=== PATIENT | male | born 1990 | race Caucasian/White ===

== ENCOUNTER 2023-03-15 16:20 | Inpatient (IN) | payer OTHER, SELFPAY ==
[2023-03-15 16:45] VITALS: BP 122/67; PULSE 82; RESP 18; TEMP 36.1; O2SAT 98
[2023-03-15 17:18] VITALS: BMI 43.1
[2023-03-15 17:38] VITALS: BP 122/67; PULSE 82; RESP 18; TEMP 36.1; O2SAT 98
--- NOTE | 2023-03-15 18:18 | P.CNHOSGPS_ITS ---
History of Present Illness Data of Consult Service Date: 03/15/23 Primary Care Provider: Unknown Physician HPI Reason for consult: DM 32-year-old male with history of?Asperger syndrome, bipolar disorder, DM, obesity admitted ot inpatient psych for aggressive behaviour. patient has no active medical complaints Review of Systems Review of Systems: Yes all other systems are reviewed and are negative [facility] Medical History (Updated 03/15/23 @ 18:19 by Prakash Deleon MD) Diabetes Social History Household Members: None Housing: Homeless Do you presently have visiting nurse or other home services: No Patient Tobacco Use Status: Current everyday Tobacco user Tobacco use type: Cigarette Cigarette Packs Per Day: 1 Cigarettes Per Day: 20.0 Years Smoked: 11 Smoked in Last 30 Days: Yes e-Cigarette/Vaping Use: Never Used Patient Interested in Nicotine Replacement: Yes Patient Given Instructions on How to Stop Smoking: Yes Date Education Initiated: 03/15/23 Second Hand Smoke Exposure: No Use of substances other than those prescribed or required for medical reasons: Yes Substance Use Type: Marijuana Substance Use Frequency: Daily Last Used Substance: Days (ago) Currently Displaying Signs/Symptoms of Drug Intoxication Withdrawal: No Any prior treatment program specific to substance use: No Have you been hit, kicked, punched, or otherwise hurt by someone within the past year? If so, by whom?: No Do you feel safe in your current relationship?: No Current Relationship Is there a partner from a previous relationship who is making you feel unsafe now?: No Are you made to feel afraid or neglected: No Advance Directives: No Advance Directives Information Provided: Yes Do you have thoughts of harming others: None Do you have a plan to hurt others: No Plan Recently lost weight without trying: No How much weight loss: Not applicable Eating poorly because of decreased appetite: No Nutrition screen score: 0 Nutrition Risks: No Nutritional Risk Poor oral hygiene: Yes Meds Allergies Allergy/AdvReac Type Severity Reaction Status Date / Time amoxicillin Allergy Hives Verified 03/15/23 17:19 Active Medications: Current Medications Acetaminophen (Acetaminophen 325 Mg Tablet) 650 mg PO Q6H PRN PRN Reason: Headache/Pain Mild Scale (1-3) Al Hydroxide/Mg Hydroxide (Magnesium Hydrox/Alum Hydrox 30 Ml Oral.Susp) 30 ml PO Q6H PRN PRN Reason: Heartburn/Nausea Benztropine Mesylate (Benztropine Mesylate 0.5 Mg Tablet) 0.5 mg PO DAILY [facility] Clonidine HCl (Clonidine Hcl 0.1 Mg Tablet) 0.1 mg PO BEDTIME [facility]; Protocol Divalproex Sodium (Divalproex Sodium Er 500 Mg Tab.Er.24h) 500 mg PO TID [facility] Hydroxyzine HCl (Hydroxyzine Hcl 25 Mg Tablet) 25 mg PO Q6H PRN PRN Reason: Anxiety Hydroxyzine HCl (Hydroxyzine Hcl 50 Mg Tablet) 50 mg PO BID PRN PRN Reason: Anxiety Magnesium Hydroxide (Milk Of Magnesia 30 Ml Oral.Susp) 30 ml PO DAILY PRN PRN Reason: Constipation Metformin HCl (Metformin Hcl 500 Mg Tablet) 500 mg PO DAILY [facility] Nicotine Polacrilex (Nicotine Polacrilex 2 Mg Gum) 4 mg BUCCAL Q2H PRN PRN Reason: Nicotine Cravings Olanzapine (Olanzapine 5 Mg Tablet) 5 mg PO TID PRN PRN Reason: agitation Perphenazine (Perphenazine 8 Mg Tablet) 16 mg PO DAILY [facility] Trazodone HCl (Trazodone Hcl 50 Mg Tablet) 50 mg PO BEDTIME MRX1 PRN PRN Reason: Insomnia Home Medications Medication Instructions Recorded Confirmed Last Taken Type benztropine 0.5 mg tablet 0.5 mg PO DAILY 03/15/23 03/15/23 Unknown History clonidine HCl 0.2 mg tablet 0.2 mg PO BEDTIME 03/15/23 03/15/23 Unknown History divalproex 500 mg tablet,extended 500 mg PO TID 03/15/23 03/15/23 Unknown History release 24 hr (Depakote ER) hydroxyzine pamoate 50 mg capsule 50 mg PO BID PRN Anxiety 03/15/23 03/15/23 Unknown History (Vistaril) metformin 500 mg tablet 500 mg PO DAILY 03/15/23 03/15/23 Unknown History naltrexone 50 mg tablet 50 mg PO DAILY 03/15/23 03/15/23 Unknown History perphenazine 16 mg tablet 16 mg PO DAILY 03/15/23 03/15/23 Unknown History trazodone 50 mg tablet 50 mg PO BEDTIME 03/15/23 03/15/23 Unknown History Assessment and Plan (1) Diabetes: Status: Acute Plan 32-year-old male with history of?Asperger syndrome, bipolar disorder, DM, obesity, admitted to inpatient psych DM metformin obesity weight loss Physical Exam Vital Signs: Last Vital Signs Temp 97.0 F 03/15/23 17:38 Pulse 82 03/15/23 17:38 Resp 18 03/15/23 17:38 BP 122/67 03/15/23 17:38 Pulse Ox 98 03/15/23 17:38 O2 Del Method Room Air 03/15/23 17:38 BMI result Body Mass Index 35.9 General: AO X 3, no acute distress Resp: CTA bilateral, no accessory muscles used CVS: S1,S2,RRR GI: soft, non tender, non distended Neuro: motor grossly intact, alert Psych: appropriate affect, appropriate insight Neuro Cranial nerves: Yes CN's II-XII intact bilaterally
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
[2023-03-15] MEDS: Divalproex Sodium ER 500 MG TAB.ER.24H PO (19:53)
[2023-03-15] MEDS: hydrOXYzine HCL 50 MG TABLET PO (19:54)
[2023-03-15] MEDS: cloNIDine HCL 0.1 MG TABLET PO (19:54)
[2023-03-15 19:55] VITALS: BP 131/95; PULSE 97; TEMP 36.6; O2SAT 97
[2023-03-16] MEDS: Perphenazine 8 MG TABLET 16 MG PO ×2 (09:04→20:27)
[2023-03-16] MEDS: Benztropine Mesylate 0.5 MG TABLET PO ×2 (09:04→21:39)
[2023-03-16] MEDS: OLANZapine 5 MG TABLET PO (09:04)
[2023-03-16] MEDS: metFORMIN HCl 500 MG TABLET PO (09:04)
[2023-03-16] MEDS: Divalproex Sodium ER 500 MG TAB.ER.24H PO (09:04)
[2023-03-16 09:30] LABS: Cholesterol 142 mg/dL (<200); HDL Cholesterol 48 mg/dL (>40); LDL Cholesterol Calculated 76 mg/dL (<100); Triglycerides 92 mg/dL (<150)
[2023-03-16 09:32] VITALS: BP 151/85; PULSE 92; RESP 20; TEMP 36.7; O2SAT 97
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
[2023-03-16 10:16] LABS: Estimated Average Glucose 100 mg/dL; Hemoglobin A1c % 5.1 % (<6.0)
[2023-03-16] MEDS: OLANZapine ODT 10 MG TAB.RAPDIS TRANSLINGU (10:55)
[2023-03-16] MEDS: LORazepam 1 MG TABLET 2 MG PO (10:55)
[2023-03-16 20:21] VITALS: BP 124/57; PULSE 79; TEMP 36.6; O2SAT 94
[2023-03-16] MEDS: Divalproex Sodium ER 500 MG TAB.ER.24H 2000 MG PO (20:26)
[2023-03-16] MEDS: Divalproex Sodium ER 250 MG TAB.ER.24H PO (20:27)
[2023-03-16] MEDS: cloNIDine HCL 0.2 MG TABLET PO (21:38)
[2023-03-16] MEDS: Melatonin 3 MG TABLET PO (21:39)
[2023-03-17 06:00] VITALS: BP 102/55; PULSE 63; RESP 18; TEMP 36.2; O2SAT 94
[2023-03-17] MEDS: OLANZapine 5 MG TABLET PO (08:50)
[2023-03-17] MEDS: Perphenazine 8 MG TABLET 16 MG PO ×2 (08:50→20:15)
[2023-03-17] MEDS: metFORMIN HCl 500 MG TABLET PO ×2 (08:51→18:02)
[2023-03-17] MEDS: Naltrexone HCl 50 MG TABLET PO (09:13)
[2023-03-17] MEDS: LORazepam 1 MG TABLET PO (09:13)
[2023-03-17 09:20] LABS: Creatinine Clr Calc Pharmacy 173.1; Estimated Glomerular Filt Rate > 60
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
[2023-03-17] MEDS: hydrOXYzine HCL 50 MG TABLET PO (14:04)
[2023-03-17 20:12] VITALS: BP 159/85; PULSE 81; RESP 18; TEMP 36.2; O2SAT 98
[2023-03-17] MEDS: cloNIDine HCL 0.2 MG TABLET PO (20:15)
[2023-03-17] MEDS: Divalproex Sodium ER 250 MG TAB.ER.24H PO (20:15)
[2023-03-17] MEDS: Divalproex Sodium ER 500 MG TAB.ER.24H 2000 MG PO (20:15)
[2023-03-17] MEDS: Benztropine Mesylate 0.5 MG TABLET PO (20:15)
[2023-03-17] MEDS: Melatonin 3 MG TABLET PO (20:15)
[2023-03-18 06:00] VITALS: BP 122/79; PULSE 100; TEMP 36.7; O2SAT 94
[2023-03-18] MEDS: Naltrexone HCl 50 MG TABLET PO (08:09)
[2023-03-18] MEDS: OLANZapine 5 MG TABLET PO (08:10)
[2023-03-18] MEDS: metFORMIN HCl 500 MG TABLET PO ×2 (08:10→17:54)
[2023-03-18] MEDS: Perphenazine 8 MG TABLET 16 MG PO ×2 (08:11→20:06)
[2023-03-18] MEDS: LORazepam 1 MG TABLET PO (08:11)
--- NOTE | 2023-03-18 18:13 | P.PNPSI_ITS ---
Subjective Subjective Date of Service: 03/18/23 Reason For Visit: Unspecified bipolar disorder, depressive disorder Interim History: found lying in bed napping late afternoon. states he is feeling a little depressed, otherwise has no complaints or requests. per staff, got PRN ativan and zyprexa yesterday. 3-day up . dep 10 anx 7. Mental Status Exam Mental Status Exam Narrative: lying in his bed napping late afternoon, rousable to voice. cooperative, no PMA/PMR. speech nml rate, amount, loudness, tone, latency. thoughts linear and logical. affect constricted, normo-intense, non-labile. mood a little depressed. no SI/HI/AVH expressed. Diagnostics Vital Signs (24Hr): Vital Signs - 24 hr 03/17/23 20:12 03/18/23 06:00 Temperature 97.1 F 98.0 F Pulse Rate 81 100 Respiratory Rate 18 Blood Pressure 159/85 H 122/79 Pulse Oximetry 98 94 Oxygen Delivery Method Room Air Room Air BMI result Body Mass Index 43.1 Labs 03/17/23 08:44 Labs: Laboratory Results - last 48 hr 03/17/23 08:44 Creatinine 0.79 Estim Creat Clear Calc 173.1 Estimated GFR > 60 Medications Medications Current Medications Acetaminophen (Acetaminophen 325 Mg Tablet) 650 mg PO Q6H PRN PRN Reason: Headache/Pain Mild Scale (1-3) Al Hydroxide/Mg Hydroxide (Magnesium Hydrox/Alum Hydrox 30 Ml Oral.Susp) 30 ml PO Q6H PRN PRN Reason: Heartburn/Nausea Benztropine Mesylate (Benztropine Mesylate 0.5 Mg Tablet) 0.5 mg PO BEDTIME [facility] Last Admin: 03/17/23 20:15 Dose: 0.5 mg Clonidine HCl (Clonidine Hcl 0.2 Mg Tablet) 0.2 mg PO BEDTIME [facility]; Protocol Last Admin: 03/17/23 20:15 Dose: 0.2 mg Divalproex Sodium (Divalproex Sodium Er 250 Mg Tab.Er.24h) 250 mg PO BEDTIME [facility] Last Admin: 03/17/23 20:15 Dose: 250 mg Divalproex Sodium (Divalproex Sodium Er 500 Mg Tab.Er.24h) 2,000 mg PO BEDTIME [facility] Last Admin: 03/17/23 20:15 Dose: 2,000 mg Hydroxyzine HCl (Hydroxyzine Hcl 50 Mg Tablet) 50 mg PO BID PRN PRN Reason: Anxiety Last Admin: 03/17/23 14:04 Dose: 50 mg Lorazepam (Lorazepam 1 Mg Tablet) 1 mg PO TID PRN PRN Reason: agitation Last Admin: 03/18/23 08:11 Dose: 1 mg Magnesium Hydroxide (Milk Of Magnesia 30 Ml Oral.Susp) 30 ml PO DAILY PRN PRN Reason: Constipation Melatonin (Melatonin 3 Mg Tablet) 3 mg PO BEDTIME COUNTS INCLUDE 234 BEDS AT THE [facility] Last Admin: 03/17/23 20:15 Dose: 3 mg Metformin HCl (Metformin Hcl 500 Mg Tablet) 500 mg PO BIDWM COUNTS INCLUDE 234 BEDS AT THE [facility] Last Admin: 03/18/23 17:54 Dose: 500 mg Naltrexone HCl (Naltrexone Hcl 50 Mg Tablet) 50 mg PO DAILY COUNTS INCLUDE 234 BEDS AT THE [facility] Last Admin: 03/18/23 08:09 Dose: 50 mg Nicotine Polacrilex (Nicotine Polacrilex 2 Mg Gum) 4 mg BUCCAL Q2H PRN PRN Reason: Nicotine Cravings Olanzapine (Olanzapine 5 Mg Tablet) 5 mg PO TID PRN PRN Reason: agitation Last Admin: 03/18/23 08:10 Dose: 5 mg Perphenazine (Perphenazine 8 Mg Tablet) 16 mg PO BID COUNTS INCLUDE 234 BEDS AT THE [facility] Last Admin: 03/18/23 08:11 Dose: 16 mg Allergies Allergies Allergy/AdvReac Type Severity Reaction Status Date / Time amoxicillin Allergy Hives Verified 03/15/23 17:19 Assessment & Plan Assessment & Plan (1) Bipolar disorder, curr episode mixed, severe, with psychotic features: Status: Acute Code(s): F31.64 - Bipolar disorder, current episode mixed, severe, with psychotic features Plan restart/continue pt's outpt regimen, by and large. ensure he has a therapeutic serum level of mood stabilizer. per verbal verification by AMIRA Moreland with dispensing pharmacy, pt's outpt perphenazine regimen is 8 mg daily and 40 mg QHS. this has been changed to 16 mg BID for the time being. pt's outpt VPA dose was verified to be 1500 mg QHS. this patient weighs 274 lbs, indicating a more likely therapeutic VPA dosing is likely to be in the 3978-1898 range. therefore, his VPA dose was increased to 2250 as of tonight. decreased antipsychotic dosing and increased mood stabilizer dosing is being undertaken with the assumption pt's inadequately treated bebeto was being addressed with escalating doses of antipsychotic. should adequate serum level of VPA remain insufficient to control pt's symptoms along with 32 mg daily of perphenazine, perphenazine should be titrated upward toward previous total daily dose of 48 mg. he does appear to have some renal impairment, which should be kept in mind in prescribing. DC trazodone as an inadequate sleep aid in florid bebeto. 03/17 continue current medication regimen. 03/18: continue current mgmt. calm and cooperative today. Reason for continued inpatient stay Substantial Risk for: inability to function and rapid decompensation Time Spent With Patient Time: Total time managing care of this patient today ____ minutes.
[2023-03-18 19:52] VITALS: BP 140/77; PULSE 102; RESP 18; TEMP 36.5; O2SAT 97
[2023-03-18] MEDS: cloNIDine HCL 0.2 MG TABLET PO (20:06)
[2023-03-18] MEDS: Melatonin 3 MG TABLET PO (20:06)
[2023-03-18] MEDS: Divalproex Sodium ER 250 MG TAB.ER.24H PO (20:06)
[2023-03-18] MEDS: Benztropine Mesylate 0.5 MG TABLET PO (20:06)
[2023-03-18] MEDS: Divalproex Sodium ER 500 MG TAB.ER.24H 2000 MG PO (20:07)
[2023-03-19 08:10] VITALS: BP 125/64; PULSE 72; RESP 20; TEMP 36.2; O2SAT 97
[2023-03-19] MEDS: Perphenazine 8 MG TABLET 16 MG PO ×2 (09:06→20:25)
[2023-03-19] MEDS: Naltrexone HCl 50 MG TABLET PO (09:06)
[2023-03-19] MEDS: metFORMIN HCl 500 MG TABLET PO ×2 (09:07→18:17)
[2023-03-19] MEDS: LORazepam 1 MG TABLET PO ×2 (09:07→20:26)
[2023-03-19] MEDS: OLANZapine 5 MG TABLET PO (09:13)
[2023-03-19 19:40] VITALS: BP 142/75; PULSE 95; RESP 16; TEMP 36.5; O2SAT 95
--- NOTE | 2023-03-19 20:04 | HO.PSYCHPN ---
Subjective Subjective Date of Service: 03/19/23 Reason For Visit: Unspecified bipolar disorder, depressive disorder Interim History: lying in bed mid-day. calm, cooperative. talking about leaving tomorrow, encouraged to enter 3-day notice, which he does. talking about issues with my girl and his plans to travel via [place]. per staff, taking meds. slept well. less labile. blaming mother for break up with GF. got ativan/zyprexa PRNs this morning. refusing POC. Mental Status Exam Mental Status Exam Narrative: lying in his bed napping late afternoon, rousable to voice. cooperative, no PMA/PMR. speech nml rate, amount, loudness, tone, latency. thoughts linear and logical. affect constricted, normo-intense, non-labile. no SI/HI/AVH expressed. Diagnostics Vital Signs (24Hr): Vital Signs - 24 hr 03/19/23 08:10 Temperature 97.1 F Pulse Rate 72 Respiratory Rate 20 Blood Pressure 125/64 Pulse Oximetry 97 Oxygen Delivery Method Room Air BMI result Body Mass Index 43.1 Labs 03/17/23 08:44 Medications Medications Current Medications Acetaminophen (Acetaminophen 325 Mg Tablet) 650 mg PO Q6H PRN PRN Reason: Headache/Pain Mild Scale (1-3) Al Hydroxide/Mg Hydroxide (Magnesium Hydrox/Alum Hydrox 30 Ml Oral.Susp) 30 ml PO Q6H PRN PRN Reason: Heartburn/Nausea Benztropine Mesylate (Benztropine Mesylate 0.5 Mg Tablet) 0.5 mg PO BEDTIME [facility] Last Admin: 03/18/23 20:06 Dose: 0.5 mg Clonidine HCl (Clonidine Hcl 0.2 Mg Tablet) 0.2 mg PO BEDTIME [facility]; Protocol Last Admin: 03/18/23 20:06 Dose: 0.2 mg Divalproex Sodium (Divalproex Sodium Er 250 Mg Tab.Er.24h) 250 mg PO BEDTIME [facility] Last Admin: 03/18/23 20:06 Dose: 250 mg Divalproex Sodium (Divalproex Sodium Er 500 Mg Tab.Er.24h) 2,000 mg PO BEDTIME [facility] Last Admin: 03/18/23 20:07 Dose: 2,000 mg Hydroxyzine HCl (Hydroxyzine Hcl 50 Mg Tablet) 50 mg PO BID PRN PRN Reason: Anxiety Last Admin: 03/17/23 14:04 Dose: 50 mg Lorazepam (Lorazepam 1 Mg Tablet) 1 mg PO TID PRN PRN Reason: agitation Last Admin: 03/19/23 09:07 Dose: 1 mg Magnesium Hydroxide (Milk Of Magnesia 30 Ml Oral.Susp) 30 ml PO DAILY PRN PRN Reason: Constipation Melatonin (Melatonin 3 Mg Tablet) 3 mg PO BEDTIME [facility] Last Admin: 03/18/23 20:06 Dose: 3 mg Metformin HCl (Metformin Hcl 500 Mg Tablet) 500 mg PO BIDWM [facility] Last Admin: 03/19/23 18:17 Dose: 500 mg Naltrexone HCl (Naltrexone Hcl 50 Mg Tablet) 50 mg PO DAILY [facility] Last Admin: 03/19/23 09:06 Dose: 50 mg Nicotine Polacrilex (Nicotine Polacrilex 2 Mg Gum) 4 mg BUCCAL Q2H PRN PRN Reason: Nicotine Cravings Olanzapine (Olanzapine 5 Mg Tablet) 5 mg PO TID PRN PRN Reason: agitation Last Admin: 03/19/23 09:13 Dose: 5 mg Perphenazine (Perphenazine 8 Mg Tablet) 16 mg PO BID [facility] Last Admin: 03/19/23 09:06 Dose: 16 mg Allergies Allergies Allergy/AdvReac Type Severity Reaction Status Date / Time amoxicillin Allergy Hives Verified 03/15/23 17:19 Assessment & Plan Assessment & Plan (1) Bipolar disorder, curr episode mixed, severe, with psychotic features: Status: Acute Code(s): F31.64 - Bipolar disorder, current episode mixed, severe, with psychotic features Plan restart/continue pt's outpt regimen, by and large. ensure he has a therapeutic serum level of mood stabilizer. per verbal verification by AMIRA Moreland with dispensing pharmacy, pt's outpt perphenazine regimen is 8 mg daily and 40 mg QHS. this has been changed to 16 mg BID for the time being. pt's outpt VPA dose was verified to be 1500 mg QHS. this patient weighs 274 lbs, indicating a more likely therapeutic VPA dosing is likely to be in the 4888-1636 range. therefore, his VPA dose was increased to 2250 as of tonight. decreased antipsychotic dosing and increased mood stabilizer dosing is being undertaken with the assumption pt's inadequately treated bebeto was being addressed with escalating doses of antipsychotic. should adequate serum level of VPA remain insufficient to control pt's symptoms along with 32 mg daily of perphenazine, perphenazine should be titrated upward toward previous total daily dose of 48 mg. he does appear to have some renal impairment, which should be kept in mind in prescribing. DC trazodone as an inadequate sleep aid in [place] bebeto. 03/17 continue current medication regimen. 03/18: continue current mgmt. calm and cooperative today. 03/19: continue current mgmt. remains calm and cooperative. asking for discharge, submitted 3-day notice. Reason for continued inpatient stay Substantial Risk for: harm to self, harm to others, inability to function and rapid decompensation Time Spent With Patient Time: Total time managing care of this patient today ____ minutes.
[2023-03-19] MEDS: Melatonin 3 MG TABLET PO (20:25)
[2023-03-19] MEDS: Divalproex Sodium ER 250 MG TAB.ER.24H PO (20:26)
[2023-03-19] MEDS: cloNIDine HCL 0.2 MG TABLET PO (20:26)
[2023-03-19] MEDS: Divalproex Sodium ER 500 MG TAB.ER.24H 2000 MG PO (20:27)
[2023-03-19] MEDS: Benztropine Mesylate 0.5 MG TABLET PO (20:28)
[2023-03-19] MEDS: Acetaminophen 325 MG TABLET 650 MG PO (21:53)
[2023-03-20] MEDS: Naltrexone HCl 50 MG TABLET PO (08:35)
[2023-03-20] MEDS: metFORMIN HCl 500 MG TABLET PO ×2 (08:35→16:08)
[2023-03-20] MEDS: Perphenazine 8 MG TABLET 16 MG PO ×2 (08:35→20:23)
[2023-03-20 09:12] VITALS: BP 109/65; PULSE 98; RESP 18; TEMP 36.6; O2SAT 97
--- NOTE | 2023-03-20 13:27 | HO.PSYCHPN ---
Subjective Subjective Date of Service: 03/20/23 Reason For Visit: Unspecified bipolar disorder, depressive disorder Interim History: calm, cooperative with MD. asking to be able to make 5 calls per day, which is agreed to after MD reviews plan with RN. no longer only making calls at the top of the hour. asking to leave today or tomorrow, reinforced will have to wait until . overheard on phone with mother, yelling at her. per staff, 3-day up . outbursts on monday, but redirectable. dep 10 anx 7. taking meds. calling mother hourly monday. got PRNs for agitation monday and monday. Mental Status Exam Mental Status Exam Narrative: up and about the unit, disheveled, poor hygiene. cooperative, no PMA/PMR. speech nml rate, amount, loudness, tone, latency. thoughts linear and logical. affect constricted, normo-intense, non-labile. no SI/HI/AVH expressed. overheard yelling at his mother on the phone, however. Diagnostics Vital Signs (24Hr): Vital Signs - 24 hr 03/19/23 19:40 03/20/23 09:12 Temperature 97.7 F 97.9 F Pulse Rate 95 98 Respiratory Rate 16 18 Blood Pressure 142/75 H 109/65 Pulse Oximetry 95 97 Oxygen Delivery Method Room Air Room Air BMI result Body Mass Index 43.1 Labs 03/17/23 08:44 Medications Medications Current Medications Acetaminophen (Acetaminophen 325 Mg Tablet) 650 mg PO Q6H PRN PRN Reason: Headache/Pain Mild Scale (1-3) Last Admin: 03/19/23 21:53 Dose: 650 mg Al Hydroxide/Mg Hydroxide (Magnesium Hydrox/Alum Hydrox 30 Ml Oral.Susp) 30 ml PO Q6H PRN PRN Reason: Heartburn/Nausea Benztropine Mesylate (Benztropine Mesylate 0.5 Mg Tablet) 0.5 mg PO BEDTIME [facility] Last Admin: 03/19/23 20:28 Dose: 0.5 mg Clonidine HCl (Clonidine Hcl 0.2 Mg Tablet) 0.2 mg PO BEDTIME [facility]; Protocol Last Admin: 03/19/23 20:26 Dose: 0.2 mg Divalproex Sodium (Divalproex Sodium Er 250 Mg Tab.Er.24h) 250 mg PO BEDTIME [facility] Last Admin: 03/19/23 20:26 Dose: 250 mg Divalproex Sodium (Divalproex Sodium Er 500 Mg Tab.Er.24h) 2,000 mg PO BEDTIME [facility] Last Admin: 03/19/23 20:27 Dose: 2,000 mg Hydroxyzine HCl (Hydroxyzine Hcl 50 Mg Tablet) 50 mg PO BID PRN PRN Reason: Anxiety Last Admin: 03/17/23 14:04 Dose: 50 mg Lorazepam (Lorazepam 1 Mg Tablet) 1 mg PO TID PRN PRN Reason: agitation Last Admin: 03/19/23 20:26 Dose: 1 mg Magnesium Hydroxide (Milk Of Magnesia 30 Ml Oral.Susp) 30 ml PO DAILY PRN PRN Reason: Constipation Melatonin (Melatonin 3 Mg Tablet) 3 mg PO BEDTIME [facility] Last Admin: 03/19/23 20:25 Dose: 3 mg Metformin HCl (Metformin Hcl 500 Mg Tablet) 500 mg PO BIDWM [facility] Last Admin: 03/20/23 08:35 Dose: 500 mg Naltrexone HCl (Naltrexone Hcl 50 Mg Tablet) 50 mg PO DAILY [facility] Last Admin: 03/20/23 08:35 Dose: 50 mg Nicotine Polacrilex (Nicotine Polacrilex 2 Mg Gum) 4 mg BUCCAL Q2H PRN PRN Reason: Nicotine Cravings Olanzapine (Olanzapine 5 Mg Tablet) 5 mg PO TID PRN PRN Reason: agitation Last Admin: 03/19/23 09:13 Dose: 5 mg Perphenazine (Perphenazine 8 Mg Tablet) 16 mg PO BID [facility] Last Admin: 03/20/23 08:35 Dose: 16 mg Allergies Allergies Allergy/AdvReac Type Severity Reaction Status Date / Time amoxicillin Allergy Hives Verified 03/15/23 17:19 Assessment & Plan Assessment & Plan (1) Bipolar disorder, curr episode mixed, severe, with psychotic features: Status: Acute Code(s): F31.64 - Bipolar disorder, current episode mixed, severe, with psychotic features Plan restart/continue pt's outpt regimen, by and large. ensure he has a therapeutic serum level of mood stabilizer. per verbal verification by AMIRA Moreland with dispensing pharmacy, pt's outpt perphenazine regimen is 8 mg daily and 40 mg QHS. this has been changed to 16 mg BID for the time being. pt's outpt VPA dose was verified to be 1500 mg QHS. this patient weighs 274 lbs, indicating a more likely therapeutic VPA dosing is likely to be in the 2538-1810 range. therefore, his VPA dose was increased to 2250 as of tonight. decreased antipsychotic dosing and increased mood stabilizer dosing is being undertaken with the assumption pt's inadequately treated bebeto was being addressed with escalating doses of antipsychotic. should adequate serum level of VPA remain insufficient to control pt's symptoms along with 32 mg daily of perphenazine, perphenazine should be titrated upward toward previous total daily dose of 48 mg. he does appear to have some renal impairment, which should be kept in mind in prescribing. DC trazodone as an inadequate sleep aid in [place] bebeto. 03/17 continue current medication regimen. 03/18: continue current mgmt. calm and cooperative today. 03/19: continue current mgmt. remains calm and cooperative. asking for discharge, submitted 3-day notice. 03/20: continue current mgmt. variably calm and cooperative with yelling at mother on phone. asking for discharge [facility], told will have to wait for . labs ordered for monday mary. Reason for continued inpatient stay Substantial Risk for: inability to function and rapid decompensation Time Spent With Patient Time: Total time managing care of this patient today __25__ minutes.
[2023-03-20 19:50] VITALS: BP 131/78; PULSE 93; RESP 18; TEMP 36.5; O2SAT 97
[2023-03-20] MEDS: Benztropine Mesylate 0.5 MG TABLET PO (20:22)
[2023-03-20] MEDS: Divalproex Sodium ER 500 MG TAB.ER.24H 2000 MG PO (20:23)
[2023-03-20] MEDS: Melatonin 3 MG TABLET PO (20:23)
[2023-03-20] MEDS: cloNIDine HCL 0.2 MG TABLET PO (20:23)
[2023-03-20] MEDS: Divalproex Sodium ER 250 MG TAB.ER.24H PO (20:23)
[2023-03-20] MEDS: Acetaminophen 325 MG TABLET 650 MG PO (21:30)
[2023-03-21] MEDS: Perphenazine 8 MG TABLET 16 MG PO ×2 (08:10→20:19)
[2023-03-21] MEDS: Naltrexone HCl 50 MG TABLET PO (08:10)
[2023-03-21 08:31] VITALS: BP 129/59; PULSE 96; RESP 20; TEMP 36.4; O2SAT 97
--- NOTE | 2023-03-21 13:13 | P.DS_ITS ---
DS: Providers Provider Date of Service: 03/21/23 Date of admission: 03/15/23 16:20 Primary care physician: Unknown Physician Consults: 03/15/23 17:33 Consult to Hospitalist Routine Comment: Consulting Provider: Hospitalist Reason For Exam: admission physical DS: Diagnosis Discharge Diagnosis (1) Bipolar disorder, curr episode mixed, severe, with psychotic features: Status: Acute DS: Medications Discharge Medications Home Medications: Home Medications Medication Instructions Recorded Confirmed benztropine 0.5 mg tablet 0.5 mg PO DAILY 03/15/23 03/15/23 clonidine HCl 0.2 mg tablet 0.2 mg PO BEDTIME 03/15/23 03/15/23 hydroxyzine pamoate 50 mg capsule 50 mg PO BID PRN Anxiety 03/15/23 03/15/23 (Vistaril) naltrexone 50 mg tablet 50 mg PO DAILY 03/15/23 03/15/23 Previous Rx's Medication Instructions Recorded divalproex 250 mg tablet,extended 250 mg PO BEDTIME 30 days #30 tabs 03/21/23 release 24 hr divalproex 500 mg tablet,extended 2,000 mg (4 x 500 mg) PO BEDTIME 03/21/23 release 24 hr 30 days #120 tabs melatonin 3 mg tablet 3 mg PO BEDTIME 30 days #30 tabs 03/21/23 metformin 500 mg tablet 500 mg PO BIDWM 30 days #60 tabs 03/21/23 perphenazine 8 mg tablet 16 mg (2 x 8 mg) PO BID 30 days 03/21/23 #120 tabs Mental Status Exam Mental Status Exam Narrative: up and about the unit, disheveled, poor hygiene. cooperative, no PMA/PMR. speech nml rate, amount, loudness, tone, latency. thoughts linear and logical. affect constricted, normo-intense, non-labile. mood pretty good. no SI/HI/AVH. Data Data Completed and Pending Completed studies during hospitalization [Text1]: 03/16/23 03/17/23 08:38 08:44 Creatinine 0.79 Estim Creat Clear Calc 173.1 Estimated GFR > 60 Estimat Average Glucose 100 Hemoglobin A1c % 5.1 Triglycerides 92 Cholesterol 142 LDL Cholesterol, Calc 76 HDL Cholesterol 48 DS: Summary Time Spent with Patient Time attestation: Total time managing care of this patient today ____ minutes. Discharge Plan Discharge Anticipated Discharge Date/Time: 03/22/23 10:00 Patient Disposition: Custodial Discharge Diagnosis: Bipolar I Disorder, MRE Mixed Diabetes Mellitus Referrals: Physician,Unknown J [Primary Care Provider] - 1 Week Discharge Medications: New metformin 500 mg Tablet 500 mg PO BIDWM 30 Days Qty: 60 0RF melatonin 3 mg Tablet 3 mg PO BEDTIME 30 Days Qty: 30 0RF divalproex 500 mg Tablet Extended Release 24 Hr 2,000 mg PO BEDTIME 30 Days Qty: 120 0RF perphenazine 8 mg Tablet 16 mg PO BID 30 Days Qty: 120 0RF divalproex 250 mg Tablet Extended Release 24 Hr 250 mg PO BEDTIME 30 Days Qty: 30 0RF Continued hydroxyzine pamoate [Vistaril] 50 mg capsule 50 mg PO BID PRN (Reason: Anxiety) benztropine 0.5 mg tablet 0.5 mg PO DAILY naltrexone 50 mg tablet 50 mg PO DAILY clonidine HCl 0.2 mg tablet 0.2 mg PO BEDTIME Discontinued trazodone 50 mg tablet 50 mg PO BEDTIME divalproex [Depakote ER] 500 mg tablet extended release 24 hr 500 mg PO TID metformin 500 mg tablet 500 mg PO DAILY perphenazine 16 mg tablet 16 mg PO DAILY Discharge Orders: Discharge Order (Routine); Ordered 03/22/23 Ordered By: Milton De La Paz Diet: Diabetic diet Activity on Discharge: As tolerated Stand Alone Forms: Patient Portal Discharge page Care Plan Goals: remain safe and stable in the outpatient treatment setting Health Concerns: Diabetes Mellitus Morbid Obesity Plan of Treatment: take medications as prescribed, attend appointments as scheduled Assessment: not at imminent risk of harm to self or others
--- NOTE | 2023-03-21 15:17 | P.PNPSI_ITS ---
Subjective Subjective Date of Service: 03/21/23 Reason For Visit: Unspecified bipolar disorder, depressive disorder Interim History: calm, cooperative. 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 later he reports to he does not wish to but would rather stay until , when he anticipates income. no safety concerns, appears ok at the moment. was encouraged to remain in the hospital several days longer. per staff, no notable events overnight. Mental Status Exam Mental Status Exam Narrative: up and about the unit, disheveled, poor hygiene. cooperative, no PMA/PMR. speech nml rate, amount, loudness, tone, latency. thoughts linear and logical. affect constricted, normo-intense, non-labile. mood pretty good. no SI/HI/AVH. Diagnostics Vital Signs (24Hr): Vital Signs - 24 hr 03/20/23 19:50 03/21/23 08:31 Temperature 97.7 F 97.5 F Pulse Rate 93 96 Respiratory Rate 18 20 Blood Pressure 131/78 129/59 L Pulse Oximetry 97 97 Oxygen Delivery Method Room Air Room Air BMI result Body Mass Index 43.1 Labs 03/17/23 08:44 Medications Medications Current Medications Acetaminophen (Acetaminophen 325 Mg Tablet) 650 mg PO Q6H PRN PRN Reason: Headache/Pain Mild Scale (1-3) Last Admin: 03/20/23 21:30 Dose: 650 mg Al Hydroxide/Mg Hydroxide (Magnesium Hydrox/Alum Hydrox 30 Ml Oral.Susp) 30 ml PO Q6H PRN PRN Reason: Heartburn/Nausea Benztropine Mesylate (Benztropine Mesylate 0.5 Mg Tablet) 0.5 mg PO BEDTIME [facility] Last Admin: 03/20/23 20:22 Dose: 0.5 mg Clonidine HCl (Clonidine Hcl 0.2 Mg Tablet) 0.2 mg PO BEDTIME [facility]; Protocol Last Admin: 03/20/23 20:23 Dose: 0.2 mg Divalproex Sodium (Divalproex Sodium Er 250 Mg Tab.Er.24h) 250 mg PO BEDTIME [facility] Last Admin: 03/20/23 20:23 Dose: 250 mg Divalproex Sodium (Divalproex Sodium Er 500 Mg Tab.Er.24h) 2,000 mg PO BEDTIME [facility] Last Admin: 03/20/23 20:23 Dose: 2,000 mg Hydroxyzine HCl (Hydroxyzine Hcl 50 Mg Tablet) 50 mg PO BID PRN PRN Reason: Anxiety Last Admin: 03/17/23 14:04 Dose: 50 mg Lorazepam (Lorazepam 1 Mg Tablet) 1 mg PO TID PRN PRN Reason: agitation Last Admin: 03/19/23 20:26 Dose: 1 mg Magnesium Hydroxide (Milk Of Magnesia 30 Ml Oral.Susp) 30 ml PO DAILY PRN PRN Reason: Constipation Melatonin (Melatonin 3 Mg Tablet) 3 mg PO BEDTIME [facility] Last Admin: 03/20/23 20:23 Dose: 3 mg Metformin HCl (Metformin Hcl 500 Mg Tablet) 500 mg PO BIDWM [facility] Last Admin: 03/21/23 08:10 Dose: Not Given Naltrexone HCl (Naltrexone Hcl 50 Mg Tablet) 50 mg PO DAILY [facility] Last Admin: 03/21/23 08:10 Dose: 50 mg Nicotine Polacrilex (Nicotine Polacrilex 2 Mg Gum) 4 mg BUCCAL Q2H PRN PRN Reason: Nicotine Cravings Olanzapine (Olanzapine 5 Mg Tablet) 5 mg PO TID PRN PRN Reason: agitation Last Admin: 03/19/23 09:13 Dose: 5 mg Perphenazine (Perphenazine 8 Mg Tablet) 16 mg PO BID [facility] Last Admin: 03/21/23 08:10 Dose: 16 mg Allergies Allergies Allergy/AdvReac Type Severity Reaction Status Date / Time amoxicillin Allergy Hives Verified 03/15/23 17:19 Assessment & Plan Assessment & Plan (1) Bipolar disorder, curr episode mixed, severe, with psychotic features: Status: Acute Code(s): F31.64 - Bipolar disorder, current episode mixed, severe, with psychotic features Plan restart/continue pt's outpt regimen, by and large. ensure he has a therapeutic serum level of mood stabilizer. per verbal verification by AMIRA Moreland with dispensing pharmacy, pt's outpt perphenazine regimen is 8 mg daily and 40 mg QHS. this has been changed to 16 mg BID for the time being. pt's outpt VPA dose was verified to be 1500 mg QHS. this patient weighs 274 lbs, indicating a more likely therapeutic VPA dosing is likely to be in the 3594-5209 range. therefore, his VPA dose was increased to 2250 as of tonight. decreased antipsychotic dosing and increased mood stabilizer dosing is being undertaken with the assumption pt's inadequately treated bebeto was being addressed with escalating doses of antipsychotic. should adequate serum level of VPA remain insufficient to control pt's symptoms along with 32 mg daily of perphenazine, perphenazine should be titrated upward toward previous total daily dose of 48 mg. he does appear to have some renal impairment, which should be kept in mind in prescribing. DC trazodone as an inadequate sleep aid in [place] bebeto. 03/17 continue current medication regimen. 03/18: continue current mgmt. calm and cooperative today. 03/19: continue current mgmt. remains calm and cooperative. asking for discharge, submitted 3-day notice. 03/20: continue current mgmt. variably calm and cooperative with yelling at mother on phone. asking for discharge [facility], told will have to wait for . labs ordered for monday mary. 03/21: first asks to discharge tomorrow, then says he would like to stay until when he will get paid. will need to rescind his 3-day notice, which is up tomorrow. labs tonight. continue current mgmt for now. Reason for continued inpatient stay Substantial Risk for: inability to function and rapid decompensation Time Spent With Patient Time: Total time managing care of this patient today __35__ minutes.
[2023-03-21] MEDS: Divalproex Sodium ER 250 MG TAB.ER.24H PO (20:19)
[2023-03-21 20:20] LABS: MANUAL DIFF FLAG NO
[2023-03-21] MEDS: cloNIDine HCL 0.2 MG TABLET PO (20:20)
[2023-03-21] MEDS: Divalproex Sodium ER 500 MG TAB.ER.24H 2000 MG PO (20:20)
[2023-03-21] MEDS: Benztropine Mesylate 0.5 MG TABLET PO (20:20)
[2023-03-21] MEDS: Melatonin 3 MG TABLET PO (20:20)
[2023-03-21 20:21] LABS: Basophils Percent Auto 0.4 % (0-2); Eosinophils Absolute Auto 0.2 X10*3/uL (0.0-0.4); Eosinophils Percent Auto 3.2 % (0-4); Hematocrit 46.5 % (42.0-52.0); Hemoglobin 15.4 g/dl (14.0-18.0); Imm Gran Abs Auto 0.04 X10*3/uL (0.00-0.03); Imm Gran Pct Auto 0.5 % (0.0-0.4); Lymphocytes Absolute Auto 2.1 X10*3/uL (1.2-4.9); Lymphocytes Percent Auto 28.1 % (20-40); Mean Corpuscular HGB Conc 33.1 g/dl (31.0-36.0); Mean Corpuscular Volume 87.6 fL (80.0-98.0); Mean Platelet Volume 10.2 fL (9.4-12.4); Monocytes Absolute Auto 0.5 X10*3/uL (0.1-1.2); Monocytes Percent Auto 7.1 % (2-11); Neutrophils Absolute Auto 4.6 x10*3/uL (2.0-8.3); Neutrophils Percent Auto 60.7 % (45-73); Platelet Count 297 X10*3/uL (160-400); Red Blood Count 5.31 X10*6/uL (4.60-5.80); Red Cell Distribution Width 13.1 % (11.0-16.0); White Blood Count 7.6 X10*3/uL (4.8-10.8)
[2023-03-21 20:28] LABS: Ammonia 44 umol/L (13-55)
[2023-03-21 20:34] LABS: Valproate 68.3 mcg/mL (50.0-100.0)
[2023-03-21 20:36] LABS: Alanine Aminotransferase 17 U/L (0-40); Albumin Level 4.1 g/dL (3.5-5.0); Alkaline Phosphatase 56 U/L (39-117); Anion Gap 14 (12-20); Aspartate Amino Transferase 16 U/L (5-37); Bilirubin Direct < 0.2 mg/dL (0.0-0.5); Bilirubin Total 0.2 mg/dL (0.0-1.0); Blood Urea Nitrogen 22 mg/dL (9-16); Calcium 9.3 mg/dL (8.4-10.2); Carbon Dioxide 28 mmol/L (22-29); Chloride 104 mmol/L (96-108); Creatinine Clr Calc Pharmacy 166.8; Estimated Glomerular Filt Rate > 60; Glucose Random 116 mg/dL (60-115); Potassium 4.5 mmol/L (3.3-5.1); Sodium 141 mmol/L (135-145); Total Protein 7.2 g/dL (6.5-8.0)
[2023-03-21 20:45] VITALS: BP 135/83; PULSE 91; RESP 18; TEMP 36.8; O2SAT 97
[2023-03-22 09:00] VITALS: BP 115/75; PULSE 86; RESP 14; TEMP 36.2; O2SAT 97
[2023-03-22] MEDS: Perphenazine 8 MG TABLET 16 MG PO (09:07)
[2023-03-22] MEDS: metFORMIN HCl 500 MG TABLET PO (09:07)
[2023-03-22] MEDS: Naltrexone HCl 50 MG TABLET PO (09:07)
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
== END 2023-03-22 10:28 | disposition home or self-care (01) | DRG 885 ==
PROVIDERS: Psychiatry & Neurology Psychiatry; Admitting Provider Psychiatry & Neurology Psychiatry; Visit Provider Psychiatry & Neurology Psychiatry
DX: F31.64 Bipolar disorder, current episode mixed, severe, with psychotic features (principal); Z68.41 Body mass index [BMI] 40.0-44.9, adult; E11.9 Type 2 diabetes mellitus without complications; F84.5 Asperger's syndrome; I10 Essential (primary) hypertension; E66.9 Obesity, unspecified; Z62.810 Personal history of physical and sexual abuse in childhood; F17.210 Nicotine dependence, cigarettes, uncomplicated; Z71.6 Tobacco abuse counseling; Z79.84 Long term (current) use of oral hypoglycemic drugs; Z79.899 Other long term (current) drug therapy
CPT/HCPCS: 36415; 80048; 80061; 80076; 80164; 82140; 82565; 83036; 85025

== ENCOUNTER → 2023-03-15 16:20 | Outpatient (BNV) | payer OTHER, SELFPAY | PROVIDERS: Admitting Provider Psychiatry & Neurology Psychiatry; Visit Provider Psychiatry & Neurology Psychiatry | DX: F31.64 Bipolar disorder, current episode mixed, severe, with psychotic features (principal) | CPT/HCPCS: 90792; 99231; 99232; 99239 ==

== ENCOUNTER → 2023-03-15 16:20 | Outpatient (BNV) | payer OTHER, SELFPAY | PROVIDERS: Admitting Provider Psychiatry & Neurology Psychiatry; Visit Provider Internal Medicine | DX: E11.9 Type 2 diabetes mellitus without complications (principal) | CPT/HCPCS: 99221 ==

== ENCOUNTER 2023-03-27 17:32 | Inpatient (IN) | payer OTHER, SELFPAY ==
[2023-03-27 17:41] VITALS: BMI 45.0
[2023-03-27 18:00] VITALS: BP 160/87; PULSE 95; RESP 17; TEMP 37.3; O2SAT 95
--- NOTE | 2023-03-27 18:18 | PC.ADMIT ---
Ramírez was admitted to the unit at 17:45 from [facility] on a CV for treatment of Schizoaffective d/o Bipolar Type. Patient was initially admitted to [facility] for SI with a plan to jump off of a bridge d/t multiple psychosocial stressors including relationships, finances and living situation. Patient is A&O to person, place, time and situation and was cooperative during the admission process. Ramírez denied SI/HI, I don't want to hurt myself, I'm just hurt , and endorses depression/anxiety. Affect anxious and patient appears emotional/tearful at times when expressing feelings towards wanting to win back his previous partner. Ramírez is currently homeless, reports poor sleep and hopes to stay here as long as he can. Impulsive at times and thought process disorganized. Denies ETOH/ substance use but reports smoking around 3 cigarets a day. Patient was restrained at previous hospital for aggressive behavior but states that won't happen during this stay because I'm comfortable here . Sharps completed by this nurse along with another male staff, patient denies any physical complaints at this time.
[2023-03-27 19:40] VITALS: BP 177/74; PULSE 115; RESP 18; TEMP 36.9; O2SAT 95
[2023-03-27] MEDS: Melatonin 3 MG TABLET PO (21:14)
[2023-03-27] MEDS: Perphenazine 8 MG TABLET 16 MG PO (21:15)
[2023-03-27] MEDS: Divalproex Sodium ER 250 MG TAB.ER.24H PO (21:15)
[2023-03-27] MEDS: Divalproex Sodium ER 500 MG TAB.ER.24H 2000 MG PO (21:15)
[2023-03-27] MEDS: cloNIDine HCL 0.2 MG TABLET PO (21:15)
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
[2023-03-27] MEDS: metroNIDAZOLE 500 MG TABLET PO (21:41)
[2023-03-27] MEDS: levoFLOXacin 750 MG TABLET PO (21:42)
[2023-03-27] MEDS: Acetaminophen 325 MG TABLET 650 MG PO (21:42)
[2023-03-27 22:45] LABS: Appearance Urine Clear; Color Urine Yellow; Glucose Urine UA Negative (Negative); Leukocyte Esterase Urine Negative (Negative); Nitrite Urine Negative (Negative); PH 5.5 (5.0-9.0); UMIC TRIGGER UACC YES; Urine Blood Large (3+) (Negative); Urine Ketones Negative (Negative); Urine Protein 100 (2+) mg/dL (Neg-Trace)
[2023-03-27 23:04] LABS: Bacteria Urine None Seen (None Seen); Hyaline Casts Urine 0-2 /LPF (0-2); RBC Urine >20 /HPF (0-2); Squamous Epithelial Cell Urine 0-2 /HPF (0-2); WBC Urine 0-5 /HPF (0-5)
[2023-03-28] MEDS: hydrOXYzine HCL 50 MG TABLET PO ×2 (01:23→12:19)
[2023-03-28] MEDS: traZODone HCL 50 MG TABLET PO (01:23)
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
[2023-03-28] MEDS: hydrOXYzine HCL 25 MG TABLET PO (05:18)
[2023-03-28] MEDS: metroNIDAZOLE 500 MG TABLET PO ×3 (05:18→21:19)
[2023-03-28 06:07] LABS: CT PCR NOT DETECTED (Not Detect.); NG PCR NOT DETECTED (Not Detect.)
[2023-03-28 07:45] VITALS: BP 107/63; PULSE 81; TEMP 36.7; O2SAT 96
[2023-03-28 08:35] LABS: Estimated Average Glucose 103 mg/dL; Hemoglobin A1c % 5.2 % (<6.0)
[2023-03-28 08:42] LABS: Creatinine Clr Calc Pharmacy 194.8; Estimated Glomerular Filt Rate > 60
[2023-03-28 08:44] LABS: Alanine Aminotransferase 20 U/L (0-40); Albumin Level 3.4 g/dL (3.5-5.0); Alkaline Phosphatase 45 U/L (39-117); Anion Gap 8 (12-20); Aspartate Amino Transferase 15 U/L (5-37); Bilirubin Total 0.2 mg/dL (0.0-1.0); Blood Urea Nitrogen 21 mg/dL (9-16); Calcium 8.4 mg/dL (8.4-10.2); Carbon Dioxide 27 mmol/L (22-29); Chloride 108 mmol/L (96-108); Cholesterol 113 mg/dL (<200); Creatinine Clr Calc Pharmacy 194.8; Estimated Glomerular Filt Rate > 60; Glucose Fasting 107 mg/dL (60-99); HDL Cholesterol 44 mg/dL (>40); LDL Cholesterol Calculated 59 mg/dL (<100); Potassium 4.2 mmol/L (3.3-5.1); Sodium 139 mmol/L (135-145); Triglycerides 54 mg/dL (<150)
[2023-03-28] MEDS: metFORMIN HCl 500 MG TABLET PO ×2 (09:27→16:55)
[2023-03-28] MEDS: Benztropine Mesylate 0.5 MG TABLET PO (09:27)
[2023-03-28] MEDS: Naltrexone HCl 50 MG TABLET PO (09:27)
[2023-03-28] MEDS: Perphenazine 8 MG TABLET 16 MG PO ×2 (09:27→20:24)
--- NOTE | 2023-03-28 11:13 | PC.NURSE ---
Ramírez reported that he had not had the flu vaccine, when offered the vaccine stated I don't want it, I don't need it, I never had.
[2023-03-28] MEDS: Acetaminophen 325 MG TABLET 650 MG PO (12:20)
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
[2023-03-28] MEDS: LORazepam 1 MG TABLET 2 MG PO (16:55)
[2023-03-28] MEDS: Nicotine Polacrilex 2 MG GUM BUCCAL (16:55)
[2023-03-28] MEDS: OLANZapine 10 MG TABLET PO (16:55)
[2023-03-28 20:10] VITALS: BP 137/80; PULSE 94; RESP 18; TEMP 36.7; O2SAT 97
[2023-03-28] MEDS: Divalproex Sodium ER 500 MG TAB.ER.24H 2000 MG PO (20:23)
[2023-03-28] MEDS: Divalproex Sodium ER 250 MG TAB.ER.24H PO (20:23)
[2023-03-28] MEDS: Throat Lozenge, Medicated LOZENGE 1 LOZENGE MUCOUS MEM (20:24)
[2023-03-28] MEDS: cloNIDine HCL 0.2 MG TABLET PO (20:24)
[2023-03-28] MEDS: Melatonin 3 MG TABLET PO (20:24)
[2023-03-28] MEDS: levoFLOXacin 750 MG TABLET PO (21:19)
[2023-03-29] MEDS: metroNIDAZOLE 500 MG TABLET PO ×3 (06:01→20:45)
[2023-03-29 07:49] VITALS: BP 112/55; PULSE 83; RESP 16; TEMP 36.9; O2SAT 95
[2023-03-29 09:04] VITALS: BP 112/55; PULSE 83; TEMP 36.9; O2SAT 95
[2023-03-29] MEDS: metFORMIN HCl 500 MG TABLET PO ×2 (09:06→18:14)
[2023-03-29] MEDS: Naltrexone HCl 50 MG TABLET PO (09:06)
[2023-03-29] MEDS: Perphenazine 8 MG TABLET 16 MG PO ×2 (09:06→20:45)
[2023-03-29] MEDS: Benztropine Mesylate 0.5 MG TABLET PO (09:06)
[2023-03-29] MEDS: Nicotine 7 MG PATCH.TD24 TRANSDERMA (09:09)
--- NOTE | 2023-03-29 09:33 | HO.PSYCHPN ---
Subjective Subjective Date of Service: 03/29/23 Reason For Visit: Schizoaffective disorder, bipolar type Interim History: met with patient; discussed with team; reviewed notes Patient lying in bed, awake and alert. Cooperative and calm on approach. Says he is doing better. Reports he had a lot of anger issues before he came here but they are better and says that the nicotine is helping with it. He says relationship struggles as reason for this admission. He reports good sleep; denies SI/HI/AVH. Patient said after admission, his plan is to move down to [place] where he was born. Denies any complaints or requests. Mental Status Exam Mental Status Exam Narrative: Pt is alert and oriented; behavior is cooperative, friendly and calm; patient is not in distress; dressed in casual attire, disheveled, marginal hygiene; mood is described as good and affect congruent; eye contact appropriate; Speech is normal rate, volume and prosody and not pressured; no psychomotor agitation/retardation present; thought process is goal directed; Thought content is on vague things, moving out of state; otherwise pertinent to relevant topics; no clear expression of paranoid or delusional thinking; denies any SI/HI. Denies AVH Patients insight and judgment impaired but improving since admission Diagnostics Vital Signs (24Hr): Vital Signs - 24 hr 03/28/23 20:10 03/29/23 07:49 03/29/23 09:04 Temperature 98.0 F 98.4 F 98.4 F Pulse Rate 94 83 83 Respiratory Rate 18 16 Blood Pressure 137/80 112/55 L 112/55 L Pulse Oximetry 97 95 95 Oxygen Delivery Method Room Air Room Air Room Air BMI result Body Mass Index 45.0 Labs 03/28/23 08:13 Labs: Laboratory Results - last 48 hr 03/27/23 03/28/23 03/28/23 21:35 08:13 08:13 Sodium 139 Potassium 4.2 Chloride 108 Carbon Dioxide 27 Anion Gap 8 L BUN 21 H Creatinine 0.72 0.72 Estim Creat Clear Calc 194.8 Estimated GFR Fasting Glucose Estimat Average Glucose Hemoglobin A1c % Calcium Total Bilirubin AST ALT Alkaline Phosphatase Total Protein Albumin Triglycerides Cholesterol LDL Cholesterol, Calc HDL Cholesterol Urine Color Yellow Urine Appearance Clear Urine pH 5.5 Ur Specific [place] 1.020 Urine Protein 100 (2+) H Urine Glucose (UA) Negative Urine Ketones Negative Urine Blood Large (3+) H Urine Nitrite Negative Ur Leukocyte Esterase Negative Urine RBC >20 H Urine WBC 0-5 Ur Squamous Epith Cells 0-2 Urine Bacteria None Seen Hyaline Casts 0-2 Chlam trachomat DNA PCR NOT DETECTED N.gonorrhoeae DNA (PCR) NOT DETECTED 03/28/23 03/28/23 08:13 08:13 Sodium Potassium Chloride Carbon Dioxide Anion Gap BUN Creatinine Estim Creat Clear Calc 194.8 Estimated GFR > 60 > 60 Fasting Glucose 107 H Estimat Average Glucose 103 Hemoglobin A1c % 5.2 Calcium 8.4 D Total Bilirubin 0.2 AST 15 ALT 20 Alkaline Phosphatase 45 Total Protein 6.0 L Albumin 3.4 L Triglycerides 54 Cholesterol 113 LDL Cholesterol, Calc 59 HDL Cholesterol 44 Urine Color Urine Appearance Urine pH Ur Specific [place] Urine Protein Urine Glucose (UA) Urine Ketones Urine Blood Urine Nitrite Ur Leukocyte Esterase Urine RBC Urine WBC Ur Squamous Epith Cells Urine Bacteria Hyaline Casts Chlam trachomat DNA PCR N.gonorrhoeae DNA (PCR) Medications Medications Current Medications Acetaminophen (Acetaminophen 325 Mg Tablet) 650 mg PO Q6H PRN PRN Reason: Headache/Pain Mild Scale (1-3) Last Admin: 03/28/23 12:20 Dose: 650 mg Al Hydroxide/Mg Hydroxide (Magnesium Hydrox/Alum Hydrox 30 Ml Oral.Susp) 30 ml PO Q6H PRN PRN Reason: Heartburn/Nausea Benzocaine (Throat Lozenge, Medicated Lozenge) 1 lozenge MUCOUS MEM Q2H PRN PRN Reason: Sore Throat Last Admin: 03/28/23 20:24 Dose: 1 lozenge Benztropine Mesylate (Benztropine Mesylate 0.5 Mg Tablet) 0.5 mg PO DAILY [facility] Last Admin: 03/29/23 09:06 Dose: 0.5 mg Clonidine HCl (Clonidine Hcl 0.2 Mg Tablet) 0.2 mg PO BEDTIME [facility]; Protocol Last Admin: 03/28/23 20:24 Dose: 0.2 mg Divalproex Sodium (Divalproex Sodium Er 250 Mg Tab.Er.24h) 250 mg PO BEDTIME [facility] Last Admin: 03/28/23 20:23 Dose: 250 mg Divalproex Sodium (Divalproex Sodium Er 500 Mg Tab.Er.24h) 2,000 mg PO BEDTIME [facility] Last Admin: 03/28/23 20:23 Dose: 2,000 mg Hydroxyzine HCl (Hydroxyzine Hcl 25 Mg Tablet) 25 mg PO Q6H PRN PRN Reason: Anxiety Last Admin: 03/28/23 05:18 Dose: 25 mg Hydroxyzine HCl (Hydroxyzine Hcl 50 Mg Tablet) 50 mg PO BID PRN PRN Reason: Anxiety Last Admin: 03/28/23 12:19 Dose: 50 mg Levofloxacin (Levofloxacin 750 Mg Tablet) 750 mg PO Q24H [facility] Stop: 04/02/23 21:31 Last Admin: 03/28/23 21:19 Dose: 750 mg Loperamide HCl (Loperamide Hcl 2 Mg Capsule) 2 mg PO Q4H PRN PRN Reason: Diarrhea Lorazepam (Lorazepam 1 Mg Tablet) 2 mg PO Q6H PRN PRN Reason: agitation Last Admin: 03/28/23 16:55 Dose: 2 mg Magnesium Hydroxide (Milk Of Magnesia 30 Ml Oral.Susp) 30 ml PO DAILY PRN PRN Reason: Constipation Melatonin (Melatonin 3 Mg Tablet) 3 mg PO BEDTIME [facility] Last Admin: 03/28/23 20:24 Dose: 3 mg Metformin HCl (Metformin Hcl 500 Mg Tablet) 500 mg PO BIDWM [facility] Last Admin: 03/29/23 09:06 Dose: 500 mg Metronidazole (Metronidazole 500 Mg Tablet) 500 mg PO Q8H [facility] Stop: 04/03/23 13:31 Last Admin: 03/29/23 06:01 Dose: 500 mg Naltrexone HCl (Naltrexone Hcl 50 Mg Tablet) 50 mg PO DAILY [facility] Last Admin: 03/29/23 09:06 Dose: 50 mg Nicotine (Nicotine 7 Mg Patch.Td24) 7 mg TRANSDERMA DAILY [facility] Last Admin: 03/29/23 09:09 Dose: 7 mg Nicotine Polacrilex (Nicotine Polacrilex 2 Mg Gum) 2 mg BUCCAL Q2H PRN PRN Reason: Nicotine Cravings Last Admin: 03/28/23 16:55 Dose: 2 mg Olanzapine (Olanzapine 10 Mg Tablet) 10 mg PO Q6H PRN PRN Reason: agitation Last Admin: 03/28/23 16:55 Dose: 10 mg Perphenazine (Perphenazine 8 Mg Tablet) 16 mg PO BID [facility] Last Admin: 03/29/23 09:06 Dose: 16 mg Trazodone HCl (Trazodone Hcl 50 Mg Tablet) 50 mg PO BEDTIME MRX1 PRN PRN Reason: Insomnia Last Admin: 03/28/23 01:23 Dose: 50 mg Allergies Allergies Allergy/AdvReac Type Severity Reaction Status Date / Time amoxicillin Allergy Hives Verified 03/15/23 17:19 Assessment & Plan Assessment & Plan (1) Bipolar disorder, curr episode mixed, severe, with psychotic features: Status: Acute Code(s): F31.64 - Bipolar disorder, current episode mixed, severe, with psychotic features Plan Hospital course: 03/29 continue current treatment regimen, consisting of restarting home medication regimen which seems to be helpful. Plan: restart regimen on which he was discharged last week. develop robust discharge plan. flagyl/levaquin for dental infection, per hospitalist. STI studies NEG utox NEG. mgmt for DM. Patient educated on: diagnosis and medication risk/benefits Informed Consent: understands, does not understand and further education needed Reason for continued inpatient stay Substantial Risk for: rapid decompensation Time Spent With Patient Time: Total time managing care of this patient today ____ minutes.
[2023-03-29] MEDS: hydrOXYzine HCL 50 MG TABLET PO ×2 (13:25→22:39)
[2023-03-29] MEDS: Nicotine Polacrilex 2 MG GUM BUCCAL (13:25)
[2023-03-29] MEDS: Nicotine 14 MG PATCH.TD24 TRANSDERMA (13:56)
--- NOTE | 2023-03-29 13:57 | PC.NURSE ---
Ramírez reported his current Nicotine patch 7mg daily was not strong enough, requested new order. Dr. Pompa notified via tiger text, old patch removed and patient started on a 14mg Nicotine Patch daily.
[2023-03-29 19:55] VITALS: BP 142/95; PULSE 105; RESP 18; TEMP 36.5; O2SAT 98
[2023-03-29] MEDS: Divalproex Sodium ER 500 MG TAB.ER.24H 2000 MG PO (20:44)
[2023-03-29] MEDS: levoFLOXacin 750 MG TABLET PO (20:45)
[2023-03-29] MEDS: Divalproex Sodium ER 250 MG TAB.ER.24H PO (20:45)
[2023-03-29] MEDS: Melatonin 3 MG TABLET PO (20:45)
[2023-03-29] MEDS: cloNIDine HCL 0.2 MG TABLET PO (20:46)
[2023-03-29] MEDS: Acetaminophen 325 MG TABLET 650 MG PO (22:38)
[2023-03-30] MEDS: metroNIDAZOLE 500 MG TABLET PO ×3 (06:33→20:19)
[2023-03-30 07:00] VITALS: BMI 47.0
--- NOTE | 2023-03-30 08:15 | HO.PSYCHPN ---
Subjective Subjective Date of Service: 03/30/23 Reason For Visit: Schizoaffective disorder, bipolar type Interim History: met with patient; discussed with team; reviewed notes Patient reports that he is doing fine. Slept well. Denies any complaints her request however last night complained of per jaw pain which resolved. Staff reports patient vacillates between being calm irritable. Patient again brought up that he plans to move out of state. Today he says he is considering [place] but he is not sure. He says he does not have a place to stay either here or anywhere else so he might as well go away somewhere. 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 Mental Status Exam Mental Status Exam Narrative: Pt is alert and oriented; behavior is good vacillates between being irritable and cooperative and calm; patient is not in distress; dressed in casual attire, disheveled, marginal hygiene; mood is described as good and affect congruent; eye contact appropriate; Speech is normal rate, volume and prosody and not pressured; no psychomotor agitation/retardation present; thought process is goal directed; Thought content is on vague things, moving out of state; otherwise pertinent to relevant topics; no clear expression of paranoid or delusional thinking; denies any SI/HI. Denies AVH Patients insight and judgment impaired but improving since admission Diagnostics Vital Signs (24Hr): Vital Signs - 24 hr 03/29/23 09:04 03/29/23 19:55 Temperature 98.4 F 97.7 F Pulse Rate 83 105 H Respiratory Rate 18 Blood Pressure 112/55 L 142/95 H Pulse Oximetry 95 98 Oxygen Delivery Method Room Air Room Air BMI result Body Mass Index 45.0 Labs 03/28/23 08:13 Labs: Laboratory Results - last 48 hr 03/28/23 03/28/23 03/28/23 08:13 08:13 08:13 Sodium 139 Potassium 4.2 Chloride 108 Carbon Dioxide 27 Anion Gap 8 L BUN 21 H Creatinine 0.72 0.72 Estim Creat Clear Calc 194.8 194.8 Estimated GFR > 60 Fasting Glucose Estimat Average Glucose Hemoglobin A1c % Calcium Total Bilirubin AST ALT Alkaline Phosphatase Total Protein Albumin Triglycerides Cholesterol LDL Cholesterol, Calc HDL Cholesterol 03/28/23 08:13 Sodium Potassium Chloride Carbon Dioxide Anion Gap BUN Creatinine Estim Creat Clear Calc Estimated GFR > 60 Fasting Glucose 107 H Estimat Average Glucose 103 Hemoglobin A1c % 5.2 Calcium 8.4 D Total Bilirubin 0.2 AST 15 ALT 20 Alkaline Phosphatase 45 Total Protein 6.0 L Albumin 3.4 L Triglycerides 54 Cholesterol 113 LDL Cholesterol, Calc 59 HDL Cholesterol 44 Medications Medications Current Medications Acetaminophen (Acetaminophen 325 Mg Tablet) 650 mg PO Q6H PRN PRN Reason: Headache/Pain Mild Scale (1-3) Last Admin: 03/29/23 22:38 Dose: 650 mg Al Hydroxide/Mg Hydroxide (Magnesium Hydrox/Alum Hydrox 30 Ml Oral.Susp) 30 ml PO Q6H PRN PRN Reason: Heartburn/Nausea Benzocaine (Throat Lozenge, Medicated Lozenge) 1 lozenge MUCOUS MEM Q2H PRN PRN Reason: Sore Throat Last Admin: 03/28/23 20:24 Dose: 1 lozenge Benztropine Mesylate (Benztropine Mesylate 0.5 Mg Tablet) 0.5 mg PO DAILY [facility] Last Admin: 03/29/23 09:06 Dose: 0.5 mg Clonidine HCl (Clonidine Hcl 0.2 Mg Tablet) 0.2 mg PO BEDTIME [facility]; Protocol Last Admin: 03/29/23 20:46 Dose: 0.2 mg Divalproex Sodium (Divalproex Sodium Er 250 Mg Tab.Er.24h) 250 mg PO BEDTIME [facility] Last Admin: 03/29/23 20:45 Dose: 250 mg Divalproex Sodium (Divalproex Sodium Er 500 Mg Tab.Er.24h) 2,000 mg PO BEDTIME [facility] Last Admin: 03/29/23 20:44 Dose: 2,000 mg Hydroxyzine HCl (Hydroxyzine Hcl 25 Mg Tablet) 25 mg PO Q6H PRN PRN Reason: Anxiety Last Admin: 03/28/23 05:18 Dose: 25 mg Hydroxyzine HCl (Hydroxyzine Hcl 50 Mg Tablet) 50 mg PO BID PRN PRN Reason: Anxiety Last Admin: 03/29/23 22:39 Dose: 50 mg Levofloxacin (Levofloxacin 750 Mg Tablet) 750 mg PO Q24H [facility] Stop: 04/02/23 21:31 Last Admin: 03/29/23 20:45 Dose: 750 mg Loperamide HCl (Loperamide Hcl 2 Mg Capsule) 2 mg PO Q4H PRN PRN Reason: Diarrhea Lorazepam (Lorazepam 1 Mg Tablet) 2 mg PO Q6H PRN PRN Reason: agitation Last Admin: 03/28/23 16:55 Dose: 2 mg Magnesium Hydroxide (Milk Of Magnesia 30 Ml Oral.Susp) 30 ml PO DAILY PRN PRN Reason: Constipation Melatonin (Melatonin 3 Mg Tablet) 3 mg PO BEDTIME [facility] Last Admin: 03/29/23 20:45 Dose: 3 mg Metformin HCl (Metformin Hcl 500 Mg Tablet) 500 mg PO BIDWM [facility] Last Admin: 03/29/23 18:14 Dose: 500 mg Metronidazole (Metronidazole 500 Mg Tablet) 500 mg PO Q8H [facility] Stop: 04/03/23 13:31 Last Admin: 03/30/23 06:33 Dose: 500 mg Naltrexone HCl (Naltrexone Hcl 50 Mg Tablet) 50 mg PO DAILY [facility] Last Admin: 03/29/23 09:06 Dose: 50 mg Nicotine (Nicotine 14 Mg Patch.Td24) 14 mg TRANSDERMA DAILY [facility] Last Admin: 03/29/23 13:56 Dose: 14 mg Nicotine Polacrilex (Nicotine Polacrilex 2 Mg Gum) 2 mg BUCCAL Q2H PRN PRN Reason: Nicotine Cravings Last Admin: 03/29/23 13:25 Dose: 2 mg Olanzapine (Olanzapine 10 Mg Tablet) 10 mg PO Q6H PRN PRN Reason: agitation Last Admin: 03/28/23 16:55 Dose: 10 mg Perphenazine (Perphenazine 8 Mg Tablet) 16 mg PO BID [facility] Last Admin: 03/29/23 20:45 Dose: 16 mg Trazodone HCl (Trazodone Hcl 50 Mg Tablet) 50 mg PO BEDTIME MRX1 PRN PRN Reason: Insomnia Last Admin: 03/28/23 01:23 Dose: 50 mg Allergies Allergies Allergy/AdvReac Type Severity Reaction Status Date / Time amoxicillin Allergy Hives Verified 03/15/23 17:19 Assessment & Plan Assessment & Plan (1) Bipolar disorder, curr episode mixed, severe, with psychotic features: Status: Acute Code(s): F31.64 - Bipolar disorder, current episode mixed, severe, with psychotic features Plan Hospital course: 03/29 continue current treatment regimen, consisting of restarting home medication regimen which seems to be helpful. 03/30 continue current treatment plan Reviewed labs and Depakote level therapeutic LFTs/ammonia WNL Plan: restart regimen on which he was discharged last week. develop robust discharge plan. flagyl/levaquin for dental infection, per hospitalist. STI studies NEG utox NEG. mgmt for DM. Patient educated on: diagnosis and medication risk/benefits Informed Consent: understands Reason for continued inpatient stay Substantial Risk for: med/psych decompensation Time Spent With Patient Time: Total time managing care of this patient today ____ minutes.
[2023-03-30 08:20] VITALS: BP 93/59; PULSE 67; RESP 20; TEMP 36.5; O2SAT 96
[2023-03-30] MEDS: Benztropine Mesylate 0.5 MG TABLET PO (08:29)
[2023-03-30] MEDS: Perphenazine 8 MG TABLET 16 MG PO ×2 (08:29→20:20)
[2023-03-30] MEDS: Naltrexone HCl 50 MG TABLET PO (08:29)
[2023-03-30] MEDS: metFORMIN HCl 500 MG TABLET PO ×2 (08:29→16:56)
[2023-03-30] MEDS: Nicotine 14 MG PATCH.TD24 TRANSDERMA (08:31)
[2023-03-30 08:54] LABS: Ammonia 45 umol/L (13-55)
[2023-03-30 09:10] LABS: Alanine Aminotransferase 18 U/L (0-40); Albumin Level 3.4 g/dL (3.5-5.0); Alkaline Phosphatase 39 U/L (39-117); Bilirubin Direct < 0.2 mg/dL (0.0-0.5); Bilirubin Total 0.2 mg/dL (0.0-1.0); Total Protein 5.8 g/dL (6.5-8.0)
[2023-03-30 09:24] LABS: Aspartate Amino Transferase 14 U/L (5-37)
[2023-03-30 10:33] LABS: Trichomonas vag. RNA Ur Male NOT DETECTED (NOT DETECTED)
[2023-03-30] MEDS: Acetaminophen 325 MG TABLET 650 MG PO ×2 (11:46→18:42)
[2023-03-30] MEDS: hydrOXYzine HCL 50 MG TABLET PO ×2 (13:37→20:20)
[2023-03-30 18:20] VITALS: BP 161/84; PULSE 88; RESP 20; TEMP 36.3; O2SAT 99
[2023-03-30] MEDS: OLANZapine 10 MG TABLET PO (20:19)
[2023-03-30] MEDS: levoFLOXacin 750 MG TABLET PO (20:19)
[2023-03-30] MEDS: Melatonin 3 MG TABLET PO (20:19)
[2023-03-30] MEDS: Divalproex Sodium ER 250 MG TAB.ER.24H PO (20:19)
[2023-03-30] MEDS: Divalproex Sodium ER 500 MG TAB.ER.24H 2000 MG PO (20:19)
[2023-03-30] MEDS: cloNIDine HCL 0.2 MG TABLET PO (20:19)
[2023-03-30] MEDS: LORazepam 1 MG TABLET 2 MG PO (20:20)
[2023-03-31] MEDS: metroNIDAZOLE 500 MG TABLET PO ×3 (07:02→20:18)
[2023-03-31 07:15] VITALS: BP 111/55; PULSE 77; RESP 16; TEMP 36.3; O2SAT 97
[2023-03-31] MEDS: Naltrexone HCl 50 MG TABLET PO (08:52)
[2023-03-31] MEDS: Nicotine 14 MG PATCH.TD24 TRANSDERMA (08:52)
[2023-03-31] MEDS: Perphenazine 8 MG TABLET 16 MG PO ×2 (08:52→20:18)
[2023-03-31] MEDS: Benztropine Mesylate 0.5 MG TABLET PO (08:52)
[2023-03-31] MEDS: metFORMIN HCl 500 MG TABLET PO ×2 (08:52→16:43)
--- NOTE | 2023-03-31 12:49 | HO.PSYCHPN ---
Subjective Subjective Date of Service: 03/31/23 Reason For Visit: Schizoaffective disorder, bipolar type Interim History: met with patient; discussed with team Patient reports that he is overall doing better. He said he is feeling calm and staff concurred that he is in much better self-control, without any outbursts and appropriate in milieu. He says that he is just chilling and now focusing on working on himself. He again talks about moving to [place], to reset his life once discharged. Discussed labs with him and therapeutic Depakote level. Patient eating and sleeping well. No complaints and no requests Mental Status Exam Mental Status Exam Narrative: Pt is alert and oriented; behavior is good vacillates between being irritable and cooperative and calm; patient is not in distress; dressed in casual attire, a little unkempt but adeuqate hygiene; mood is described as chillin and affect congruent; eye contact appropriate; Speech is normal rate, volume and prosody and not pressured; no psychomotor agitation/retardation present; thought process is goal directed; Thought content is on vague things, moving out of state; otherwise pertinent to relevant topics; no clear expression of paranoid or delusional thinking; denies any SI/HI. Denies AVH Patients insight and judgment impaired but likely at baseline and adequate Diagnostics Vital Signs (24Hr): Vital Signs - 24 hr 03/30/23 18:20 03/31/23 07:15 Temperature 97.3 F 97.4 F Pulse Rate 88 77 Respiratory Rate 20 16 Blood Pressure 161/84 H 111/55 L Pulse Oximetry 99 97 Oxygen Delivery Method Room Air Room Air BMI result Body Mass Index 47.0 Labs 03/28/23 08:13 Labs: Laboratory Results - last 48 hr 03/27/23 03/30/23 21:35 08:41 Total Bilirubin 0.2 Direct Bilirubin < 0.2 AST 14 ALT 18 Alkaline Phosphatase 39 Ammonia 45 Total Protein 5.8 L Albumin 3.4 L Valproic Acid 69.0 T. vaginalis Amp RNA NOT DETECTED Medications Medications Current Medications Acetaminophen (Acetaminophen 325 Mg Tablet) 650 mg PO Q6H PRN PRN Reason: Headache/Pain Mild Scale (1-3) Last Admin: 03/30/23 18:42 Dose: 650 mg Al Hydroxide/Mg Hydroxide (Magnesium Hydrox/Alum Hydrox 30 Ml Oral.Susp) 30 ml PO Q6H PRN PRN Reason: Heartburn/Nausea Benzocaine (Throat Lozenge, Medicated Lozenge) 1 lozenge MUCOUS MEM Q2H PRN PRN Reason: Sore Throat Last Admin: 03/28/23 20:24 Dose: 1 lozenge Benztropine Mesylate (Benztropine Mesylate 0.5 Mg Tablet) 0.5 mg PO DAILY [facility] Last Admin: 03/31/23 08:52 Dose: 0.5 mg Clonidine HCl (Clonidine Hcl 0.2 Mg Tablet) 0.2 mg PO BEDTIME [facility]; Protocol Last Admin: 03/30/23 20:19 Dose: 0.2 mg Divalproex Sodium (Divalproex Sodium Er 250 Mg Tab.Er.24h) 250 mg PO BEDTIME [facility] Last Admin: 03/30/23 20:19 Dose: 250 mg Divalproex Sodium (Divalproex Sodium Er 500 Mg Tab.Er.24h) 2,000 mg PO BEDTIME [facility] Last Admin: 03/30/23 20:19 Dose: 2,000 mg Hydroxyzine HCl (Hydroxyzine Hcl 25 Mg Tablet) 25 mg PO Q6H PRN PRN Reason: Anxiety Last Admin: 03/28/23 05:18 Dose: 25 mg Hydroxyzine HCl (Hydroxyzine Hcl 50 Mg Tablet) 50 mg PO BID PRN PRN Reason: Anxiety Last Admin: 03/30/23 20:20 Dose: 50 mg Levofloxacin (Levofloxacin 750 Mg Tablet) 750 mg PO Q24H [facility] Stop: 04/02/23 21:31 Last Admin: 03/30/23 20:19 Dose: 750 mg Loperamide HCl (Loperamide Hcl 2 Mg Capsule) 2 mg PO Q4H PRN PRN Reason: Diarrhea Lorazepam (Lorazepam 1 Mg Tablet) 2 mg PO Q6H PRN PRN Reason: agitation Last Admin: 03/30/23 20:20 Dose: 2 mg Magnesium Hydroxide (Milk Of Magnesia 30 Ml Oral.Susp) 30 ml PO DAILY PRN PRN Reason: Constipation Melatonin (Melatonin 3 Mg Tablet) 3 mg PO BEDTIME [facility] Last Admin: 03/30/23 20:19 Dose: 3 mg Metformin HCl (Metformin Hcl 500 Mg Tablet) 500 mg PO BIDWM [facility] Last Admin: 03/31/23 08:52 Dose: 500 mg Metronidazole (Metronidazole 500 Mg Tablet) 500 mg PO Q8H [facility] Stop: 04/03/23 13:31 Last Admin: 03/31/23 07:02 Dose: 500 mg Naltrexone HCl (Naltrexone Hcl 50 Mg Tablet) 50 mg PO DAILY [facility] Last Admin: 03/31/23 08:52 Dose: 50 mg Nicotine (Nicotine 14 Mg Patch.Td24) 14 mg TRANSDERMA DAILY [facility] Last Admin: 03/31/23 08:52 Dose: 14 mg Nicotine Polacrilex (Nicotine Polacrilex 2 Mg Gum) 2 mg BUCCAL Q2H PRN PRN Reason: Nicotine Cravings Last Admin: 03/29/23 13:25 Dose: 2 mg Olanzapine (Olanzapine 10 Mg Tablet) 10 mg PO Q6H PRN PRN Reason: agitation Last Admin: 03/30/23 20:19 Dose: 10 mg Perphenazine (Perphenazine 8 Mg Tablet) 16 mg PO BID [facility] Last Admin: 03/31/23 08:52 Dose: 16 mg Trazodone HCl (Trazodone Hcl 50 Mg Tablet) 50 mg PO BEDTIME MRX1 PRN PRN Reason: Insomnia Last Admin: 03/28/23 01:23 Dose: 50 mg Allergies Allergies Allergy/AdvReac Type Severity Reaction Status Date / Time amoxicillin Allergy Hives Verified 03/15/23 17:19 Assessment & Plan Assessment & Plan (1) Bipolar disorder, curr episode mixed, severe, with psychotic features: Status: Acute Code(s): F31.64 - Bipolar disorder, current episode mixed, severe, with psychotic features Plan Hospital course: 03/29 continue current treatment regimen, consisting of restarting home medication regimen which seems to be helpful. 03/30 continue current treatment plan Reviewed labs and Depakote level therapeutic LFTs/ammonia WNL 03/31 continue current treatment plan Plan: restart regimen on which he was discharged last week. develop robust discharge plan. flagyl/levaquin for dental infection, per hospitalist. STI studies NEG utox NEG. mgmt for DM. Patient educated on: diagnosis, medication risk/benefits and therapeutic strategies Informed Consent: understands Reason for continued inpatient stay Substantial Risk for: rapid decompensation Time Spent With Patient Time: Total time managing care of this patient today ____ minutes.
[2023-03-31] MEDS: Melatonin 3 MG TABLET PO (20:18)
[2023-03-31] MEDS: Divalproex Sodium ER 250 MG TAB.ER.24H PO (20:18)
[2023-03-31] MEDS: LORazepam 1 MG TABLET 2 MG PO (20:18)
[2023-03-31] MEDS: OLANZapine 10 MG TABLET PO (20:19)
[2023-03-31] MEDS: hydrOXYzine HCL 50 MG TABLET PO (20:19)
[2023-03-31] MEDS: Divalproex Sodium ER 500 MG TAB.ER.24H 2000 MG PO (20:19)
[2023-03-31] MEDS: levoFLOXacin 750 MG TABLET PO (20:19)
[2023-03-31] MEDS: cloNIDine HCL 0.2 MG TABLET PO (20:20)
[2023-04-01] MEDS: metroNIDAZOLE 500 MG TABLET PO ×3 (07:05→20:16)
[2023-04-01 07:50] VITALS: BP 96/50; PULSE 69; RESP 16; TEMP 36; O2SAT 97
[2023-04-01] MEDS: Benztropine Mesylate 0.5 MG TABLET PO (08:53)
[2023-04-01] MEDS: Perphenazine 8 MG TABLET 16 MG PO ×2 (08:53→20:16)
[2023-04-01] MEDS: Naltrexone HCl 50 MG TABLET PO (08:53)
[2023-04-01] MEDS: Nicotine 14 MG PATCH.TD24 TRANSDERMA (08:55)
--- NOTE | 2023-04-01 14:09 | HO.PSYCHPN ---
Subjective Subjective Date of Service: 04/01/23 Reason For Visit: Schizoaffective disorder, bipolar type Subjective Notes: Conditional Voluntary Interim History: Pt reports doing well. He reports he does not want to have POC. He declined metformin today because he states he does not want to BS check. educated that he can take metformin even without the poc. He denies SI/HI. Review of Systems Review of Systems Yes all other systems are reviewed and are negative Diagnostics Vital Signs (24Hr): Vital Signs - 24 hr 04/01/23 07:50 Temperature 96.8 F Pulse Rate 69 Respiratory Rate 16 Blood Pressure 96/50 L Pulse Oximetry 97 Oxygen Delivery Method Room Air BMI result Body Mass Index 47.0 Labs 03/28/23 08:13 Medications Medications Current Medications Acetaminophen (Acetaminophen 325 Mg Tablet) 650 mg PO Q6H PRN PRN Reason: Headache/Pain Mild Scale (1-3) Last Admin: 03/30/23 18:42 Dose: 650 mg Al Hydroxide/Mg Hydroxide (Magnesium Hydrox/Alum Hydrox 30 Ml Oral.Susp) 30 ml PO Q6H PRN PRN Reason: Heartburn/Nausea Benzocaine (Throat Lozenge, Medicated Lozenge) 1 lozenge MUCOUS MEM Q2H PRN PRN Reason: Sore Throat Last Admin: 03/28/23 20:24 Dose: 1 lozenge Benztropine Mesylate (Benztropine Mesylate 0.5 Mg Tablet) 0.5 mg PO DAILY [facility] Last Admin: 04/01/23 08:53 Dose: 0.5 mg Clonidine HCl (Clonidine Hcl 0.2 Mg Tablet) 0.2 mg PO BEDTIME [facility]; Protocol Last Admin: 03/31/23 20:20 Dose: 0.2 mg Divalproex Sodium (Divalproex Sodium Er 250 Mg Tab.Er.24h) 250 mg PO BEDTIME [facility] Last Admin: 03/31/23 20:18 Dose: 250 mg Divalproex Sodium (Divalproex Sodium Er 500 Mg Tab.Er.24h) 2,000 mg PO BEDTIME [facility] Last Admin: 03/31/23 20:19 Dose: 2,000 mg Hydroxyzine HCl (Hydroxyzine Hcl 25 Mg Tablet) 25 mg PO Q6H PRN PRN Reason: Anxiety Last Admin: 03/28/23 05:18 Dose: 25 mg Hydroxyzine HCl (Hydroxyzine Hcl 50 Mg Tablet) 50 mg PO BID PRN PRN Reason: Anxiety Last Admin: 03/31/23 20:19 Dose: 50 mg Levofloxacin (Levofloxacin 750 Mg Tablet) 750 mg PO Q24H [facility] Stop: 04/02/23 21:31 Last Admin: 03/31/23 20:19 Dose: 750 mg Loperamide HCl (Loperamide Hcl 2 Mg Capsule) 2 mg PO Q4H PRN PRN Reason: Diarrhea Lorazepam (Lorazepam 1 Mg Tablet) 2 mg PO Q6H PRN PRN Reason: agitation Last Admin: 03/31/23 20:18 Dose: 2 mg Magnesium Hydroxide (Milk Of Magnesia 30 Ml Oral.Susp) 30 ml PO DAILY PRN PRN Reason: Constipation Melatonin (Melatonin 3 Mg Tablet) 3 mg PO BEDTIME [facility] Last Admin: 03/31/23 20:18 Dose: 3 mg Metformin HCl (Metformin Hcl 500 Mg Tablet) 500 mg PO BIDWM [facility] Last Admin: 04/01/23 08:55 Dose: Not Given Metronidazole (Metronidazole 500 Mg Tablet) 500 mg PO Q8H [facility] Stop: 04/03/23 13:31 Last Admin: 04/01/23 13:02 Dose: 500 mg Naltrexone HCl (Naltrexone Hcl 50 Mg Tablet) 50 mg PO DAILY [facility] Last Admin: 04/01/23 08:53 Dose: 50 mg Nicotine (Nicotine 14 Mg Patch.Td24) 14 mg TRANSDERMA DAILY [facility] Last Admin: 04/01/23 08:55 Dose: 14 mg Nicotine Polacrilex (Nicotine Polacrilex 2 Mg Gum) 2 mg BUCCAL Q2H PRN PRN Reason: Nicotine Cravings Last Admin: 03/29/23 13:25 Dose: 2 mg Olanzapine (Olanzapine 10 Mg Tablet) 10 mg PO Q6H PRN PRN Reason: agitation Last Admin: 03/31/23 20:19 Dose: 10 mg Perphenazine (Perphenazine 8 Mg Tablet) 16 mg PO BID [facility] Last Admin: 04/01/23 08:53 Dose: 16 mg Trazodone HCl (Trazodone Hcl 50 Mg Tablet) 50 mg PO BEDTIME MRX1 PRN PRN Reason: Insomnia Last Admin: 03/28/23 01:23 Dose: 50 mg Allergies Allergies Allergy/AdvReac Type Severity Reaction Status Date / Time amoxicillin Allergy Hives Verified 03/15/23 17:19 Assessment & Plan Assessment & Plan (1) Bipolar disorder, curr episode mixed, severe, with psychotic features: Status: Acute Code(s): F31.64 - Bipolar disorder, current episode mixed, severe, with psychotic features Plan Hospital course: 03/29 continue current treatment regimen, consisting of restarting home medication regimen which seems to be helpful. 03/30 continue current treatment plan Reviewed labs and Depakote level therapeutic LFTs/ammonia WNL 03/31 continue current treatment plan 04/01 continue tx. Plan: restart regimen on which he was discharged last week. develop robust discharge plan. flagyl/levaquin for dental infection, per hospitalist. STI studies NEG utox NEG. mgmt for DM. Reason for continued inpatient stay Substantial Risk for: inability to function Time Spent With Patient Time: Total time managing care of this patient today ____ minutes.
[2023-04-01 20:10] VITALS: BP 129/59; PULSE 67; RESP 18; TEMP 36.3; O2SAT 94
[2023-04-01] MEDS: LORazepam 1 MG TABLET 2 MG PO (20:14)
[2023-04-01] MEDS: Divalproex Sodium ER 500 MG TAB.ER.24H 2000 MG PO (20:14)
[2023-04-01] MEDS: cloNIDine HCL 0.2 MG TABLET PO (20:15)
[2023-04-01] MEDS: Melatonin 3 MG TABLET PO (20:15)
[2023-04-01] MEDS: OLANZapine 10 MG TABLET PO (20:15)
[2023-04-01] MEDS: Divalproex Sodium ER 250 MG TAB.ER.24H PO (20:15)
[2023-04-01] MEDS: levoFLOXacin 750 MG TABLET PO (20:16)
[2023-04-01] MEDS: hydrOXYzine HCL 50 MG TABLET PO (20:16)
[2023-04-01] MEDS: Acetaminophen 325 MG TABLET 650 MG PO (23:11)
[2023-04-02] MEDS: metroNIDAZOLE 500 MG TABLET PO ×3 (05:59→20:43)
[2023-04-02 07:30] VITALS: BP 113/55; PULSE 65; RESP 14; TEMP 36.3; O2SAT 94
[2023-04-02] MEDS: Benztropine Mesylate 0.5 MG TABLET PO (09:01)
[2023-04-02] MEDS: Nicotine 14 MG PATCH.TD24 TRANSDERMA (09:02)
[2023-04-02] MEDS: Naltrexone HCl 50 MG TABLET PO (09:02)
[2023-04-02] MEDS: Perphenazine 8 MG TABLET 16 MG PO ×2 (09:02→20:43)
[2023-04-02] MEDS: Acetaminophen 325 MG TABLET 650 MG PO ×2 (13:03→20:42)
--- NOTE | 2023-04-02 17:02 | P.PNPSI_ITS ---
Subjective Subjective Date of Service: 04/02/23 Reason For Visit: Schizoaffective disorder, bipolar type Subjective Notes: Conditional Voluntary Interim History: Pt reports doing well. He reports he does not want to have POC. He declined metformin today because he states he does not want to BS check. educated that he can take metformin even without the poc. He denies SI/HI. Review of Systems Review of Systems Yes all other systems are reviewed and are negative Diagnostics Vital Signs (24Hr): Vital Signs - 24 hr 04/01/23 20:10 04/02/23 07:30 Temperature 97.3 F 97.4 F Pulse Rate 67 65 Respiratory Rate 18 14 Blood Pressure 129/59 L 113/55 L Pulse Oximetry 94 94 Oxygen Delivery Method Room Air Room Air BMI result Body Mass Index 47.0 Labs 03/28/23 08:13 Medications Medications Current Medications Acetaminophen (Acetaminophen 325 Mg Tablet) 650 mg PO Q6H PRN PRN Reason: Headache/Pain Mild Scale (1-3) Last Admin: 04/02/23 13:03 Dose: 650 mg Al Hydroxide/Mg Hydroxide (Magnesium Hydrox/Alum Hydrox 30 Ml Oral.Susp) 30 ml PO Q6H PRN PRN Reason: Heartburn/Nausea Benzocaine (Throat Lozenge, Medicated Lozenge) 1 lozenge MUCOUS MEM Q2H PRN PRN Reason: Sore Throat Last Admin: 03/28/23 20:24 Dose: 1 lozenge Benztropine Mesylate (Benztropine Mesylate 0.5 Mg Tablet) 0.5 mg PO DAILY [facility] Last Admin: 04/02/23 09:01 Dose: 0.5 mg Clonidine HCl (Clonidine Hcl 0.2 Mg Tablet) 0.2 mg PO BEDTIME [facility]; Protocol Last Admin: 04/01/23 20:15 Dose: 0.2 mg Divalproex Sodium (Divalproex Sodium Er 250 Mg Tab.Er.24h) 250 mg PO BEDTIME [facility] Last Admin: 04/01/23 20:15 Dose: 250 mg Divalproex Sodium (Divalproex Sodium Er 500 Mg Tab.Er.24h) 2,000 mg PO BEDTIME [facility] Last Admin: 04/01/23 20:14 Dose: 2,000 mg Hydroxyzine HCl (Hydroxyzine Hcl 25 Mg Tablet) 25 mg PO Q6H PRN PRN Reason: Anxiety Last Admin: 03/28/23 05:18 Dose: 25 mg Hydroxyzine HCl (Hydroxyzine Hcl 50 Mg Tablet) 50 mg PO BID PRN PRN Reason: Anxiety Last Admin: 04/01/23 20:16 Dose: 50 mg Levofloxacin (Levofloxacin 750 Mg Tablet) 750 mg PO Q24H [facility] Stop: 04/02/23 21:31 Last Admin: 04/01/23 20:16 Dose: 750 mg Loperamide HCl (Loperamide Hcl 2 Mg Capsule) 2 mg PO Q4H PRN PRN Reason: Diarrhea Lorazepam (Lorazepam 1 Mg Tablet) 2 mg PO Q6H PRN PRN Reason: agitation Last Admin: 04/01/23 20:14 Dose: 2 mg Magnesium Hydroxide (Milk Of Magnesia 30 Ml Oral.Susp) 30 ml PO DAILY PRN PRN Reason: Constipation Melatonin (Melatonin 3 Mg Tablet) 3 mg PO BEDTIME [facility] Last Admin: 04/01/23 20:15 Dose: 3 mg Metformin HCl (Metformin Hcl 500 Mg Tablet) 500 mg PO BIDWM [facility] Last Admin: 04/02/23 16:05 Dose: Not Given Metronidazole (Metronidazole 500 Mg Tablet) 500 mg PO Q8H [facility] Stop: 04/03/23 13:31 Last Admin: 04/02/23 13:03 Dose: 500 mg Naltrexone HCl (Naltrexone Hcl 50 Mg Tablet) 50 mg PO DAILY [facility] Last Admin: 04/02/23 09:02 Dose: 50 mg Nicotine (Nicotine 14 Mg Patch.Td24) 14 mg TRANSDERMA DAILY [facility] Last Admin: 04/02/23 09:02 Dose: 14 mg Nicotine Polacrilex (Nicotine Polacrilex 2 Mg Gum) 2 mg BUCCAL Q2H PRN PRN Reason: Nicotine Cravings Last Admin: 03/29/23 13:25 Dose: 2 mg Olanzapine (Olanzapine 10 Mg Tablet) 10 mg PO Q6H PRN PRN Reason: agitation Last Admin: 04/01/23 20:15 Dose: 10 mg Perphenazine (Perphenazine 8 Mg Tablet) 16 mg PO BID [facility] Last Admin: 04/02/23 09:02 Dose: 16 mg Trazodone HCl (Trazodone Hcl 50 Mg Tablet) 50 mg PO BEDTIME MRX1 PRN PRN Reason: Insomnia Last Admin: 03/28/23 01:23 Dose: 50 mg Allergies Allergies Allergy/AdvReac Type Severity Reaction Status Date / Time amoxicillin Allergy Hives Verified 03/15/23 17:19 Assessment & Plan Assessment & Plan (1) Bipolar disorder, curr episode mixed, severe, with psychotic features: Status: Acute Code(s): F31.64 - Bipolar disorder, current episode mixed, severe, with psychotic features Plan Hospital course: 03/29 continue current treatment regimen, consisting of restarting home medication regimen which seems to be helpful. 03/30 continue current treatment plan Reviewed labs and Depakote level therapeutic LFTs/ammonia WNL 03/31 continue current treatment plan 04/01 continue tx. 04/02 continue tx. Plan: restart regimen on which he was discharged last week. develop robust discharge plan. flagyl/levaquin for dental infection, per hospitalist. STI studies NEG utox NEG. mgmt for DM. Reason for continued inpatient stay Substantial Risk for: inability to function Time Spent With Patient Time: Total time managing care of this patient today ____ minutes.
[2023-04-02 20:20] VITALS: BP 163/84; PULSE 106; TEMP 36.9; O2SAT 96
[2023-04-02] MEDS: Divalproex Sodium ER 500 MG TAB.ER.24H 2000 MG PO (20:43)
[2023-04-02] MEDS: cloNIDine HCL 0.2 MG TABLET PO (20:43)
[2023-04-02] MEDS: Melatonin 3 MG TABLET PO (20:44)
[2023-04-02] MEDS: Divalproex Sodium ER 250 MG TAB.ER.24H PO (20:44)
[2023-04-02] MEDS: levoFLOXacin 750 MG TABLET PO (20:44)
[2023-04-03] MEDS: Acetaminophen 325 MG TABLET 650 MG PO ×3 (02:27→20:47)
[2023-04-03] MEDS: LORazepam 1 MG TABLET 2 MG PO (02:28)
[2023-04-03] MEDS: metroNIDAZOLE 500 MG TABLET PO ×2 (05:58→14:24)
[2023-04-03 07:40] VITALS: BP 111/55; PULSE 80; RESP 16; TEMP 36.7; O2SAT 97
[2023-04-03] MEDS: Naltrexone HCl 50 MG TABLET PO (08:24)
[2023-04-03] MEDS: metFORMIN HCl 500 MG TABLET PO ×2 (08:24→16:40)
[2023-04-03] MEDS: Benztropine Mesylate 0.5 MG TABLET PO (08:24)
[2023-04-03] MEDS: Perphenazine 8 MG TABLET 16 MG PO ×2 (08:24→20:12)
[2023-04-03] MEDS: hydrOXYzine HCL 50 MG TABLET PO (17:14)
[2023-04-03] MEDS: Divalproex Sodium ER 250 MG TAB.ER.24H PO (20:12)
[2023-04-03] MEDS: Divalproex Sodium ER 500 MG TAB.ER.24H 2000 MG PO (20:12)
[2023-04-03] MEDS: Melatonin 3 MG TABLET PO (20:13)
[2023-04-03] MEDS: cloNIDine HCL 0.2 MG TABLET PO (20:13)
[2023-04-03 20:22] VITALS: BP 138/75; PULSE 124; TEMP 36.9; O2SAT 98
--- NOTE | 2023-04-03 21:21 | P.PNPSI_ITS ---
Subjective Subjective Date of Service: 04/03/23 Reason For Visit: Schizoaffective disorder, bipolar type Interim History: calm, cooperative. discussing when he should leave the hospital, what might enable him to be more successful after discharge than last time. pt insistent that his plan of going to [facility] [place] remains best option. feels he is almost stable. per staff, denies dep/anx. not attending groups. c/o 10 dental pain. no behavioral issues. Mental Status Exam Mental Status Exam Narrative: up and about the unit, disheveled, poor hygiene. cooperative, no PMA/PMR. speech nml rate, amount, loudness, tone, latency. thoughts linear and logical. affect constricted, normo-intense, non-labile. mood pretty good. no SI/HI/AVH. Diagnostics Vital Signs (24Hr): Vital Signs - 24 hr 04/03/23 07:40 04/03/23 20:22 Temperature 98.1 F 98.4 F Pulse Rate 80 124 H Respiratory Rate 16 Blood Pressure 111/55 L 138/75 Pulse Oximetry 97 98 Oxygen Delivery Method Room Air Room Air BMI result Body Mass Index 47.0 Labs 03/28/23 08:13 Medications Medications Current Medications Acetaminophen (Acetaminophen 325 Mg Tablet) 650 mg PO Q6H PRN PRN Reason: Headache/Pain Mild Scale (1-3) Last Admin: 04/03/23 20:47 Dose: 650 mg Al Hydroxide/Mg Hydroxide (Magnesium Hydrox/Alum Hydrox 30 Ml Oral.Susp) 30 ml PO Q6H PRN PRN Reason: Heartburn/Nausea Benzocaine (Throat Lozenge, Medicated Lozenge) 1 lozenge MUCOUS MEM Q2H PRN PRN Reason: Sore Throat Last Admin: 03/28/23 20:24 Dose: 1 lozenge Benztropine Mesylate (Benztropine Mesylate 0.5 Mg Tablet) 0.5 mg PO DAILY [facility] Last Admin: 04/03/23 08:24 Dose: 0.5 mg Clonidine HCl (Clonidine Hcl 0.2 Mg Tablet) 0.2 mg PO BEDTIME [facility]; Protocol Last Admin: 04/03/23 20:13 Dose: 0.2 mg Divalproex Sodium (Divalproex Sodium Er 250 Mg Tab.Er.24h) 250 mg PO BEDTIME [facility] Last Admin: 04/03/23 20:12 Dose: 250 mg Divalproex Sodium (Divalproex Sodium Er 500 Mg Tab.Er.24h) 2,000 mg PO BEDTIME [facility] Last Admin: 04/03/23 20:12 Dose: 2,000 mg Hydroxyzine HCl (Hydroxyzine Hcl 25 Mg Tablet) 25 mg PO Q6H PRN PRN Reason: Anxiety Last Admin: 03/28/23 05:18 Dose: 25 mg Hydroxyzine HCl (Hydroxyzine Hcl 50 Mg Tablet) 50 mg PO BID PRN PRN Reason: Anxiety Last Admin: 04/03/23 17:14 Dose: 50 mg Loperamide HCl (Loperamide Hcl 2 Mg Capsule) 2 mg PO Q4H PRN PRN Reason: Diarrhea Lorazepam (Lorazepam 1 Mg Tablet) 2 mg PO Q6H PRN PRN Reason: agitation Last Admin: 04/03/23 02:28 Dose: 2 mg Magnesium Hydroxide (Milk Of Magnesia 30 Ml Oral.Susp) 30 ml PO DAILY PRN PRN Reason: Constipation Melatonin (Melatonin 3 Mg Tablet) 3 mg PO BEDTIME [facility] Last Admin: 04/03/23 20:13 Dose: 3 mg Metformin HCl (Metformin Hcl 500 Mg Tablet) 500 mg PO BIDWM [facility] Last Admin: 04/03/23 16:40 Dose: 500 mg Naltrexone HCl (Naltrexone Hcl 50 Mg Tablet) 50 mg PO DAILY [facility] Last Admin: 04/03/23 08:24 Dose: 50 mg Nicotine (Nicotine 14 Mg Patch.Td24) 14 mg TRANSDERMA DAILY [facility] Last Admin: 04/03/23 08:24 Dose: Not Given Nicotine Polacrilex (Nicotine Polacrilex 2 Mg Gum) 2 mg BUCCAL Q2H PRN PRN Reason: Nicotine Cravings Last Admin: 03/29/23 13:25 Dose: 2 mg Olanzapine (Olanzapine 10 Mg Tablet) 10 mg PO Q6H PRN PRN Reason: agitation Last Admin: 04/01/23 20:15 Dose: 10 mg Perphenazine (Perphenazine 8 Mg Tablet) 16 mg PO BID [facility] Last Admin: 04/03/23 20:12 Dose: 16 mg Trazodone HCl (Trazodone Hcl 50 Mg Tablet) 50 mg PO BEDTIME MRX1 PRN PRN Reason: Insomnia Last Admin: 03/28/23 01:23 Dose: 50 mg Allergies Allergies Allergy/AdvReac Type Severity Reaction Status Date / Time amoxicillin Allergy Hives Verified 03/15/23 17:19 Assessment & Plan Assessment & Plan (1) Bipolar disorder, curr episode mixed, severe, with psychotic features: Status: Acute Code(s): F31.64 - Bipolar disorder, current episode mixed, severe, with psychotic features Plan Hospital course: 03/29 continue current treatment regimen, consisting of restarting home medication regimen which seems to be helpful. 03/30 continue current treatment plan Reviewed labs and Depakote level therapeutic LFTs/ammonia WNL 03/31 continue current treatment plan 04/01 continue tx. 04/02 continue tx. 04/03: continue current mgmt. planning for discharge monday to [facility] [place]. Plan: restart regimen on which he was discharged last week. develop robust discharge plan. flagyl/levaquin for dental infection, per hospitalist. STI studies NEG utox NEG. mgmt for DM. Reason for continued inpatient stay Substantial Risk for: inability to function and rapid decompensation Time Spent With Patient Time: Total time managing care of this patient today __35__ minutes.
[2023-04-04] MEDS: LORazepam 1 MG TABLET 2 MG PO (00:30)
[2023-04-04] MEDS: Throat Lozenge, Medicated LOZENGE 1 LOZENGE MUCOUS MEM (00:31)
[2023-04-04] MEDS: OLANZapine 10 MG TABLET PO (00:31)
[2023-04-04 08:27] VITALS: BP 100/54; PULSE 81; RESP 16; TEMP 36.8; O2SAT 96
[2023-04-04] MEDS: Benztropine Mesylate 0.5 MG TABLET PO (08:34)
[2023-04-04] MEDS: Naltrexone HCl 50 MG TABLET PO (08:34)
[2023-04-04] MEDS: Perphenazine 8 MG TABLET 16 MG PO ×2 (08:34→20:34)
[2023-04-04] MEDS: metFORMIN HCl 500 MG TABLET PO ×2 (08:34→18:07)
[2023-04-04 10:24] LABS: Creatinine Clr Calc Pharmacy 186.7; Estimated Glomerular Filt Rate > 60
--- NOTE | 2023-04-04 12:11 | P.PNPSI_ITS ---
Subjective Subjective Date of Service: 04/04/23 Reason For Visit: Schizoaffective disorder, bipolar type Subjective Notes: Conditional Voluntary Interim History: Reviewed with . In bed most of shift. Irritated that I woke him up from his nap to speak to him. Guarded. Pt reports feeling good and ready to go home . denies SI/HI/VH/AH. Attending Groups: No Review of Systems Constitutional: Reports as per HPI Eyes: Reports as per HPI Reports as per HPI Cardiovascular: Reports as per HPI Respiratory: Reports as per HPI Gastrointestinal: Reports as per HPI Genitourinary: Reports as per HPI Musculoskeletal: Reports as per HPI Skin/Breast: Reports as per HPI Reports as per HPI Psychiatric: Reports as per HPI Endocrine: Reports as per HPI Hematologic/Lymphatic: Reports as per HPI Allergic/Immunologic: Reports as per HPI Mental Status Exam Mental Status Exam Narrative: Pt is alert and oriented; behavior is irritable and guarded; dressed in casual attire; mood is described as good ; eye contact appropriate; Speech is normal rate, volume and prosody and not pressured; no psychomotor agitation/retardation present; thought process is organized; Thought content is on discharge; denies SI/HI/AH/VH. Diagnostics Vital Signs (24Hr): Vital Signs - 24 hr 04/03/23 20:22 04/04/23 08:27 Temperature 98.4 F 98.2 F Pulse Rate 124 H 81 Respiratory Rate 16 Blood Pressure 138/75 100/54 L Pulse Oximetry 98 96 Oxygen Delivery Method Room Air Room Air BMI result Body Mass Index 47.0 Labs 04/04/23 09:32 Labs: Laboratory Results - last 48 hr 04/04/23 09:32 Creatinine 0.77 Estim Creat Clear Calc 186.7 Estimated GFR > 60 Medications Medications Current Medications Acetaminophen (Acetaminophen 325 Mg Tablet) 650 mg PO Q6H PRN PRN Reason: Headache/Pain Mild Scale (1-3) Last Admin: 04/03/23 20:47 Dose: 650 mg Al Hydroxide/Mg Hydroxide (Magnesium Hydrox/Alum Hydrox 30 Ml Oral.Susp) 30 ml PO Q6H PRN PRN Reason: Heartburn/Nausea Benzocaine (Throat Lozenge, Medicated Lozenge) 1 lozenge MUCOUS MEM Q2H PRN PRN Reason: Sore Throat Last Admin: 04/04/23 00:31 Dose: 1 lozenge Benzocaine (Benzocaine 20 % Oral Gel 9 Gm Tube) 1 appl MUCOUS MEM QID PRN; Protocol PRN Reason: Pain, Mild (Pain Scale 1-3) Stop: 04/20/23 23:59 Benztropine Mesylate (Benztropine Mesylate 0.5 Mg Tablet) 0.5 mg PO DAILY [facility] Last Admin: 04/04/23 08:34 Dose: 0.5 mg Clonidine HCl (Clonidine Hcl 0.2 Mg Tablet) 0.2 mg PO BEDTIME [facility]; Protocol Last Admin: 04/03/23 20:13 Dose: 0.2 mg Divalproex Sodium (Divalproex Sodium Er 250 Mg Tab.Er.24h) 250 mg PO BEDTIME [facility] Last Admin: 04/03/23 20:12 Dose: 250 mg Divalproex Sodium (Divalproex Sodium Er 500 Mg Tab.Er.24h) 2,000 mg PO BEDTIME [facility] Last Admin: 04/03/23 20:12 Dose: 2,000 mg Hydroxyzine HCl (Hydroxyzine Hcl 25 Mg Tablet) 25 mg PO Q6H PRN PRN Reason: Anxiety Last Admin: 03/28/23 05:18 Dose: 25 mg Hydroxyzine HCl (Hydroxyzine Hcl 50 Mg Tablet) 50 mg PO BID PRN PRN Reason: Anxiety Last Admin: 04/03/23 17:14 Dose: 50 mg Loperamide HCl (Loperamide Hcl 2 Mg Capsule) 2 mg PO Q4H PRN PRN Reason: Diarrhea Lorazepam (Lorazepam 1 Mg Tablet) 2 mg PO Q6H PRN PRN Reason: agitation Last Admin: 04/04/23 00:30 Dose: 2 mg Magnesium Hydroxide (Milk Of Magnesia 30 Ml Oral.Susp) 30 ml PO DAILY PRN PRN Reason: Constipation Melatonin (Melatonin 3 Mg Tablet) 3 mg PO BEDTIME [facility] Last Admin: 04/03/23 20:13 Dose: 3 mg Metformin HCl (Metformin Hcl 500 Mg Tablet) 500 mg PO BIDWM [facility] Last Admin: 04/04/23 08:34 Dose: 500 mg Naltrexone HCl (Naltrexone Hcl 50 Mg Tablet) 50 mg PO DAILY [facility] Last Admin: 04/04/23 08:34 Dose: 50 mg Nicotine (Nicotine 14 Mg Patch.Td24) 14 mg TRANSDERMA DAILY [facility] Last Admin: 04/04/23 08:35 Dose: Not Given Nicotine Polacrilex (Nicotine Polacrilex 2 Mg Gum) 2 mg BUCCAL Q2H PRN PRN Reason: Nicotine Cravings Last Admin: 03/29/23 13:25 Dose: 2 mg Olanzapine (Olanzapine 10 Mg Tablet) 10 mg PO Q6H PRN PRN Reason: agitation Last Admin: 04/04/23 00:31 Dose: 10 mg Perphenazine (Perphenazine 8 Mg Tablet) 16 mg PO BID [facility] Last Admin: 04/04/23 08:34 Dose: 16 mg Trazodone HCl (Trazodone Hcl 50 Mg Tablet) 50 mg PO BEDTIME MRX1 PRN PRN Reason: Insomnia Last Admin: 03/28/23 01:23 Dose: 50 mg Allergies Allergies Allergy/AdvReac Type Severity Reaction Status Date / Time amoxicillin Allergy Hives Verified 03/15/23 17:19 Assessment & Plan Assessment & Plan (1) Bipolar disorder, curr episode mixed, severe, with psychotic features: Status: Acute Code(s): F31.64 - Bipolar disorder, current episode mixed, severe, with psychotic features Plan Hospital course: 03/29 continue current treatment regimen, consisting of restarting home medication regimen which seems to be helpful. 03/30 continue current treatment plan Reviewed labs and Depakote level therapeutic LFTs/ammonia WNL 03/31 continue current treatment plan 04/01 continue tx. 04/02 continue tx. 04/03: continue current mgmt. planning [facility] [place]. 04/04: In bed most of shift. Irritated that I woke him up from his nap to speak to him. Guarded. Pt reports feeling good and ready to go home . denies SI/HI/VH/AH Continue current tx plan. Plan: restart regimen on which he was discharged last week. develop robust discharge plan. flagyl/levaquin for dental infection, per hospitalist. STI studies NEG utox NEG. mgmt for DM. Patient educated on: medication risk/benefits Informed Consent: understands Reason for continued inpatient stay Substantial Risk for: med/psych decompensation Time Spent With Patient Time: Total time managing care of this patient today _20___ minutes.
[2023-04-04] MEDS: Acetaminophen 325 MG TABLET 650 MG PO ×2 (13:33→20:33)
[2023-04-04 20:05] VITALS: BP 123/89; PULSE 106; TEMP 36.6; O2SAT 96
[2023-04-04] MEDS: Divalproex Sodium ER 500 MG TAB.ER.24H 2000 MG PO (20:34)
[2023-04-04] MEDS: cloNIDine HCL 0.2 MG TABLET PO (20:34)
[2023-04-04] MEDS: Melatonin 3 MG TABLET PO (20:34)
[2023-04-04] MEDS: Divalproex Sodium ER 250 MG TAB.ER.24H PO (20:35)
[2023-04-05 07:55] VITALS: BP 110/62; PULSE 82; RESP 14; TEMP 36.5; O2SAT 97
[2023-04-05] MEDS: Benztropine Mesylate 0.5 MG TABLET PO (08:22)
[2023-04-05] MEDS: Perphenazine 8 MG TABLET 16 MG PO ×2 (08:23→20:09)
[2023-04-05] MEDS: Naltrexone HCl 50 MG TABLET PO (08:23)
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
[2023-04-05 20:00] VITALS: BP 135/96; PULSE 122; TEMP 36.7
[2023-04-05] MEDS: Melatonin 3 MG TABLET PO (20:09)
[2023-04-05] MEDS: cloNIDine HCL 0.2 MG TABLET PO (20:09)
[2023-04-05] MEDS: Divalproex Sodium ER 500 MG TAB.ER.24H 2000 MG PO (20:26)
[2023-04-05] MEDS: Divalproex Sodium ER 250 MG TAB.ER.24H PO (20:26)
[2023-04-05 20:43] LABS: MANUAL DIFF FLAG NO
[2023-04-05 20:45] LABS: Basophils Percent Auto 0.2 % (0-2); Eosinophils Absolute Auto 0.3 X10*3/uL (0.0-0.4); Eosinophils Percent Auto 2.8 % (0-4); Hematocrit 45.7 % (42.0-52.0); Hemoglobin 14.9 g/dl (14.0-18.0); Imm Gran Abs Auto 0.07 X10*3/uL (0.00-0.03); Imm Gran Pct Auto 0.7 % (0.0-0.4); Lymphocytes Absolute Auto 2.2 X10*3/uL (1.2-4.9); Lymphocytes Percent Auto 23.9 % (20-40); Mean Corpuscular HGB Conc 32.6 g/dl (31.0-36.0); Mean Corpuscular Hemoglobin 28.8 pg (27.0-33.0); Mean Corpuscular Volume 88.2 fL (80.0-98.0); Mean Platelet Volume 9.8 fL (9.4-12.4); Monocytes Absolute Auto 0.9 X10*3/uL (0.1-1.2); Monocytes Percent Auto 9.4 % (2-11); Neutrophils Absolute Auto 5.9 x10*3/uL (2.0-8.3); Platelet Count 287 X10*3/uL (160-400); Red Blood Count 5.18 X10*6/uL (4.60-5.80); Red Cell Distribution Width 13.4 % (11.0-16.0); White Blood Count 9.4 X10*3/uL (4.8-10.8)
[2023-04-05 21:00] LABS: Alanine Aminotransferase 48 U/L (0-40); Albumin Level 3.9 g/dL (3.5-5.0); Alkaline Phosphatase 48 U/L (39-117); Anion Gap 15 (12-20); Aspartate Amino Transferase 30 U/L (5-37); Bilirubin Direct < 0.2 mg/dL (0.0-0.5); Bilirubin Total 0.2 mg/dL (0.0-1.0); Blood Urea Nitrogen 20 mg/dL (9-16); Calcium 9.3 mg/dL (8.4-10.2); Carbon Dioxide 26 mmol/L (22-29); Chloride 104 mmol/L (96-108); Creatinine Clr Calc Pharmacy 184.3; Estimated Glomerular Filt Rate > 60; Glucose Random 128 mg/dL (60-115); Potassium 4.7 mmol/L (3.3-5.1); Sodium 140 mmol/L (135-145); Total Protein 6.9 g/dL (6.5-8.0)
[2023-04-05 21:07] LABS: Valproate 42.8 mcg/mL (50.0-100.0)
[2023-04-06] MEDS: Acetaminophen 325 MG TABLET 650 MG PO ×2 (01:15→08:35)
[2023-04-06] MEDS: hydrOXYzine HCL 50 MG TABLET PO (05:22)
[2023-04-06 07:57] VITALS: BP 120/54; PULSE 79; RESP 16; TEMP 36.4; O2SAT 98
[2023-04-06] MEDS: metFORMIN HCl 500 MG TABLET PO (08:35)
[2023-04-06] MEDS: Benztropine Mesylate 0.5 MG TABLET PO (08:35)
[2023-04-06] MEDS: Perphenazine 8 MG TABLET 16 MG PO (08:35)
[2023-04-06] MEDS: Naltrexone HCl 50 MG TABLET PO (08:35)
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
== END 2023-04-06 10:35 | disposition home or self-care (01) | DRG 885 ==
PROVIDERS: Physician Assistant; Psychiatry & Neurology Psychiatry; Admitting Provider Psychiatry & Neurology Psychiatry; Visit Provider Psychiatry & Neurology Psychiatry
DX: F31.64 Bipolar disorder, current episode mixed, severe, with psychotic features (principal); Z59.02 Unsheltered homelessness; Z68.42 Body mass index [BMI] 45.0-49.9, adult; F84.5 Asperger's syndrome; E66.01 Morbid (severe) obesity due to excess calories; R30.0 Dysuria; K52.9 Noninfective gastroenteritis and colitis, unspecified; F17.210 Nicotine dependence, cigarettes, uncomplicated; Z71.6 Tobacco abuse counseling; Z79.84 Long term (current) use of oral hypoglycemic drugs; Z79.899 Other long term (current) drug therapy
CPT/HCPCS: 0353U; 36415; 80048; 80053; 80061; 80076; 80164; 81001; 81003; 82140; 82565; 83036; 85025; 87661

== ENCOUNTER → 2023-03-27 17:32 | Outpatient (BNV) | payer OTHER, SELFPAY | PROVIDERS: Admitting Provider Psychiatry & Neurology Psychiatry; Visit Provider Physician Assistant | DX: R07.89 Other chest pain (principal); R30.0 Dysuria | CPT/HCPCS: 99221 ==

== ENCOUNTER → 2023-03-27 17:32 | Outpatient (BNV) | payer OTHER, SELFPAY | PROVIDERS: Admitting Provider Psychiatry & Neurology Psychiatry; Visit Provider Psychiatry & Neurology Psychiatry | DX: F31.64 Bipolar disorder, current episode mixed, severe, with psychotic features (principal) | CPT/HCPCS: 90792; 99231; 99232; 99239 ==

== ENCOUNTER 2023-07-01 12:11 | Emergency (ER) | payer OTHER, SELFPAY ==
[2023-07-01 12:14] VITALS: BP 111/81; PULSE 120; RESP 18; TEMP 36.7; O2SAT 95; BMI 45.3
--- NOTE | 2023-07-01 12:14 | ED.PSYCH ---
HPI - Psych General Chief Complaint: Psychiatric Symptoms Stated Complaint: psych eval Time Seen by Provider: 07/01/23 12:20 Source: patient Mode of arrival: ambulatory Limitations: no limitations History of Present Illness HPI Narrative: Patient is a 32-year-old male who presents to the emergency department reporting he is dealing with a lot of emotions , reports a few years ago he went through a break up which he has struggled to deal with. He spoke with a psychic last night, advised him that his ex significant other still cares about him and never meant to him which has brought up a lot of emotions for him. When asked he denies suicidal ideations but reports that he feels like ?cutting myself? by means to decrease his stress. States that he Called suicide hotline recently and is awaiting their help to establish therapist/ psychiatrist. Reports taking medications as prescribed, including depakote, not clear who is prescribing this, ?PCP.. Denies any drug or alcohol usage. Denies HI. Denies physical complaints. Related Data Home Medications Medication Instructions Recorded Confirmed benztropine 0.5 mg tablet 0.5 mg PO BID 03/15/23 07/01/23 clindamycin HCl 300 mg capsule 300 mg PO TID 07/01/23 07/01/23 hydroxyzine pamoate 50 mg capsule 50 mg PO TID PRN anxiety 07/01/23 07/01/23 melatonin 3 mg tablet 6 mg PO BEDTIME 07/01/23 07/01/23 metformin 500 mg tablet 500 mg PO BID 07/01/23 07/01/23 nicotine (polacrilex) 2 mg gum 2 mg PO Q1-2H PRN Nicotine Cravings 07/01/23 07/01/23 Previous Rx's Medication Instructions Recorded divalproex 250 mg tablet,extended 250 mg PO BEDTIME 30 days #30 tabs 03/21/23 release 24 hr divalproex 500 mg tablet,extended 2,000 mg (4 x 500 mg) PO BEDTIME 03/21/23 release 24 hr 30 days #120 tabs Allergies Allergy/AdvReac Type Severity Reaction Status Date / Time amoxicillin Allergy Hives Verified 07/01/23 12:14 Review of Systems Review of Systems: Yes all other systems are reviewed and are negative PMFSH Past Medical History Attestation statement: The following information was validated with the patient. Source: old records reviewed Medical History Routine medical exam HTN (hypertension) Bipolar disorder Diabetes Social History Social History Household Members: None Household Members Other:: Homeless Housing: Homeless Do you presently have visiting nurse or other home services: No Alcohol intake: never Patient Tobacco Use Status: Current everyday Tobacco user Tobacco use type: Cigarette Cigarette Packs Per Day: 1 Cigarettes Per Day: 3 Years Smoked: Many Smoked in Last 30 Days: No e-Cigarette/Vaping Use: Never Used Second Hand Smoke Exposure: No Use of substances other than those prescribed or required for medical reasons: No Substance Use Type: Marijuana Advance Directives: No Advance Directives Information Provided: No service: No Sexual orientation: Straight/Heterosexual Physical Exam Vital Signs: Vital Signs: Last Vital Signs Temp 98.1 F 07/01/23 12:14 Pulse 120 H 07/01/23 12:14 Resp 16 07/01/23 12:35 BP 111/81 07/01/23 12:14 Pulse Ox 95 07/01/23 12:14 O2 Del Method Room Air 07/01/23 12:14 BMI result Body Mass Index 45.3 Medical Decision Making Medical Decision Making [facility] Narrative: Patient is a 32-year-old male with past medical history of Depression, bipolar disorder, hypertension, diabetes who presents emergency department for evaluation depression as per HPI. Physical examination is benign and he has no physical complaints. He initially presented tachycardic, he does endorse that he is feeling anxious, will obtain EKG. Plan to obtain basic labs for medical clearance, and referred to care team for safe disposition planning. Differential Diagnosis Differential Diagnoses: The differential diagnosis associated with the presentation includes (Depression, anxiety, suicidal ideation, bipolar disorder) Admission/Observation Consideration of admission/observation: Escalation of care including admission/observation considered Placed in physician observation so that care team evaluation can ensue, for safe disposition, no distress, vitals stable Consult Healthcare Provider Management of the patient was discussed with: Behavioral Health Provider (CARE team) Lab Data [facility] Lab Attestation statement: I reviewed the patient's lab results. CBC is without leukocytosis or anemia. No electrolyte abnormality. Elevated BUN consistent with baseline and normal creatinine. Microscopic hematuria as seen on prior testing March 2023, asymptomatic, no evidence of UTI. Toxicology negative 07/01/23 12:43 07/01/23 12:43 Labs: Lab Results 07/01/23 07/01/23 Range/Units 12:34 12:43 WBC 6.6 (4.8-10.8) X10*3/uL RBC 5.09 (4.60-5.80) X10*6/uL Hgb 14.5 (14.0-18.0) g/dl Hct 43.3 (42.0-52.0) % MCV 85.1 (80.0-98.0) fL MCH 28.5 (27.0-33.0) pg MCHC 33.5 (31.0-36.0) g/dl RDW 12.9 (11.0-16.0) % Plt Count 247 (160-400) X10*3/uL MPV 9.7 (9.4-12.4) fL Immature Gran % (Auto) 0.6 H (0.0-0.4) % Neut % (Auto) 59.3 (45-73) % Lymph % (Auto) 28.1 (20-40) % [place] % (Auto) 8.2 (2-11) % Eos % (Auto) 3.5 (0-4) % Baso % (Auto) 0.3 (0-2) % Lymph # (Auto) 1.9 (1.2-4.9) X10*3/uL [place] # (Auto) 0.5 (0.1-1.2) X10*3/uL Eos # (Auto) 0.2 (0.0-0.4) X10*3/uL Baso # (Auto) 0.0 (0.0-0.2) X10*3/uL Abs Immat Gran (auto) 0.04 H (0.00-0.03) X10*3/uL Absolute Neuts (auto) 3.9 (2.0-8.3) x10*3/uL Absolute Nucleated RBC 0.000 (0.0-0.012) X10*3/uL Nucleated RBC % (auto) 0.0 (0.0-0.2) /100WBC Sodium 143 (135-145) mmol/L Potassium 4.3 (3.3-5.1) mmol/L Chloride 108 (96-108) mmol/L Carbon Dioxide 26 (22-29) mmol/L Anion Gap 13 (12-20) BUN 22 H (9-16) mg/dL Creatinine 0.80 (0.5-1.4) mg/dL Estim Creat Clear Calc 175.8 Estimated GFR > 60 Random Glucose 128 H (60-115) mg/dL Calcium 9.0 (8.4-10.2) mg/dL Total Bilirubin 0.2 (0.0-1.0) mg/dL AST 17 (5-37) U/L ALT 28 (0-40) U/L Alkaline Phosphatase 51 (39-117) U/L Total Protein 6.4 L (6.5-8.0) g/dL Albumin 3.6 (3.5-5.0) g/dL Urine Color Yellow Urine Appearance Clear Urine pH 7.5 (5.0-9.0) Ur Specific [place] 1.015 (1.005-1.025) Urine Protein 300 (3+) H (Neg-Trace) mg/dL Urine Glucose (UA) Negative (Negative) mg/dL Urine Ketones Negative (Negative) mg/dL Urine Blood Large (3+) H (Negative) Urine Nitrite Negative (Negative) Ur Leukocyte Esterase Negative (Negative) Urine RBC >20 H (0-2) /HPF Urine WBC 0-5 (0-5) /HPF Ur Squamous Epith Cells 0-2 (0-2) /HPF Urine Bacteria None Seen (None Seen) Hyaline Casts 0-2 (0-2) /LPF Salicylates < 5.0 L (15-30) mg/dL Urine Opiates Screen Not Detected (Not Detect) Urine Fentanyl Screen Not Detected (Not Detect) Acetaminophen < 3 (<30) mcg/mL Ur Barbiturates Screen Not Detected (Not Detect) Ur Phencyclidine Scrn Not Detected (Not Detect) Ur Amphetamines Screen Not Detected (Not Detect) U Benzodiazepines Scrn Not Detected (Not Detect) Urine Cocaine Screen Not Detected (Not Detect) U Marijuana (THC) Screen Not Detected (Not Detect) Ethyl Alcohol < 10 mg/dL COVID-19 ([facility]) Negative (Negative) COVID-19 Clin Com See Note Independent Interpretation I performed an independent interpretation of an: EKG Interpretation: Rate:103 Rhythm:? Sinus tachycardia [place]:? Normal Normal P waves.? Normal MARCEL.?? Normal QRS complex.?? ST T wave :??No ST elevation, ST depression, no T-wave inversion qTC:429 prior studies:? None available for review The study has been interpreted contemporaneously by me. External Record Review External record reviewed: Inpatient record Discharge Plan Discharge Clinical Impression: Depression, Bipolar disorder Patient Disposition: Still a Patient Prescriptions: No Action benztropine 0.5 mg tablet 0.5 mg PO BID divalproex 500 mg Tablet Extended Release 24 Hr 2,000 mg PO BEDTIME 30 Days Qty: 120 0RF divalproex 250 mg Tablet Extended Release 24 Hr 250 mg PO BEDTIME 30 Days Qty: 30 0RF clindamycin HCl 300 mg capsule 300 mg PO TID nicotine (polacrilex) 2 mg gum 2 mg PO Q1-2H PRN (Reason: Nicotine Cravings) hydroxyzine pamoate 50 mg capsule 50 mg PO TID PRN (Reason: anxiety) metformin 500 mg tablet 500 mg PO BID melatonin 3 mg tablet 6 mg PO BEDTIME Interventions: [place]-Suicide Risk Severity Scale Last Done: 07/01/23 12:33
--- NOTE | 2023-07-01 12:26 | ECG_ITS ---
Test Reason : TACHY Blood Pressure : / mmHG Vent. Rate : 103 BPM Atrial Rate : 103 BPM P-R Int : 150 ms QRS Dur : 080 ms QT Int : 328 ms P-R-T Axes : 030 031 049 degrees QTc Int : 429 ms Sinus tachycardia Otherwise normal ECG No previous ECGs available Referred By: Carla Morin Electronically Signed By:KAYLA SANTIAGO MD
[2023-07-01 12:35] VITALS: RESP 16
--- NOTE | 2023-07-01 12:35 | PC.NURSE ---
pt brought back from waiting room to pod. Pt reports that he had a breakup with his girlfriend about 5 years ago and has been struggling with it since. Recently she got and that caused him a lot of upset. Pt verbalizes wish to kill himself and plans to cut himself in the arm stating I got emo about it . This RN validated patient's feelings. Pt verbalizes understanding of pod process and relays that he would like to go to [facility] for treatment if possible. otherwise patient is calm and cooperative, respirations even and unlabored, in no apparent distress at this time
[2023-07-01 12:50] LABS: MANUAL DIFF FLAG NO
[2023-07-01 12:53] LABS: Appearance Urine Clear; Color Urine Yellow; Glucose Urine UA Negative (Negative); Leukocyte Esterase Urine Negative (Negative); Nitrite Urine Negative (Negative); PH 7.5 (5.0-9.0); Specific Gravity - Urine 1.015 (1.005-1.025); UMIC TRIGGER UACC YES; Urine Blood Large (3+) (Negative); Urine Ketones Negative (Negative); Urine Protein 300 (3+) mg/dL (Neg-Trace)
[2023-07-01 12:54] LABS: Basophils Percent Auto 0.3 % (0-2); Eosinophils Absolute Auto 0.2 X10*3/uL (0.0-0.4); Eosinophils Percent Auto 3.5 % (0-4); Hematocrit 43.3 % (42.0-52.0); Hemoglobin 14.5 g/dl (14.0-18.0); Imm Gran Abs Auto 0.04 X10*3/uL (0.00-0.03); Imm Gran Pct Auto 0.6 % (0.0-0.4); Lymphocytes Absolute Auto 1.9 X10*3/uL (1.2-4.9); Lymphocytes Percent Auto 28.1 % (20-40); Mean Corpuscular HGB Conc 33.5 g/dl (31.0-36.0); Mean Corpuscular Hemoglobin 28.5 pg (27.0-33.0); Mean Corpuscular Volume 85.1 fL (80.0-98.0); Mean Platelet Volume 9.7 fL (9.4-12.4); Monocytes Absolute Auto 0.5 X10*3/uL (0.1-1.2); Monocytes Percent Auto 8.2 % (2-11); Neutrophils Absolute Auto 3.9 x10*3/uL (2.0-8.3); Neutrophils Percent Auto 59.3 % (45-73); Platelet Count 247 X10*3/uL (160-400); Red Blood Count 5.09 X10*6/uL (4.60-5.80); Red Cell Distribution Width 12.9 % (11.0-16.0); White Blood Count 6.6 X10*3/uL (4.8-10.8)
[2023-07-01 12:58] LABS: Bacteria Urine None Seen (None Seen); Hyaline Casts Urine 0-2 /LPF (0-2); RBC Urine >20 /HPF (0-2); Squamous Epithelial Cell Urine 0-2 /HPF (0-2); WBC Urine 0-5 /HPF (0-5)
[2023-07-01 13:01] LABS: Amphetamine Screen Urine Not Detected (Not Detect); Barbiturates, Urine Not Detected (Not Detect); Benzodiazepines Screen Urine Not Detected (Not Detect); Cannabinoid Screen Urine Not Detected (Not Detect); Cocaine Screen Urine Not Detected (Not Detect); Fentanyl, urine Not Detected (Not Detect); Opiate Screen Urine Not Detected (Not Detect); Phencyclidine Screen Urine Not Detected (Not Detect)
[2023-07-01 13:10] LABS: Acetaminophen LAB < 3 mcg/mL (<30); Alanine Aminotransferase 28 U/L (0-40); Albumin Level 3.6 g/dL (3.5-5.0); Alkaline Phosphatase 51 U/L (39-117); Anion Gap 13 (12-20); Aspartate Amino Transferase 17 U/L (5-37); Bilirubin Total 0.2 mg/dL (0.0-1.0); Blood Urea Nitrogen 22 mg/dL (9-16); COVID-19 Test Negative (Negative); Carbon Dioxide 26 mmol/L (22-29); Chloride 108 mmol/L (96-108); Creatinine Clr Calc Pharmacy 175.8; Estimated Glomerular Filt Rate > 60; Ethanol < 10 mg/dL; Glucose Random 128 mg/dL (60-115); IDNOW Serial# 08D9AD1C; Potassium 4.3 mmol/L (3.3-5.1); Salicylate < 5.0 mg/dL (15-30); Sodium 143 mmol/L (135-145); Total Protein 6.4 g/dL (6.5-8.0)
--- NOTE | 2023-07-01 17:37 | PC.NURSE ---
Pt has uneventful day up to this point, offering no complaints to this RN. Medication rec completed by this RN and briefly reviewed by pharmacy. Pt ambulating independently around BH pod in no apparent distress, making needs known. Continue plan of care for CARE team assessment
[2023-07-01 17:49] VITALS: BP 139/88; PULSE 98; RESP 18; TEMP 36.7; O2SAT 96
[2023-07-01] MEDS: Melatonin 3 MG TABLET 6 MG PO (20:35)
[2023-07-01] MEDS: Clindamycin HCL 300 MG CAPSULE PO (20:35)
[2023-07-01] MEDS: Divalproex Sodium ER 500 MG TAB.ER.24H 2000 MG PO (20:35)
[2023-07-01] MEDS: Perphenazine 8 MG TABLET 16 MG PO (20:36)
[2023-07-01] MEDS: Benztropine Mesylate 0.5 MG TABLET PO (20:36)
[2023-07-01] MEDS: Acetaminophen 325 MG TABLET 650 MG PO (21:12)
--- NOTE | 2023-07-01 23:25 | PC.NURSE ---
PT denies SI/HI at this time. Reports he has never attempted to end his life before. PT requested and provided sandwich. safety precautions in place. Plan of care ongoing.
[2023-07-02 06:37] VITALS: BP 114/84; PULSE 74; RESP 18; TEMP 36.6; O2SAT 97
--- NOTE | 2023-07-02 06:58 | PC.NURSE ---
Assumed care of patient at 0700, patient is up ambulating around BH pod, offering no complaints to this RN. Plan for pt to call senior living around 9am to pick him up for d/c
[2023-07-02] MEDS: Divalproex Sodium ER 250 MG TAB.ER.24H PO (08:03)
[2023-07-02] MEDS: Benztropine Mesylate 0.5 MG TABLET PO (08:03)
[2023-07-02] MEDS: Clindamycin HCL 300 MG CAPSULE PO (08:03)
[2023-07-02] MEDS: Perphenazine 8 MG TABLET 16 MG PO (08:03)
[2023-07-02] MEDS: metFORMIN HCl 500 MG TABLET PO (08:03)
== END 2023-07-02 10:10 | disposition home or self-care (01) ==
PROVIDERS: Nurse Practitioner Family; Emergency Provider Emergency Medicine
DX: F31.30 Bipolar disorder, current episode depressed, mild or moderate severity, unspecified (principal); E11.9 Type 2 diabetes mellitus without complications; I10 Essential (primary) hypertension; R00.0 Tachycardia, unspecified; Z79.899 Other long term (current) drug therapy
CPT/HCPCS: 80053; 80143; 80179; 80307; 81001; 85025; 87635; 93005; 99285; S9485

== ENCOUNTER → 2023-07-01 12:26 | Outpatient (BNV) | payer OTHER, SELFPAY | PROVIDERS: Emergency Provider Emergency Medicine; Visit Provider Internal Medicine Cardiovascular Disease | DX: R00.0 Tachycardia, unspecified (principal) | CPT/HCPCS: 93010 ==

== ENCOUNTER 2023-07-28 15:00 | Emergency (ER) | payer OTHER, SELFPAY ==
[2023-07-28 16:07] VITALS: BP 128/76; PULSE 86; RESP 14; TEMP 36.5; O2SAT 98; BMI 55.2
--- NOTE | 2023-07-28 16:17 | ED_ITS ---
HPI - Male Genitourinary General Chief complaint: GI Bleed Stated complaint: hemorrhoids Time Seen by Provider: 07/28/23 19:18 Related Data Home Medications Medication Instructions Recorded Confirmed benztropine 0.5 mg tablet 0.5 mg PO BID 03/15/23 07/01/23 clindamycin HCl 300 mg capsule 300 mg PO TID 07/01/23 07/01/23 divalproex 250 mg tablet,extended 250 mg PO DAILY 07/01/23 07/01/23 release 24 hr hydroxyzine pamoate 50 mg capsule 50 mg PO TID PRN anxiety 07/01/23 07/01/23 melatonin 3 mg tablet 6 mg PO BEDTIME 07/01/23 07/01/23 metformin 500 mg tablet 500 mg PO BID 07/01/23 07/01/23 nicotine (polacrilex) 2 mg gum 2 mg PO Q1-2H PRN Nicotine Cravings 07/01/23 07/01/23 perphenazine 8 mg tablet 16 mg PO BID 07/01/23 07/01/23 Previous Rx's Medication Instructions Recorded divalproex 500 mg tablet,extended 2,000 mg (4 x 500 mg) PO BEDTIME 03/21/23 release 24 hr 30 days #120 tabs Allergies Allergy/AdvReac Type Severity Reaction Status Date / Time amoxicillin Allergy Hives Verified 07/01/23 12:14 [facility] Past Medical History Medical History Routine medical exam HTN (hypertension) Bipolar disorder Diabetes Social History Social History Household Members: None Household Members Other:: Homeless Housing: Homeless Do you presently have visiting nurse or other home services: No Alcohol intake: never Patient Tobacco Use Status: Current everyday Tobacco user Tobacco use type: Cigarette Cigarette Packs Per Day: 1 Cigarettes Per Day: 3 Years Smoked: Many e-Cigarette/Vaping Use: Never Used Second Hand Smoke Exposure: No Substance Use Type: Marijuana Advance Directives: No Advance Directives Information Provided: No service: No Sexual orientation: Straight/Heterosexual Physical Exam 2 Vital Signs: Vital Signs: Last Vital Signs Temp 97.7 F 07/28/23 16:07 Pulse 86 07/28/23 16:07 Resp 14 07/28/23 16:07 BP 128/76 07/28/23 16:07 Pulse Ox 98 07/28/23 16:07 O2 Del Method Room Air 07/28/23 16:07 BMI result Body Mass Index 55.2 Course Course Course Narrative: This is a rapid medical exam: Additional HPI, ROS, PE not included below will be deferred to primary provider. Concerns for hemorrhoids and BRBPR. States he has a burning sensation at the rectum. > 300 lbs with difficulty wiping after bowel movements In a sobriety house. Medical Decision Making Medical Decision Making [facility] Narrative: [facility] Lab Data 07/28/23 16:28 07/28/23 16:28 Labs: Lab Results 07/28/23 Range/Units 16:28 WBC 7.7 (4.8-10.8) X10*3/uL RBC 4.79 (4.60-5.80) X10*6/uL Hgb 13.7 L (14.0-18.0) g/dl Hct 42.2 (42.0-52.0) % MCV 88.1 (80.0-98.0) fL MCH 28.6 (27.0-33.0) pg MCHC 32.5 (31.0-36.0) g/dl RDW 13.4 (11.0-16.0) % Plt Count 273 (160-400) X10*3/uL MPV 9.7 (9.4-12.4) fL Immature Gran % (Auto) 0.7 H (0.0-0.4) % Neut % (Auto) 64.4 (45-73) % Lymph % (Auto) 22.8 (20-40) % [place] % (Auto) 10.3 (2-11) % Eos % (Auto) 1.7 (0-4) % Baso % (Auto) 0.1 (0-2) % Lymph # (Auto) 1.8 (1.2-4.9) X10*3/uL [place] # (Auto) 0.8 (0.1-1.2) X10*3/uL Eos # (Auto) 0.1 (0.0-0.4) X10*3/uL Baso # (Auto) 0.0 (0.0-0.2) X10*3/uL Abs Immat Gran (auto) 0.05 H (0.00-0.03) X10*3/uL Absolute Neuts (auto) 5.0 (2.0-8.3) x10*3/uL Absolute Nucleated RBC 0.000 (0.0-0.012) X10*3/uL Nucleated RBC % (auto) 0.0 (0.0-0.2) /100WBC Sodium 142 (135-145) mmol/L Potassium 4.7 (3.3-5.1) mmol/L Chloride 107 (96-108) mmol/L Carbon Dioxide 26 (22-29) mmol/L Anion Gap 14 (12-20) BUN 27 H (9-16) mg/dL Creatinine 0.91 (0.5-1.4) mg/dL Estim Creat Clear Calc 173.9 Estimated GFR > 60 Random Glucose 88 (60-115) mg/dL Calcium 8.9 (8.4-10.2) mg/dL Total Bilirubin 0.2 (0.0-1.0) mg/dL AST 22 (5-37) U/L ALT 30 (0-40) U/L Alkaline Phosphatase 43 (39-117) U/L Total Protein 6.7 (6.5-8.0) g/dL Albumin 3.8 (3.5-5.0) g/dL Discharge Plan Discharge Clinical Impression: Left before treatment completed Patient Disposition: Left W/O Completing Treatment Prescriptions: No Action benztropine 0.5 mg tablet 0.5 mg PO BID divalproex 500 mg Tablet Extended Release 24 Hr 2,000 mg PO BEDTIME 30 Days Qty: 120 0RF clindamycin HCl 300 mg capsule 300 mg PO TID Patient Comments: Pt has one more day left of Clindamycin nicotine (polacrilex) 2 mg gum 2 mg PO Q1-2H PRN (Reason: Nicotine Cravings) hydroxyzine pamoate 50 mg capsule 50 mg PO TID PRN (Reason: anxiety) metformin 500 mg tablet 500 mg PO BID melatonin 3 mg tablet 6 mg PO BEDTIME perphenazine 8 mg tablet 16 mg PO BID divalproex 250 mg tablet extended release 24 hr 250 mg PO DAILY Discharge Date/Time: 07/28/23 19:34
[2023-07-28 16:32] LABS: MANUAL DIFF FLAG NO
[2023-07-28 16:33] LABS: Basophils Percent Auto 0.1 % (0-2); Eosinophils Absolute Auto 0.1 X10*3/uL (0.0-0.4); Eosinophils Percent Auto 1.7 % (0-4); Hematocrit 42.2 % (42.0-52.0); Hemoglobin 13.7 g/dl (14.0-18.0); Imm Gran Abs Auto 0.05 X10*3/uL (0.00-0.03); Imm Gran Pct Auto 0.7 % (0.0-0.4); Lymphocytes Absolute Auto 1.8 X10*3/uL (1.2-4.9); Lymphocytes Percent Auto 22.8 % (20-40); Mean Corpuscular HGB Conc 32.5 g/dl (31.0-36.0); Mean Corpuscular Hemoglobin 28.6 pg (27.0-33.0); Mean Corpuscular Volume 88.1 fL (80.0-98.0); Mean Platelet Volume 9.7 fL (9.4-12.4); Monocytes Absolute Auto 0.8 X10*3/uL (0.1-1.2); Monocytes Percent Auto 10.3 % (2-11); Neutrophils Percent Auto 64.4 % (45-73); Platelet Count 273 X10*3/uL (160-400); Red Blood Count 4.79 X10*6/uL (4.60-5.80); Red Cell Distribution Width 13.4 % (11.0-16.0); White Blood Count 7.7 X10*3/uL (4.8-10.8)
--- NOTE | 2023-07-28 16:33 | MHC.EDTECH ---
PATIENT BLOOD DRAWN AND SENT TO LAB .
[2023-07-28 16:47] LABS: Alanine Aminotransferase 30 U/L (0-40); Albumin Level 3.8 g/dL (3.5-5.0); Alkaline Phosphatase 43 U/L (39-117); Anion Gap 14 (12-20); Aspartate Amino Transferase 22 U/L (5-37); Bilirubin Total 0.2 mg/dL (0.0-1.0); Blood Urea Nitrogen 27 mg/dL (9-16); Calcium 8.9 mg/dL (8.4-10.2); Carbon Dioxide 26 mmol/L (22-29); Chloride 107 mmol/L (96-108); Creatinine Clr Calc Pharmacy 173.9; Estimated Glomerular Filt Rate > 60; Glucose Random 88 mg/dL (60-115); Potassium 4.7 mmol/L (3.3-5.1); Sodium 142 mmol/L (135-145); Total Protein 6.7 g/dL (6.5-8.0)
--- NOTE | 2023-07-28 18:52 | PC.NURSE ---
asked to be bumped up the list- tried to explain triage and acuity and that we could not do that- pt stormed out angrily
== END 2023-07-28 19:34 | disposition left against medical advice (07) ==
PROVIDERS: Nurse Practitioner Family; Emergency Provider Emergency Medicine
DX: K64.9 Unspecified hemorrhoids (principal); I10 Essential (primary) hypertension; E11.9 Type 2 diabetes mellitus without complications
CPT/HCPCS: 36415; 80053; 85025; 99281; 99283

== ENCOUNTER 2023-08-21 11:19 | Emergency (ER) | payer OTHER, SELFPAY ==
--- NOTE | ~2023-08-21 | XR_ITS ---
EXAMINATION: XR ANKLE, LEFT CLINICAL INFORMATION: Ankle injury COMPARISON: None available. TECHNIQUE: AP, lateral, and mortise views of the left ankle. FINDINGS: Lateral soft tissue swelling. No fracture or malalignment. The ankle mortise is preserved. XR/XR ankle LT min 3V IMPRESSION: Lateral soft tissue swelling. No fracture.
--- NOTE | 2023-08-21 12:08 | ED_ITS ---
HPI - General Adult General Chief complaint: Extremity Injury, Lower Stated complaint: L ankle inj Time Seen by Provider: 08/21/23 13:21 Source: patient, RN notes reviewed and old records reviewed Mode of arrival: wheelchair Limitations: no limitations History of Present Illness HPI narrative: 32-year-old male presents for evaluation of left ankle injury. Patient reports that he rolled his left ankle 1 week ago He states that he is able to walk but he has pain with walking. The pain is on the outside of the left ankle Denies any other injuries, denies any redness, wounds Related Data Home Medications ?Medication ?Instructions ?Recorded ?Confirmed benztropine 0.5 mg tablet 0.5 mg PO BID 03/15/23 07/01/23 clindamycin HCl 300 mg capsule 300 mg PO TID 07/01/23 07/01/23 divalproex 250 mg tablet,extended 250 mg PO DAILY 07/01/23 07/01/23 release 24 hr hydroxyzine pamoate 50 mg capsule 50 mg PO TID PRN anxiety 07/01/23 07/01/23 melatonin 3 mg tablet 6 mg PO BEDTIME 07/01/23 07/01/23 metformin 500 mg tablet 500 mg PO BID 07/01/23 07/01/23 nicotine (polacrilex) 2 mg gum 2 mg PO Q1-2H PRN Nicotine Cravings 07/01/23 07/01/23 perphenazine 8 mg tablet 16 mg PO BID 07/01/23 07/01/23 Previous Rx's ?Medication ?Instructions ?Recorded divalproex 500 mg tablet,extended 2,000 mg (4 x 500 mg) PO BEDTIME 03/21/23 release 24 hr 30 days #120 tabs ibuprofen 600 mg tablet 600 mg PO Q6H PRN pain #20 tabs 08/21/23 Allergies Allergy/AdvReac Type Severity Reaction Status Date / Time amoxicillin Allergy Hives Verified 08/21/23 12:10 Review of Systems Musculoskeletal: Musculoskeletal: Reports arthralgias, Reports joint swelling and Reports limited range of motion PMFSH Past Medical History Medical History Routine medical exam HTN (hypertension) Bipolar disorder Diabetes Social History Social History Household Members: None Household Members Other:: Homeless Housing: Homeless Do you presently have visiting nurse or other home services: No Alcohol intake: never Patient Tobacco Use Status: Current everyday Tobacco user Tobacco use type: Cigarette Cigarette Packs Per Day: 1 Cigarettes Per Day: 3 Years Smoked: Many e-Cigarette/Vaping Use: Never Used Second Hand Smoke Exposure: No Substance Use Type: Marijuana Advance Directives: No Advance Directives Information Provided: No service: No Sexual orientation: Straight/Heterosexual Physical Exam ED Vital Signs: Vital Signs - 24 hr 08/21/23 12:09 08/21/23 13:28 Temperature 97.9 F 98.0 F Pulse Rate 85 82 Respiratory Rate 18 18 Blood Pressure 141/87 H 140/88 H Pulse Oximetry 96 96 Oxygen Delivery Method Room Air Room Air BMI result Body Mass Index 55.1 Const General: healthy appearing, comfortable, no acute distress, alert and awake Nutritional Appearance: well nourished Orientation/consciousness: patient oriented x3 HENMT Head: Yes normocephalic and Yes atraumatic Eyes Eyelids: Yes eyelids normal Conjunctivae: conjunctivae normal Sclerae: sclerae normal Corneas: corneas normal Pupils: Equal, round and reactive pupils present EOM: EOMs intact bilaterally Skin General skin exam: no rashes or lesions noted and elasticity normal Neuro General: patient oriented x3 Cranial nerves: Yes Equal, round and reactive pupils present and Yes Bilaterally intact EOM present Cognition (Neuro): normal cognition Extrem Other: Patient has mild left lateral ankle soft tissue swelling of the lateral malleolus. This area is tender to palpation. The patient has good range of motion flexion extension of the left knee. There is good range of motion with plantar flexion and dorsiflexion of the left ankle. Course Course Course Narrative: RME- 32 year old male presents for evaluation of left ankle pain. Patient reports rolling his ankle about 1 week ago. He is ambulatory with a limp. Plan for x-rays Medical Decision Making Medical Decision Making MDM Narrative: Patient has a minor left ankle injury, x-rays ordered which are negative for fracture. I discussed this with the patient, he is ambulatory. I placed an Terell wrap around the patient's left ankle. He is stable for discharge Differential Diagnosis Differential Diagnoses: The differential diagnosis associated with the presentation includes Ankle sprain Ankle fracture Ankle dislocation Contusion Independent Interpretation I performed an independent interpretation of an: Plain X-Ray (No acute fracture of the left ankle) Radiology Impression Discussion of test interpretation with radiology: I have reviewed the radiologist's reading. Radiologist Impression: Lateral soft tissue swelling, no fracture Discharge Plan Discharge Clinical Impression: Left ankle sprain Patient Disposition: Home, Self-Care Instructions: Ankle Sprain (ED) Additional Instructions: Use ibuprofen as needed for pain. Ice the area every 4 hours for 10-15 minutes. Elevate the leg above her heart while resting Your x-ray did not show any fractures Follow-up with your primary doctor Prescriptions: New ibuprofen 600 mg tablet 600 mg PO Q6H PRN (Reason: pain) Qty: 20 0RF No Action benztropine 0.5 mg tablet 0.5 mg PO BID divalproex 500 mg Tablet Extended Release 24 Hr 2,000 mg PO BEDTIME 30 Days Qty: 120 0RF clindamycin HCl 300 mg capsule 300 mg PO TID Patient Comments: Pt has one more day left of Clindamycin nicotine (polacrilex) 2 mg gum 2 mg PO Q1-2H PRN (Reason: Nicotine Cravings) hydroxyzine pamoate 50 mg capsule 50 mg PO TID PRN (Reason: anxiety) metformin 500 mg tablet 500 mg PO BID melatonin 3 mg tablet 6 mg PO BEDTIME perphenazine 8 mg tablet 16 mg PO BID divalproex 250 mg tablet extended release 24 hr 250 mg PO DAILY Interventions: ED Discharge Assessment Last Done: 08/21/23 13:28 Discharge Date/Time: 08/21/23 13:29 Print Language: Kiswahili
[2023-08-21 12:09] VITALS: BP 141/87; PULSE 85; RESP 18; TEMP 36.6; O2SAT 96; BMI 55.1
[2023-08-21 13:28] VITALS: BP 140/88; PULSE 82; RESP 18; TEMP 36.7; O2SAT 96
== END 2023-08-21 13:29 | disposition home or self-care (01) ==
PROVIDERS: Emergency Provider Emergency Medicine
DX: S93.402A Sprain of unspecified ligament of left ankle, initial encounter (principal); E11.9 Type 2 diabetes mellitus without complications; I10 Essential (primary) hypertension; X50.1XXA Overexertion from prolonged static or awkward postures, initial encounter; Y93.9 Activity, unspecified; Y92.9 Unspecified place or not applicable; Y99.9 Unspecified external cause status
CPT/HCPCS: 73610; 99282; 99283

== ENCOUNTER 2023-08-24 18:33 | Inpatient (IN) | payer OTHER, SELFPAY ==
[2023-08-24 18:46] VITALS: BP 148/110; PULSE 114; RESP 18; TEMP 36.8; O2SAT 96; BMI 45.4
--- NOTE | 2023-08-24 18:50 | ED_ITS ---
HPI - Psych General Chief Complaint: Psychiatric Symptoms Stated Complaint: Crisis Eval Time Seen by Provider: 08/24/23 18:43 Source: patient Mode of arrival: ambulatory Limitations: no limitations History of Present Illness HPI Narrative: Patient comes to the emergency room complaining of psychologic anguish . patient states that he was recently told that he needs to be okayed his current residence. Patient afraid that he will be homeless. Patient states that he feels stressed that people make fun of him because of his disability of having autism. Patient states that he would like to see behavioral health. Patient denies SI or HI. Related Data Home Medications ?Medication ?Instructions ?Recorded ?Confirmed divalproex 250 mg tablet,extended 250 mg PO DAILY 07/01/23 08/24/23 release 24 hr hydroxyzine pamoate 50 mg capsule 50 mg PO TID PRN anxiety 07/01/23 08/24/23 nicotine (polacrilex) 2 mg gum 2 mg PO Q1-2H PRN Nicotine Cravings 07/01/23 08/24/23 perphenazine 8 mg tablet 32 mg PO BEDTIME 07/01/23 08/24/23 benztropine 1 mg tablet 1 mg PO DAILY 08/24/23 08/24/23 clonidine HCl 0.1 mg tablet 0.1 mg PO BID 08/24/23 08/24/23 sertraline 50 mg tablet 50 mg PO DAILY 08/24/23 08/24/23 trazodone 50 mg tablet 50 mg PO BEDTIME 08/24/23 08/24/23 Previous Rx's ?Medication ?Instructions ?Recorded divalproex 500 mg tablet,extended 2,000 mg (4 x 500 mg) PO BEDTIME 03/21/23 release 24 hr 30 days #120 tabs ibuprofen 600 mg tablet 600 mg PO Q6H PRN pain #20 tabs 08/21/23 Allergies Allergy/AdvReac Type Severity Reaction Status Date / Time amoxicillin Allergy Hives Verified 08/24/23 18:50 Review of Systems 2 Review of Systems: Constitutional : No Weight loss, No Fever, No Chills, No Night Sweats, No Fatigue, No Malaise ENT/Mouth : No Hearing loss, No Ear Pain, No Nasal Congestion, No Sinus Pain, No Hoarseness, No sore throat, No Rhinorrhea, No Swallowing Difficulty Eyes: No Eye Pain, No Swelling, No Redness, No Foreign Body, No Discharge, No Vision Changes Cardiovascular : No Chest Pain, No SOB, No Dyspnea on Exertion, No Orthopnea, No Edema, No Palpitations Respiratory : No Cough, No Sputum, No Wheezing, No Smoke Exposure, No Dyspnea Gastrointestinal : No Nausea, No Vomiting, No Diarrhea, No Constipation, No abdominal Pain, No Hematochezia, No Melena Genitourinary : no irregular bleeding, No Dysuria, No Urinary Frequency, No Hematuria, No Urinary Incontinence, No Urgency, No Flank Pain, No Urinary Flow Changes, No Hesitancy Musculoskeletal : No joint pain, No Myalgias, No Joint Swelling Skin : No Skin Lesions, No rash Neuro : No Weakness, No Numbness, No Paresthesias, No Loss of Consciousness, No Dizziness, No Headache Psych : Denies SI or HI, patient is dressed, people making fun of him/Bullying for being autistic. about to become homeless. Heme/Lymph: No Bruising, No Bleeding,No Lymphadenopathy Endocrine : No Polyuria, No Polydipsia, No Temperature Intolerance PMFSH Past Medical History Medical History Routine medical exam HTN (hypertension) Bipolar disorder Diabetes Social History Social History Household Members: None Household Members Other:: Homeless Housing: Homeless Do you presently have visiting nurse or other home services: No Alcohol intake: never Patient Tobacco Use Status: Current everyday Tobacco user Tobacco use type: Cigarette Cigarette Packs Per Day: 1 Cigarettes Per Day: 3 Years Smoked: Many e-Cigarette/Vaping Use: Never Used Second Hand Smoke Exposure: No Substance Use Type: Marijuana Advance Directives: No Advance Directives Information Provided: No service: No Sexual orientation: Straight/Heterosexual Physical Exam 2 Vital Signs: Vital Signs: Last Vital Signs Temp 98.6 F 08/24/23 20:07 Pulse 114 H 08/24/23 20:07 Resp 18 08/24/23 20:07 BP 140/110 H 08/24/23 20:07 Pulse Ox 96 08/24/23 20:07 O2 Del Method Room Air 08/24/23 20:07 BMI result Body Mass Index 45.4 Const: Other: Appearance: Alert. Oriented X3. No acute distress. disheveled Eyes: Pupils equal, mydriasis , round and reactive to light. ENT: Pharynx normal. Neck: Normal inspection. Neck supple. No lymph nodes noted. No crepitus CVS: Normal heart rate and rhythm. Pulses normal. Normal S1 and S2 Respiratory: No respiratory distress. Breath sounds normal. No Wheezing. No rales Abdomen: Soft and nontender. No rigidity. No distention. Skin: Skin warm and dry. Normal skin color. Normal skin turgor. Extremities: No lower extremity edema. No Lacerations. No Rash Neuro: Oriented X 3. No motor deficit. No sensory deficit. Moving all extremities. No slurred speech. CN 2 through 12 grossly intact Psych: calm, cooperative, normal affect Course Course Course Narrative: - all labs pending - care team consult pending - patient is here voluntarily, no SI no HI, section 12 not indicated - physician observation started 18:55 Medications Administered Generic Name Dose Route Start Last Admin Trade Name Freq PRN Reason Stop Dose Admin Clonidine HCl 0.1 mg 08/24/23 21:45 08/24/23 22:34 Clonidine Hcl 0.1 Mg Tablet PO 0.1 mg BID GERMAIN Administration Protocol Divalproex Sodium 2,000 mg 08/24/23 21:45 08/24/23 22:34 Divalproex Sodium Er 500 Mg Tab.Er.24h PO 2,000 mg BEDTIME GERMAIN Administration Perphenazine 32 mg 08/25/23 21:00 08/24/23 22:34 Perphenazine 8 Mg Tablet PO 32 mg BEDTIME GERMAIN Administration Trazodone HCl 50 mg 08/24/23 21:45 08/24/23 22:34 Trazodone Hcl 50 Mg Tablet PO 50 mg BEDTIME GERMAIN Administration Medical Decision Making Medical Decision Making [facility] Narrative: - My interpretation of labs: Patient's hematology and chemistry at baseline. Patient's urine shows large amount of blood, chronic hematuria. Patient would benefit from a urology consult upon discharge. Patient's urine toxicology negative for drugs of abuse, ETOH level negative Differential Diagnosis Differential Diagnoses: The differential diagnosis associated with the presentation includes ( bipolar disorder with psychotic features, EtOH, polysubstance abuse, anxiety, depression, homelessness) Admission/Observation Consideration of admission/observation: Escalation of care including admission/observation considered ( patient under physician observation waiting to be seen by the care team to determine disposition) Lab Data 08/24/23 19:07 08/24/23 19:07 Labs: Lab Results 08/24/23 08/24/23 Range/Units 19:02 19:07 WBC 7.9 (4.8-10.8) X10*3/uL RBC 4.28 L (4.60-5.80) X10*6/uL Hgb 12.7 L (14.0-18.0) g/dl Hct 38.2 L (42.0-52.0) % MCV 89.3 (80.0-98.0) fL MCH 29.7 (27.0-33.0) pg MCHC 33.2 (31.0-36.0) g/dl RDW 13.4 (11.0-16.0) % Plt Count 287 (160-400) X10*3/uL MPV 9.8 (9.4-12.4) fL Immature Gran % (Auto) 0.4 (0.0-0.4) % Neut % (Auto) 57.5 (45-73) % Lymph % (Auto) 28.9 (20-40) % Parmer % (Auto) 8.6 (2-11) % Eos % (Auto) 4.3 H (0-4) % Baso % (Auto) 0.3 (0-2) % Lymph # (Auto) 2.3 (1.2-4.9) X10*3/uL Parmer # (Auto) 0.7 (0.1-1.2) X10*3/uL Eos # (Auto) 0.3 (0.0-0.4) X10*3/uL Baso # (Auto) 0.0 (0.0-0.2) X10*3/uL Abs Immat Gran (auto) 0.03 (0.00-0.03) X10*3/uL Absolute Neuts (auto) 4.5 (2.0-8.3) x10*3/uL Absolute Nucleated RBC 0.000 (0.0-0.012) X10*3/uL Nucleated RBC % (auto) 0.0 (0.0-0.2) /100WBC Sodium 145 (135-145) mmol/L Potassium 4.1 (3.3-5.1) mmol/L Chloride 108 (96-108) mmol/L Carbon Dioxide 27 (22-29) mmol/L Anion Gap 14 (12-20) BUN 23 H (9-16) mg/dL Creatinine 0.97 (0.5-1.4) mg/dL Estim Creat Clear Calc 145.3 Estimated GFR > 60 Random Glucose 128 H (60-115) mg/dL Calcium 8.6 (8.4-10.2) mg/dL Magnesium 1.8 (1.6-2.6) mg/dL Total Bilirubin 0.1 (0.0-1.0) mg/dL AST 33 (5-37) U/L ALT 49 H (0-40) U/L Alkaline Phosphatase 52 (39-117) U/L Total Protein 6.8 (6.5-8.0) g/dL Albumin 3.7 (3.5-5.0) g/dL Urine Color Dark Yellow Urine Appearance Clear Urine pH 5.5 (5.0-9.0) Ur Specific [place] 1.025 (1.005-1.025) Urine Protein 300 (3+) H (Neg-Trace) mg/dL Urine Glucose (UA) Negative (Negative) mg/dL Urine Ketones Negative (Negative) mg/dL Urine Blood Large (3+) H (Negative) Urine Nitrite Negative (Negative) Ur Leukocyte Esterase Negative (Negative) Urine RBC >20 H (0-2) /HPF Urine WBC 6-10 H (0-5) /HPF Ur Squamous Epith Cells 0-2 (0-2) /HPF Urine Bacteria None Seen (None Seen) Hyaline Casts 0-2 (0-2) /LPF Salicylates < 5.0 L (15-30) mg/dL Urine Opiates Screen Not Detected (Not Detect) Ur Buprenorphine Scrn Not Detected (Not Detect) ng/mL Ur Oxycodone Screen Not Detected (Not Detect) ng/mL Urine Methadone Screen Not Detected (Not Detect) ng/mL Urine Fentanyl Screen Not Detected (Not Detect) Acetaminophen < 3 (<30) mcg/mL Ur Barbiturates Screen Not Detected (Not Detect) Ur Phencyclidine Scrn Not Detected (Not Detect) Ur Amphetamines Screen Not Detected (Not Detect) U Benzodiazepines Scrn Not Detected (Not Detect) Urine Cocaine Screen Not Detected (Not Detect) U Marijuana (THC) Screen Not Detected (Not Detect) Ethyl Alcohol < 10 mg/dL Discharge Plan Discharge Clinical Impression: Bipolar disorder, curr episode mixed, severe, with psychotic features, Hematuria Patient Disposition: Still a Patient Instructions: Hematuria (ED) Additional Instructions: since 2022, your urine test show blood in the urine without having an infection. Please follow-up with Urology. Please follow-up with your primary care physician tomorrow. If you have any worsening or new symptoms, please return to the emergency room or call 911 Prescriptions: No Action divalproex 500 mg Tablet Extended Release 24 Hr 2,000 mg PO BEDTIME 30 Days Qty: 120 0RF nicotine (polacrilex) 2 mg gum 2 mg PO Q1-2H PRN (Reason: Nicotine Cravings) hydroxyzine pamoate 50 mg capsule 50 mg PO TID PRN (Reason: anxiety) perphenazine 8 mg tablet 32 mg PO BEDTIME divalproex 250 mg tablet extended release 24 hr 250 mg PO DAILY ibuprofen 600 mg tablet 600 mg PO Q6H PRN (Reason: pain) Qty: 20 0RF trazodone 50 mg tablet 50 mg PO BEDTIME sertraline 50 mg tablet 50 mg PO DAILY benztropine 1 mg tablet 1 mg PO DAILY clonidine HCl 0.1 mg tablet 0.1 mg PO BID Referrals: Chris Menard MD [Physician] - 2 weeks Interventions: Purdum-Suicide Risk Severity Scale Last Done: 08/24/23 20:07 Print Language: Spanish
--- NOTE | 2023-08-24 19:16 | PC.NURSE ---
patient allowed vs in his room, stated some info about his meds and cooperative overall still as yet to be seen by care team
[2023-08-24 19:21] LABS: MANUAL DIFF FLAG NO
[2023-08-24 19:27] LABS: Appearance Urine Clear; Color Urine Dark Yellow; Glucose Urine UA Negative (Negative); Leukocyte Esterase Urine Negative (Negative); Nitrite Urine Negative (Negative); PH 5.5 (5.0-9.0); Specific Gravity - Urine 1.025 (1.005-1.025); UMIC TRIGGER UACC YES; Urine Blood Large (3+) (Negative); Urine Ketones Negative (Negative); Urine Protein 300 (3+) mg/dL (Neg-Trace)
[2023-08-24 19:32] LABS: Bacteria Urine None Seen (None Seen); Hyaline Casts Urine 0-2 /LPF (0-2); RBC Urine >20 /HPF (0-2); Squamous Epithelial Cell Urine 0-2 /HPF (0-2); UACC Culture Trigger YES
[2023-08-24 19:33] LABS: Basophils Percent Auto 0.3 % (0-2); Eosinophils Absolute Auto 0.3 X10*3/uL (0.0-0.4); Eosinophils Percent Auto 4.3 % (0-4); Hematocrit 38.2 % (42.0-52.0); Hemoglobin 12.7 g/dl (14.0-18.0); Imm Gran Abs Auto 0.03 X10*3/uL (0.00-0.03); Imm Gran Pct Auto 0.4 % (0.0-0.4); Lymphocytes Absolute Auto 2.3 X10*3/uL (1.2-4.9); Lymphocytes Percent Auto 28.9 % (20-40); Mean Corpuscular HGB Conc 33.2 g/dl (31.0-36.0); Mean Corpuscular Hemoglobin 29.7 pg (27.0-33.0); Mean Corpuscular Volume 89.3 fL (80.0-98.0); Mean Platelet Volume 9.8 fL (9.4-12.4); Monocytes Absolute Auto 0.7 X10*3/uL (0.1-1.2); Monocytes Percent Auto 8.6 % (2-11); Neutrophils Absolute Auto 4.5 x10*3/uL (2.0-8.3); Neutrophils Percent Auto 57.5 % (45-73); Platelet Count 287 X10*3/uL (160-400); Red Blood Count 4.28 X10*6/uL (4.60-5.80); Red Cell Distribution Width 13.4 % (11.0-16.0); White Blood Count 7.9 X10*3/uL (4.8-10.8)
[2023-08-24 19:41] LABS: Acetaminophen LAB < 3 mcg/mL (<30); Salicylate < 5.0 mg/dL (15-30)
[2023-08-24 19:42] LABS: Alanine Aminotransferase 49 U/L (0-40); Albumin Level 3.7 g/dL (3.5-5.0); Alkaline Phosphatase 52 U/L (39-117); Anion Gap 14 (12-20); Aspartate Amino Transferase 33 U/L (5-37); Bilirubin Total 0.1 mg/dL (0.0-1.0); Blood Urea Nitrogen 23 mg/dL (9-16); Calcium 8.6 mg/dL (8.4-10.2); Carbon Dioxide 27 mmol/L (22-29); Chloride 108 mmol/L (96-108); Creatinine Clr Calc Pharmacy 145.3; Estimated Glomerular Filt Rate > 60; Ethanol < 10 mg/dL; Glucose Random 128 mg/dL (60-115); Magnesium 1.8 mg/dL (1.6-2.6); Potassium 4.1 mmol/L (3.3-5.1); Sodium 145 mmol/L (135-145); Total Protein 6.8 g/dL (6.5-8.0)
[2023-08-24 19:44] LABS: Amphetamine Screen Urine Not Detected (Not Detect); Barbiturates, Urine Not Detected (Not Detect); Benzodiazepines Screen Urine Not Detected (Not Detect); Buprenorphine Scr Not Detected (Not Detect); Cannabinoid Screen Urine Not Detected (Not Detect); Cocaine Screen Urine Not Detected (Not Detect); Methadone Screen, Urine Not Detected (Not Detect); Opiate Screen Urine Not Detected (Not Detect); Oxycodone Screen Urine Not Detected (Not Detect); Phencyclidine Screen Urine Not Detected (Not Detect)
[2023-08-24 20:04] LABS: Fentanyl, urine Not Detected (Not Detect)
[2023-08-24 20:07] VITALS: BP 140/110; PULSE 114; RESP 18; TEMP 37; O2SAT 96
--- NOTE | 2023-08-24 22:03 | PHA.MEDREC ---
Pharmacy Consult ? Medication Reconciliation Pharmacy has reviewed the medication reconciliation completed by nursing. Verified medications with pharmacy claims history. Perphenazine 16mg are 2 tabs nightly.
[2023-08-24] MEDS: traZODone HCL 50 MG TABLET PO (22:34)
[2023-08-24] MEDS: Divalproex Sodium ER 500 MG TAB.ER.24H 2000 MG PO (22:34)
[2023-08-24] MEDS: cloNIDine HCL 0.1 MG TABLET PO (22:34)
[2023-08-24] MEDS: Perphenazine 8 MG TABLET 32 MG PO (22:34)
--- NOTE | 2023-08-25 | ECG_ITS ---
Test Reason : qt interval Blood Pressure : / mmHG Vent. Rate : 078 BPM Atrial Rate : 078 BPM P-R Int : 162 ms QRS Dur : 086 ms QT Int : 366 ms P-R-T Axes : -04 026 036 degrees QTc Int : 417 ms Normal sinus rhythm Normal ECG When compared with ECG of 01-JUL-2023 13:00, No significant change was found Referred By: Mahnaz Okeefe Electronically Signed By:CHICO GARVIN
[2023-08-25 06:20] VITALS: BP 125/67; PULSE 83; RESP 20; TEMP 36.6; O2SAT 93
--- NOTE | 2023-08-25 07:08 | PC.NURSE ---
Assumed care of patient at 0645, patient appears to be sleeping, respirations even and unlabored, no apparent distress at this time. Continue plan of care for CARE team leonora
--- NOTE | 2023-08-25 08:18 | MHC.CARE ---
patient seen by care team, he is voluntary for higher LOC. Plan to attempt to get him into [facility] program before consideration of any higher LOC.
--- NOTE | 2023-08-25 09:09 | MHC.CARE ---
[facility] [phone][facility] for Semaj Lin indicated is full.
[2023-08-25] MEDS: cloNIDine HCL 0.1 MG TABLET PO ×2 (09:16→21:04)
[2023-08-25] MEDS: Sertraline HCL 50 MG TABLET PO (09:16)
[2023-08-25] MEDS: Divalproex Sodium ER 250 MG TAB.ER.24H PO (09:16)
[2023-08-25] MEDS: Benztropine Mesylate 1 MG TABLET PO (09:17)
[2023-08-25 12:36] LABS: COVID-19 Test Negative (Negative); IDNOW Serial# 152EDE1D
--- NOTE | 2023-08-25 13:12 | MHC.CARE ---
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 Auth is [id number]
[2023-08-25 14:06] VITALS: BP 141/79; PULSE 94; RESP 18; TEMP 36.6; O2SAT 96
[2023-08-25 14:08] VITALS: BMI 55.1
--- NOTE | 2023-08-25 15:03 | MHC.CARE ---
Deyanira Shabbir calls back. They report that the struggled to manage his mental illness. Was having delusions. He reports to staff that he hears angels speak. Because of the eclipse, his ex of a brief time from many years ago, would now have a change of heart. He requires significant motivation to walk/ take care of self. He has not been on his metformin in several weeks. He struggles with stairs, wheezes, concerned for his health. She reports that he was persistently, routinely calling his mother for money due to thoughts that he was getting a record deal. Ultimately, they struggled to manage his mental health and medical concerns and state they care about him immensely, but have tried and feel they cannot provide the support he needs.
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
--- NOTE | 2023-08-25 15:57 | PC.ADMIT ---
Ramírez Barker was admitted to [facility]3 at 1345 from [place] ED on a CV for crisis due to bi-polar disorder. The patient believes he is being persecuted by the staff at the ?sober living home? where he resides. Patient reports being made fun of by staff due to his mental conditions. Furthermore, he is afraid of being homeless and is hoping that an in-patient admission will speed up the process with DMH and gaining new housing. Patient is alert and oriented x 4. Mood is stable and he presents with a broad and responsive affect. Thought process also appears to be organized and linear. He denies depression, anxiety, as well as SI/HI/AH/VH. Patient denies current alcohol or substance use. During assessment, patient indicated that he has not had a flu shot and would be willing to have it administered. However, he later refused the injection and stated he would let staff know if he changes his mind. Physically, patient has a reported history, per crisis eval, of HTN and diabetes. Patient acknowledged HTN but denied diabetes. He denied further physical complaints. Skin check performed upon admission. No issues or contraband found on person. Visible skin intact. VSS stable with BP slightly elevated. Medications reconciled per ED. All admission paperwork signed and completed. Pt placed on regular diet and 15 minute safety checks at this time.
[2023-08-25 20:55] VITALS: BP 113/58; PULSE 83; RESP 16; TEMP 36.3; O2SAT 97
[2023-08-25] MEDS: Perphenazine 8 MG TABLET 32 MG PO (21:03)
[2023-08-25] MEDS: Divalproex Sodium ER 500 MG TAB.ER.24H 2000 MG PO (21:03)
[2023-08-25] MEDS: traZODone HCL 50 MG TABLET PO (21:04)
[2023-08-25] MEDS: Acetaminophen 325 MG TABLET 650 MG PO (21:04)
[2023-08-26 07:44] LABS: Ammonia 59 umol/L (13-55)
[2023-08-26 07:49] LABS: Valproate 54.7 mcg/mL (50.0-100.0)
[2023-08-26 07:55] LABS: Alanine Aminotransferase 42 U/L (0-40); Albumin Level 3.2 g/dL (3.5-5.0); Alkaline Phosphatase 38 U/L (39-117); Anion Gap 13 (12-20); Aspartate Amino Transferase 31 U/L (5-37); Bilirubin Total 0.2 mg/dL (0.0-1.0); Blood Urea Nitrogen 21 mg/dL (9-16); Calcium 8.8 mg/dL (8.4-10.2); Carbon Dioxide 24 mmol/L (22-29); Chloride 108 mmol/L (96-108); Cholesterol 141 mg/dL (<200); Creatinine Clr Calc Pharmacy 225.9; Estimated Glomerular Filt Rate > 60; Glucose Fasting 90 mg/dL (60-99); HDL Cholesterol 46 mg/dL (>40); Iron 84 mcg/dL (45-160); LDL Cholesterol Calculated 80 mg/dL (<100); Percent Iron Saturation 33 % (15-50); Potassium 4.6 mmol/L (3.3-5.1); Sodium 140 mmol/L (135-145); Total Iron Binding Capacity 252 mcg/dL (228-428); Total Protein 6.1 g/dL (6.5-8.0); Triglycerides 75 mg/dL (<150); Unsaturated Iron Binding 168 ug/dL
[2023-08-26 08:00] VITALS: BP 118/56; PULSE 85; RESP 16; TEMP 36.4; O2SAT 96
[2023-08-26 08:25] VITALS: BP 118/56
[2023-08-26] MEDS: cloNIDine HCL 0.1 MG TABLET PO ×2 (08:25→20:26)
[2023-08-26] MEDS: Divalproex Sodium ER 250 MG TAB.ER.24H PO (08:25)
[2023-08-26] MEDS: Sertraline HCL 50 MG TABLET PO (08:25)
[2023-08-26] MEDS: Benztropine Mesylate 1 MG TABLET PO (08:25)
--- NOTE | 2023-08-26 09:25 | HO.PSYCHPN ---
Subjective Subjective Date of Service: 08/26/23 Reason For Visit: Crisis Subjective Notes: Conditional Voluntary Interim History: Patient was seen and discussed in rounds today. Records and plans were reviewed. He has been stable. No complaints or side effects. Affect is flat. No anxiety and depression reported. Eating and sleeping well. No complaints or side effects. No SI/AVH. No changes were made today Review of Systems Review of Systems Yes all other systems are reviewed and are negative Mental Status Exam Mental Status Exam Narrative: In today's visit he is alert, oriented and pleasant. Normal speech. Little eye contact. Affect is appropriate and constricted. No acute signs of psychosis. No delusions. No SI. Cognitively is grossly intact. Able to move all limbs. No abnormalities of gait. Judgment is intact Diagnostics Vital Signs (24Hr): Vital Signs - 24 hr 08/25/23 14:06 08/25/23 20:55 08/26/23 08:00 Temperature 97.9 F 97.3 F 97.6 F Pulse Rate 94 83 85 Respiratory Rate 18 16 16 Blood Pressure 141/79 H 113/58 L 118/56 L Pulse Oximetry 96 97 96 Oxygen Delivery Method Room Air Room Air Room Air 08/26/23 08:25 Temperature Pulse Rate Respiratory Rate Blood Pressure 118/56 L Pulse Oximetry Oxygen Delivery Method BMI result Body Mass Index 55.1 Labs 08/24/23 19:07 08/26/23 07:22 Labs: Laboratory Results - last 48 hr 08/24/23 08/24/23 08/25/23 19:02 19:07 12:14 WBC 7.9 RBC 4.28 L Hgb 12.7 L Hct 38.2 L MCV 89.3 MCH 29.7 MCHC 33.2 RDW 13.4 Plt Count 287 MPV 9.8 Immature Gran % (Auto) 0.4 Neut % (Auto) 57.5 Lymph % (Auto) 28.9 [place] % (Auto) 8.6 Eos % (Auto) 4.3 H Baso % (Auto) 0.3 Lymph # (Auto) 2.3 [place] # (Auto) 0.7 Eos # (Auto) 0.3 Baso # (Auto) 0.0 Abs Immat Gran (auto) 0.03 Absolute Neuts (auto) 4.5 Absolute Nucleated RBC 0.000 Nucleated RBC % (auto) 0.0 Sodium 145 Potassium 4.1 Chloride 108 Carbon Dioxide 27 Anion Gap 14 BUN 23 H Creatinine 0.97 Estim Creat Clear Calc 145.3 Estimated GFR > 60 Random Glucose 128 H Fasting Glucose Calcium 8.6 Magnesium 1.8 Iron TIBC % Saturation Unsat Iron Binding Total Bilirubin 0.1 AST 33 ALT 49 H Alkaline Phosphatase 52 Ammonia Total Protein 6.8 Albumin 3.7 Triglycerides Cholesterol LDL Cholesterol, Calc HDL Cholesterol Urine Color Dark Yellow Urine Appearance Clear Urine pH 5.5 Ur Specific [place] 1.025 Urine Protein 300 (3+) H Urine Glucose (UA) Negative Urine Ketones Negative Urine Blood Large (3+) H Urine Nitrite Negative Ur Leukocyte Esterase Negative Urine RBC >20 H Urine WBC 6-10 H Ur Squamous Epith Cells 0-2 Urine Bacteria None Seen Hyaline Casts 0-2 Salicylates < 5.0 L Urine Opiates Screen Not Detected Ur Buprenorphine Scrn Not Detected Ur Oxycodone Screen Not Detected Urine Methadone Screen Not Detected Urine Fentanyl Screen Not Detected Acetaminophen < 3 Ur Barbiturates Screen Not Detected Valproic Acid Ur Phencyclidine Scrn Not Detected Ur Amphetamines Screen Not Detected U Benzodiazepines Scrn Not Detected Urine Cocaine Screen Not Detected U Marijuana (THC) Screen Not Detected Ethyl Alcohol < 10 COVID-19 ([facility]) Negative COVID-19 Clin Com See Note 08/26/23 07:22 WBC RBC Hgb Hct MCV MCH MCHC RDW Plt Count MPV Immature Gran % (Auto) Neut % (Auto) Lymph % (Auto) [place] % (Auto) Eos % (Auto) Baso % (Auto) Lymph # (Auto) [place] # (Auto) Eos # (Auto) Baso # (Auto) Abs Immat Gran (auto) Absolute Neuts (auto) Absolute Nucleated RBC Nucleated RBC % (auto) Sodium 140 Potassium 4.6 Chloride 108 Carbon Dioxide 24 Anion Gap 13 BUN 21 H Creatinine 0.70 Estim Creat Clear Calc 225.9 Estimated GFR > 60 Random Glucose Fasting Glucose 90 Calcium 8.8 Magnesium Iron 84 TIBC 252 % Saturation 33 Unsat Iron Binding 168 Total Bilirubin 0.2 AST 31 ALT 42 H Alkaline Phosphatase 38 L Ammonia 59 H Total Protein 6.1 L Albumin 3.2 L Triglycerides 75 Cholesterol 141 LDL Cholesterol, Calc 80 HDL Cholesterol 46 Urine Color Urine Appearance Urine pH Ur Specific [place] Urine Protein Urine Glucose (UA) Urine Ketones Urine Blood Urine Nitrite Ur Leukocyte Esterase Urine RBC Urine WBC Ur Squamous Epith Cells Urine Bacteria Hyaline Casts Salicylates Urine Opiates Screen Ur Buprenorphine Scrn Ur Oxycodone Screen Urine Methadone Screen Urine Fentanyl Screen Acetaminophen Ur Barbiturates Screen Valproic Acid 54.7 Ur Phencyclidine Scrn Ur Amphetamines Screen U Benzodiazepines Scrn Urine Cocaine Screen U Marijuana (THC) Screen Ethyl Alcohol COVID-19 ([facility]) COVID-19 Clin Com Medications Medications Current Medications Acetaminophen (Acetaminophen 325 Mg Tablet) 650 mg PO Q6H PRN PRN Reason: Headache/Pain Mild Scale (1-3) Last Admin: 08/25/23 21:04 Dose: 650 mg Al Hydroxide/Mg Hydroxide (Magnesium Hydrox/Alum Hydrox 30 Ml Oral.Susp) 30 ml PO Q6H PRN PRN Reason: Heartburn/Nausea Benztropine Mesylate (Benztropine Mesylate 1 Mg Tablet) 1 mg PO DAILY [facility] Last Admin: 08/26/23 08:25 Dose: 1 mg Clonidine HCl (Clonidine Hcl 0.1 Mg Tablet) 0.1 mg PO BID [facility]; Protocol Last Admin: 08/26/23 08:25 Dose: 0.1 mg Divalproex Sodium (Divalproex Sodium Er 500 Mg Tab.Er.24h) 2,000 mg PO BEDTIME [facility] Last Admin: 08/25/23 21:03 Dose: 2,000 mg Divalproex Sodium (Divalproex Sodium Er 250 Mg Tab.Er.24h) 250 mg PO DAILY [facility] Last Admin: 08/26/23 08:25 Dose: 250 mg Hydroxyzine HCl (Hydroxyzine Hcl 50 Mg Tablet) 50 mg PO TID PRN PRN Reason: anxiety Magnesium Hydroxide (Milk Of Magnesia 30 Ml Oral.Susp) 30 ml PO DAILY PRN PRN Reason: Constipation Nicotine (Nicotine 21 Mg Patch.Td24) 21 mg TRANSDERMA DAILY [facility] Last Admin: 08/26/23 08:28 Dose: Not Given Nicotine Polacrilex (Nicotine Polacrilex 2 Mg Gum) 2 mg BUCCAL Q2H PRN PRN Reason: Nicotine Cravings Perphenazine (Perphenazine 8 Mg Tablet) 32 mg PO BEDTIME [facility] Last Admin: 08/25/23 21:03 Dose: 32 mg Sertraline HCl (Sertraline Hcl 50 Mg Tablet) 50 mg PO DAILY [facility] Last Admin: 08/26/23 08:25 Dose: 50 mg Trazodone HCl (Trazodone Hcl 50 Mg Tablet) 50 mg PO BEDTIME [facility] Last Admin: 08/25/23 21:04 Dose: 50 mg Allergies Allergies Allergy/AdvReac Type Severity Reaction Status Date / Time amoxicillin Allergy Hives Verified 08/24/23 18:50 Assessment & Plan Assessment & Plan (1) Bipolar disorder, curr episode mixed, severe, with psychotic features: Status: Acute Code(s): F31.64 - Bipolar disorder, current episode mixed, severe, with psychotic features (2) PTSD (post-traumatic stress disorder): Status: Acute Code(s): F43.10 - Post-traumatic stress disorder, unspecified Plan Patient is a 32 year old male with hx of Bipolar d/o and PTSD, who self presented to ER from his sober living program d/t increased anxiety secondary to being given two weeks to leave the program. Plan: CV 15 minute safety checks continue home medications obtain collateral discharge planning ck ammonia level iron tibc ? bone marrow supp with dec hct ck dep level ? effectiveness of perphenazine 08/26/2023: Continue current regimen and plans Reason for continued inpatient stay Substantial Risk for: med/psych decompensation Time Spent With Patient Time: Total time managing care of this patient today ____ minutes.
[2023-08-26] MEDS: Perphenazine 8 MG TABLET 32 MG PO (20:25)
[2023-08-26 20:26] VITALS: BP 134/60
[2023-08-26] MEDS: Divalproex Sodium ER 500 MG TAB.ER.24H 2000 MG PO (20:26)
[2023-08-26] MEDS: traZODone HCL 50 MG TABLET PO (20:26)
[2023-08-26] MEDS: Acetaminophen 325 MG TABLET 650 MG PO (20:27)
--- NOTE | 2023-08-26 20:28 | PC.NURSE ---
Ramírez was given Tylenol PO prn for left ankle pain 07/15
[2023-08-26 20:29] VITALS: BP 134/60; PULSE 87; RESP 16; TEMP 37.7; O2SAT 96
[2023-08-26] MEDS: hydrOXYzine HCL 50 MG TABLET PO (21:34)
--- NOTE | 2023-08-26 21:47 | PC.NURSE ---
Ramírez was given Atarax Po prn for mild anxiety.
[2023-08-27 07:50] VITALS: BP 110/56; PULSE 71; RESP 16; TEMP 36.8; O2SAT 95
[2023-08-27 08:58] VITALS: BP 110/56
[2023-08-27] MEDS: cloNIDine HCL 0.1 MG TABLET PO ×2 (08:58→20:12)
[2023-08-27] MEDS: Benztropine Mesylate 1 MG TABLET PO (08:59)
[2023-08-27] MEDS: Sertraline HCL 50 MG TABLET PO (08:59)
[2023-08-27] MEDS: Divalproex Sodium ER 250 MG TAB.ER.24H PO (08:59)
--- NOTE | 2023-08-27 09:32 | HO.PSYCHPN ---
Subjective Subjective Date of Service: 08/27/23 Reason For Visit: Crisis Subjective Notes: Conditional Voluntary Interim History: Patient was seen and discussed in rounds today. Records and plans were reviewed. He has been doing fairly well and has been stable. Continues to be isolative. Less anxious. Some social interactions. Eating and sleeping well. No SI. No side effects. No changes were made today Review of Systems Review of Systems Yes all other systems are reviewed and are negative Mental Status Exam Mental Status Exam Narrative: In today's visit he is alert, oriented and pleasant. Normal speech. Little eye contact. Affect is appropriate and constricted. No acute signs of psychosis. No delusions. No SI. Cognitively is grossly intact. Able to move all limbs. No abnormalities of gait. Judgment is intact Diagnostics Vital Signs (24Hr): Vital Signs - 24 hr 08/26/23 20:26 08/26/23 20:29 08/27/23 07:50 Temperature 99.8 F 98.2 F Pulse Rate 87 71 Respiratory Rate 16 16 Blood Pressure 134/60 134/60 110/56 L Pulse Oximetry 96 95 Oxygen Delivery Method Room Air Room Air 08/27/23 08:58 Temperature Pulse Rate Respiratory Rate Blood Pressure 110/56 L Pulse Oximetry Oxygen Delivery Method BMI result Body Mass Index 55.1 Labs 08/24/23 19:07 08/26/23 07:22 Labs: Laboratory Results - last 48 hr 08/25/23 08/26/23 12:14 07:22 Sodium 140 Potassium 4.6 Chloride 108 Carbon Dioxide 24 Anion Gap 13 BUN 21 H Creatinine 0.70 Estim Creat Clear Calc 225.9 Estimated GFR > 60 Fasting Glucose 90 Calcium 8.8 Iron 84 TIBC 252 % Saturation 33 Unsat Iron Binding 168 Total Bilirubin 0.2 AST 31 ALT 42 H Alkaline Phosphatase 38 L Ammonia 59 H Total Protein 6.1 L Albumin 3.2 L Triglycerides 75 Cholesterol 141 LDL Cholesterol, Calc 80 HDL Cholesterol 46 Valproic Acid 54.7 COVID-19 ([facility]) Negative COVID-19 Clin Com See Note Medications Medications Current Medications Acetaminophen (Acetaminophen 325 Mg Tablet) 650 mg PO Q6H PRN PRN Reason: Headache/Pain Mild Scale (1-3) Last Admin: 08/26/23 20:27 Dose: 650 mg Al Hydroxide/Mg Hydroxide (Magnesium Hydrox/Alum Hydrox 30 Ml Oral.Susp) 30 ml PO Q6H PRN PRN Reason: Heartburn/Nausea Benztropine Mesylate (Benztropine Mesylate 1 Mg Tablet) 1 mg PO DAILY [facility] Last Admin: 08/27/23 08:59 Dose: 1 mg Chlorpromazine HCl (Chlorpromazine Hcl 25 Mg Tablet) 50 mg PO BID PRN PRN Reason: anxiety/restlessness Clonidine HCl (Clonidine Hcl 0.1 Mg Tablet) 0.1 mg PO BID [facility]; Protocol Last Admin: 08/27/23 08:58 Dose: 0.1 mg Divalproex Sodium (Divalproex Sodium Er 500 Mg Tab.Er.24h) 2,000 mg PO BEDTIME [facility] Last Admin: 08/26/23 20:26 Dose: 2,000 mg Divalproex Sodium (Divalproex Sodium Er 250 Mg Tab.Er.24h) 250 mg PO DAILY [facility] Last Admin: 08/27/23 08:59 Dose: 250 mg Hydroxyzine HCl (Hydroxyzine Hcl 50 Mg Tablet) 50 mg PO TID PRN PRN Reason: anxiety Last Admin: 08/26/23 21:34 Dose: 50 mg Magnesium Hydroxide (Milk Of Magnesia 30 Ml Oral.Susp) 30 ml PO DAILY PRN PRN Reason: Constipation Nicotine (Nicotine 21 Mg Patch.Td24) 21 mg TRANSDERMA DAILY [facility] Last Admin: 08/27/23 09:06 Dose: Not Given Nicotine Polacrilex (Nicotine Polacrilex 2 Mg Gum) 2 mg BUCCAL Q2H PRN PRN Reason: Nicotine Cravings Perphenazine (Perphenazine 8 Mg Tablet) 32 mg PO BEDTIME [facility] Last Admin: 08/26/23 20:25 Dose: 32 mg Sertraline HCl (Sertraline Hcl 50 Mg Tablet) 50 mg PO DAILY [facility] Last Admin: 08/27/23 08:59 Dose: 50 mg Trazodone HCl (Trazodone Hcl 50 Mg Tablet) 50 mg PO BEDTIME [facility] Last Admin: 08/26/23 20:26 Dose: 50 mg Allergies Allergies Allergy/AdvReac Type Severity Reaction Status Date / Time amoxicillin Allergy Hives Verified 08/24/23 18:50 Assessment & Plan Assessment & Plan (1) Bipolar disorder, curr episode mixed, severe, with psychotic features: Status: Acute Code(s): F31.64 - Bipolar disorder, current episode mixed, severe, with psychotic features (2) PTSD (post-traumatic stress disorder): Status: Acute Code(s): F43.10 - Post-traumatic stress disorder, unspecified Plan Patient is a 32 year old male with hx of Bipolar d/o and PTSD, who self presented to ER from his sober living program d/t increased anxiety secondary to being given two weeks to leave the program. Plan: CV 15 minute safety checks continue home medications obtain collateral discharge planning ck ammonia level iron tibc ? bone marrow supp with dec hct ck dep level ? effectiveness of perphenazine 08/26/2023: Continue current regimen and plans 08/27/2023: Continue current regimen and plans Reason for continued inpatient stay Substantial Risk for: med/psych decompensation Time Spent With Patient Time: Total time managing care of this patient today ____ minutes.
[2023-08-27 20:10] VITALS: BP 137/86; PULSE 85; RESP 16; TEMP 36.8; O2SAT 97
[2023-08-27] MEDS: Divalproex Sodium ER 500 MG TAB.ER.24H 2000 MG PO (20:10)
[2023-08-27] MEDS: Acetaminophen 325 MG TABLET 650 MG PO (20:11)
[2023-08-27] MEDS: traZODone HCL 50 MG TABLET PO (20:11)
[2023-08-27] MEDS: Perphenazine 8 MG TABLET 32 MG PO (20:11)
[2023-08-27] MEDS: hydrOXYzine HCL 50 MG TABLET PO (20:11)
[2023-08-27 20:12] VITALS: BP 137/86
[2023-08-28 07:55] VITALS: BP 136/80; PULSE 76; RESP 16; TEMP 36.9; O2SAT 96
[2023-08-28 08:51] VITALS: BP 136/80
[2023-08-28] MEDS: Sertraline HCL 50 MG TABLET PO (08:51)
[2023-08-28] MEDS: Benztropine Mesylate 1 MG TABLET PO (08:51)
[2023-08-28] MEDS: cloNIDine HCL 0.1 MG TABLET PO ×2 (08:51→20:26)
[2023-08-28] MEDS: Divalproex Sodium ER 250 MG TAB.ER.24H PO (08:52)
[2023-08-28] MEDS: hydrOXYzine HCL 50 MG TABLET PO (12:17)
[2023-08-28] MEDS: chlorproMAZINE HCl 25 MG TABLET 50 MG PO (12:17)
--- NOTE | 2023-08-28 15:10 | P.PNPSI_ITS ---
Subjective Subjective Date of Service: 08/28/23 Reason For Visit: Crisis Interim History: in bed, awake, cooperative. states the reason he came to the hospital is to try to obtain housing more quickly through [facility]. discouraged to hear that is not likely to happen, but we would check in with [facility]. per staff, dep/anx OK. attending groups. taking meds. anx 11/14. c/o racing thoughts. slept about 8 hours. Mental Status Exam Mental Status Exam Narrative: alert, oriented and pleasant. Normal speech. Little eye contact. Affect is appropriate and constricted. No acute signs of psychosis. No delusions. No SI. Cognitively is grossly intact. Judgment is intact Diagnostics Vital Signs (24Hr): Vital Signs - 24 hr 08/27/23 20:10 08/27/23 20:12 08/28/23 07:55 Temperature 98.2 F 98.5 F Pulse Rate 85 76 Respiratory Rate 16 16 Blood Pressure 137/86 137/86 136/80 Pulse Oximetry 97 96 Oxygen Delivery Method Room Air Room Air 08/28/23 08:51 Temperature Pulse Rate Respiratory Rate Blood Pressure 136/80 Pulse Oximetry Oxygen Delivery Method BMI result Body Mass Index 55.1 Labs 08/24/23 19:07 08/26/23 07:22 Medications Medications Current Medications Acetaminophen (Acetaminophen 325 Mg Tablet) 650 mg PO Q6H PRN PRN Reason: Headache/Pain Mild Scale (1-3) Last Admin: 08/27/23 20:11 Dose: 650 mg Al Hydroxide/Mg Hydroxide (Magnesium Hydrox/Alum Hydrox 30 Ml Oral.Susp) 30 ml PO Q6H PRN PRN Reason: Heartburn/Nausea Benztropine Mesylate (Benztropine Mesylate 1 Mg Tablet) 1 mg PO DAILY [facility] Last Admin: 08/28/23 08:51 Dose: 1 mg Chlorpromazine HCl (Chlorpromazine Hcl 25 Mg Tablet) 50 mg PO BID PRN PRN Reason: anxiety/restlessness Last Admin: 08/28/23 12:17 Dose: 50 mg Clonidine HCl (Clonidine Hcl 0.1 Mg Tablet) 0.1 mg PO BID [facility]; Protocol Last Admin: 08/28/23 08:51 Dose: 0.1 mg Divalproex Sodium (Divalproex Sodium Er 500 Mg Tab.Er.24h) 2,000 mg PO BEDTIME [facility] Last Admin: 08/27/23 20:10 Dose: 2,000 mg Divalproex Sodium (Divalproex Sodium Er 250 Mg Tab.Er.24h) 250 mg PO DAILY [facility] Last Admin: 08/28/23 08:52 Dose: 250 mg Hydroxyzine HCl (Hydroxyzine Hcl 50 Mg Tablet) 50 mg PO TID PRN PRN Reason: anxiety Last Admin: 08/28/23 12:17 Dose: 50 mg Magnesium Hydroxide (Milk Of Magnesia 30 Ml Oral.Susp) 30 ml PO DAILY PRN PRN Reason: Constipation Nicotine (Nicotine 21 Mg Patch.Td24) 21 mg TRANSDERMA DAILY [facility] Last Admin: 08/28/23 08:52 Dose: Not Given Nicotine Polacrilex (Nicotine Polacrilex 2 Mg Gum) 2 mg BUCCAL Q2H PRN PRN Reason: Nicotine Cravings Perphenazine (Perphenazine 8 Mg Tablet) 32 mg PO BEDTIME [facility] Last Admin: 08/27/23 20:11 Dose: 32 mg Sertraline HCl (Sertraline Hcl 50 Mg Tablet) 50 mg PO DAILY [facility] Last Admin: 08/28/23 08:51 Dose: 50 mg Trazodone HCl (Trazodone Hcl 50 Mg Tablet) 50 mg PO BEDTIME [facility] Last Admin: 08/27/23 20:11 Dose: 50 mg Allergies Allergies Allergy/AdvReac Type Severity Reaction Status Date / Time amoxicillin Allergy Hives Verified 08/24/23 18:50 Assessment & Plan Assessment & Plan (1) Bipolar disorder, curr episode mixed, severe, with psychotic features: Status: Acute Code(s): F31.64 - Bipolar disorder, current episode mixed, severe, with psychotic features (2) PTSD (post-traumatic stress disorder): Status: Acute Code(s): F43.10 - Post-traumatic stress disorder, unspecified Plan Patient is a 32 year old male with hx of Bipolar d/o and PTSD, who self presented to ER from his sober living program d/t increased anxiety secondary to being given two weeks to leave the program. Plan: CV 15 minute safety checks continue home medications obtain collateral discharge planning ck ammonia level iron tibc ? bone marrow supp with dec hct ck dep level ? effectiveness of perphenazine 08/26/2023: Continue current regimen and plans 08/27/2023: Continue current regimen and plans 4/22: calm, cooperative, pleasant. continue current medications. discuss with [facility] pt's position and request. Reason for continued inpatient stay Substantial Risk for: inability to function and rapid decompensation Time Spent With Patient Time: Total time managing care of this patient today _25___ minutes.
[2023-08-28 19:55] VITALS: BP 136/82; PULSE 106; RESP 16; TEMP 37.1; O2SAT 95
[2023-08-28 20:26] VITALS: BP 136/82
[2023-08-28] MEDS: Perphenazine 8 MG TABLET 32 MG PO (20:26)
[2023-08-28] MEDS: traZODone HCL 50 MG TABLET PO (20:26)
[2023-08-28] MEDS: Divalproex Sodium ER 500 MG TAB.ER.24H 2000 MG PO (20:26)
[2023-08-29 08:00] VITALS: BP 133/83; PULSE 75; RESP 14; TEMP 36.6; O2SAT 96
[2023-08-29 09:20] VITALS: BP 133/83
[2023-08-29] MEDS: cloNIDine HCL 0.1 MG TABLET PO ×2 (09:20→20:29)
[2023-08-29] MEDS: Divalproex Sodium ER 250 MG TAB.ER.24H PO (09:21)
[2023-08-29] MEDS: Benztropine Mesylate 1 MG TABLET PO (09:22)
[2023-08-29] MEDS: Sertraline HCL 50 MG TABLET PO (09:22)
[2023-08-29] MEDS: Acetaminophen 325 MG TABLET 650 MG PO (09:26)
[2023-08-29 11:23] LABS: COVID-19 Test Negative (Negative); IDNOW Serial# 9DB6401D
--- NOTE | 2023-08-29 16:07 | P.PNPSI_ITS ---
Subjective Subjective Date of Service: 08/29/23 Reason For Visit: Crisis Interim History: calm, cooperative. reports mood is OK, no need to change meds. no requests or complaints. per staff, dep 3, anx 3. housing issues. taking thorazine/atarax PRNs. med-compliant otherwise. bright and social at night. slept about 7 hours. Mental Status Exam Mental Status Exam Narrative: alert, oriented and pleasant. Normal speech. Little eye contact. Affect is appropriate and constricted. No acute signs of psychosis. No delusions. No SI. Cognitively is grossly intact. Judgment is intact Diagnostics Vital Signs (24Hr): Vital Signs - 24 hr 08/28/23 19:55 08/28/23 20:26 08/29/23 08:00 Temperature 98.7 F 97.9 F Pulse Rate 106 H 75 Respiratory Rate 16 14 Blood Pressure 136/82 136/82 133/83 Pulse Oximetry 95 96 Oxygen Delivery Method Room Air Room Air 08/29/23 09:20 Temperature Pulse Rate Respiratory Rate Blood Pressure 133/83 Pulse Oximetry Oxygen Delivery Method BMI result Body Mass Index 55.1 Labs 08/24/23 19:07 08/26/23 07:22 Labs: Laboratory Results - last 48 hr 08/29/23 10:47 COVID-19 ([facility]) Negative COVID-19 Clin Com See Note Medications Medications Current Medications Acetaminophen (Acetaminophen 325 Mg Tablet) 650 mg PO Q6H PRN PRN Reason: Headache/Pain Mild Scale (1-3) Last Admin: 08/29/23 09:26 Dose: 650 mg Al Hydroxide/Mg Hydroxide (Magnesium Hydrox/Alum Hydrox 30 Ml Oral.Susp) 30 ml PO Q6H PRN PRN Reason: Heartburn/Nausea Benztropine Mesylate (Benztropine Mesylate 1 Mg Tablet) 1 mg PO DAILY [facility] Last Admin: 08/29/23 09:22 Dose: 1 mg Chlorpromazine HCl (Chlorpromazine Hcl 25 Mg Tablet) 50 mg PO BID PRN PRN Reason: anxiety/restlessness Last Admin: 08/28/23 12:17 Dose: 50 mg Clonidine HCl (Clonidine Hcl 0.1 Mg Tablet) 0.1 mg PO BID [facility]; Protocol Last Admin: 08/29/23 09:20 Dose: 0.1 mg Divalproex Sodium (Divalproex Sodium Er 500 Mg Tab.Er.24h) 2,000 mg PO BEDTIME [facility] Last Admin: 08/28/23 20:26 Dose: 2,000 mg Divalproex Sodium (Divalproex Sodium Er 250 Mg Tab.Er.24h) 250 mg PO DAILY [facility] Last Admin: 08/29/23 09:21 Dose: 250 mg Hydroxyzine HCl (Hydroxyzine Hcl 50 Mg Tablet) 50 mg PO TID PRN PRN Reason: anxiety Last Admin: 08/28/23 12:17 Dose: 50 mg Magnesium Hydroxide (Milk Of Magnesia 30 Ml Oral.Susp) 30 ml PO DAILY PRN PRN Reason: Constipation Nicotine (Nicotine 21 Mg Patch.Td24) 21 mg TRANSDERMA DAILY [facility] Last Admin: 08/29/23 09:45 Dose: Not Given Nicotine Polacrilex (Nicotine Polacrilex 2 Mg Gum) 2 mg BUCCAL Q2H PRN PRN Reason: Nicotine Cravings Perphenazine (Perphenazine 8 Mg Tablet) 32 mg PO BEDTIME [facility] Last Admin: 08/28/23 20:26 Dose: 32 mg Sertraline HCl (Sertraline Hcl 50 Mg Tablet) 50 mg PO DAILY [facility] Last Admin: 08/29/23 09:22 Dose: 50 mg Trazodone HCl (Trazodone Hcl 50 Mg Tablet) 50 mg PO BEDTIME [facility] Last Admin: 08/28/23 20:26 Dose: 50 mg Allergies Allergies Allergy/AdvReac Type Severity Reaction Status Date / Time amoxicillin Allergy Hives Verified 08/24/23 18:50 Assessment & Plan Assessment & Plan (1) Bipolar disorder, curr episode mixed, severe, with psychotic features: Status: Acute Code(s): F31.64 - Bipolar disorder, current episode mixed, severe, with psychotic features (2) PTSD (post-traumatic stress disorder): Status: Acute Code(s): F43.10 - Post-traumatic stress disorder, unspecified Plan Patient is a 32 year old male with hx of Bipolar d/o and PTSD, who self presented to ER from his sober living program d/t increased anxiety secondary to being given two weeks to leave the program. Plan: CV 15 minute safety checks continue home medications obtain collateral discharge planning ck ammonia level iron tibc ? bone marrow supp with dec hct ck dep level ? effectiveness of perphenazine 08/26/2023: Continue current regimen and plans 08/27/2023: Continue current regimen and plans 08/27: calm, cooperative, pleasant. continue current medications. discuss with [facility] pt's position and request. 08/28: mood OK, meds good. continue current mgmt. discharge to senior care later this week. Reason for continued inpatient stay Substantial Risk for: inability to function and rapid decompensation Time Spent With Patient Time: Total time managing care of this patient today __25__ minutes.
[2023-08-29 20:00] VITALS: BP 141/73; PULSE 91; RESP 16; TEMP 36.9; O2SAT 97
[2023-08-29] MEDS: Divalproex Sodium ER 500 MG TAB.ER.24H 2000 MG PO (20:28)
[2023-08-29 20:29] VITALS: BP 141/73
[2023-08-29] MEDS: traZODone HCL 50 MG TABLET PO (20:29)
[2023-08-29] MEDS: Perphenazine 8 MG TABLET 32 MG PO (20:29)
[2023-08-30 07:49] VITALS: BP 114/71; PULSE 75; RESP 16; TEMP 36.5; O2SAT 97
[2023-08-30 09:09] VITALS: BP 136/73; PULSE 88; RESP 16; O2SAT 96
[2023-08-30 09:17] VITALS: BP 136/73
[2023-08-30] MEDS: cloNIDine HCL 0.1 MG TABLET PO ×2 (09:17→20:14)
[2023-08-30] MEDS: Sertraline HCL 50 MG TABLET PO (09:18)
[2023-08-30] MEDS: Benztropine Mesylate 1 MG TABLET PO (09:18)
[2023-08-30] MEDS: Divalproex Sodium ER 250 MG TAB.ER.24H PO (09:18)
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
[2023-08-30 20:00] VITALS: BP 148/76; PULSE 142; RESP 16; TEMP 36.8; O2SAT 97
[2023-08-30] MEDS: Divalproex Sodium ER 500 MG TAB.ER.24H 2000 MG PO (20:11)
[2023-08-30] MEDS: Perphenazine 8 MG TABLET 32 MG PO (20:12)
[2023-08-30 20:14] VITALS: BP 140/76
[2023-08-30] MEDS: traZODone HCL 50 MG TABLET PO (20:14)
[2023-08-31 08:00] VITALS: BP 103/53; PULSE 77; RESP 16; TEMP 36.4; O2SAT 98
[2023-08-31 08:18] VITALS: BP 103/53
[2023-08-31] MEDS: cloNIDine HCL 0.1 MG TABLET PO (08:18)
[2023-08-31] MEDS: Benztropine Mesylate 1 MG TABLET PO (08:19)
[2023-08-31] MEDS: Sertraline HCL 50 MG TABLET PO (08:19)
[2023-08-31] MEDS: Divalproex Sodium ER 250 MG TAB.ER.24H PO (08:20)
== END 2023-08-31 10:47 | disposition home or self-care (01) | DRG 885 ==
LOC: HO.ED 23:54 → HO.PADLT16 08-25 12:29
PROVIDERS: Emergency Medicine; Physician Assistant; Psychiatry & Neurology Psychiatry; Admitting Provider Registered Nurse; Emergency Provider Emergency Medicine; Visit Provider Psychiatry & Neurology Psychiatry
DX: F31.64 Bipolar disorder, current episode mixed, severe, with psychotic features (principal); Z62.810 Personal history of physical and sexual abuse in childhood; F84.5 Asperger's syndrome; Z20.822 Contact with and (suspected) exposure to COVID-19; Z59.811 Housing instability, housed, with risk of homelessness; Z79.899 Other long term (current) drug therapy
CPT/HCPCS: 36415; 80053; 80061; 80143; 80164; 80179; 80307; 81001; 82140; 83540; 83735; 85025; 87086; 87635; 93005; 99285; S9485

== ENCOUNTER → 2023-08-25 12:18 | Outpatient (BNV) | payer OTHER, SELFPAY | PROVIDERS: Admitting Provider Registered Nurse; Emergency Provider Emergency Medicine; Visit Provider Internal Medicine | DX: F31.64 Bipolar disorder, current episode mixed, severe, with psychotic features (principal) | CPT/HCPCS: 93010 ==

== ENCOUNTER → 2023-08-25 12:28 | Outpatient (BNV) | payer OTHER, SELFPAY | PROVIDERS: Admitting Provider Registered Nurse; Emergency Provider Emergency Medicine; Visit Provider Registered Nurse | DX: F31.64 Bipolar disorder, current episode mixed, severe, with psychotic features (principal); F43.11 Post-traumatic stress disorder, acute | CPT/HCPCS: 90792; 99231; 99239 ==

== ENCOUNTER 2023-09-19 16:51 | Emergency (ER) | payer OTHER, SELFPAY ==
[2023-09-19 17:15] VITALS: BP 145/95; PULSE 120; RESP 20; TEMP 36.6; O2SAT 96; BMI 29.8
--- NOTE | 2023-09-19 17:40 | ED.PSYCH ---
HPI - Psych General Chief Complaint: Psychiatric Symptoms Stated Complaint: Looking for crisis/out of meds/not feeling well Time Seen by Provider: 09/19/23 17:16 Source: patient and EMS Mode of arrival: ambulatory Limitations: no limitations History of Present Illness HPI Narrative: Patient is a 32-year-old male who presents to the emergency department requesting assistance of crisis. He states that he recently left a program in [place]; [facility] ([facility]), reports this was a CSU program, he was previously in a TSS program. He states that he has plans to get into a sober living home in [place] in the next couple of weeks, however he feels like he needs an inpatient psychiatric stay for 2 weeks prior to this so that he can ?get my meds right ?. He states that he was feeling well on his medication dosages when he was at [facility]?, he was sleeping well and felt very good. However, since his discharge from the program, it appears as though he has been taking less than his prescribed dosages, the exact reason is difficult to discern, he states he was discharged with medications from the program but also picked up his medications that were left at a local program and he has been taking ?about 5% of my usual dosages?. He does admit to history of alcohol use disorder, reporting he has been sober for 5 months and denies any recent usage. He denies any recreational drug usage. He reports that he feels manic, impulsive, lonely, depressed, having insomnia and daytime fatigue. Related Data Home Medications ?Medication ?Instructions ?Recorded ?Confirmed divalproex 250 mg tablet,extended 250 mg PO DAILY 07/01/23 08/24/23 release 24 hr hydroxyzine pamoate 50 mg capsule 50 mg PO TID PRN anxiety 07/01/23 08/24/23 nicotine (polacrilex) 2 mg gum 2 mg PO Q1-2H PRN Nicotine Cravings 07/01/23 08/24/23 perphenazine 8 mg tablet 32 mg PO BEDTIME 07/01/23 08/24/23 benztropine 1 mg tablet 1 mg PO DAILY 08/24/23 08/24/23 clonidine HCl 0.1 mg tablet 0.1 mg PO BID 08/24/23 08/24/23 sertraline 50 mg tablet 50 mg PO DAILY 08/24/23 08/24/23 trazodone 50 mg tablet 50 mg PO BEDTIME 08/24/23 08/24/23 Previous Rx's ?Medication ?Instructions ?Recorded divalproex 500 mg tablet,extended 2,000 mg (4 x 500 mg) PO BEDTIME 03/21/23 release 24 hr 30 days #120 tabs ibuprofen 600 mg tablet 600 mg PO Q6H PRN pain #20 tabs 08/21/23 Allergies Allergy/AdvReac Type Severity Reaction Status Date / Time amoxicillin Allergy Hives Verified 09/19/23 17:19 Review of Systems Review of Systems: Yes all other systems are reviewed and are negative [facility] Past Medical History Attestation statement: The following information was validated with the patient. Source: old records reviewed Medical History Routine medical exam HTN (hypertension) Bipolar disorder Diabetes Social History Social History Household Members: Other Household Members Other:: Patient reportedly lives in sober living home. Housing: Other Housing Other:: Patient reportedly lives in sober living home. Do you presently have visiting nurse or other home services: No Alcohol intake: former Patient Tobacco Use Status: Never used Tobacco Tobacco use type: Cigarette Cigarette Packs Per Day: 1 Cigarettes Per Day: 3 Years Smoked: Many e-Cigarette/Vaping Use: Never Used Second Hand Smoke Exposure: No Substance Use Type: Marijuana Advance Directives: No Advance Directives Information Provided: Yes service: No Sexual orientation: Straight/Heterosexual Physical Exam Vital Signs: Vital Signs: Last Vital Signs Temp 98 F 09/19/23 17:15 Pulse 110 H 09/19/23 18:44 Resp 20 09/19/23 18:44 BP 157/98 H 09/19/23 18:44 Pulse Ox 96 09/19/23 18:44 O2 Del Method Room Air 09/19/23 18:44 BMI result Body Mass Index 29.8 Appearance: Alert.?Oriented to person, place and time. No acute distress.?Normal affect. Eyes: Pupils equal, round and reactive to light.? ENT: Pharynx normal.?? Neck: Normal inspection.? Neck supple.?? CVS: Heart sounds normal. Tachycardic? Pulses normal.?? Respiratory: No respiratory distress.? Lung sounds clear to auscultation bilaterally?? Abdomen: Soft and non-tender. Normoactive bowel sounds. ? Skin: Skin warm and dry.? Normal skin color.? Extremities: No lower extremity edema.? No calf ttp? Neuro: Moves all extremities spontaneously. Sensation intact bilaterally. CN II-XII intact. No focal neuro deficits. Ambulates with normal steady gait. Course Reevaluation(s) Reevaluation #1: Patient is evaluated by care team, at this time does not meet criteria for inpatient stay. He is not suicidal homicidal, not a threat to himself or others. Disposition has been arranged for placement at the living room through [facility], where he will await a respite bed and he is agreeable with this plan of care Medical Decision Making Medical Decision Making MDM Narrative: Patient is a 32-year-old male with past medical history bipolar disorder, hypertension, diabetes presenting to emergency department feeling manic and requesting inpatient admission for medication stabilization as per HPI. Differential Diagnosis Differential Diagnoses: The differential diagnosis associated with the presentation includes (Bipolar, substance use disorder, anxiety, depression) Consult Healthcare Provider Management of the patient was discussed with: Behavioral Health Provider (Care team) Lab Data 09/19/23 17:51 09/19/23 17:51 Labs: Lab Results 09/19/23 Range/Units 17:51 WBC 8.2 (4.8-10.8) X10*3/uL RBC 4.28 L (4.60-5.80) X10*6/uL Hgb 12.5 L (14.0-18.0) g/dl Hct 37.5 L (42.0-52.0) % MCV 87.6 (80.0-98.0) fL MCH 29.2 (27.0-33.0) pg MCHC 33.3 (31.0-36.0) g/dl RDW 13.0 (11.0-16.0) % Plt Count 253 (160-400) X10*3/uL MPV 10.0 (9.4-12.4) fL Immature Gran % (Auto) 0.5 H (0.0-0.4) % Neut % (Auto) 60.5 (45-73) % Lymph % (Auto) 28.6 (20-40) % [place] % (Auto) 7.3 (2-11) % Eos % (Auto) 2.9 (0-4) % Baso % (Auto) 0.2 (0-2) % Lymph # (Auto) 2.3 (1.2-4.9) X10*3/uL [place] # (Auto) 0.6 (0.1-1.2) X10*3/uL Eos # (Auto) 0.2 (0.0-0.4) X10*3/uL Baso # (Auto) 0.0 (0.0-0.2) X10*3/uL Abs Immat Gran (auto) 0.04 H (0.00-0.03) X10*3/uL Absolute Neuts (auto) 4.9 (2.0-8.3) x10*3/uL Absolute Nucleated RBC 0.000 (0.0-0.012) X10*3/uL Nucleated RBC % (auto) 0.0 (0.0-0.2) /100WBC Sodium 142 (135-145) mmol/L Potassium 4.0 (3.3-5.1) mmol/L Chloride 106 (96-108) mmol/L Carbon Dioxide 23 (22-29) mmol/L Anion Gap 17 (12-20) BUN 26 H (9-16) mg/dL Creatinine 0.99 (0.5-1.4) mg/dL Estim Creat Clear Calc 114.4 Estimated GFR > 60 Random Glucose 119 H (60-115) mg/dL Calcium 9.2 (8.4-10.2) mg/dL Urine Color Yellow Urine Appearance Clear Urine pH 5.5 (5.0-9.0) Ur Specific [place] 1.020 (1.005-1.025) Urine Protein 300 (3+) H (Neg-Trace) mg/dL Urine Glucose (UA) Negative (Negative) mg/dL Urine Ketones Negative (Negative) mg/dL Urine Blood Large (3+) H (Negative) Urine Nitrite Negative (Negative) Ur Leukocyte Esterase Negative (Negative) Urine RBC >20 H (0-2) /HPF Urine WBC 0-5 (0-5) /HPF Ur Squamous Epith Cells 0-2 (0-2) /HPF Urine Bacteria None Seen (None Seen) Hyaline Casts 0-2 (0-2) /LPF Salicylates < 5.0 L (15-30) mg/dL Urine Opiates Screen Not Detected (Not Detect) Ur Buprenorphine Scrn Not Detected (Not Detect) ng/mL Ur Oxycodone Screen Not Detected (Not Detect) ng/mL Urine Methadone Screen Not Detected (Not Detect) ng/mL Urine Fentanyl Screen Not Detected (Not Detect) Acetaminophen < 3 (<30) mcg/mL Ur Barbiturates Screen Not Detected (Not Detect) Valproic Acid < 12.5 L (50.0-100.0) mcg/mL Ur Phencyclidine Scrn Not Detected (Not Detect) Ur Amphetamines Screen Not Detected (Not Detect) U Benzodiazepines Scrn Not Detected (Not Detect) Urine Cocaine Screen Not Detected (Not Detect) U Marijuana (THC) Screen Not Detected (Not Detect) Ethyl Alcohol < 10 mg/dL Discharge Plan Discharge Clinical Impression: Bipolar disorder Patient Disposition: Home, Self-Care Instructions: Bipolar Disorder (ED) Additional Instructions: You are being transferred to the living room to await respite care. You may return back to emergency department any new or worsening symptoms or concerns. Continue taking your medications as prescribed. Prescriptions: No Action divalproex 500 mg Tablet Extended Release 24 Hr 2,000 mg PO BEDTIME 30 Days Qty: 120 0RF nicotine (polacrilex) 2 mg gum 2 mg PO Q1-2H PRN (Reason: Nicotine Cravings) hydroxyzine pamoate 50 mg capsule 50 mg PO TID PRN (Reason: anxiety) perphenazine 8 mg tablet 32 mg PO BEDTIME divalproex 250 mg tablet extended release 24 hr 250 mg PO DAILY ibuprofen 600 mg tablet 600 mg PO Q6H PRN (Reason: pain) Qty: 20 0RF trazodone 50 mg tablet 50 mg PO BEDTIME sertraline 50 mg tablet 50 mg PO DAILY benztropine 1 mg tablet 1 mg PO DAILY clonidine HCl 0.1 mg tablet 0.1 mg PO BID Interventions: [place] [facility]-Suicide Risk Severity Scale Last Done: 09/19/23 17:20 Print Language: Urdu
[2023-09-19 17:57] LABS: MANUAL DIFF FLAG NO
[2023-09-19 18:05] LABS: Appearance Urine Clear; Basophils Percent Auto 0.2 % (0-2); Color Urine Yellow; Eosinophils Absolute Auto 0.2 X10*3/uL (0.0-0.4); Eosinophils Percent Auto 2.9 % (0-4); Glucose Urine UA Negative (Negative); Hematocrit 37.5 % (42.0-52.0); Hemoglobin 12.5 g/dl (14.0-18.0); Imm Gran Abs Auto 0.04 X10*3/uL (0.00-0.03); Imm Gran Pct Auto 0.5 % (0.0-0.4); Leukocyte Esterase Urine Negative (Negative); Lymphocytes Absolute Auto 2.3 X10*3/uL (1.2-4.9); Lymphocytes Percent Auto 28.6 % (20-40); Mean Corpuscular HGB Conc 33.3 g/dl (31.0-36.0); Mean Corpuscular Hemoglobin 29.2 pg (27.0-33.0); Mean Corpuscular Volume 87.6 fL (80.0-98.0); Monocytes Absolute Auto 0.6 X10*3/uL (0.1-1.2); Monocytes Percent Auto 7.3 % (2-11); Neutrophils Absolute Auto 4.9 x10*3/uL (2.0-8.3); Neutrophils Percent Auto 60.5 % (45-73); Nitrite Urine Negative (Negative); PH 5.5 (5.0-9.0); Platelet Count 253 X10*3/uL (160-400); Red Blood Count 4.28 X10*6/uL (4.60-5.80); UMIC TRIGGER UACC YES; Urine Blood Large (3+) (Negative); Urine Ketones Negative (Negative); Urine Protein 300 (3+) mg/dL (Neg-Trace); White Blood Count 8.2 X10*3/uL (4.8-10.8)
[2023-09-19 18:12] LABS: Amphetamine Screen Urine Not Detected (Not Detect); Anion Gap 17 (12-20); Barbiturates, Urine Not Detected (Not Detect); Benzodiazepines Screen Urine Not Detected (Not Detect); Blood Urea Nitrogen 26 mg/dL (9-16); Buprenorphine Scr Not Detected (Not Detect); Calcium 9.2 mg/dL (8.4-10.2); Cannabinoid Screen Urine Not Detected (Not Detect); Carbon Dioxide 23 mmol/L (22-29); Chloride 106 mmol/L (96-108); Cocaine Screen Urine Not Detected (Not Detect); Creatinine Clr Calc Pharmacy 114.4; Estimated Glomerular Filt Rate > 60; Ethanol < 10 mg/dL; Fentanyl, urine Not Detected (Not Detect); Glucose Random 119 mg/dL (60-115); Methadone Screen, Urine Not Detected (Not Detect); Opiate Screen Urine Not Detected (Not Detect); Oxycodone Screen Urine Not Detected (Not Detect); Phencyclidine Screen Urine Not Detected (Not Detect); Sodium 142 mmol/L (135-145); Valproate < 12.5 mcg/mL (50.0-100.0)
--- NOTE | 2023-09-19 18:14 | PC.NURSE ---
pt brought in two bags of multiple medication bottles. Medications arrive in a vairety of doseges. pt reports that at the program in [place], some of his meds were discontinued and some doses were changed.
[2023-09-19 18:15] LABS: Acetaminophen LAB < 3 mcg/mL (<30); Salicylate < 5.0 mg/dL (15-30)
--- NOTE | 2023-09-19 18:25 | PC.NURSE ---
pt's medications locked up with belongings in pt's locker. medications are non-controlled.
[2023-09-19 18:44] VITALS: BP 157/98; PULSE 110; RESP 20; O2SAT 96
[2023-09-19 18:51] LABS: Bacteria Urine None Seen (None Seen); Hyaline Casts Urine 0-2 /LPF (0-2); RBC Urine >20 /HPF (0-2); Squamous Epithelial Cell Urine 0-2 /HPF (0-2); WBC Urine 0-5 /HPF (0-5)
--- NOTE | 2023-09-19 19:06 | PC.NURSE ---
patient appears to be resting in his room respirations are even and unlabored patient appears in no distress
[2023-09-19 21:46] VITALS: BP 143/80; PULSE 87; RESP 18; TEMP 37; O2SAT 98
== END 2023-09-19 21:47 | disposition home or self-care (01) ==
PROVIDERS: Emergency Provider Emergency Medicine
DX: F31.9 Bipolar disorder, unspecified (principal); I10 Essential (primary) hypertension; E11.9 Type 2 diabetes mellitus without complications; F30.9 Manic episode, unspecified; Z79.899 Other long term (current) drug therapy
CPT/HCPCS: 36415; 80048; 80143; 80164; 80179; 80307; 81001; 85025; 99284; S9485

== ENCOUNTER 2024-03-22 23:29 | Emergency (ER) | payer OTHER, SELFPAY ==
[2024-03-22 23:39] VITALS: BP 127/76; PULSE 102; RESP 20; TEMP 36.6; O2SAT 96; BMI 65.8
[2024-03-22 23:51] LABS: Basophils Percent Auto 0.2 % (0-2); Eosinophils Absolute Auto 0.3 X10*3/uL (0.0-0.4); Eosinophils Percent Auto 3.9 % (0-4); Hematocrit 36.3 % (42.0-52.0); Hemoglobin 11.8 g/dl (14.0-18.0); Imm Gran Abs Auto 0.04 X10*3/uL (0.00-0.03); Imm Gran Pct Auto 0.5 % (0.0-0.4); Lymphocytes Absolute Auto 2.5 X10*3/uL (1.2-4.9); Lymphocytes Percent Auto 29.6 % (20-40); MANUAL DIFF FLAG NO; Mean Corpuscular HGB Conc 32.5 g/dl (31.0-36.0); Mean Corpuscular Volume 86.2 fL (80.0-98.0); Mean Platelet Volume 9.7 fL (9.4-12.4); Monocytes Absolute Auto 0.8 X10*3/uL (0.1-1.2); Monocytes Percent Auto 8.8 % (2-11); Neutrophils Absolute Auto 4.8 x10*3/uL (2.0-8.3); Platelet Count 250 X10*3/uL (160-400); Red Blood Count 4.21 X10*6/uL (4.60-5.80); Red Cell Distribution Width 13.5 % (11.0-16.0); White Blood Count 8.5 X10*3/uL (4.8-10.8)
[2024-03-23 00:08] LABS: Alanine Aminotransferase 46 U/L (0-40); Albumin Level 3.5 g/dL (3.5-5.0); Alkaline Phosphatase 54 U/L (39-117); Anion Gap 8 (12-20); Aspartate Amino Transferase 24 U/L (5-37); Bilirubin Total 0.2 mg/dL (0.0-1.0); Blood Urea Nitrogen 18 mg/dL (9-16); Calcium 8.7 mg/dL (8.4-10.2); Carbon Dioxide 27 mmol/L (22-29); Chloride 108 mmol/L (96-108); Creatinine Clr Calc Pharmacy 208.8; Estimated Glomerular Filt Rate > 60; Ethanol < 10 mg/dL; Glucose Random 104 mg/dL (60-115); Potassium 3.8 mmol/L (3.3-5.1); Sodium 139 mmol/L (135-145); Total Protein 6.3 g/dL (6.5-8.0)
[2024-03-23 00:31] LABS: Appearance Urine Clear; Color Urine Yellow; Glucose Urine UA Negative (Negative); Leukocyte Esterase Urine Negative (Negative); Nitrite Urine Negative (Negative); PH 5.5 (5.0-9.0); UMIC TRIGGER UACC YES; Urine Blood Large (3+) (Negative); Urine Ketones Negative (Negative); Urine Protein 300 (3+) mg/dL (Neg-Trace)
[2024-03-23 00:36] LABS: Bacteria Urine None Seen (None Seen); Hyaline Casts Urine 0-2 /LPF (0-2); RBC Urine >20 /HPF (0-2); Squamous Epithelial Cell Urine 0-2 /HPF (0-2); WBC Urine 0-5 /HPF (0-5)
[2024-03-23 00:40] LABS: Lithium < 0.10 mmol/L (0.60-1.20)
[2024-03-23 00:41] LABS: Amphetamine Screen Urine Not Detected (Not Detect); Barbiturates, Urine Not Detected (Not Detect); Benzodiazepines Screen Urine Not Detected (Not Detect); Buprenorphine Scr Not Detected (Not Detect); Cannabinoid Screen Urine Not Detected (Not Detect); Cocaine Screen Urine Not Detected (Not Detect); Fentanyl, urine Not Detected (Not Detect); Methadone Screen, Urine Not Detected (Not Detect); Opiate Screen Urine Not Detected (Not Detect); Oxycodone Screen Urine Not Detected (Not Detect); Phencyclidine Screen Urine Not Detected (Not Detect)
--- NOTE | 2024-03-23 00:43 | ED.PSYCH ---
HPI - Psych General Chief Complaint: Psychiatric Symptoms Stated Complaint: SI Time Seen by Provider: 03/22/24 23:54 Source: patient Mode of arrival: ambulatory Limitations: no limitations History of Present Illness ED Provider: mikayla SUÁREZ Narrative: Patient's history of PTSD depression bipolar disorder homeless for last 2 years recent inpatient psych admission discharge after 7 days comes here for feeling of increased depression on low life feeling feels suicidal with plan to cut the wrist or jump from the bridge asking for group home placement Related Data Home Medications ?Medication ?Instructions ?Recorded ?Confirmed hydroxyzine pamoate 50 mg capsule 50 mg PO TID PRN anxiety 07/01/23 03/23/24 trazodone 50 mg tablet 50 mg PO BEDTIME 08/24/23 03/23/24 amlodipine 5 mg tablet 5 mg PO DAILY 03/23/24 03/23/24 divalproex 500 mg tablet,extended 500 mg PO TID 03/23/24 03/23/24 release 24 hr lithium carbonate 150 mg capsule mg PO DAILY 03/23/24 propranolol 20 mg tablet 20 mg PO BID 03/23/24 03/23/24 risperidone 3 mg tablet 3 mg PO BID 03/23/24 03/23/24 Allergies Allergy/AdvReac Type Severity Reaction Status Date / Time amoxicillin Allergy Hives Verified 03/22/24 23:42 Review of Systems Review of Systems: Yes all other systems are reviewed and are negative PMF[facility] Past Medical History Medical History Routine medical exam HTN (hypertension) Bipolar disorder Diabetes Social History Social History Household Members: Other Household Members Other:: Patient reportedly lives in sober living home. Housing: Other Housing Other:: Patient reportedly lives in sober living home. Do you presently have visiting nurse or other home services: No Alcohol intake: former Patient Tobacco Use Status: Never used Tobacco Tobacco use type: Cigarette Cigarette Packs Per Day: 1 Cigarettes Per Day: 3 Years Smoked: Many e-Cigarette/Vaping Use: Never Used Second Hand Smoke Exposure: No Substance Use Type: Marijuana Advance Directives: No Advance Directives Information Provided: Yes Do you have a plan to hurt others: No Plan service: No Sexual orientation: Straight/Heterosexual Physical Exam Vital Signs: Vital Signs: Last Vital Signs Temp 97.9 F 03/22/24 23:39 Pulse 102 H 03/22/24 23:39 Resp 20 03/22/24 23:39 BP 127/76 03/22/24 23:39 Pulse Ox 96 03/22/24 23:39 O2 Del Method Room Air 03/22/24 23:39 BMI result Body Mass Index 65.8 Appearance: Alert. Oriented X3. No acute distress. Eyes: PERRLA, No Nystagmus ENT: Pharynx normal. Oral Mucosa moist Neck: Normal inspection. Neck supple. CVS: Normal heart rate and rhythm. Pulses normal. Respiratory: No respiratory distress. Equal air entry bilateral, no wheezing/rales/rhonchi Abdomen: Soft and nontender. Bowel sounds are present, no mass palpable, no CVA tenderness Skin: Skin warm and dry. Normal skin color. Normal skin turgor. Extremities: No lower extremity edema. No calf tenderness psych: Depressed tearful feels suicidal no HI no hallucination or delusion Neuro: Oriented X 3. No motor deficit. No sensory deficit.No cerebellar signs , cranial nerves II-XII intact Medical Decision Making Medical Decision Making [facility] Narrative: Patient with depression with suicidal feeling will get care team involved for further evaluation and disposition Lab Data [facility] Lab Attestation statement: I reviewed the patient's lab results. 03/22/24 23:46 03/22/24 23:46 Labs: Lab Results 03/22/24 03/23/24 03/23/24 Range/Units 23:46 00:13 00:20 WBC 8.5 (4.8-10.8) X10*3/uL RBC 4.21 L (4.60-5.80) X10*6/uL Hgb 11.8 L (14.0-18.0) g/dl Hct 36.3 L (42.0-52.0) % MCV 86.2 (80.0-98.0) fL MCH 28.0 (27.0-33.0) pg MCHC 32.5 (31.0-36.0) g/dl RDW 13.5 (11.0-16.0) % Plt Count 250 (160-400) X10*3/uL MPV 9.7 (9.4-12.4) fL Immature Gran % (Auto) 0.5 H (0.0-0.4) % Neut % (Auto) 57.0 (45-73) % Lymph % (Auto) 29.6 (20-40) % [place] % (Auto) 8.8 (2-11) % Eos % (Auto) 3.9 (0-4) % Baso % (Auto) 0.2 (0-2) % Lymph # (Auto) 2.5 (1.2-4.9) X10*3/uL [place] # (Auto) 0.8 (0.1-1.2) X10*3/uL Eos # (Auto) 0.3 (0.0-0.4) X10*3/uL Baso # (Auto) 0.0 (0.0-0.2) X10*3/uL Abs Immat Gran (auto) 0.04 H (0.00-0.03) X10*3/uL Absolute Neuts (auto) 4.8 (2.0-8.3) x10*3/uL Absolute Nucleated RBC 0.000 (0.0-0.012) X10*3/uL Nucleated RBC % (auto) 0.0 (0.0-0.2) /100WBC Sodium 139 (135-145) mmol/L Potassium 3.8 (3.3-5.1) mmol/L Chloride 108 (96-108) mmol/L Carbon Dioxide 27 (22-29) mmol/L Anion Gap 8 L (12-20) BUN 18 H (9-16) mg/dL Creatinine 0.84 (0.5-1.4) mg/dL Estim Creat Clear Calc 208.8 Estimated GFR > 60 POC Glucose (60-115) mg/dL Random Glucose 104 (60-115) mg/dL Calcium 8.7 (8.4-10.2) mg/dL Total Bilirubin 0.2 (0.0-1.0) mg/dL AST 24 (5-37) U/L ALT 46 H (0-40) U/L Alkaline Phosphatase 54 (39-117) U/L Total Protein 6.3 L (6.5-8.0) g/dL Albumin 3.5 (3.5-5.0) g/dL Urine Color Yellow Urine Appearance Clear Urine pH 5.5 (5.0-9.0) Ur Specific [place] 1.020 (1.005-1.025) Urine Protein 300 (3+) H (Neg-Trace) mg/dL Urine Glucose (UA) Negative (Negative) mg/dL Urine Ketones Negative (Negative) mg/dL Urine Blood Large (3+) H (Negative) Urine Nitrite Negative (Negative) Ur Leukocyte Esterase Negative (Negative) Urine RBC >20 H (0-2) /HPF Urine WBC 0-5 (0-5) /HPF Ur Squamous Epith Cells 0-2 (0-2) /HPF Urine Bacteria None Seen (None Seen) Hyaline Casts 0-2 (0-2) /LPF Urine Opiates Screen Not Detected (Not Detect) Ur Buprenorphine Scrn Not Detected (Not Detect) ng/mL Ur Oxycodone Screen Not Detected (Not Detect) ng/mL Urine Methadone Screen Not Detected (Not Detect) ng/mL Urine Fentanyl Screen Not Detected (Not Detect) Ur Barbiturates Screen Not Detected (Not Detect) Valproic Acid < 12.5 L (50.0-100.0) mcg/mL Ur Phencyclidine Scrn Not Detected (Not Detect) Ur Amphetamines Screen Not Detected (Not Detect) U Benzodiazepines Scrn Not Detected (Not Detect) [place] < 0.10 L (0.60-1.20) mmol/L Urine Cocaine Screen Not Detected (Not Detect) U Marijuana (THC) Screen Not Detected (Not Detect) Ethyl Alcohol < 10 mg/dL 03/23/24 Range/Units 00:43 WBC (4.8-10.8) X10*3/uL RBC (4.60-5.80) X10*6/uL Hgb (14.0-18.0) g/dl Hct (42.0-52.0) % MCV (80.0-98.0) fL MCH (27.0-33.0) pg MCHC (31.0-36.0) g/dl RDW (11.0-16.0) % Plt Count (160-400) X10*3/uL MPV (9.4-12.4) fL Immature Gran % (Auto) (0.0-0.4) % Neut % (Auto) (45-73) % Lymph % (Auto) (20-40) % [place] % (Auto) (2-11) % Eos % (Auto) (0-4) % Baso % (Auto) (0-2) % Lymph # (Auto) (1.2-4.9) X10*3/uL [place] # (Auto) (0.1-1.2) X10*3/uL Eos # (Auto) (0.0-0.4) X10*3/uL Baso # (Auto) (0.0-0.2) X10*3/uL Abs Immat Gran (auto) (0.00-0.03) X10*3/uL Absolute Neuts (auto) (2.0-8.3) x10*3/uL Absolute Nucleated RBC (0.0-0.012) X10*3/uL Nucleated RBC % (auto) (0.0-0.2) /100WBC Sodium (135-145) mmol/L Potassium (3.3-5.1) mmol/L Chloride (96-108) mmol/L Carbon Dioxide (22-29) mmol/L Anion Gap (12-20) BUN (9-16) mg/dL Creatinine (0.5-1.4) mg/dL Estim Creat Clear Calc Estimated GFR POC Glucose 100 (60-115) mg/dL Random Glucose (60-115) mg/dL Calcium (8.4-10.2) mg/dL Total Bilirubin (0.0-1.0) mg/dL AST (5-37) U/L ALT (0-40) U/L Alkaline Phosphatase (39-117) U/L Total Protein (6.5-8.0) g/dL Albumin (3.5-5.0) g/dL Urine Color Urine Appearance Urine pH (5.0-9.0) Ur Specific [place] (1.005-1.025) Urine Protein (Neg-Trace) mg/dL Urine Glucose (UA) (Negative) mg/dL Urine Ketones (Negative) mg/dL Urine Blood (Negative) Urine Nitrite (Negative) Ur Leukocyte Esterase (Negative) Urine RBC (0-2) /HPF Urine WBC (0-5) /HPF Ur Squamous Epith Cells (0-2) /HPF Urine Bacteria (None Seen) Hyaline Casts (0-2) /LPF Urine Opiates Screen (Not Detect) Ur Buprenorphine Scrn (Not Detect) ng/mL Ur Oxycodone Screen (Not Detect) ng/mL Urine Methadone Screen (Not Detect) ng/mL Urine Fentanyl Screen (Not Detect) Ur Barbiturates Screen (Not Detect) Valproic Acid (50.0-100.0) mcg/mL Ur Phencyclidine Scrn (Not Detect) Ur Amphetamines Screen (Not Detect) U Benzodiazepines Scrn (Not Detect) [place] (0.60-1.20) mmol/L Urine Cocaine Screen (Not Detect) U Marijuana (THC) Screen (Not Detect) Ethyl Alcohol mg/dL Discharge Plan Discharge Clinical Impression: Suicidal ideation, Depression Patient Disposition: Still a Patient Prescriptions: No Action lithium carbonate 150 mg capsule PO DAILY amlodipine 5 mg tablet 5 mg PO DAILY risperidone 3 mg tablet 3 mg PO BID divalproex 500 mg tablet extended release 24 hr 500 mg PO TID propranolol 20 mg tablet 20 mg PO BID hydroxyzine pamoate 50 mg capsule 50 mg PO TID PRN (Reason: anxiety) trazodone 50 mg tablet 50 mg PO BEDTIME Print Language: Kosovan
[2024-03-23 00:47] LABS: Glucose, Whole Blood 100 mg/dL (60-115)
[2024-03-23 00:48] LABS: Valproate < 12.5 mcg/mL (50.0-100.0)
--- NOTE | 2024-03-23 07:07 | PC.NURSE ---
Assumed care of patient at 0645, patient appears to be in no apparent distress this am, appears to be sleeping, respirations even and unlabored. Continue plan of care for CARE team re-assessment
[2024-03-23 07:57] VITALS: BP 124/86; PULSE 97; RESP 16; TEMP 36.9; O2SAT 99
[2024-03-23] MEDS: Divalproex Sodium ER 500 MG TAB.ER.24H PO (08:20)
[2024-03-23] MEDS: risperiDONE 3 MG TABLET PO (08:20)
[2024-03-23 08:21] VITALS: BP 124/86; PULSE 96
[2024-03-23] MEDS: amLODIPine Besylate 5 MG TABLET PO (08:21)
[2024-03-23] MEDS: Propranolol HCL 20 MG TABLET PO (08:21)
--- NOTE | 2024-03-23 08:32 | PC.NURSE ---
Pt requesting prison placement, pt reports that he is homeless and needs prison help, not just a usp. Pt is aware he is due to be re-evaled by care team this am
--- NOTE | 2024-03-23 08:48 | PHA.MEDREC ---
Pharmacy Consult ? Medication Reconciliation Pharmacy has REVIEWED the medication reconciliation.
[2024-03-23 09:06] VITALS: BP 128/77; PULSE 85; RESP 16; TEMP 36.8; O2SAT 97
== END 2024-03-23 09:18 | disposition home or self-care (01) ==
PROVIDERS: Emergency Provider Internal Medicine
DX: F32.A Depression, unspecified (principal); R45.851 Suicidal ideations; I10 Essential (primary) hypertension; E11.9 Type 2 diabetes mellitus without complications; Z79.899 Other long term (current) drug therapy
CPT/HCPCS: 36415; 80053; 80164; 80178; 80307; 81001; 82947; 85025; 99285; S9485

== ENCOUNTER 2024-07-04 15:56 | Emergency (ER) | payer OTHER, SELFPAY ==
[2024-07-04 16:05] VITALS: BP 148/93; BP 154/83; PULSE 114; PULSE 95; RESP 16; TEMP 36.1; O2SAT 95; BMI 57.2
[2024-07-04 16:10] VITALS: RESP 16
[2024-07-04 16:29] LABS: Appearance Urine Clear; Color Urine Yellow; Glucose Urine UA Negative (Negative); Leukocyte Esterase Urine Negative (Negative); Nitrite Urine Negative (Negative); PH 5.5 (5.0-9.0); Specific Gravity - Urine 1.015 (1.005-1.025); UMIC TRIGGER UACC YES; Urine Blood Large (3+) (Negative); Urine Ketones Negative (Negative); Urine Protein Trace mg/dL (Neg-Trace)
[2024-07-04 16:35] LABS: Bacteria Urine None Seen (None Seen); Hyaline Casts Urine 0-2 /LPF (0-2); Squamous Epithelial Cell Urine 0-2 /HPF (0-2); WBC Urine 0-5 /HPF (0-5)
[2024-07-04 16:43] LABS: Amphetamine Screen Urine Not Detected (Not Detect); Barbiturates, Urine Not Detected (Not Detect); Benzodiazepines Screen Urine Not Detected (Not Detect); Buprenorphine Scr Not Detected (Not Detect); Cannabinoid Screen Urine Not Detected (Not Detect); Cocaine Screen Urine Not Detected (Not Detect); Fentanyl, urine Not Detected (Not Detect); Methadone Screen, Urine Not Detected (Not Detect); Opiate Screen Urine Not Detected (Not Detect); Oxycodone Screen Urine Not Detected (Not Detect); Phencyclidine Screen Urine Not Detected (Not Detect)
[2024-07-04 18:42] LABS: MANUAL DIFF FLAG NO
[2024-07-04 18:43] LABS: Basophils Percent Auto 0.2 % (0-2); Eosinophils Absolute Auto 0.5 X10*3/uL (0.0-0.4); Eosinophils Percent Auto 4.8 % (0-4); Hematocrit 34.5 % (42.0-52.0); Imm Gran Abs Auto 0.07 X10*3/uL (0.00-0.03); Imm Gran Pct Auto 0.7 % (0.0-0.4); Lymphocytes Absolute Auto 2.2 X10*3/uL (1.2-4.9); Lymphocytes Percent Auto 23.1 % (20-40); Mean Corpuscular HGB Conc 31.9 g/dl (31.0-36.0); Mean Corpuscular Hemoglobin 28.6 pg (27.0-33.0); Mean Corpuscular Volume 89.8 fL (80.0-98.0); Mean Platelet Volume 9.8 fL (9.4-12.4); Monocytes Absolute Auto 0.6 X10*3/uL (0.1-1.2); Monocytes Percent Auto 6.5 % (2-11); Neutrophils Absolute Auto 6.1 x10*3/uL (2.0-8.3); Neutrophils Percent Auto 64.7 % (45-73); Platelet Count 291 X10*3/uL (160-400); Red Blood Count 3.84 X10*6/uL (4.60-5.80); Red Cell Distribution Width 14.6 % (11.0-16.0); White Blood Count 9.5 X10*3/uL (4.8-10.8)
[2024-07-04 19:01] LABS: Alanine Aminotransferase 26 U/L (0-40); Albumin Level 3.9 g/dL (3.5-5.0); Alkaline Phosphatase 53 U/L (39-117); Anion Gap 11 (12-20); Aspartate Amino Transferase 19 U/L (5-37); Bilirubin Total 0.2 mg/dL (0.0-1.0); Blood Urea Nitrogen 25 mg/dL (9-16); Calcium 8.7 mg/dL (8.4-10.2); Carbon Dioxide 26 mmol/L (22-29); Chloride 109 mmol/L (96-108); Creatinine Clr Calc Pharmacy 151.2; Estimated Glomerular Filt Rate > 60; Ethanol < 10 mg/dL; Glucose Random 101 mg/dL (60-115); Potassium 4.5 mmol/L (3.3-5.1); Sodium 141 mmol/L (135-145); Total Protein 7.3 g/dL (6.5-8.0)
--- OUTSIDE RECORDS SUMMARY | 2024-07-04 19:28 | XMS_ITS | Patient Health Record ---
Author Organization [facility] Address [address] [place] [address] Support Name Relationship Address Phone Ramírez Barker Guarantor Unknown [phone] Allergies Allergen (clinical drug ingredient) Drug/Non Drug Allergy documented on EMR Reaction Allergy Type Onset Date Status amoxicillin Amoxicillin Unknown Drug Allergy Act ksenia Reason For Referral No Information Medications Medication SIG (Take, Route, Frequency, Duration) Notes Start Date End Date Status cloNIDine Active Melatonin Active Immunizations Vaccine Route Administration Date Status Comme nts Tdap 7yoa+ Boostrix IM Intramuscular 09/22/2022 Administer ed Plan Of Treatment No Information Insurance Providers Payer Name Payer Address Payer Phone Subscriber Number Group Number Insured Name Patient Relationship to Insured Coverage Start Date Coverage End Date PRIVATE PAY GFE REQUIRED[place] [phone] Ramírez Barker Self - patient is the insured Medical (General) History Medical History History ICD Code anxiety depression
--- NOTE | 2024-07-04 21:22 | PHA.MEDREC ---
Addendum entered by Lacie Mcgee RPh 07/04/24 21:27: reviewed by [facility]. Original Note: Pharmacy Consult ? Medication Reconciliation Pharmacy has reviewed the medication reconciliation done by nursing. Spoke to patient to confirm med list. Patient confirmed [place] carb 600 mg (2x 300mg) daily, and Metformin 500 mg daily not BID. updated med rec.
[2024-07-04] MEDS: risperiDONE 2 MG TABLET PO (21:36)
[2024-07-04] MEDS: Divalproex Sodium ER 500 MG TAB.ER.24H PO (21:36)
[2024-07-04] MEDS: traZODone HCL 100 MG TABLET PO (21:36)
[2024-07-04] MEDS: hydrOXYzine HCL 50 MG TABLET PO (21:36)
[2024-07-04] MEDS: ARIPiprazole 5 MG TABLET PO (21:36)
[2024-07-04 21:40] VITALS: BP 117/61
[2024-07-04] MEDS: lisinopriL 10 MG TABLET PO (21:40)
[2024-07-04 21:41] VITALS: BP 117/61; PULSE 93
[2024-07-04] MEDS: Propranolol HCL 20 MG TABLET PO (21:41)
[2024-07-04 21:42] VITALS: BP 117/61; PULSE 93; RESP 19; TEMP 36.7; O2SAT 98
[2024-07-04] MEDS: metFORMIN HCl 500 MG TABLET PO (21:55)
[2024-07-04] MEDS: Lithium Carbonate ER 300 MG TABLET.ER 600 MG PO (21:55)
--- NOTE | 2024-07-05 05:11 | ED.PSYCH ---
HPI - Psych General Chief Complaint: Psychiatric Symptoms Stated Complaint: crisis, feels unsafe at home Time Seen by Provider: 07/04/24 17:08 Source: patient Limitations: no limitations History of Present Illness ED Provider: Karrie Dominguez PA-C HPI Narrative: 33-year-old male with a history of PTSD, bipolar with psychotic features and diabetes, presents with vague SI. Patient was currently homeless in his residing at the [facility] in [place]. He states ?I do not feel safe your anymore?. 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 Related Data Home Medications ?Medication ?Instructions ?Recorded ?Confirmed hydroxyzine pamoate 50 mg capsule 50 mg PO TID PRN anxiety 07/01/23 07/04/24 trazodone 50 mg tablet 100 mg PO BEDTIME PRN Sleep 08/24/23 07/04/24 divalproex 500 mg tablet,extended 500 mg PO TID 03/23/24 07/04/24 release 24 hr propranolol 20 mg tablet 20 mg PO BID 03/23/24 07/04/24 albuterol sulfate 90 mcg/actuation 2 puff inhalation QID PRN 07/04/24 07/04/24 aerosol inhaler Shortness Of Breath aripiprazole 5 mg tablet 5 mg PO DAILY 07/04/24 07/04/24 lisinopril 10 mg tablet 10 mg PO DAILY 07/04/24 07/04/24 lithium carbonate 300 mg 600 mg PO DAILY 07/04/24 07/04/24 tablet,extended release metformin 500 mg tablet 500 mg PO DAILY 07/04/24 07/04/24 risperidone 2 mg tablet 2 mg PO BID 07/04/24 07/04/24 Allergies Allergy/AdvReac Type Severity Reaction Status Date / Time amoxicillin Allergy Hives Verified 07/04/24 16:08 Review of Systems Review of Systems: Yes all other systems are reviewed and are negative Constitutional: Constitutional: Denies fatigue and Denies fever(s) Cardiovascular: Cardiovascular: Denies chest pain and Denies dyspnea Respiratory: Respiratory: Denies cough and Denies dyspnea Gastrointestinal: Gastrointestinal: Denies abdominal pain, Denies nausea and Denies vomiting Endocrine: Endocrine: Denies fatigue PMF Past Medical History Attestation statement: The following information was validated with the patient. Medical History Routine medical exam HTN (hypertension) Bipolar disorder Diabetes Social History Social History Household Members: Other Household Members Other:: Patient reportedly lives in sober living home. Housing: Other Housing Other:: Patient reportedly lives in sober living home. Do you presently have visiting nurse or other home services: No Alcohol intake: former Patient Tobacco Use Status: Never used Tobacco Tobacco use type: Cigarette Cigarette Packs Per Day: 1 Cigarettes Per Day: 3 Years Smoked: Many Smoked in Last 30 Days: No e-Cigarette/Vaping Use: Never Used Second Hand Smoke Exposure: No Use of substances other than those prescribed or required for medical reasons: No Substance Use Type: Marijuana Advance Directives: No Advance Directives Information Provided: Yes service: No Sexual orientation: Straight/Heterosexual Physical Exam Vital Signs: Vital Signs: Last Vital Signs Temp 98.7 F 07/05/24 06:26 Pulse 69 07/05/24 06:26 Resp 18 07/05/24 06:26 BP 145/82 H 07/05/24 06:26 Pulse Ox 96 07/05/24 06:26 O2 Del Method Room Air 07/05/24 06:26 BMI result Body Mass Index 57.2 Const: Other: Alert Orientation/consciousness: patient oriented x3 Resp: Effort & Inspection: normal respiratory effort Cardio: Other: Normal peripheral perfusion Skin: Other: Warm dry no rash Neuro: General: patient oriented x3, no focal motor deficits and CN's II-XI intact bilaterally Psych: Other: Cooperative Course Reevaluation(s) Reevaluation #1: The CARE team met with Krystle Mullins We will follow up with him tomorrow. We need to speak with his DM & PACT worker about coordinating discharge and care in the morning. I do not think he needs any level of higher care, based on his presentation & recent discharge from [facility]. Reevaluation #2: Dr. Curtis: The patient was signed out to me at change of shift by the overnight physician. The patient was re-evaluated by the care team today. They feel he is appropriate for discharge. Apparently he will be allowed to go back to the [facility] where he has been staying recently. He has outpatient providers and support throught the [facility] PACT program. Time: 10:52 Medications Administered Generic Name Dose Route Start Last Admin Trade Name Freq PRN Reason Stop Dose Admin Aripiprazole 5 mg 07/04/24 20:45 07/05/24 08:37 Aripiprazole 5 Mg Tablet PO 5 mg DAILY GERMAIN Administration Divalproex Sodium 500 mg 07/04/24 21:00 07/05/24 08:45 Divalproex Sodium Er 500 Mg Tab.Er.24h PO 500 mg TID GERMAIN Administration Hydroxyzine HCl 50 mg 07/04/24 20:43 07/04/24 21:36 Hydroxyzine Hcl 50 Mg Tablet PO 50 mg TID PRN Administration anxiety Lisinopril 10 mg 07/04/24 20:45 07/05/24 08:37 Lisinopril 10 Mg Tablet PO 10 mg DAILY GERMAIN Administration Protocol Banks Carbonate 600 mg 07/05/24 09:00 07/05/24 08:37 Banks Carbonate Er 300 Mg Tablet.Er PO 600 mg DAILY GERMAIN Administration Metformin HCl 500 mg 07/04/24 22:00 07/05/24 08:37 Metformin Hcl 500 Mg Tablet PO 500 mg DAILY GERMAIN Administration Propranolol HCl 20 mg 07/04/24 21:00 07/04/24 21:41 Propranolol Hcl 20 Mg Tablet PO 20 mg BID GERMAIN Administration Protocol Risperidone 2 mg 07/04/24 21:00 07/05/24 08:45 Risperidone 2 Mg Tablet PO 2 mg BID GERMAIN Administration Discontinued Medications Generic Name Dose Route Start Last Admin Trade Name Freq PRN Reason Stop Dose Admin Banks Carbonate 600 mg 07/04/24 22:00 07/04/24 21:55 Banks Carbonate Er 300 Mg Tablet.Er PO 600 mg DAILY GERMAIN Administration Trazodone HCl 100 mg 07/04/24 21:00 07/04/24 21:36 Trazodone Hcl 100 Mg Tablet PO 100 mg BEDTIME GERMAIN Administration Medical Decision Making Medical Decision Making MDM Narrative: 33-year-old male with a history of PTSD, bipolar with psychotic features and diabetes, presents with vague SI. Patient was currently homeless in his residing at the [facility] in [place]. He states ?I do not feel safe your anymore?. 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 Problem: Psychiatric illness History: Per patient I have considered the following differential diagnoses: SI, HI, decompensated psychiatric illness, drug/alcohol intoxication Plan: The patient will be referred to the care team, he has numerous risk factors for suicide attempt; housing and security, psychiatric illness, we will be screening basic labs, drug screen and serum ethanol I have independently reviewed the following tests: Labs: No leukocytosis, not anemic, no electrolyte abnormality, U tox negative alcohol negative Lab Data 07/04/24 18:38 07/04/24 18:38 Labs: Lab Results 07/04/24 07/04/24 Range/Units 16:18 18:38 WBC 9.5 (4.8-10.8) X10*3/uL RBC 3.84 L (4.60-5.80) X10*6/uL Hgb 11.0 L (14.0-18.0) g/dl Hct 34.5 L (42.0-52.0) % MCV 89.8 (80.0-98.0) fL MCH 28.6 (27.0-33.0) pg MCHC 31.9 (31.0-36.0) g/dl RDW 14.6 (11.0-16.0) % Plt Count 291 (160-400) X10*3/uL MPV 9.8 (9.4-12.4) fL Immature Gran % (Auto) 0.7 H (0.0-0.4) % Neut % (Auto) 64.7 (45-73) % Lymph % (Auto) 23.1 (20-40) % [place] % (Auto) 6.5 (2-11) % Eos % (Auto) 4.8 H (0-4) % Baso % (Auto) 0.2 (0-2) % Lymph # (Auto) 2.2 (1.2-4.9) X10*3/uL [place] # (Auto) 0.6 (0.1-1.2) X10*3/uL Eos # (Auto) 0.5 H (0.0-0.4) X10*3/uL Baso # (Auto) 0.0 (0.0-0.2) X10*3/uL Abs Immat Gran (auto) 0.07 H (0.00-0.03) X10*3/uL Absolute Neuts (auto) 6.1 (2.0-8.3) x10*3/uL Absolute Nucleated RBC 0.000 (0.0-0.012) X10*3/uL Nucleated RBC % (auto) 0.0 (0.0-0.2) /100WBC Sodium 141 (135-145) mmol/L Potassium 4.5 (3.3-5.1) mmol/L Chloride 109 H (96-108) mmol/L Carbon Dioxide 26 (22-29) mmol/L Anion Gap 11 L (12-20) BUN 25 H (9-16) mg/dL Creatinine 1.06 (0.5-1.4) mg/dL Estim Creat Clear Calc 151.2 Estimated GFR > 60 Random Glucose 101 (60-115) mg/dL Calcium 8.7 (8.4-10.2) mg/dL Total Bilirubin 0.2 (0.0-1.0) mg/dL AST 19 (5-37) U/L ALT 26 (0-40) U/L Alkaline Phosphatase 53 (39-117) U/L Total Protein 7.3 (6.5-8.0) g/dL Albumin 3.9 (3.5-5.0) g/dL Urine Color Yellow Urine Appearance Clear Urine pH 5.5 (5.0-9.0) Ur Specific [place] 1.015 (1.005-1.025) Urine Protein Trace (Neg-Trace) mg/dL Urine Glucose (UA) Negative (Negative) mg/dL Urine Ketones Negative (Negative) mg/dL Urine Blood Large (3+) H (Negative) Urine Nitrite Negative (Negative) Ur Leukocyte Esterase Negative (Negative) Urine RBC 11-20 H (0-2) /HPF Urine WBC 0-5 (0-5) /HPF Ur Squamous Epith Cells 0-2 (0-2) /HPF Urine Bacteria None Seen (None Seen) Hyaline Casts 0-2 (0-2) /LPF Urine Opiates Screen Not Detected (Not Detect) Ur Buprenorphine Scrn Not Detected (Not Detect) ng/mL Ur Oxycodone Screen Not Detected (Not Detect) ng/mL Urine Methadone Screen Not Detected (Not Detect) ng/mL Urine Fentanyl Screen Not Detected (Not Detect) Ur Barbiturates Screen Not Detected (Not Detect) Ur Phencyclidine Scrn Not Detected (Not Detect) Ur Amphetamines Screen Not Detected (Not Detect) U Benzodiazepines Scrn Not Detected (Not Detect) Urine Cocaine Screen Not Detected (Not Detect) U Marijuana (THC) Screen Not Detected (Not Detect) Ethyl Alcohol < 10 mg/dL Discharge Plan Discharge Clinical Impression: Depression Patient Disposition: Home, Self-Care Additional Instructions: Please continue your regular medications. Please follow up with your regular providers.You were seen in our Emergency Department today for treatment of a behavioral health issue. It is important after your visit that you follow up with either your behavioral health provider or a primary care doctor within 7 days.? If you have trouble finding a therapist you can reach out to [address] [phone] The [employer] [facility] and Crisis Lifeline can be reached 7 days a week 24 hours a day.? Call [phone] to speak with someone.? Return for any worsening symptoms or concerns such as thoughts of self harm or harm to others. Please call 911 if you feel your mental health is worsening.? Prescriptions: No Action divalproex 500 mg tablet extended release 24 hr 500 mg PO TID propranolol 20 mg tablet 20 mg PO BID metformin 500 mg tablet 500 mg PO DAILY risperidone 2 mg tablet 2 mg PO BID albuterol sulfate 90 mcg/actuation HFA aerosol inhaler 2 puff INHALATION QID PRN (Reason: Shortness Of Breath) lisinopril 10 mg tablet 10 mg PO DAILY aripiprazole 5 mg tablet 5 mg PO DAILY lithium carbonate 300 mg tablet extended release 600 mg PO DAILY hydroxyzine pamoate 50 mg capsule 50 mg PO TID PRN (Reason: anxiety) trazodone 50 mg tablet 100 mg PO BEDTIME PRN (Reason: Sleep) Interventions: [place]-Suicide Risk Severity Scale Last Done: 07/04/24 16:12 Print Language: Divehi
[2024-07-05 06:26] VITALS: BP 145/82; PULSE 69; RESP 18; TEMP 37.1; O2SAT 96
--- NOTE | 2024-07-05 07:28 | PC.NURSE ---
Assumed care of patient at 0645, patient appears to be in no apparent distress this am, ambulated to bathroom and back, now sleeping, respirations even and unlabored. Continue plan of care for CARE team follow up
[2024-07-05] MEDS: metFORMIN HCl 500 MG TABLET PO (08:37)
[2024-07-05] MEDS: lisinopriL 10 MG TABLET PO (08:37)
[2024-07-05] MEDS: Lithium Carbonate ER 300 MG TABLET.ER 600 MG PO (08:37)
[2024-07-05] MEDS: ARIPiprazole 5 MG TABLET PO (08:37)
[2024-07-05] MEDS: risperiDONE 2 MG TABLET PO (08:45)
[2024-07-05] MEDS: Divalproex Sodium ER 500 MG TAB.ER.24H PO (08:45)
--- NOTE | 2024-07-05 10:53 | PHA.MEDREC ---
Pharmacy Consult ? Medication Reconciliation Pharmacy reviewed med rec done by nursing. Claims match.
[2024-07-05 11:30] VITALS: BP 109/66; PULSE 78; RESP 14; TEMP 36.9; O2SAT 97
== END 2024-07-05 11:57 | disposition home or self-care (01) ==
PROVIDERS: Emergency Provider Emergency Medicine
DX: F33.1 Major depressive disorder, recurrent, moderate (principal); R45.851 Suicidal ideations; F17.210 Nicotine dependence, cigarettes, uncomplicated; E11.9 Type 2 diabetes mellitus without complications; Z59.00 Homelessness unspecified; Z79.899 Other long term (current) drug therapy; Z51.81 Encounter for therapeutic drug level monitoring; Z79.84 Long term (current) use of oral hypoglycemic drugs
CPT/HCPCS: 36415; 80053; 80307; 81001; 85025; 99285; S9485

== ENCOUNTER 2024-07-16 14:58 | Inpatient (IN) | payer OTHER, SELFPAY ==
--- NOTE | 2024-07-16 | ECG_ITS ---
Test Reason : hyperkalemia Blood Pressure : */* mmHG Vent. Rate : 62 BPM Atrial Rate : 62 BPM P-R Int : 170 ms QRS Dur : 74 ms QT Int : 358 ms P-R-T Axes : 22 22 41 degrees QTcB Int : 363 ms Normal sinus rhythm with sinus arrhythmia Normal ECG When compared with ECG of 25-Aug-2023 12:18, QT has shortened Referred By: Rossi Keys Electronically Signed By: CHICO GARVIN
[2024-07-16 15:06] VITALS: BP 122/82; PULSE 80; O2SAT 100; BMI 58.7
--- NOTE | 2024-07-16 15:10 | ED.PSYCH ---
HPI - Psych General Chief Complaint: Psychiatric Symptoms Stated Complaint: behavioral, new meds -- hallucinations Time Seen by Provider: 07/16/24 15:03 History of Present Illness HPI Narrative: Patient is a 33-year-old male with a history of PTSD history of bipolar history of diabetes presented today with having visual hallucination. He has been seeing people that are presents. Patient also had suicidal thoughts but no specific plan. Sent in for further evaluation. Denies any recreational drug use. Denies any alcohol. Related Data Home Medications ?Medication ?Instructions ?Recorded ?Confirmed hydroxyzine pamoate 50 mg capsule 50 mg PO TID PRN anxiety 07/01/23 07/04/24 trazodone 50 mg tablet 100 mg PO BEDTIME PRN Sleep 08/24/23 07/04/24 divalproex 500 mg tablet,extended 500 mg PO TID 03/23/24 07/04/24 release 24 hr propranolol 20 mg tablet 20 mg PO BID 03/23/24 07/04/24 albuterol sulfate 90 mcg/actuation 2 puff inhalation QID PRN 07/04/24 07/04/24 aerosol inhaler Shortness Of Breath aripiprazole 5 mg tablet 5 mg PO DAILY 07/04/24 07/04/24 lisinopril 10 mg tablet 10 mg PO DAILY 07/04/24 07/04/24 lithium carbonate 300 mg 600 mg PO DAILY 07/04/24 07/04/24 tablet,extended release metformin 500 mg tablet 500 mg PO DAILY 07/04/24 07/04/24 risperidone 2 mg tablet 2 mg PO BID 07/04/24 07/04/24 Allergies Allergy/AdvReac Type Severity Reaction Status Date / Time amoxicillin Allergy Hives Verified 07/16/24 15:10 Review of Systems Review of Systems: No suicidal homicidal ideation [facility] Past Medical History Attestation statement: The following information was validated with the patient. Medical History Routine medical exam HTN (hypertension) Bipolar disorder Diabetes Social History Social History Household Members: Other Household Members Other:: Patient reportedly lives in sober living home. Housing: Other Housing Other:: Patient reportedly lives in sober living home. Do you presently have visiting nurse or other home services: No Alcohol intake: former Patient Tobacco Use Status: Never used Tobacco Tobacco use type: Cigarette Cigarette Packs Per Day: 1 Cigarettes Per Day: 3 Years Smoked: Many Smoked in Last 30 Days: No e-Cigarette/Vaping Use: Never Used Second Hand Smoke Exposure: No Use of substances other than those prescribed or required for medical reasons: No Substance Use Type: Marijuana Advance Directives: No Advance Directives Information Provided: Yes service: No Sexual orientation: Straight/Heterosexual Physical Exam Vital Signs: Vital Signs: Last Vital Signs Temp 98.0 F 07/16/24 15:13 Pulse 69 07/16/24 15:13 Resp 18 07/16/24 15:13 BP 126/62 07/16/24 15:13 Pulse Ox 99 07/16/24 15:13 O2 Del Method Room Air 07/16/24 15:13 BMI result Body Mass Index 58.7 Appearance: Alert. Oriented X3. No acute distress. Eyes: Pupils equal, round and reactive to light. ENT: Pharynx normal. Neck: Normal inspection. Neck supple. No lymph nodes noted. No crepitus CVS: Normal heart rate and rhythm. Pulses normal. Normal S1 and S2 Respiratory: No respiratory distress. Breath sounds normal. No Wheezing. No rales Abdomen: Soft and nontender. No rigidity. No distention. good BS x4 Skin: Skin warm and dry. Normal skin color. Normal skin turgor. Extremities: No lower extremity edema. Neurovascular intact to all extremities. No Lacerations. No Rash Neuro: Oriented X 3. No motor deficit. No sensory deficit. Moving all extermities. No slurred speech. Cranial nerves grossly intact. Medications Administered Discontinued Medications Generic Name Dose Route Start Last Admin Trade Name Allanq PRN Reason Stop Dose Admin Dextrose 25 gm 07/16/24 17:37 07/16/24 18:21 Dextrose 50 % 25 Gm/50 Ml Syringe IVPUSH 07/16/24 17:38 25 gm ONCE ONE Administration Insulin Human Regular 5 unit 07/16/24 17:37 07/16/24 18:21 Insulin Regular, Human 100 Unit/Ml 10 Ml Vial IVPUSH 07/16/24 17:38 5 unit ONCE ONE Administration Sodium Bicarbonate 50 meq 07/16/24 17:37 07/16/24 18:29 Sodium Bicarbonate 8.4% 50 Meq/50 Ml Syringe IVPUSH 07/16/24 17:38 50 meq ONCE ONE Administration Sodium Polystyrene Sulfonate 30 gm 07/16/24 17:37 07/16/24 18:33 Sodium Polystyrene Sulfon/Sorb 15 Gm/60 Ml Oral.Susp PO 07/16/24 17:38 30 gm ONCE ONE Administration Medical Decision Making Medical Decision Making [facility] Narrative: Positive visual hallucination will get crisis evaluate patient. Currently in stable condition. Patient was initially seen by Psychiatry. [place] patient's condition is chronic. Patient is not suicidal homicidal. Electrolytes CBC was ordered. Patient's potassium came back elevated at 6.4. Kidney functions were normal. Question if this is secondary to lab error although the lab insisted there was no hemolysis. Patient's blood work was recent 1 more time it showed the same potassium. There was normal creatinine. There was no hemolysis. Question etiology. An EKG was done my interpretation that EKG showed a sinus rhythm heart rate is 90 [place] QRS QTC normal no acute ST segment elevation this EKG was compared to a previous EKG which was essentially the same there is no signs of hyperkalemia on EKG. Patient was aggressively treated using sodium bicarb, insulin, glucose, Kayexalate. Placed on monitor. Put into a monitored room. At that point patient was evaluated by Psychiatry a Alberto. [place] patient does not require psychiatric admission. Patient's case was then discussed with the hospitalist team. Will admit for further evaluation agreed to plan and treatment. Differential Diagnosis Differential Diagnoses: The differential diagnosis associated with the presentation includes Admission/Observation Consideration of admission/observation: Escalation of care including admission/observation considered Consult Healthcare Provider Management of the patient was discussed with: Hospitalist Lab Data [facility] Lab Attestation statement: I reviewed the patient's lab results. 07/16/24 15:28 07/16/24 16:30 Labs: Lab Results 07/16/24 07/16/24 07/16/24 Range/Units 15:28 15:45 16:30 WBC 7.9 (4.8-10.8) X10*3/uL RBC 3.84 L (4.60-5.80) X10*6/uL Hgb 10.8 L (14.0-18.0) g/dl Hct 34.9 L (42.0-52.0) % MCV 90.9 (80.0-98.0) fL MCH 28.1 (27.0-33.0) pg MCHC 30.9 L (31.0-36.0) g/dl RDW 14.3 (11.0-16.0) % Plt Count 278 (160-400) X10*3/uL MPV 10.2 (9.4-12.4) fL Immature Gran % (Auto) 0.6 H (0.0-0.4) % Neut % (Auto) 63.2 (45-73) % Lymph % (Auto) 27.3 (20-40) % [place] % (Auto) 6.4 (2-11) % Eos % (Auto) 2.1 (0-4) % Baso % (Auto) 0.4 (0-2) % Lymph # (Auto) 2.2 (1.2-4.9) X10*3/uL [place] # (Auto) 0.5 (0.1-1.2) X10*3/uL Eos # (Auto) 0.2 (0.0-0.4) X10*3/uL Baso # (Auto) 0.0 (0.0-0.2) X10*3/uL Abs Immat Gran (auto) 0.05 H (0.00-0.03) X10*3/uL Absolute Neuts (auto) 5.0 (2.0-8.3) x10*3/uL Absolute Nucleated RBC 0.000 (0.0-0.012) X10*3/uL Nucleated RBC % (auto) 0.0 (0.0-0.2) /100WBC Sodium 140 140 (135-145) mmol/L Potassium 6.6 H* D 6.4 H* (3.3-5.1) mmol/L Chloride 110 H 110 H (96-108) mmol/L Carbon Dioxide 25 25 (22-29) mmol/L Anion Gap 12 11 L (12-20) BUN 32 H 32 H (9-16) mg/dL Creatinine 1.05 1.09 (0.5-1.4) mg/dL Estim Creat Clear Calc 155.2 149.5 Estimated GFR > 60 > 60 POC Glucose (60-115) mg/dL Random Glucose 95 124 H (60-115) mg/dL Calcium 8.9 8.6 (8.4-10.2) mg/dL Total Bilirubin 0.2 (0.0-1.0) mg/dL AST 16 (5-37) U/L ALT 15 (0-40) U/L Alkaline Phosphatase 46 (39-117) U/L Total Creatine Kinase 40 (38-174) U/L Total Protein 7.0 (6.5-8.0) g/dL Albumin 3.7 (3.5-5.0) g/dL Urine Color Yellow Urine Appearance Clear Urine pH 5.5 (5.0-9.0) Ur Specific [place] 1.015 (1.005-1.025) Urine Protein Negative (Neg-Trace) mg/dL Urine Glucose (UA) Negative (Negative) mg/dL Urine Ketones Negative (Negative) mg/dL Urine Blood Moderate (2+) H (Negative) Urine Nitrite Negative (Negative) Ur Leukocyte Esterase Negative (Negative) Urine RBC 11-20 H (0-2) /HPF Urine WBC 0-5 (0-5) /HPF Ur Squamous Epith Cells 0-2 (0-2) /HPF Urine Bacteria None Seen (None Seen) Hyaline Casts 0-2 (0-2) /LPF Urine Opiates Screen Not Detected (Not Detect) Ur Buprenorphine Scrn Not Detected (Not Detect) ng/mL Ur Oxycodone Screen Not Detected (Not Detect) ng/mL Urine Methadone Screen Not Detected (Not Detect) ng/mL Urine Fentanyl Screen Not Detected (Not Detect) Ur Barbiturates Screen Not Detected (Not Detect) Ur Phencyclidine Scrn Not Detected (Not Detect) Ur Amphetamines Screen Not Detected (Not Detect) U Benzodiazepines Scrn Not Detected (Not Detect) Urine Cocaine Screen Not Detected (Not Detect) U Marijuana (THC) Screen Not Detected (Not Detect) Ethyl Alcohol < 10 mg/dL COVID-19 (VOLODYMYR) Negative (Negative) COVID-19 Clin Com See Note 07/16/24 Range/Units 18:02 WBC (4.8-10.8) X10*3/uL RBC (4.60-5.80) X10*6/uL Hgb (14.0-18.0) g/dl Hct (42.0-52.0) % MCV (80.0-98.0) fL MCH (27.0-33.0) pg MCHC (31.0-36.0) g/dl RDW (11.0-16.0) % Plt Count (160-400) X10*3/uL MPV (9.4-12.4) fL Immature Gran % (Auto) (0.0-0.4) % Neut % (Auto) (45-73) % Lymph % (Auto) (20-40) % [place] % (Auto) (2-11) % Eos % (Auto) (0-4) % Baso % (Auto) (0-2) % Lymph # (Auto) (1.2-4.9) X10*3/uL [place] # (Auto) (0.1-1.2) X10*3/uL Eos # (Auto) (0.0-0.4) X10*3/uL Baso # (Auto) (0.0-0.2) X10*3/uL Abs Immat Gran (auto) (0.00-0.03) X10*3/uL Absolute Neuts (auto) (2.0-8.3) x10*3/uL Absolute Nucleated RBC (0.0-0.012) X10*3/uL Nucleated RBC % (auto) (0.0-0.2) /100WBC Sodium (135-145) mmol/L Potassium (3.3-5.1) mmol/L Chloride (96-108) mmol/L Carbon Dioxide (22-29) mmol/L Anion Gap (12-20) BUN (9-16) mg/dL Creatinine (0.5-1.4) mg/dL Estim Creat Clear Calc Estimated GFR POC Glucose 88 (60-115) mg/dL Random Glucose (60-115) mg/dL Calcium (8.4-10.2) mg/dL Total Bilirubin (0.0-1.0) mg/dL AST (5-37) U/L ALT (0-40) U/L Alkaline Phosphatase (39-117) U/L Total Creatine Kinase (38-174) U/L Total Protein (6.5-8.0) g/dL Albumin (3.5-5.0) g/dL Urine Color Urine Appearance Urine pH (5.0-9.0) Ur Specific [place] (1.005-1.025) Urine Protein (Neg-Trace) mg/dL Urine Glucose (UA) (Negative) mg/dL Urine Ketones (Negative) mg/dL Urine Blood (Negative) Urine Nitrite (Negative) Ur Leukocyte Esterase (Negative) Urine RBC (0-2) /HPF Urine WBC (0-5) /HPF Ur Squamous Epith Cells (0-2) /HPF Urine Bacteria (None Seen) Hyaline Casts (0-2) /LPF Urine Opiates Screen (Not Detect) Ur Buprenorphine Scrn (Not Detect) ng/mL Ur Oxycodone Screen (Not Detect) ng/mL Urine Methadone Screen (Not Detect) ng/mL Urine Fentanyl Screen (Not Detect) Ur Barbiturates Screen (Not Detect) Ur Phencyclidine Scrn (Not Detect) Ur Amphetamines Screen (Not Detect) U Benzodiazepines Scrn (Not Detect) Urine Cocaine Screen (Not Detect) U Marijuana (THC) Screen (Not Detect) Ethyl Alcohol mg/dL COVID-19 (VOLODYMYR) (Negative) COVID-19 Clin Com Independent Interpretation I performed an independent interpretation of an: EKG (My interpretation patient's EKG as above.) External Record Review External record reviewed: Inpatient record Social Determinants Patient?s care significantly limited by Social Determinants of Health including: Problems related to primary support group Procedures Procedure Narrative Procedure Narrative: Ultrasound-guided IV 18 gauge 1-3/4 in IV placed in right upper extremity. Adequate blood return, flushes well secured with Tegaderm. Performed by Karrie Dominguez PA-C Critical Care Time Critical Care Time Critical Care Time: Yes Total Critical Care Time: 40 Attestation: I have personally provided 40 minutes of critical care time exclusive of time spent on separately billable procedures. ?Time includes review of lab data, radiology results, discussion with consultants, and monitoring for potential decompensation. ?Interventions were performed as documented above Discharge Plan Discharge Clinical Impression: Hallucination, Acute hyperkalemia Patient Disposition: Admitted As Inpatient Prescriptions: No Action divalproex 500 mg tablet extended release 24 hr 500 mg PO TID propranolol 20 mg tablet 20 mg PO BID metformin 500 mg tablet 500 mg PO DAILY risperidone 2 mg tablet 2 mg PO BID albuterol sulfate 90 mcg/actuation HFA aerosol inhaler 2 puff INHALATION QID PRN (Reason: Shortness Of Breath) lisinopril 10 mg tablet 10 mg PO DAILY aripiprazole 5 mg tablet 5 mg PO DAILY lithium carbonate 300 mg tablet extended release 600 mg PO DAILY hydroxyzine pamoate 50 mg capsule 50 mg PO TID PRN (Reason: anxiety) trazodone 50 mg tablet 100 mg PO BEDTIME PRN (Reason: Sleep) Interventions: [place]-Suicide Risk Severity Scale Last Done: 07/16/24 15:13 Print Language: Urdu
[2024-07-16 15:13] VITALS: BP 126/62; PULSE 69; RESP 16; RESP 18; TEMP 36.7; O2SAT 99
--- NOTE | 2024-07-16 15:15 | PC.NURSE ---
Ramírez is coming in today because he reports that he was discharged from the [facility] this morning and he feels he was not treated properly there. He reports that he is very frustrated that they changed his meds but he then reports that he went inpatient to get a medication change. Pt is endorsing visual hallucinations of demon figures . patient denies SI but endorses feelings of self harm occasionally, no more than usual. Patient denies HI/AH/VH Patient is calm and cooperative, offering no complaints to this RN other than IBS which is baseline for him
[2024-07-16 15:40] LABS: MANUAL DIFF FLAG NO
[2024-07-16 15:43] LABS: Appearance Urine Clear; Basophils Percent Auto 0.4 % (0-2); Color Urine Yellow; Eosinophils Absolute Auto 0.2 X10*3/uL (0.0-0.4); Eosinophils Percent Auto 2.1 % (0-4); Glucose Urine UA Negative (Negative); Hematocrit 34.9 % (42.0-52.0); Hemoglobin 10.8 g/dl (14.0-18.0); Imm Gran Abs Auto 0.05 X10*3/uL (0.00-0.03); Imm Gran Pct Auto 0.6 % (0.0-0.4); Leukocyte Esterase Urine Negative (Negative); Lymphocytes Absolute Auto 2.2 X10*3/uL (1.2-4.9); Lymphocytes Percent Auto 27.3 % (20-40); Mean Corpuscular HGB Conc 30.9 g/dl (31.0-36.0); Mean Corpuscular Hemoglobin 28.1 pg (27.0-33.0); Mean Corpuscular Volume 90.9 fL (80.0-98.0); Mean Platelet Volume 10.2 fL (9.4-12.4); Monocytes Absolute Auto 0.5 X10*3/uL (0.1-1.2); Monocytes Percent Auto 6.4 % (2-11); Neutrophils Percent Auto 63.2 % (45-73); Nitrite Urine Negative (Negative); PH 5.5 (5.0-9.0); Platelet Count 278 X10*3/uL (160-400); Red Blood Count 3.84 X10*6/uL (4.60-5.80); Red Cell Distribution Width 14.3 % (11.0-16.0); Specific Gravity - Urine 1.015 (1.005-1.025); UMIC TRIGGER UA YES; Urine Blood Moderate (2+) (Negative); Urine Ketones Negative (Negative); Urine Protein Negative (Neg-Trace); White Blood Count 7.9 X10*3/uL (4.8-10.8)
[2024-07-16 15:45] LABS: Bacteria Urine None Seen (None Seen); Hyaline Casts Urine 0-2 /LPF (0-2); Squamous Epithelial Cell Urine 0-2 /HPF (0-2); WBC Urine 0-5 /HPF (0-5)
[2024-07-16 16:00] LABS: Amphetamine Screen Urine Not Detected (Not Detect); Barbiturates, Urine Not Detected (Not Detect); Benzodiazepines Screen Urine Not Detected (Not Detect); Buprenorphine Scr Not Detected (Not Detect); Cannabinoid Screen Urine Not Detected (Not Detect); Cocaine Screen Urine Not Detected (Not Detect); Fentanyl, urine Not Detected (Not Detect); Methadone Screen, Urine Not Detected (Not Detect); Opiate Screen Urine Not Detected (Not Detect); Oxycodone Screen Urine Not Detected (Not Detect); Phencyclidine Screen Urine Not Detected (Not Detect)
[2024-07-16 16:05] LABS: COVID-19 Test Negative (Negative); IDNOW Serial# 55D5AD1C
[2024-07-16 16:18] LABS: Alanine Aminotransferase 15 U/L (0-40); Albumin Level 3.7 g/dL (3.5-5.0); Anion Gap 12 (12-20); Aspartate Amino Transferase 16 U/L (5-37); Bilirubin Total 0.2 mg/dL (0.0-1.0); Blood Urea Nitrogen 32 mg/dL (9-16); Calcium 8.9 mg/dL (8.4-10.2); Carbon Dioxide 25 mmol/L (22-29); Chloride 110 mmol/L (96-108); Creatinine Clr Calc Pharmacy 155.2; Estimated Glomerular Filt Rate > 60; Ethanol < 10 mg/dL; Glucose Random 95 mg/dL (60-115); Potassium 6.6 mmol/L (3.3-5.1); Sodium 140 mmol/L (135-145)
[2024-07-16 17:22] LABS: Anion Gap 11 (12-20); Blood Urea Nitrogen 32 mg/dL (9-16); Calcium 8.6 mg/dL (8.4-10.2); Carbon Dioxide 25 mmol/L (22-29); Chloride 110 mmol/L (96-108); Creatinine Clr Calc Pharmacy 149.5; Estimated Glomerular Filt Rate > 60; Glucose Random 124 mg/dL (60-115); Potassium 6.4 mmol/L (3.3-5.1); Sodium 140 mmol/L (135-145)
--- NOTE | 2024-07-16 17:33 | PC.NURSE ---
First lab draw came back with high potassium level of 6.6, this RN ordered EKG and alerted MD who asked for repeat. Repeat level drawn similar elevated result of 6.4. Dr. Keys once again aware, MD asking staff to call to ask if lab is hemolyzed. Lab reports that the blood was not hemolyzed. No new orders at this time
[2024-07-16 17:40] LABS: Alkaline Phosphatase 46 U/L (39-117)
[2024-07-16 18:08] LABS: Glucose, Whole Blood 88 mg/dL (60-115)
[2024-07-16] MEDS: Dextrose 50 % 25 GM/50 ML SYRINGE IVPUSH (18:21)
[2024-07-16] MEDS: Insulin Regular, Human 100 UNIT/ML 10 ML VIAL IVPUSH (18:21)
[2024-07-16] MEDS: Sodium Bicarbonate 8.4% 50 MEQ/50 ML SYRINGE IVPUSH (18:29)
[2024-07-16] MEDS: Sodium Polystyrene Sulfon/Sorb 15 GM/60 ML ORAL.SUSP 30 GM PO (18:33)
[2024-07-16 19:07] LABS: Glucose, Whole Blood 117 mg/dL (60-115)
--- NOTE | 2024-07-16 19:35 | PM.IMHP ---
History of Present Illness Date of Service: 07/16/24 Attending physician on admission: Cyn Thacker Chief Complaint: Visual hallucinations 33-year-old male hypertension, npo-hvckoih-dtmkmjpxc type 2 diabetes, and bipolar disorder with psychotic features presented to the ED earlier today for evaluation of visual. He reports that he has been seeing people that are there. He also reports suicidal ideation without any plan. He states he does not currently feel suicidal. He was discharged from the [facility] in [place] this morning and was evaluated by the care team in the ED. he reports that he has been tapering off of his lithium. While in the ED, his vital signs have been stable. Hematology studies show a chronic normocytic anemia that is consistent with baseline. Renal function on arrival within normal limits. Initial potassium 6.2 with repeat confirming hyperkalemia with K of 6.4. Electrolyte levels otherwise within normal limits except for chloride of 110. Glucose 117. Urinalysis unremarkable except for 2+ blood. Urine drug screen negative. Ethyl alcohol level undetectable. He denies any alcohol use, illicit substance use or marijuana use. He denies smoking cigarettes. In the ED, he received 5 units of regular insulin, 1 amp of bicarb, 25 g of dextrose, and Kayexalate. No a arrhythmias or peaked T-waves noted on telemetry. EKG showing NSR, rate 62. He denies any muscle weakness, paresthesias, nausea, vomiting, diarrhea, abdominal pain, shortness of breath, palpitations, or chest pain. No peaked t waves. He will be admitted for further management acute hyperkalemia. Review of Systems Review of Systems: Yes all other systems are reviewed and are negative [facility] Medical History Routine medical exam HTN (hypertension) Bipolar disorder Diabetes Social History Household Members: Other Household Members Other:: Patient reportedly lives in sober living home. Housing: Other Housing Other:: Patient reportedly lives in sober living home. Do you presently have visiting nurse or other home services: No Alcohol intake: former Patient Tobacco Use Status: Never used Tobacco Tobacco use type: Cigarette Cigarette Packs Per Day: 1 Cigarettes Per Day: 3 Years Smoked: Many Smoked in Last 30 Days: No e-Cigarette/Vaping Use: Never Used Second Hand Smoke Exposure: No Use of substances other than those prescribed or required for medical reasons: No Substance Use Type: Marijuana Advance Directives: No Advance Directives Information Provided: Yes service: No Sexual orientation: Straight/Heterosexual Meds Allergies Allergy/AdvReac Type Severity Reaction Status Date / Time amoxicillin Allergy Hives Verified 07/16/24 15:10 Active Medications: Current Medications Sodium Chloride (Ns) 1,000 mls @ 999 mls/hr IV .Q1H1M [place] Stop: 07/16/24 20:45 Home Medications ?Medication ?Instructions ?Recorded ?Confirmed ?Last Taken ?Type hydroxyzine pamoate 50 mg capsule 50 mg PO TID PRN anxiety 07/01/23 07/04/24 07/03/24 History trazodone 50 mg tablet 100 mg PO BEDTIME PRN Sleep 08/24/23 07/04/24 07/03/24 History divalproex 500 mg tablet,extended 500 mg PO TID 03/23/24 07/04/24 07/03/24 History release 24 hr propranolol 20 mg tablet 20 mg PO BID 03/23/24 07/04/24 07/03/24 History albuterol sulfate 90 mcg/actuation 2 puff inhalation QID PRN 07/04/24 07/04/24 Unknown History aerosol inhaler Shortness Of Breath aripiprazole 5 mg tablet 5 mg PO DAILY 07/04/24 07/04/24 07/03/24 History lisinopril 10 mg tablet 10 mg PO DAILY 07/04/24 07/04/24 07/03/24 History lithium carbonate 300 mg 600 mg PO DAILY 07/04/24 07/04/24 07/03/24 History tablet,extended release metformin 500 mg tablet 500 mg PO DAILY 07/04/24 07/04/24 07/03/24 History risperidone 2 mg tablet 2 mg PO BID 07/04/24 07/04/24 07/03/24 History Physical Exam Vital Signs and Narrative: Vital Signs: Last Vital Signs Temp 98.0 F 07/16/24 15:13 Pulse 69 07/16/24 15:13 Resp 18 07/16/24 15:13 BP 126/62 07/16/24 15:13 Pulse Ox 99 07/16/24 15:13 O2 Del Method Room Air 07/16/24 15:13 BMI result Body Mass Index 58.7 Constitutional - Awake and Alert, No apparent distress Eyes - PERRLA, EOMI Cardiovascular - S1S2, RRR, No edema Respiratory - Normal lung expansion, Normal respiratory effort, No respiratory distress, CTA bilaterally Gastrointestinal - NT / ND; +BS; No rebound or guarding Extremities - no calf tenderness bilaterally, no swelling Skin - Warm/Dry Neurological - Alert & oriented x3 Psychological - Appropriate affect. Currently denies AH/VH or SI/HI Results Labs 07/16/24 15:28 07/16/24 16:30 Labs: Laboratory Results - last 24 hr 07/16/24 07/16/24 07/16/24 15:28 15:45 16:30 MCV 90.9 MCH 28.1 MCHC 30.9 L RDW 14.3 Plt Count 278 MPV 10.2 Immature Gran % (Auto) 0.6 H Neut % (Auto) 63.2 Lymph % (Auto) 27.3 [place] % (Auto) 6.4 Eos % (Auto) 2.1 Baso % (Auto) 0.4 Lymph # (Auto) 2.2 [place] # (Auto) 0.5 Eos # (Auto) 0.2 Baso # (Auto) 0.0 Abs Immat Gran (auto) 0.05 H Absolute Neuts (auto) 5.0 Absolute Nucleated RBC 0.000 Nucleated RBC % (auto) 0.0 Anion Gap 12 11 L Estim Creat Clear Calc 155.2 149.5 Estimated GFR > 60 > 60 POC Glucose Random Glucose 95 124 H Calcium 8.9 8.6 Total Bilirubin 0.2 AST 16 ALT 15 Alkaline Phosphatase 46 Total Creatine Kinase 40 Total Protein 7.0 Albumin 3.7 Urine Color Yellow Urine Appearance Clear Urine pH 5.5 Ur Specific [place] 1.015 Urine Protein Negative Urine Glucose (UA) Negative Urine Ketones Negative Urine Blood Moderate (2+) H Urine Nitrite Negative Ur Leukocyte Esterase Negative Urine RBC 11-20 H Urine WBC 0-5 Ur Squamous Epith Cells 0-2 Urine Bacteria None Seen Hyaline Casts 0-2 Urine Opiates Screen Not Detected Ur Buprenorphine Scrn Not Detected Ur Oxycodone Screen Not Detected Urine Methadone Screen Not Detected Urine Fentanyl Screen Not Detected Ur Barbiturates Screen Not Detected Ur Phencyclidine Scrn Not Detected Ur Amphetamines Screen Not Detected U Benzodiazepines Scrn Not Detected Urine Cocaine Screen Not Detected U Marijuana (THC) Screen Not Detected Ethyl Alcohol < 10 COVID-19 (VOLODYMYR) Negative COVID-19 Clin Com See Note 07/16/24 07/16/24 18:02 19:02 MCV MCH MCHC RDW Plt Count MPV Immature Gran % (Auto) Neut % (Auto) Lymph % (Auto) [place] % (Auto) Eos % (Auto) Baso % (Auto) Lymph # (Auto) [place] # (Auto) Eos # (Auto) Baso # (Auto) Abs Immat Gran (auto) Absolute Neuts (auto) Absolute Nucleated RBC Nucleated RBC % (auto) Anion Gap Estim Creat Clear Calc Estimated GFR POC Glucose 88 117 H Random Glucose Calcium Total Bilirubin AST ALT Alkaline Phosphatase Total Creatine Kinase Total Protein Albumin Urine Color Urine Appearance Urine pH Ur Specific [place] Urine Protein Urine Glucose (UA) Urine Ketones Urine Blood Urine Nitrite Ur Leukocyte Esterase Urine RBC Urine WBC Ur Squamous Epith Cells Urine Bacteria Hyaline Casts Urine Opiates Screen Ur Buprenorphine Scrn Ur Oxycodone Screen Urine Methadone Screen Urine Fentanyl Screen Ur Barbiturates Screen Ur Phencyclidine Scrn Ur Amphetamines Screen U Benzodiazepines Scrn Urine Cocaine Screen U Marijuana (THC) Screen Ethyl Alcohol COVID-19 (VOLODYMYR) COVID-19 Clin Com Assessment and Plan (1) Acute hyperkalemia: Status: Acute (2) Hallucination: Status: Acute Plan 33-year-old male hypertension, qih-dasblao-ijocgncie type 2 diabetes, and bipolar disorder with psychotic features admitted for further management of hyperkalemia #Acute hyperkalemia -K 6.2 and on repeat 6.4 for confirmation -EKG without peaked T-waves and patient asymptomatic -Given 5 units regular insulin, 25g dextrose, 1 amp bicarb, and Kayexalate -hold lithium and lisinopril -monitor on telemetry -nephrology consult -add magnesium -repeat K 21:00, follow lytes # ngg-azcsqgs-aialzazkx type 2 diabetes -POC glucose, diabetic -on metformin. SSI # hypertension -hold lisinopril in the setting of the above # bipolar disorder -continue home medications. Check lithium level -reports symptoms of VH and SI have resolved -seen by care team who does not feel patient resuscitate inpatient level of care and can follow-up outpatient with providers # class 3 obesity -weight loss efforts encouraged DVT prophylaxis-Lovenox Full code Patient requires inpatient stay of at least 2 midnights for management hyperkalemia which will require close monitoring of electrolytes, cardiac monitoring, and expert consultation Quality Stroke Does the patient have a stroke diagnosis?: No VTE Prior VTE?: No VTE Risk Level:: Medical - moderate - high VTE Device Contraindication: Treatment Not Indicated VTE Drug Contraindication: N/A - Med Ordered
[2024-07-16] MEDS: Enoxaparin Sodium 40 MG/0.4 ML SYRINGE SUBCUT (20:06)
[2024-07-16] MEDS: 0.9 % Sodium Chloride 1,000 ML 999 ML IV (20:07)
--- NOTE | 2024-07-16 20:17 | PC.NURSE ---
Pt medicated per [facility] Plan of care ongoing.
[2024-07-16 20:19] LABS: Glucose, Whole Blood 108 mg/dL (60-115)
[2024-07-16 20:23] VITALS: BP 110/72; PULSE 82; RESP 16; TEMP 36.6; O2SAT 98
[2024-07-16 20:30] LABS: Magnesium 1.9 mg/dL (1.6-2.6)
[2024-07-16 21:17] LABS: Glucose, Whole Blood 142 mg/dL (60-115)
--- NOTE | 2024-07-16 21:19 | PC.NURSE ---
poc in range, no insulin coverage needed.
[2024-07-16 21:52] VITALS: BP 135/63; PULSE 80; RESP 16; TEMP 36.9; O2SAT 97
[2024-07-16 22:13] LABS: Potassium 4.9 mmol/L (3.3-5.1)
--- NOTE | 2024-07-16 23:16 | PHA.MEDREC ---
Addendum entered by Jonathan Franz RPh 07/16/24 23:30: Med rec was reviewed by [facility]. Original Note: Pharmacy Consult ? Medication Reconciliation Pharmacy has completed the medication reconciliation. Spoke with patient and he stated he was discharged from [facility] this morning and decided to come here to be evaluated more. Patient stated the [facility] had started him on a new medication but did not remember it. I called and spoke with the facility and they were able to confirm the Dr stopped the Aripiprazole on 07/09, Hydroxyzine 50mg they stopped when he left their facility this AM, [place] Carboinate they stopped 07/13 and Rispiridone on 07/12. They confirmed they discharged the patient to start taking at home: Albuterol Inhaler 2 puffs qid prn SOB/Wheezing, Divalproex 500mg 2000mg at bedtime, Lisinopril 10mg tabs once daily, Metoformin 500mg once a day, Propanolol 20mg tabs twice a day, Trazodone 100mg tabs once at bedtime, Clonidine 0.1mg tabs twice a day, Guanfacine 4mg tabs once a day and Invega 6mg tabs once a day.
[2024-07-17] MEDS: 0.9 % Sodium Chloride Flush 3 ML SYRINGE IVFLUSH ×2 (00:36→09:03)
[2024-07-17 03:22] VITALS: BP 123/65; PULSE 76; RESP 20; TEMP 37.2; O2SAT 98
[2024-07-17 07:06] VITALS: PULSE 75; RESP 18; TEMP 36.6
[2024-07-17 07:07] VITALS: BP 105/60; PULSE 79; RESP 18; TEMP 36.6; O2SAT 94
[2024-07-17 08:09] LABS: MANUAL DIFF FLAG NO
[2024-07-17 08:14] LABS: Basophils Percent Auto 0.3 % (0-2); Eosinophils Absolute Auto 0.2 X10*3/uL (0.0-0.4); Eosinophils Percent Auto 2.2 % (0-4); Hematocrit 34.2 % (42.0-52.0); Hemoglobin 10.6 g/dl (14.0-18.0); Imm Gran Abs Auto 0.07 X10*3/uL (0.00-0.03); Imm Gran Pct Auto 0.9 % (0.0-0.4); Mean Corpuscular Hemoglobin 28.2 pg (27.0-33.0); Mean Platelet Volume 10.1 fL (9.4-12.4); Monocytes Absolute Auto 0.5 X10*3/uL (0.1-1.2); Monocytes Percent Auto 6.7 % (2-11); Neutrophils Absolute Auto 5.1 x10*3/uL (2.0-8.3); Neutrophils Percent Auto 64.9 % (45-73); Platelet Count 272 X10*3/uL (160-400); Red Blood Count 3.76 X10*6/uL (4.60-5.80); Red Cell Distribution Width 14.4 % (11.0-16.0); White Blood Count 7.8 X10*3/uL (4.8-10.8)
[2024-07-17 08:34] LABS: Anion Gap 11 (12-20); Blood Urea Nitrogen 33 mg/dL (9-16); Calcium 8.6 mg/dL (8.4-10.2); Carbon Dioxide 28 mmol/L (22-29); Chloride 107 mmol/L (96-108); Creatinine Clr Calc Pharmacy 149.5; Estimated Glomerular Filt Rate > 60; Glucose Random 97 mg/dL (60-115); Sodium 141 mmol/L (135-145)
[2024-07-17 09:02] VITALS: BP 137/63; PULSE 91
[2024-07-17] MEDS: guanFACINE HCl ER 2 MG TAB.ER.24H 4 MG PO (09:02)
[2024-07-17] MEDS: Propranolol HCL 20 MG TABLET PO (09:02)
--- NOTE | 2024-07-17 09:56 | MHC.CM.PN ---
Addendum entered by Marietta Martinez RN 07/17/24 11:43: [facility] TRANSPORT PREBOOKED FOR 1:40PM, PT'S RN/HOSPITALIST AWARE. Original Note: IMM 07/17/24 DELIVERED TO BEDSIDE, PT W/HYPERKALEMIA, PT REPORTS HE CANNOT RETURN TO [facility] STATING, A BUNCH OF STUFF HAPPENED PT DID NOT GO INTO DETAIL HOWEVER DID MENTION ANOTHER RESIDENT STOLE PT'S MONEY AND HE WAS OVER CHARGED FOR RENT. PT BRAGG REPORT HE IS INTERESTED IN A RESPITE HOWEVER DOES NOT THINK HE NEEDS IPLOC AND THEN GOES ON TO TELL CM A STORY ABOUT HOW HE WALKED FROM [facility] [place] [place] TO THE [place] AND WHILE WALKING [place] [employer] THAT SCARED HIM. CM CONTACTED DATAPOWER DEVELOPER AT [facility] AT 9:49AM, DATAPOWER DEVELOPER DID CONFIRM PT MAY NOT RETURN HOWEVER WAS UNABLE TO PROVIDE REASON. PT IS FULLY INDEP W/ALL CARE, PT DENIES USE OF DME AND HAS N PACT PROGRAM HOWEVER DOES NOT FEEL THEY HAVE DONE ANYTHING FOR HIM. PT CURRENTLY HAS NO PCP, REPORTS HIS [facility] PACT SW JIMMIE [phone] HAS MADE PT A NEW PT APPT HOWEVER WHEN CM CALLED TO CONFIRM JIMMIE REPORTS PT DOES NOT HAVE A PCP APPT SCHEDULED HOWEVER SHE WILL MAKE AN APPT FOR PT, SHE ALSO REPORTED THEY WILL ASSIST PT W/TRANSPORT TO APPTS AND CM WILL FOLLOW UP W/SPECIALIST APPT LATER TODAY. JIMMIE REPORTS PT IS AGREEABLE TO [facility] AND NEEDS TO BE THERE FOR 2PM FOR INTAKE. PLAN FOR DC TO [facility] TODAY W/[facility] FOR TRANSPORT AT 1:30PM
[2024-07-17 11:33] VITALS: BP 125/60; PULSE 65; RESP 18; TEMP 36.8; O2SAT 97
--- NOTE | 2024-07-17 11:54 | P.DS_ITS ---
DS: Providers Provider Date of Service: 07/17/24 Date of admission: 07/16/24 19:28 Date of discharge: 07/17/24 Primary care physician: Unknown Physician Consults: 07/16/24 15:13 ED CARE Team Crisis Consult Stat Comment: Reason for consultation: Active visual hallucination suicidal ideation. 07/16/24 19:30 Consult to Nephrology Routine Consulting Provider: [facility] [facility] [place] [facility] Reason for consultation: hyperkalemia 07/17/24 07:48 Inpt CARE Team Crisis Consult Routine Comment: Reason for consultation: medically clear, reports SI DS: Diagnosis Discharge Diagnosis (1) Acute hyperkalemia: Status: Acute (2) Hallucination: Status: Acute DS: Summary Hospital Course Hospital Course: Admission note HPI 33-year-old male hypertension, hxm-ffbnydy-eaedzqndg type 2 diabetes, and bipolar disorder with psychotic features presented to the ED earlier today for evaluation of visual. He reports that he has been seeing people that are there. He also reports suicidal ideation without any plan. He states he does not currently feel suicidal. He was discharged from the [facility] in [place] this morning and was evaluated by the care team in the ED. he reports that he has been tapering off of his lithium. While in the ED, his vital signs have been stable. Hematology studies show a chronic normocytic anemia that is consistent with baseline. Renal function on arrival within normal limits. Initial potassium 6.2 with repeat confirming hyperkalemia with K of 6.4. Electrolyte levels otherwise within normal limits except for chloride of 110. Glucose 117. Urinalysis unremarkable except for 2+ blood. Urine drug screen negative. Ethyl alcohol level undetectable. He denies any alcohol use, illicit substance use or marijuana use. He denies smoking cigarettes. In the ED, he received 5 units of regular insulin, 1 amp of bicarb, 25 g of dextrose, and Kayexalate. No a arrhythmias or peaked T-waves noted on telemetry. EKG showing NSR, rate 62. He denies any muscle weakness, paresthesias, nausea, vomiting, diarrhea, abdominal pain, shortness of breath, palpitations, or chest pain. No peaked t waves. He will be admitted for further management acute hyperkalemia. Hospital course The patient was treated for Acute hyperkalemia as EKG without peaked T-waves and patient asymptomatic. responded well to 5 units regular insulin, 25g dextrose, 1 amp bicarb, and Kayexalate. To continue [place] but DC Lisinopril on discharge as repeat BMP showed normal level of K. nephrology consulted and will follow with him as outpatient. The patient was evaluated by Care team for reported hallucination and SI thoughts which he denied. They did not think he needs any inpatient psychiatric care. Discharge plan Low potassium diet Discontinue Lisinopril repeat blood test next week Follow with dr Baltazar at [facility] [place] [facility] as outpatient as needed The patient made quicker than expected recovery and will not need 2 overnight hospital stay. Time Attestation Discharge Coordination Time (in mins): 34 Quality: Safe Use of Opioids Does Pt have an Active Cancer Diagnosis on the Problem List?: No Quality: Stroke Does the patient have a stroke diagnosis?: No Physical Exam Vital Signs: Vital Signs: Last Vital Signs Temp 98.2 F 07/17/24 11:33 Pulse 65 07/17/24 11:33 Resp 18 07/17/24 11:33 BP 125/60 07/17/24 11:33 Pulse Ox 97 07/17/24 11:33 O2 Del Method Room Air 07/17/24 11:33 BMI result Body Mass Index 58.7 Const: Other: Constitutional : Awake, interactive, morbidly obese. not in distress Neck : Normal inspection, Supple Cardiovascular : RRR, no JVP, no lower extremity edema Respiratory : good bilateral air entry, no crackles, wheezes or rhonchi Gastrointestinal: soft, lax, Normal bowel sounds, Non tender Skin : Warm, Dry Neurological : Alert & oriented x3, No focal deficit DS: Data Data Completed and Pending Labs on day of discharge: Laboratory Results - last 24 hr 07/16/24 07/16/24 07/16/24 15:28 15:45 16:30 WBC 7.9 RBC 3.84 L Hgb 10.8 L Hct 34.9 L MCV 90.9 MCH 28.1 MCHC 30.9 L RDW 14.3 Plt Count 278 MPV 10.2 Immature Gran % (Auto) 0.6 H Neut % (Auto) 63.2 Lymph % (Auto) 27.3 [place] % (Auto) 6.4 Eos % (Auto) 2.1 Baso % (Auto) 0.4 Lymph # (Auto) 2.2 [place] # (Auto) 0.5 Eos # (Auto) 0.2 Baso # (Auto) 0.0 Abs Immat Gran (auto) 0.05 H Absolute Neuts (auto) 5.0 Absolute Nucleated RBC 0.000 Nucleated RBC % (auto) 0.0 Sodium 140 140 Potassium 6.6 H* D 6.4 H* Chloride 110 H 110 H Carbon Dioxide 25 25 Anion Gap 12 11 L BUN 32 H 32 H Creatinine 1.05 1.09 Estim Creat Clear Calc 155.2 149.5 Estimated GFR > 60 > 60 POC Glucose Random Glucose 95 124 H Calcium 8.9 8.6 Magnesium 1.9 Total Bilirubin 0.2 AST 16 ALT 15 Alkaline Phosphatase 46 Total Creatine Kinase 40 Total Protein 7.0 Albumin 3.7 Urine Color Yellow Urine Appearance Clear Urine pH 5.5 Ur Specific [place] 1.015 Urine Protein Negative Urine Glucose (UA) Negative Urine Ketones Negative Urine Blood Moderate (2+) H Urine Nitrite Negative Ur Leukocyte Esterase Negative Urine RBC 11-20 H Urine WBC 0-5 Ur Squamous Epith Cells 0-2 Urine Bacteria None Seen Hyaline Casts 0-2 Urine Opiates Screen Not Detected Ur Buprenorphine Scrn Not Detected Ur Oxycodone Screen Not Detected Urine Methadone Screen Not Detected Urine Fentanyl Screen Not Detected Ur Barbiturates Screen Not Detected Ur Phencyclidine Scrn Not Detected Ur Amphetamines Screen Not Detected U Benzodiazepines Scrn Not Detected [place] Urine Cocaine Screen Not Detected U Marijuana (THC) Screen Not Detected Ethyl Alcohol < 10 COVID-19 (VOLODYMYR) Negative COVID-19 Clin Com See Note 07/16/24 07/16/24 07/16/24 18:02 19:02 19:43 WBC RBC Hgb Hct MCV MCH MCHC RDW Plt Count MPV Immature Gran % (Auto) Neut % (Auto) Lymph % (Auto) [place] % (Auto) Eos % (Auto) Baso % (Auto) Lymph # (Auto) [place] # (Auto) Eos # (Auto) Baso # (Auto) Abs Immat Gran (auto) Absolute Neuts (auto) Absolute Nucleated RBC Nucleated RBC % (auto) Sodium Potassium Chloride Carbon Dioxide Anion Gap BUN Creatinine Estim Creat Clear Calc Estimated GFR POC Glucose 88 117 H Random Glucose Calcium Magnesium Total Bilirubin AST ALT Alkaline Phosphatase Total Creatine Kinase Total Protein Albumin Urine Color Urine Appearance Urine pH Ur Specific [place] Urine Protein Urine Glucose (UA) Urine Ketones Urine Blood Urine Nitrite Ur Leukocyte Esterase Urine RBC Urine WBC Ur Squamous Epith Cells Urine Bacteria Hyaline Casts Urine Opiates Screen Ur Buprenorphine Scrn Ur Oxycodone Screen Urine Methadone Screen Urine Fentanyl Screen Ur Barbiturates Screen Ur Phencyclidine Scrn Ur Amphetamines Screen U Benzodiazepines Scrn [place] 0.30 L Urine Cocaine Screen U Marijuana (THC) Screen Ethyl Alcohol COVID-19 (VOLODYMYR) COVID-19 [employer] Com 07/16/24 07/16/24 07/16/24 20:14 21:12 21:56 WBC RBC Hgb Hct MCV MCH MCHC RDW Plt Count MPV Immature Gran % (Auto) Neut % (Auto) Lymph % (Auto) [place] % (Auto) Eos % (Auto) Baso % (Auto) Lymph # (Auto) [place] # (Auto) Eos # (Auto) Baso # (Auto) Abs Immat Gran (auto) Absolute Neuts (auto) Absolute Nucleated RBC Nucleated RBC % (auto) Sodium Potassium 4.9 D Chloride Carbon Dioxide Anion Gap BUN Creatinine Estim Creat Clear Calc Estimated GFR POC Glucose 108 142 H Random Glucose Calcium Magnesium Total Bilirubin AST ALT Alkaline Phosphatase Total Creatine Kinase Total Protein Albumin Urine Color Urine Appearance Urine pH Ur Specific [place] Urine Protein Urine Glucose (UA) Urine Ketones Urine Blood Urine Nitrite Ur Leukocyte Esterase Urine RBC Urine WBC Ur Squamous Epith Cells Urine Bacteria Hyaline Casts Urine Opiates Screen Ur Buprenorphine Scrn Ur Oxycodone Screen Urine Methadone Screen Urine Fentanyl Screen Ur Barbiturates Screen Ur Phencyclidine Scrn Ur Amphetamines Screen U Benzodiazepines Scrn [place] Urine Cocaine Screen U Marijuana (THC) Screen Ethyl Alcohol COVID-19 (VOLODYMYR) COVID-19 [employer] 07/17/24 07:45 WBC 7.8 RBC 3.76 L Hgb 10.6 L Hct 34.2 L MCV 91.0 MCH 28.2 MCHC 31.0 RDW 14.4 Plt Count 272 MPV 10.1 Immature Gran % (Auto) 0.9 H Neut % (Auto) 64.9 Lymph % (Auto) 25.0 [place] % (Auto) 6.7 Eos % (Auto) 2.2 Baso % (Auto) 0.3 Lymph # (Auto) 2.0 [place] # (Auto) 0.5 Eos # (Auto) 0.2 Baso # (Auto) 0.0 Abs Immat Gran (auto) 0.07 H Absolute Neuts (auto) 5.1 Absolute Nucleated RBC 0.000 Nucleated RBC % (auto) 0.0 Sodium 141 Potassium 5.0 Chloride 107 Carbon Dioxide 28 Anion Gap 11 L BUN 33 H Creatinine 1.09 Estim Creat Clear Calc 149.5 Estimated GFR > 60 POC Glucose Random Glucose 97 Calcium 8.6 Magnesium Total Bilirubin AST ALT Alkaline Phosphatase Total Creatine Kinase Total Protein Albumin Urine Color Urine Appearance Urine pH Ur Specific [place] Urine Protein Urine Glucose (UA) Urine Ketones Urine Blood Urine Nitrite Ur Leukocyte Esterase Urine RBC Urine WBC Ur Squamous Epith Cells Urine Bacteria Hyaline Casts Urine Opiates Screen Ur Buprenorphine Scrn Ur Oxycodone Screen Urine Methadone Screen Urine Fentanyl Screen Ur Barbiturates Screen Ur Phencyclidine Scrn Ur Amphetamines Screen U Benzodiazepines Scrn [place] Urine Cocaine Screen U Marijuana (THC) Screen Ethyl Alcohol COVID-19 (VOLODYMYR) COVID-19 Clin Com Discharge Plan Discharge Anticipated Discharge Date/Time: 07/17/24 11:52 Patient Disposition: Longterm Discharge Diagnosis: Hyperkalemia Referrals: Physician,Unknown J [Primary Care Provider] - 1 Week Discharge Medications: Continued divalproex 500 mg tablet extended release 24 hr 2,000 mg PO BEDTIME propranolol 20 mg tablet 20 mg PO BID metformin 500 mg tablet 500 mg PO DAILY albuterol sulfate 90 mcg/actuation HFA aerosol inhaler 2 puff INHALATION QID PRN (Reason: Shortness Of Breath) trazodone 50 mg tablet 100 mg PO BEDTIME PRN (Reason: Sleep) clonidine HCl 0.1 mg Tablet 0.1 mg PO BID paliperidone [Invega] 6 mg Tablet Extended Release 24 Hr 6 mg PO BEDTIME guanfacine 4 mg Tablet Extended Release 24 Hr 4 mg PO DAILY Discontinued lisinopril 10 mg tablet 10 mg PO DAILY Discharge Orders: Discharge Order (Routine); Ordered 07/17/24 Ordered By: Cyn Thacker Diet: Low Potassium diet Activity on Discharge: As tolerated Stand Alone Forms: Patient Portal Discharge page Print Language: Frisian Care Plan Goals: Low potassium diet Discontinue Lisinopril repeat blood test next week Follow with dr Baltazar at [facility] [place] Neph[place] as outpatient as needed Health Concerns: Hyperkalemia Plan of Treatment: Discontinue Lisinopril Assessment: as above Patient Instructions: Potassium Content of Foods List (DC)
[2024-07-17 12:19] LABS: Glucose, Whole Blood 109 mg/dL (60-115)
== END 2024-07-17 13:58 | disposition home or self-care (01) | DRG 641 ==
LOC: HO.ED 18:54 → HO.EDOVER 19:50 → HO.IMC 19:55
PROVIDERS: Admitting Provider Physician Assistant; Emergency Provider Emergency Medicine Emergency Medical Services; Visit Provider Student in an Organized Health Care Education/Training Program
DX: E87.5 Hyperkalemia (principal); Z68.43 Body mass index [BMI] 50.0-59.9, adult; F17.210 Nicotine dependence, cigarettes, uncomplicated; E11.9 Type 2 diabetes mellitus without complications; F31.9 Bipolar disorder, unspecified; F43.10 Post-traumatic stress disorder, unspecified; D64.9 Anemia, unspecified; Z71.6 Tobacco abuse counseling; I10 Essential (primary) hypertension; E66.813 Obesity, class 3; Z71.3 Dietary counseling and surveillance; Z20.822 Contact with and (suspected) exposure to COVID-19; Z79.84 Long term (current) use of oral hypoglycemic drugs; Z79.899 Other long term (current) drug therapy
CPT/HCPCS: 36415; 80048; 80053; 80178; 80307; 81001; 82550; 82947; 83735; 84132; 85025; 87635; 93005; 99285; J1650; S9485

== ENCOUNTER → 2024-07-16 16:25 | Outpatient (BNV) | payer OTHER, SELFPAY | PROVIDERS: Admitting Provider Physician Assistant; Emergency Provider Emergency Medicine Emergency Medical Services; Visit Provider Internal Medicine | DX: I49.9 Cardiac arrhythmia, unspecified (principal) | CPT/HCPCS: 93010 ==

== ENCOUNTER → 2024-07-16 19:28 | Outpatient (BNV) | payer OTHER, SELFPAY | PROVIDERS: Admitting Provider Physician Assistant; Emergency Provider Emergency Medicine Emergency Medical Services; Visit Provider Physician Assistant | DX: E87.5 Hyperkalemia (principal); R44.3 Hallucinations, unspecified | CPT/HCPCS: 99223; 99239 ==

== ENCOUNTER 2024-07-25 02:30 | Emergency (ER) | payer OTHER, SELFPAY ==
[2024-07-25 02:35] VITALS: BP 136/72; PULSE 85; O2SAT 98
[2024-07-25 02:37] VITALS: BP 103/56; PULSE 76; RESP 20; TEMP 36.6; O2SAT 98; BMI 62.6
--- NOTE | 2024-07-25 02:49 | PC.NURSE ---
pt mady from care home, reports care home is inhumane, states the toilets and sinks don't work. pt states he would like to speak to case management for a new place to stay, pt states he is not si/hi or depressed. pt states he does not need to speak to care team at this time. mask designer aware. pt changed over into pod attire by security.
[2024-07-25 02:52] VITALS: BP 103/56; PULSE 73; RESP 20; TEMP 36.6; O2SAT 98
[2024-07-25 03:23] LABS: Appearance Urine Clear; Color Urine Yellow; Glucose Urine UA Negative (Negative); Leukocyte Esterase Urine Negative (Negative); Nitrite Urine Negative (Negative); UMIC TRIGGER UACC YES; Urine Blood Large (3+) (Negative); Urine Ketones Trace mg/dL (Negative); Urine Protein Trace mg/dL (Neg-Trace)
[2024-07-25 03:26] LABS: Bacteria Urine None Seen (None Seen); WBC Urine 0-5 /HPF (0-5)
[2024-07-25 03:29] LABS: Amphetamine Screen Urine Not Detected (Not Detect); Barbiturates, Urine Not Detected (Not Detect); Benzodiazepines Screen Urine Not Detected (Not Detect); Buprenorphine Scr Not Detected (Not Detect); Cannabinoid Screen Urine Not Detected (Not Detect); Cocaine Screen Urine Not Detected (Not Detect); Fentanyl, urine Not Detected (Not Detect); Methadone Screen, Urine Not Detected (Not Detect); Opiate Screen Urine Not Detected (Not Detect); Oxycodone Screen Urine Not Detected (Not Detect); Phencyclidine Screen Urine Not Detected (Not Detect)
[2024-07-25 03:53] LABS: Basophils Percent Auto 0.2 % (0-2); Eosinophils Absolute Auto 0.3 X10*3/uL (0.0-0.4); Eosinophils Percent Auto 4.2 % (0-4); Hematocrit 30.1 % (42.0-52.0); Hemoglobin 9.7 g/dl (14.0-18.0); Imm Gran Abs Auto 0.07 X10*3/uL (0.00-0.03); Imm Gran Pct Auto 0.9 % (0.0-0.4); Lymphocytes Absolute Auto 2.4 X10*3/uL (1.2-4.9); Lymphocytes Percent Auto 29.3 % (20-40); MANUAL DIFF FLAG NO; Mean Corpuscular HGB Conc 32.2 g/dl (31.0-36.0); Mean Corpuscular Hemoglobin 28.9 pg (27.0-33.0); Mean Corpuscular Volume 89.6 fL (80.0-98.0); Mean Platelet Volume 9.9 fL (9.4-12.4); Monocytes Absolute Auto 0.9 X10*3/uL (0.1-1.2); Monocytes Percent Auto 10.7 % (2-11); Neutrophils Absolute Auto 4.5 x10*3/uL (2.0-8.3); Neutrophils Percent Auto 54.7 % (45-73); Platelet Count 229 X10*3/uL (160-400); Red Blood Count 3.36 X10*6/uL (4.60-5.80); Red Cell Distribution Width 13.3 % (11.0-16.0); White Blood Count 8.1 X10*3/uL (4.8-10.8)
[2024-07-25 04:17] LABS: Alanine Aminotransferase 18 U/L (0-40); Albumin Level 3.4 g/dL (3.5-5.0); Alkaline Phosphatase 46 U/L (39-117); Anion Gap 13 (12-20); Aspartate Amino Transferase 16 U/L (5-37); Bilirubin Total 0.2 mg/dL (0.0-1.0); Blood Urea Nitrogen 34 mg/dL (9-16); Calcium 8.3 mg/dL (8.4-10.2); Carbon Dioxide 27 mmol/L (22-29); Chloride 108 mmol/L (96-108); Creatinine Clr Calc Pharmacy 118.8; Estimated Glomerular Filt Rate 58; Ethanol < 10 mg/dL; Glucose Random 133 mg/dL (60-115); Potassium 4.5 mmol/L (3.3-5.1); Sodium 143 mmol/L (135-145); Total Protein 6.4 g/dL (6.5-8.0)
--- NOTE | 2024-07-25 05:05 | ED.GENADULT ---
HPI - General Adult General Chief complaint: General Medical Stated complaint: crisis consult for depression Time Seen by Provider: 07/25/24 05:05 Source: patient and EMS Mode of arrival: EMS Limitations: no limitations History of Present Illness ED Provider: DR. Deng HPI narrative: 33-year-old male history of hypertension, non insulin-dependent type 2 diabetes, bipolar disorder patient came in by ambulance from his detention seeking help to be placed would like social services designee to help him to find a place. Patient is not SI, no HI, no hallucination. Stated that he didnt not drinking enough water feels thirsty and dry mouth. Patient has no medical complaints. Related Data Home Medications ?Medication ?Instructions ?Recorded ?Confirmed trazodone 50 mg tablet 100 mg PO BEDTIME PRN Sleep 08/24/23 07/16/24 divalproex 500 mg tablet,extended 2,000 mg PO BEDTIME 03/23/24 07/16/24 release 24 hr propranolol 20 mg tablet 20 mg PO BID 03/23/24 07/16/24 albuterol sulfate 90 mcg/actuation 2 puff inhalation QID PRN 07/04/24 07/16/24 aerosol inhaler Shortness Of Breath metformin 500 mg tablet 500 mg PO DAILY 07/04/24 07/16/24 clonidine HCl 0.1 mg tablet 0.1 mg PO BID 07/16/24 07/16/24 guanfacine 4 mg tablet,extended 4 mg PO DAILY 07/16/24 07/16/24 release 24 hr paliperidone 6 mg tablet,extended 6 mg PO BEDTIME 07/16/24 07/16/24 release 24 hr (Invega) Allergies Allergy/AdvReac Type Severity Reaction Status Date / Time amoxicillin Allergy Hives Verified 07/25/24 02:41 Review of Systems Review of Systems: All other systems are reviewed and are negative Constitutional: Reports as per HPI and Reports no additional constitutional complaints Eyes: Reports as per HPI and Reports no additional eye complaints Reports system reviewed and no additional complaints, except as documented Cardiovascular: Reports as per HPI and Reports no additional cardiovascular complaints Respiratory: Reports as per HPI and Reports no additional respiratory complaints Gastrointestinal: Reports as per HPI and Reports no additional gastrointestinal complaints Genitourinary: Reports no additional female genitourinary complaints Musculoskeletal: Reports no additional musculoskeletal complaints Skin/Breast: Reports system reviewed and no additional complaints, except as docu Psychiatric: Reports no additional psychiatric complaints Endocrine: Reports no additional endocrine complaints Hematologic/Lymphatic: Reports no additional hematologic/lymphatic complaints Allergic/Immunologic: Reports no additional allergic/immunologic complaints Reports system reviewed and no additional complaints, except as documented and Reports Abnormal speech present [facility] Past Medical History Medical History Routine medical exam HTN (hypertension) Bipolar disorder Diabetes Social History Social History Household Members: Other Household Members Other:: Patient reportedly lives in sober living home. Housing: Other Housing Other:: sober living house Do you presently have visiting nurse or other home services: No Alcohol intake: former Patient Tobacco Use Status: Never used Tobacco Tobacco use type: Cigarette Cigarette Packs Per Day: 1 Cigarettes Per Day: 3 Years Smoked: Many Smoked in Last 30 Days: Yes e-Cigarette/Vaping Use: Never Used Second Hand Smoke Exposure: No Use of substances other than those prescribed or required for medical reasons: No Substance Use Type: Marijuana Advance Directives: No Advance Directives Information Provided: Yes Do you have a plan to hurt others: No Plan service: No Sexual orientation: Straight/Heterosexual Physical Exam ED Vital Signs: Vital Signs - 24 hr 07/25/24 02:37 07/25/24 02:52 07/25/24 06:16 Temperature 97.8 F 97.8 F 97.6 F Pulse Rate 76 73 54 Respiratory Rate 20 20 17 Blood Pressure 103/56 L 103/56 L 116/74 Pulse Oximetry 98 98 98 Oxygen Delivery Method Room Air Room Air Room Air BMI result Body Mass Index 62.6 Vital signs have been reviewed and appear to be correct. Blood pressure elevated. Heart rate normal. Respiratory rate normal. Temperature normal. Oxygen saturation normal. Appearance: Alert. Oriented X3. No acute distress. Head: Normal external exam. Normocephalic. Atraumatic. No Andrews signs noted. No raccoon eyes noted Eyes: PERRLA. EOMI. Conjunctiva and sclera normal. Eyelids normal. ENT: TM's Normal. Pharynx normal. Uvula midline. dry mucous membranes. No trismus noted. No drooling noted. No muffled voice noted. Neck: Normal inspection. Neck supple. FROM. No adenopathy. Thyroid Normal. No meningeal signs. No neck mass noted. CVS: Normal heart rate and rhythm. Heart sound normal. No murmurs noted. Pulses normal throughout. Respiratory: No respiratory distress. Painless inspiration. Breath sounds normal. No wheezes/rales/rhonchi noted. Chest nontender. No accessory muscle usage noted or decreased air movement noted. Abdomen: Soft and nontender. Bowel sounds normal in all 4 quadrants. No distention noted. No organomegaly noted. No visible injury noted. Back: No CVA tenderness. Full range of motion noted. Skin: Skin warm and dry. Normal skin color. Normal skin turgor. No rashes/lesions/lacerations noted. Extremities: No lower extremity edema. Extremities exhibit normal range of motion. Extremities nontender. Neuro: Mental status: Normal attention, orientation, memory, and affect. Cranial nerves: Pupils are equal, round and reactive to light, EOMI, visual medina are fall, face is symmetric, facial sensations are normal. Motor examination normal muscle tone, strength to 4 extremities. DTR are +2, planter's are flexor. Sensory exam; normal coordination, no ataxia, gait stable. Cerebellar exam: [id number] and emda-py-[id number] is normal. Extrapyramidal system: No tremors, no rigidity with normal facial expressions. Pronator drift not present. Patient Orientation: Person, Place, Time and Situation, okay hygiene and grooming. Fair eye contact, attentive, no tics or tremors. Level of Consciousness: Awake, Appropriate and Alert Patient Behavior: Appropriate, Guarded, Cooperative and Anxious Mood Description: Constricted, Blunted and Apprehensive Affect Description: Constricted, Blunted and Apprehensive Patient Cognition Impaired: No Ability to Follow Directions: Excellent Speech Pattern: Clear, Appropriate and Spontaneous Speech, nonpressured, spontaneous with regular rate and rhythm, normal volume and prosody. No dysarthria. Memory Description: Intact, Immediate Intact and Short Term Intact Hallucinations: None Delusions: Not Present Thought Process: Intact Thought Content: positive for Intact, positive for Logical, denies Suicidal Ideation and denies Homicidal Ideation. Depressive Symptoms: Not present. Judgement and Insight: Limited but adequate. Course Reevaluation(s) Reevaluation #1: Labs mostly at baseline slight elevation of BUN/creatinine, patient was given water to drink in the ED and labs was repeated with improvement of the kidney function tests, Patient was placed on physician observation Time: 05:14 Medical Decision Making Differential Diagnosis Differential Diagnoses: The differential diagnosis associated with the presentation includes (SI, HI, hallucination, acute psychosis, electrolyte derangement, severe anemia.) Admission/Observation Consideration of admission/observation: Escalation of care including admission/observation considered Lab Data MDM Lab Attestation statement: I reviewed the patient's lab results. 07/25/24 03:48 07/25/24 06:17 Labs: Lab Results 07/25/24 07/25/24 07/25/24 Range/Units 03:00 03:01 03:48 WBC 8.1 (4.8-10.8) X10*3/uL RBC 3.36 L (4.60-5.80) X10*6/uL Hgb 9.7 L (14.0-18.0) g/dl Hct 30.1 L (42.0-52.0) % MCV 89.6 (80.0-98.0) fL MCH 28.9 (27.0-33.0) pg MCHC 32.2 (31.0-36.0) g/dl RDW 13.3 (11.0-16.0) % Plt Count 229 (160-400) X10*3/uL MPV 9.9 (9.4-12.4) fL Immature Gran % (Auto) 0.9 H (0.0-0.4) % Neut % (Auto) 54.7 (45-73) % Lymph % (Auto) 29.3 (20-40) % [place] % (Auto) 10.7 (2-11) % Eos % (Auto) 4.2 H (0-4) % Baso % (Auto) 0.2 (0-2) % Lymph # (Auto) 2.4 (1.2-4.9) X10*3/uL [place] # (Auto) 0.9 (0.1-1.2) X10*3/uL Eos # (Auto) 0.3 (0.0-0.4) X10*3/uL Baso # (Auto) 0.0 (0.0-0.2) X10*3/uL Abs Immat Gran (auto) 0.07 H (0.00-0.03) X10*3/uL Absolute Neuts (auto) 4.5 (2.0-8.3) x10*3/uL Absolute Nucleated RBC 0.000 (0.0-0.012) X10*3/uL Nucleated RBC % (auto) 0.0 (0.0-0.2) /100WBC Sodium 143 (135-145) mmol/L Potassium 4.5 (3.3-5.1) mmol/L Chloride 108 (96-108) mmol/L Carbon Dioxide 27 (22-29) mmol/L Anion Gap 13 (12-20) BUN 34 H (9-16) mg/dL Creatinine 1.43 H (0.5-1.4) mg/dL Estim Creat Clear Calc 118.8 Estimated GFR 58 Random Glucose 133 H (60-115) mg/dL Calcium 8.3 L (8.4-10.2) mg/dL Total Bilirubin 0.2 (0.0-1.0) mg/dL AST 16 (5-37) U/L ALT 18 (0-40) U/L Alkaline Phosphatase 46 (39-117) U/L Total Protein 6.4 L (6.5-8.0) g/dL Albumin 3.4 L (3.5-5.0) g/dL Urine Color Yellow Urine Appearance Clear Urine pH 5.0 (5.0-9.0) Ur Specific [place] 1.020 (1.005-1.025) Urine Protein Trace (Neg-Trace) mg/dL Urine Glucose (UA) Negative (Negative) mg/dL Urine Ketones Trace (Negative) mg/dL Urine Blood Large (3+) H (Negative) Urine Nitrite Negative (Negative) Ur Leukocyte Esterase Negative (Negative) Urine RBC 11-20 H (0-2) /HPF Urine WBC 0-5 (0-5) /HPF Ur Squamous Epith Cells 3-5 (0-2) /HPF Urine Bacteria None Seen (None Seen) Hyaline Casts 3-5 (0-2) /LPF Urine Opiates Screen Not Detected (Not Detect) Ur Buprenorphine Scrn Not Detected (Not Detect) ng/mL Ur Oxycodone Screen Not Detected (Not Detect) ng/mL Urine Methadone Screen Not Detected (Not Detect) ng/mL Urine Fentanyl Screen Not Detected (Not Detect) Ur Barbiturates Screen Not Detected (Not Detect) Ur Phencyclidine Scrn Not Detected (Not Detect) Ur Amphetamines Screen Not Detected (Not Detect) U Benzodiazepines Scrn Not Detected (Not Detect) Urine Cocaine Screen Not Detected (Not Detect) U Marijuana (THC) Screen Not Detected (Not Detect) Ethyl Alcohol < 10 mg/dL 07/25/24 Range/Units 06:17 WBC (4.8-10.8) X10*3/uL RBC (4.60-5.80) X10*6/uL Hgb (14.0-18.0) g/dl Hct (42.0-52.0) % MCV (80.0-98.0) fL MCH (27.0-33.0) pg MCHC (31.0-36.0) g/dl RDW (11.0-16.0) % Plt Count (160-400) X10*3/uL MPV (9.4-12.4) fL Immature Gran % (Auto) (0.0-0.4) % Neut % (Auto) (45-73) % Lymph % (Auto) (20-40) % [place] % (Auto) (2-11) % Eos % (Auto) (0-4) % Baso % (Auto) (0-2) % Lymph # (Auto) (1.2-4.9) X10*3/uL [place] # (Auto) (0.1-1.2) X10*3/uL Eos # (Auto) (0.0-0.4) X10*3/uL Baso # (Auto) (0.0-0.2) X10*3/uL Abs Immat Gran (auto) (0.00-0.03) X10*3/uL Absolute Neuts (auto) (2.0-8.3) x10*3/uL Absolute Nucleated RBC (0.0-0.012) X10*3/uL Nucleated RBC % (auto) (0.0-0.2) /100WBC Sodium 142 (135-145) mmol/L Potassium 4.7 (3.3-5.1) mmol/L Chloride 107 (96-108) mmol/L Carbon Dioxide 29 (22-29) mmol/L Anion Gap 11 L (12-20) BUN 32 H (9-16) mg/dL Creatinine 1.34 (0.5-1.4) mg/dL Estim Creat Clear Calc 126.7 Estimated GFR > 60 Random Glucose 99 (60-115) mg/dL Calcium 8.4 (8.4-10.2) mg/dL Total Bilirubin (0.0-1.0) mg/dL AST (5-37) U/L ALT (0-40) U/L Alkaline Phosphatase (39-117) U/L Total Protein (6.5-8.0) g/dL Albumin (3.5-5.0) g/dL Urine Color Urine Appearance Urine pH (5.0-9.0) Ur Specific [place] (1.005-1.025) Urine Protein (Neg-Trace) mg/dL Urine Glucose (UA) (Negative) mg/dL Urine Ketones (Negative) mg/dL Urine Blood (Negative) Urine Nitrite (Negative) Ur Leukocyte Esterase (Negative) Urine RBC (0-2) /HPF Urine WBC (0-5) /HPF Ur Squamous Epith Cells (0-2) /HPF Urine Bacteria (None Seen) Hyaline Casts (0-2) /LPF Urine Opiates Screen (Not Detect) Ur Buprenorphine Scrn (Not Detect) ng/mL Ur Oxycodone Screen (Not Detect) ng/mL Urine Methadone Screen (Not Detect) ng/mL Urine Fentanyl Screen (Not Detect) Ur Barbiturates Screen (Not Detect) Ur Phencyclidine Scrn (Not Detect) Ur Amphetamines Screen (Not Detect) U Benzodiazepines Scrn (Not Detect) Urine Cocaine Screen (Not Detect) U Marijuana (THC) Screen (Not Detect) Ethyl Alcohol mg/dL Discharge Plan Discharge Clinical Impression: Homelessness, Dehydration Patient Disposition: Still a Patient Prescriptions: No Action divalproex 500 mg tablet extended release 24 hr 2,000 mg PO BEDTIME propranolol 20 mg tablet 20 mg PO BID metformin 500 mg tablet 500 mg PO DAILY albuterol sulfate 90 mcg/actuation HFA aerosol inhaler 2 puff INHALATION QID PRN (Reason: Shortness Of Breath) trazodone 50 mg tablet 100 mg PO BEDTIME PRN (Reason: Sleep) clonidine HCl 0.1 mg Tablet 0.1 mg PO BID paliperidone [Invega] 6 mg Tablet Extended Release 24 Hr 6 mg PO BEDTIME guanfacine 4 mg Tablet Extended Release 24 Hr 4 mg PO DAILY Print Language: Swedish
[2024-07-25 06:16] VITALS: BP 116/74; PULSE 54; RESP 17; TEMP 36.4; O2SAT 98
--- NOTE | 2024-07-25 06:16 | PC.NURSE ---
per , give oral fluids at this time and repeat labs. pt able to tolerate 5 cups of water.
[2024-07-25 06:37] LABS: Anion Gap 11 (12-20); Blood Urea Nitrogen 32 mg/dL (9-16); Calcium 8.4 mg/dL (8.4-10.2); Carbon Dioxide 29 mmol/L (22-29); Chloride 107 mmol/L (96-108); Creatinine Clr Calc Pharmacy 126.7; Estimated Glomerular Filt Rate > 60; Glucose Random 99 mg/dL (60-115); Potassium 4.7 mmol/L (3.3-5.1); Sodium 142 mmol/L (135-145)
--- NOTE | 2024-07-25 07:14 | PC.NURSE ---
pt asleep at this time, chest rises visible. allowed to rest.
--- NOTE | 2024-07-25 09:27 | PC.NURSE ---
patient is requesting discharge he stated I will just work on getting the apartment stuff fixed pt is not interested in waiting for case management. Dr. Amaya notified via tiger text.
--- NOTE | 2024-07-25 09:49 | PC.NURSE ---
pt not wanting to wait for medictions prior to discharge as he wanted to go catch the bus. pt discharged back to his apartment
--- NOTE | 2024-07-25 09:50 | MHC.CM.ED ---
Received case management consult early this morning from Dr Deng. Patient zahirally came to the ER due to crisis. However when patient arrived to ER, patient denied SI/HI. Patient requested to speak with CM about current living situation. Patient is not happy that his sink and toilet don't work. Patient was d/c'd from [facility] in the beginning of July. Patient is active with [facility]. His social secretary is Lilliam. T/W spoke with Lilliam at [phone]. Lilliam states patient is no longer at the [facility] and that he isn't allowed back there. Patient is currently at the [facility]. Above information relayed to Lilliam. Lilliam states everything was in working order at the [facility]. Lilliam also stated there are no other placement options for patient. T/W received notification from Helen COLLIER that patient wants to return to this room and will leave via Bus. Lilliam made aware.
[2024-07-25 09:58] VITALS: BP 118/77; PULSE 63; RESP 18; TEMP 36.2; O2SAT 98
== END 2024-07-25 10:00 | disposition home or self-care (01) ==
PROVIDERS: Emergency Provider Emergency Medicine
DX: E86.0 Dehydration (principal); F31.64 Bipolar disorder, current episode mixed, severe, with psychotic features; F43.10 Post-traumatic stress disorder, unspecified; Z59.00 Homelessness unspecified; E11.9 Type 2 diabetes mellitus without complications; I10 Essential (primary) hypertension; Z79.899 Other long term (current) drug therapy
CPT/HCPCS: 36415; 80048; 80053; 80307; 81001; 85025; 99284

== ENCOUNTER 2024-07-28 10:29 | Emergency (ER) | payer OTHER, SELFPAY ==
--- NOTE | 2024-07-28 10:39 | ED_ITS ---
HPI - Psych General Chief Complaint: Psychiatric Symptoms Stated Complaint: CRISIS Time Seen by Provider: 07/28/24 10:32 Source: patient Mode of arrival: EMS Limitations: no limitations History of Present Illness HPI Narrative: This is a 33 years old the patient with a history of PTSD, bipolar disorder, alcohol abuse in the past, presented to emergency department via ambulance requesting psychiatric evaluation he tells me that he is not suicidal at this time but is feel depressed. He denies any chest pain shortness of MD complaint: feels depressed Onset (ago): day(s) (1) Duration: constant History of same: Yes Relieving factors: none Exacerbating factors: none Associated psychiatric symptoms: depression Related Data Home Medications ?Medication ?Instructions ?Recorded ?Confirmed trazodone 50 mg tablet 100 mg PO BEDTIME PRN Sleep 08/24/23 07/25/24 divalproex 500 mg tablet,extended 2,000 mg PO BEDTIME 03/23/24 07/25/24 release 24 hr propranolol 20 mg tablet 20 mg PO BID 03/23/24 07/25/24 albuterol sulfate 90 mcg/actuation 2 puff inhalation QID PRN 07/04/24 07/25/24 aerosol inhaler Shortness Of Breath metformin 500 mg tablet 500 mg PO DAILY 07/04/24 07/25/24 clonidine HCl 0.1 mg tablet 0.1 mg PO BID 07/16/24 07/25/24 guanfacine 4 mg tablet,extended 4 mg PO DAILY 07/16/24 07/25/24 release 24 hr paliperidone 6 mg tablet,extended 6 mg PO BEDTIME 07/16/24 07/25/24 release 24 hr (Invega) cephalexin 500 mg capsule 1,000 mg PO Q6H 07/25/24 07/25/24 Allergies Allergy/AdvReac Type Severity Reaction Status Date / Time amoxicillin Allergy Hives Verified 07/28/24 10:50 Review of Systems 2 Constitutional: Constitutional: Reports no additional constitutional complaints Cardiovascular: Cardiovascular: Reports no additional cardiovascular complaints Gastrointestinal: Gastrointestinal: Reports no additional gastrointestinal complaints PMFSH Past Medical History Attestation statement: The following information was validated with the patient. Medical History Routine medical exam HTN (hypertension) Bipolar disorder Diabetes Social History Social History Household Members: Other Household Members Other:: Patient reportedly lives in sober living home. Housing: Other Housing Other:: sober living house Do you presently have visiting nurse or other home services: No Alcohol intake: former Patient Tobacco Use Status: Never used Tobacco Tobacco use type: Cigarette Cigarette Packs Per Day: 1 Cigarettes Per Day: 3 Years Smoked: Many Smoked in Last 30 Days: Yes e-Cigarette/Vaping Use: Never Used Second Hand Smoke Exposure: No Use of substances other than those prescribed or required for medical reasons: No Substance Use Type: Marijuana Advance Directives: No Advance Directives Information Provided: Yes Do you have a plan to hurt others: No Plan service: No Sexual orientation: Straight/Heterosexual Physical Exam 2 Vital Signs: Vital Signs: Last Vital Signs Temp 98.3 F 07/28/24 10:49 Pulse 64 07/28/24 12:00 Resp 12 07/28/24 12:00 BP 108/67 07/28/24 11:51 Pulse Ox 97 07/28/24 11:51 O2 Del Method Room Air 07/28/24 11:51 BMI result Body Mass Index 64.7 Not acute distress comfortable in the stretcher Const: General: cooperative Orientation/consciousness: patient oriented x3 Limitations: no limitations HEENT: Head: Yes normal to inspection Ears: hearing grossly normal bilaterally General nose exam: Normal external nose present Face and sinus: Yes normal facial exam Mouth: Normal oral and palatal mucosa present Eyes: General: appearance normal, both eyes and all related structures Neck: Neck: Yes normal visual inspection Chest: Chest palpation & inspection: normal inspection of the chest Resp: Effort & Inspection: normal respiratory effort Cardio: Jugular venous distension: no JVD Rate: regular rate GI: Inspection: Yes normal to inspection Palpation (GI): Soft to palpation : General: Yes no CVA tenderness Back/Spine/Pelvis: Back: no CVA tenderness Skin: General skin exam: no rashes or lesions noted and elasticity normal L esions: no lesions Rashes: no rashes Wounds: no wounds Neuro: General: patient oriented x3 Cranial nerves: Yes CN's II-XII intact bilaterally Cognition (Neuro): normal cognition Motor exam (neuro): 5/5 motor strength present throughout Course Reevaluation(s) Reevaluation #1: Potassium noted, electrocardiogram done showed sinus rhythm with a rate of 67 QRS narrow, we will give him albuterol and Lokelma and rechecked with a cane Time: 13:08 Reevaluation #2: Seen by crisis the patient has been cleared for discharge. However repeat potassium higher again how he is now 6.6 from 6.3 despite albuterol and Lokelma at this point we will give dextrose insulin calcium. Time: 16:12 Medications Administered Discontinued Medications Generic Name Dose Route Start Last Admin Trade Name Carli PRN Reason Stop Dose Admin Albuterol Sulfate 7.5 mg/ 10 mg 07/28/24 11:34 07/28/24 11:57 Albuterol Sulfate 2.5 mg INHALE 07/28/24 11:35 10 mg ONCE ONE Administration Dextrose 25 gm 07/28/24 13:46 07/28/24 14:20 Dextrose 50 % 25 Gm/50 Ml Syringe IVPUSH 07/28/24 13:47 25 gm ONCE ONE Administration Sodium Chloride 1,000 mls @ 999 mls/hr 07/28/24 13:45 07/28/24 14:20 Ns IVCONT 07/28/24 14:45 999 mls/hr .Q1H1M GERMAIN Administration Calcium Gluconate 1 gm in 50 mls @ 50 mls/hr 07/28/24 13:45 07/28/24 14:20 Calcium Gluconate IV 07/28/24 14:44 50 mls/hr ONCE ONE Administration Insulin Human Regular 10 unit 07/28/24 13:46 07/28/24 14:20 Insulin Regular, Human 100 Unit/Ml 10 Ml Vial IVPUSH 07/28/24 13:47 10 unit ONCE ONE Administration Sodium Zirconium Cyclosilicate 10 gm 07/28/24 11:33 07/28/24 11:55 Sodium Zirconium Cyclosilicate 10 Gm Powd.Pack PO 07/28/24 11:34 10 gm ONCE ONE Administration Medical Decision Making Medical Decision Making [facility] Narrative: Patient is here with a chief complaint of depression no SI, we will get crisis eval he does have history of bipolar disorder PTSD with prior psych hospitalization Differential Diagnosis Differential Diagnoses: The differential diagnosis associated with the presentation includes Depression/anxiety/PTSD Lab Data 07/28/24 10:56 07/28/24 13:22 Labs: Lab Results 03/23/25 03/23/25 03/23/25 Range/Units 10:56 11:47 13:22 WBC 6.3 (4.8-10.8) X10*3/uL RBC 3.77 L (4.60-5.80) X10*6/uL Hgb 10.8 L (14.0-18.0) g/dl Hct 34.2 L (42.0-52.0) % MCV 90.7 (80.0-98.0) fL MCH 28.6 (27.0-33.0) pg MCHC 31.6 (31.0-36.0) g/dl RDW 13.2 (11.0-16.0) % Plt Count 236 (160-400) X10*3/uL MPV 10.0 (9.4-12.4) fL Immature Gran % (Auto) 0.6 H (0.0-0.4) % Neut % (Auto) 57.6 (45-73) % Lymph % (Auto) 26.9 (20-40) % [place] % (Auto) 10.6 (2-11) % Eos % (Auto) 4.0 (0-4) % Baso % (Auto) 0.3 (0-2) % Lymph # (Auto) 1.7 (1.2-4.9) X10*3/uL [place] # (Auto) 0.7 (0.1-1.2) X10*3/uL Eos # (Auto) 0.3 (0.0-0.4) X10*3/uL Baso # (Auto) 0.0 (0.0-0.2) X10*3/uL Abs Immat Gran (auto) 0.04 H (0.00-0.03) X10*3/uL Absolute Neuts (auto) 3.6 (2.0-8.3) x10*3/uL Absolute Nucleated RBC 0.000 (0.0-0.012) X10*3/uL Nucleated RBC % (auto) 0.0 (0.0-0.2) /100WBC Sodium 143 140 (135-145) mmol/L Potassium 6.3 H* D 6.6 H* (3.3-5.1) mmol/L Chloride 112 H 111 H (96-108) mmol/L Carbon Dioxide 24 25 (22-29) mmol/L Anion Gap 13 11 L (12-20) BUN 36 H 34 H (9-16) mg/dL Creatinine 1.24 1.01 (0.5-1.4) mg/dL Estim Creat Clear Calc 139.8 171.7 Estimated GFR > 60 > 60 POC Glucose (60-115) mg/dL Random Glucose 100 91 (60-115) mg/dL Calcium 8.6 8.2 L (8.4-10.2) mg/dL Total Bilirubin 0.1 (0.0-1.0) mg/dL AST 20 (5-37) U/L ALT 17 (0-40) U/L Alkaline Phosphatase 44 (39-117) U/L Total Protein 6.6 (6.5-8.0) g/dL Albumin 3.4 L (3.5-5.0) g/dL Urine Opiates Screen Not Detected (Not Detect) Ur Buprenorphine Scrn Not Detected (Not Detect) ng/mL Ur Oxycodone Screen Not Detected (Not Detect) ng/mL Urine Methadone Screen Not Detected (Not Detect) ng/mL Urine Fentanyl Screen Not Detected (Not Detect) Ur Barbiturates Screen Not Detected (Not Detect) Ur Phencyclidine Scrn Not Detected (Not Detect) Ur Amphetamines Screen Not Detected (Not Detect) U Benzodiazepines Scrn Not Detected (Not Detect) Urine Cocaine Screen Not Detected (Not Detect) U Marijuana (THC) Screen Not Detected (Not Detect) Ethyl Alcohol < 10 mg/dL 07/28/24 07/28/24 Range/Units 14:28 15:27 WBC (4.8-10.8) X10*3/uL RBC (4.60-5.80) X10*6/uL Hgb (14.0-18.0) g/dl Hct (42.0-52.0) % MCV (80.0-98.0) fL MCH (27.0-33.0) pg MCHC (31.0-36.0) g/dl RDW (11.0-16.0) % Plt Count (160-400) X10*3/uL MPV (9.4-12.4) fL Immature Gran % (Auto) (0.0-0.4) % Neut % (Auto) (45-73) % Lymph % (Auto) (20-40) % [place] % (Auto) (2-11) % Eos % (Auto) (0-4) % Baso % (Auto) (0-2) % Lymph # (Auto) (1.2-4.9) X10*3/uL [place] # (Auto) (0.1-1.2) X10*3/uL Eos # (Auto) (0.0-0.4) X10*3/uL Baso # (Auto) (0.0-0.2) X10*3/uL Abs Immat Gran (auto) (0.00-0.03) X10*3/uL Absolute Neuts (auto) (2.0-8.3) x10*3/uL Absolute Nucleated RBC (0.0-0.012) X10*3/uL Nucleated RBC % (auto) (0.0-0.2) /100WBC Sodium (135-145) mmol/L Potassium (3.3-5.1) mmol/L Chloride (96-108) mmol/L Carbon Dioxide (22-29) mmol/L Anion Gap (12-20) BUN (9-16) mg/dL Creatinine (0.5-1.4) mg/dL Estim Creat Clear Calc Estimated GFR POC Glucose 95 65 (60-115) mg/dL Random Glucose (60-115) mg/dL Calcium (8.4-10.2) mg/dL Total Bilirubin (0.0-1.0) mg/dL AST (5-37) U/L ALT (0-40) U/L Alkaline Phosphatase (39-117) U/L Total Protein (6.5-8.0) g/dL Albumin (3.5-5.0) g/dL Urine Opiates Screen (Not Detect) Ur Buprenorphine Scrn (Not Detect) ng/mL Ur Oxycodone Screen (Not Detect) ng/mL Urine Methadone Screen (Not Detect) ng/mL Urine Fentanyl Screen (Not Detect) Ur Barbiturates Screen (Not Detect) Ur Phencyclidine Scrn (Not Detect) Ur Amphetamines Screen (Not Detect) U Benzodiazepines Scrn (Not Detect) Urine Cocaine Screen (Not Detect) U Marijuana (THC) Screen (Not Detect) Ethyl Alcohol mg/dL Discharge Plan Discharge Clinical Impression: PTSD (post-traumatic stress disorder) Depression Qualifiers: Depression Type: unspecified Qualified Code(s): F32.A - Depression, unspecified Patient Disposition: Still a Patient Prescriptions: No Action divalproex 500 mg tablet extended release 24 hr 2,000 mg PO BEDTIME propranolol 20 mg tablet 20 mg PO BID metformin 500 mg tablet 500 mg PO DAILY albuterol sulfate 90 mcg/actuation HFA aerosol inhaler 2 puff INHALATION QID PRN (Reason: Shortness Of Breath) cephalexin 500 mg capsule 1,000 mg PO Q6H trazodone 50 mg tablet 100 mg PO BEDTIME PRN (Reason: Sleep) clonidine HCl 0.1 mg Tablet 0.1 mg PO BID paliperidone [Invega] 6 mg Tablet Extended Release 24 Hr 6 mg PO BEDTIME guanfacine 4 mg Tablet Extended Release 24 Hr 4 mg PO DAILY Interventions: [place]-Suicide Risk Severity Scale Last Done: 07/28/24 10:53 Print Language: Kenyan
[2024-07-28 10:49] VITALS: BP 117/55; BP 122/74; PULSE 76; PULSE 82; RESP 16; TEMP 36.8; O2SAT 97; BMI 64.7
[2024-07-28 11:01] LABS: MANUAL DIFF FLAG NO
[2024-07-28 11:02] LABS: Basophils Percent Auto 0.3 % (0-2); Eosinophils Absolute Auto 0.3 X10*3/uL (0.0-0.4); Hematocrit 34.2 % (42.0-52.0); Hemoglobin 10.8 g/dl (14.0-18.0); Imm Gran Abs Auto 0.04 X10*3/uL (0.00-0.03); Imm Gran Pct Auto 0.6 % (0.0-0.4); Lymphocytes Absolute Auto 1.7 X10*3/uL (1.2-4.9); Lymphocytes Percent Auto 26.9 % (20-40); Mean Corpuscular HGB Conc 31.6 g/dl (31.0-36.0); Mean Corpuscular Hemoglobin 28.6 pg (27.0-33.0); Mean Corpuscular Volume 90.7 fL (80.0-98.0); Monocytes Absolute Auto 0.7 X10*3/uL (0.1-1.2); Monocytes Percent Auto 10.6 % (2-11); Neutrophils Absolute Auto 3.6 x10*3/uL (2.0-8.3); Neutrophils Percent Auto 57.6 % (45-73); Platelet Count 236 X10*3/uL (160-400); Red Blood Count 3.77 X10*6/uL (4.60-5.80); Red Cell Distribution Width 13.2 % (11.0-16.0); White Blood Count 6.3 X10*3/uL (4.8-10.8)
[2024-07-28 11:26] LABS: Alanine Aminotransferase 17 U/L (0-40); Albumin Level 3.4 g/dL (3.5-5.0); Anion Gap 13 (12-20); Aspartate Amino Transferase 20 U/L (5-37); Bilirubin Total 0.1 mg/dL (0.0-1.0); Blood Urea Nitrogen 36 mg/dL (9-16); Calcium 8.6 mg/dL (8.4-10.2); Carbon Dioxide 24 mmol/L (22-29); Chloride 112 mmol/L (96-108); Creatinine Clr Calc Pharmacy 139.8; Estimated Glomerular Filt Rate > 60; Ethanol < 10 mg/dL; Glucose Random 100 mg/dL (60-115); Potassium 6.3 mmol/L (3.3-5.1); Sodium 143 mmol/L (135-145); Total Protein 6.6 g/dL (6.5-8.0)
--- NOTE | 2024-07-28 11:33 | ECG_ITS ---
Test Reason : HYPER K Blood Pressure : */* mmHG Vent. Rate : 67 BPM Atrial Rate : 67 BPM P-R Int : 164 ms QRS Dur : 78 ms QT Int : 358 ms P-R-T Axes : -4 15 32 degrees QTcB Int : 378 ms Normal sinus rhythm Normal ECG When compared with ECG of 16-Jul-2024 16:25, No significant change was found Referred By: Luis Alfredo Saleh Electronically Signed By: KAYLA SANTIAGO MD
[2024-07-28 11:38] LABS: Alkaline Phosphatase 44 U/L (39-117)
[2024-07-28 11:51] VITALS: BP 108/67; PULSE 67; RESP 24; O2SAT 97
[2024-07-28] MEDS: Sodium Zirconium Cyclosilicate 10 GM POWD.PACK PO (11:55)
[2024-07-28] MEDS: Albuterol Sulfate 7.5 MG, Albuterol Sulfate (0.083%) 2.5 MG 10 MG INHALE (11:57)
[2024-07-28 12:00] VITALS: PULSE 64; RESP 12; O2SAT 100
[2024-07-28 12:21] LABS: Amphetamine Screen Urine Not Detected (Not Detect); Barbiturates, Urine Not Detected (Not Detect); Benzodiazepines Screen Urine Not Detected (Not Detect); Buprenorphine Scr Not Detected (Not Detect); Cannabinoid Screen Urine Not Detected (Not Detect); Cocaine Screen Urine Not Detected (Not Detect); Fentanyl, urine Not Detected (Not Detect); Methadone Screen, Urine Not Detected (Not Detect); Opiate Screen Urine Not Detected (Not Detect); Oxycodone Screen Urine Not Detected (Not Detect); Phencyclidine Screen Urine Not Detected (Not Detect)
[2024-07-28 13:45] LABS: Anion Gap 11 (12-20); Blood Urea Nitrogen 34 mg/dL (9-16); Calcium 8.2 mg/dL (8.4-10.2); Carbon Dioxide 25 mmol/L (22-29); Chloride 111 mmol/L (96-108); Creatinine Clr Calc Pharmacy 171.7; Estimated Glomerular Filt Rate > 60; Glucose Random 91 mg/dL (60-115); Potassium 6.6 mmol/L (3.3-5.1); Sodium 140 mmol/L (135-145)
[2024-07-28] MEDS: Insulin Regular, Human 100 UNIT/ML 10 ML VIAL 10 UNIT IVPUSH (14:20)
[2024-07-28] MEDS: Calcium Gluconate/NaCl,Iso-Osm 1 GM/50 ML PLAST..BAG IV (14:20)
[2024-07-28] MEDS: Dextrose 50 % 25 GM/50 ML SYRINGE IVPUSH (14:20)
[2024-07-28] MEDS: 0.9 % Sodium Chloride 1,000 ML 999 ML IVCONT (14:20)
--- NOTE | 2024-07-28 14:32 | PC.NURSE ---
pt a&ox3, pt labs drawn, was noted to have high potassium, patient was brought from aparicio bed to room 9 placed on a cardiac cath technician, iv was inserted and another nurse did a potassium shift, a redraw of labs was performed and the patients K had increased. Additional shift was performed. pt currently a&ox3, cardiac cath technician normal sinus rhythm, pt speaking with care team about services while this nurse medicated the patient. iv fluids running per order pt denies pain/discomfort, call reeves within reach, plan of care ongoing.
[2024-07-28 14:33] LABS: Glucose, Whole Blood 95 mg/dL (60-115)
--- NOTE | 2024-07-28 15:26 | PC.NURSE ---
pt refused a poc from female tech, he then requested something to eat from a different tech, this nurse told the tech that he could have something to eat only if he allowed the POC to be obtained. provider is aware of this
--- NOTE | 2024-07-28 15:28 | PC.NURSE ---
repeat poc was 65- provider notified pt given a sandwich and drink.
[2024-07-28 15:31] LABS: Glucose, Whole Blood 65 mg/dL (60-115)
--- NOTE | 2024-07-28 15:57 | PC.NURSE ---
pt educated to keep arm straight so the fluids will flow
--- NOTE | 2024-07-28 16:45 | ED.GENADULT ---
HPI - General Adult General Chief complaint: Psychiatric Symptoms Stated complaint: CRISIS Time Seen by Provider: 07/28/24 10:32 Source: patient Mode of arrival: EMS Limitations: no limitations Related Data Home Medications ?Medication ?Instructions ?Recorded ?Confirmed trazodone 50 mg tablet 100 mg PO BEDTIME PRN Sleep 08/24/23 07/25/24 divalproex 500 mg tablet,extended 2,000 mg PO BEDTIME 03/23/24 07/25/24 release 24 hr propranolol 20 mg tablet 20 mg PO BID 03/23/24 07/25/24 albuterol sulfate 90 mcg/actuation 2 puff inhalation QID PRN 07/04/24 07/25/24 aerosol inhaler Shortness Of Breath metformin 500 mg tablet 500 mg PO DAILY 07/04/24 07/25/24 clonidine HCl 0.1 mg tablet 0.1 mg PO BID 07/16/24 07/25/24 guanfacine 4 mg tablet,extended 4 mg PO DAILY 07/16/24 07/25/24 release 24 hr paliperidone 6 mg tablet,extended 6 mg PO BEDTIME 07/16/24 07/25/24 release 24 hr (Invega) cephalexin 500 mg capsule 1,000 mg PO Q6H 07/25/24 07/25/24 Allergies Allergy/AdvReac Type Severity Reaction Status Date / Time amoxicillin Allergy Hives Verified 07/28/24 10:50 PMFSH Past Medical History Medical History Routine medical exam HTN (hypertension) Bipolar disorder Diabetes Social History Social History Household Members: Other Household Members Other:: Patient reportedly lives in sober living home. Housing: Other Housing Other:: sober living house Do you presently have visiting nurse or other home services: No Alcohol intake: former Patient Tobacco Use Status: Never used Tobacco Tobacco use type: Cigarette Cigarette Packs Per Day: 1 Cigarettes Per Day: 3 Years Smoked: Many Smoked in Last 30 Days: Yes e-Cigarette/Vaping Use: Never Used Second Hand Smoke Exposure: No Use of substances other than those prescribed or required for medical reasons: No Substance Use Type: Marijuana Advance Directives: No Advance Directives Information Provided: Yes Do you have a plan to hurt others: No Plan service: No Sexual orientation: Straight/Heterosexual Physical Exam ED Vital Signs: Vital Signs - 24 hr 07/28/24 10:49 07/28/24 11:51 07/28/24 12:00 Temperature 98.3 F Pulse Rate 76 67 64 Respiratory Rate 16 24 H 12 Blood Pressure 117/55 L 108/67 Pulse Oximetry 97 97 Oxygen Delivery Method Room Air Room Air BMI result Body Mass Index 64.7 Course Reevaluation(s) Reevaluation #1: Potassium noted we we are waiting for repeat K I signed out the case to Dr Hall Time: 16:47 Medications Administered Discontinued Medications Generic Name Dose Route Start Last Admin Trade Name Freq PRN Reason Stop Dose Admin Albuterol Sulfate 7.5 mg/ 10 mg 07/28/24 11:34 07/28/24 11:57 Albuterol Sulfate 2.5 mg INHALE 07/28/24 11:35 10 mg ONCE ONE Administration Dextrose 25 gm 07/28/24 13:46 07/28/24 14:20 Dextrose 50 % 25 Gm/50 Ml Syringe IVPUSH 07/28/24 13:47 25 gm ONCE ONE Administration Sodium Chloride 1,000 mls @ 999 mls/hr 07/28/24 13:45 07/28/24 14:20 Ns IVCONT 07/28/24 14:45 999 mls/hr .Q1H1M GERMAIN Administration Calcium Gluconate 1 gm in 50 mls @ 50 mls/hr 07/28/24 13:45 07/28/24 14:20 Calcium Gluconate IV 07/28/24 14:44 50 mls/hr ONCE ONE Administration Insulin Human Regular 10 unit 07/28/24 13:46 07/28/24 14:20 Insulin Regular, Human 100 Unit/Ml 10 Ml Vial IVPUSH 07/28/24 13:47 10 unit ONCE ONE Administration Sodium Zirconium Cyclosilicate 10 gm 07/28/24 11:33 07/28/24 11:55 Sodium Zirconium Cyclosilicate 10 Gm Powd.Pack PO 07/28/24 11:34 10 gm ONCE ONE Administration Medical Decision Making Lab Data 07/28/24 10:56 07/28/24 13:22 Labs: Lab Results 07/28/24 07/28/24 07/28/24 Range/Units 10:56 11:47 13:22 WBC 6.3 (4.8-10.8) X10*3/uL RBC 3.77 L (4.60-5.80) X10*6/uL Hgb 10.8 L (14.0-18.0) g/dl Hct 34.2 L (42.0-52.0) % MCV 90.7 (80.0-98.0) fL MCH 28.6 (27.0-33.0) pg MCHC 31.6 (31.0-36.0) g/dl RDW 13.2 (11.0-16.0) % Plt Count 236 (160-400) X10*3/uL MPV 10.0 (9.4-12.4) fL Immature Gran % (Auto) 0.6 H (0.0-0.4) % Neut % (Auto) 57.6 (45-73) % Lymph % (Auto) 26.9 (20-40) % [place] % (Auto) 10.6 (2-11) % Eos % (Auto) 4.0 (0-4) % Baso % (Auto) 0.3 (0-2) % Lymph # (Auto) 1.7 (1.2-4.9) X10*3/uL [place] # (Auto) 0.7 (0.1-1.2) X10*3/uL Eos # (Auto) 0.3 (0.0-0.4) X10*3/uL Baso # (Auto) 0.0 (0.0-0.2) X10*3/uL Abs Immat Gran (auto) 0.04 H (0.00-0.03) X10*3/uL Absolute Neuts (auto) 3.6 (2.0-8.3) x10*3/uL Absolute Nucleated RBC 0.000 (0.0-0.012) X10*3/uL Nucleated RBC % (auto) 0.0 (0.0-0.2) /100WBC Sodium 143 140 (135-145) mmol/L Potassium 6.3 H* D 6.6 H* (3.3-5.1) mmol/L Chloride 112 H 111 H (96-108) mmol/L Carbon Dioxide 24 25 (22-29) mmol/L Anion Gap 13 11 L (12-20) BUN 36 H 34 H (9-16) mg/dL Creatinine 1.24 1.01 (0.5-1.4) mg/dL Estim Creat Clear Calc 139.8 171.7 Estimated GFR > 60 > 60 POC Glucose (60-115) mg/dL Random Glucose 100 91 (60-115) mg/dL Calcium 8.6 8.2 L (8.4-10.2) mg/dL Total Bilirubin 0.1 (0.0-1.0) mg/dL AST 20 (5-37) U/L ALT 17 (0-40) U/L Alkaline Phosphatase 44 (39-117) U/L Total Protein 6.6 (6.5-8.0) g/dL Albumin 3.4 L (3.5-5.0) g/dL Urine Opiates Screen Not Detected (Not Detect) Ur Buprenorphine Scrn Not Detected (Not Detect) ng/mL Ur Oxycodone Screen Not Detected (Not Detect) ng/mL Urine Methadone Screen Not Detected (Not Detect) ng/mL Urine Fentanyl Screen Not Detected (Not Detect) Ur Barbiturates Screen Not Detected (Not Detect) Ur Phencyclidine Scrn Not Detected (Not Detect) Ur Amphetamines Screen Not Detected (Not Detect) U Benzodiazepines Scrn Not Detected (Not Detect) Urine Cocaine Screen Not Detected (Not Detect) U Marijuana (THC) Screen Not Detected (Not Detect) Ethyl Alcohol < 10 mg/dL 07/28/24 07/28/24 Range/Units 14:28 15:27 WBC (4.8-10.8) X10*3/uL RBC (4.60-5.80) X10*6/uL Hgb (14.0-18.0) g/dl Hct (42.0-52.0) % MCV (80.0-98.0) fL MCH (27.0-33.0) pg MCHC (31.0-36.0) g/dl RDW (11.0-16.0) % Plt Count (160-400) X10*3/uL MPV (9.4-12.4) fL Immature Gran % (Auto) (0.0-0.4) % Neut % (Auto) (45-73) % Lymph % (Auto) (20-40) % [place] % (Auto) (2-11) % Eos % (Auto) (0-4) % Baso % (Auto) (0-2) % Lymph # (Auto) (1.2-4.9) X10*3/uL [place] # (Auto) (0.1-1.2) X10*3/uL Eos # (Auto) (0.0-0.4) X10*3/uL Baso # (Auto) (0.0-0.2) X10*3/uL Abs Immat Gran (auto) (0.00-0.03) X10*3/uL Absolute Neuts (auto) (2.0-8.3) x10*3/uL Absolute Nucleated RBC (0.0-0.012) X10*3/uL Nucleated RBC % (auto) (0.0-0.2) /100WBC Sodium (135-145) mmol/L Potassium (3.3-5.1) mmol/L Chloride (96-108) mmol/L Carbon Dioxide (22-29) mmol/L Anion Gap (12-20) BUN (9-16) mg/dL Creatinine (0.5-1.4) mg/dL Estim Creat Clear Calc Estimated GFR POC Glucose 95 65 (60-115) mg/dL Random Glucose (60-115) mg/dL Calcium (8.4-10.2) mg/dL Total Bilirubin (0.0-1.0) mg/dL AST (5-37) U/L ALT (0-40) U/L Alkaline Phosphatase (39-117) U/L Total Protein (6.5-8.0) g/dL Albumin (3.5-5.0) g/dL Urine Opiates Screen (Not Detect) Ur Buprenorphine Scrn (Not Detect) ng/mL Ur Oxycodone Screen (Not Detect) ng/mL Urine Methadone Screen (Not Detect) ng/mL Urine Fentanyl Screen (Not Detect) Ur Barbiturates Screen (Not Detect) Ur Phencyclidine Scrn (Not Detect) Ur Amphetamines Screen (Not Detect) U Benzodiazepines Scrn (Not Detect) Urine Cocaine Screen (Not Detect) U Marijuana (THC) Screen (Not Detect) Ethyl Alcohol mg/dL Discharge Plan Discharge Clinical Impression: PTSD (post-traumatic stress disorder), Acute hyperkalemia Depression Qualifiers: Depression Type: unspecified Qualified Code(s): F32.A - Depression, unspecified Patient Disposition: Still a Patient Prescriptions: No Action divalproex 500 mg tablet extended release 24 hr 2,000 mg PO BEDTIME propranolol 20 mg tablet 20 mg PO BID metformin 500 mg tablet 500 mg PO DAILY albuterol sulfate 90 mcg/actuation HFA aerosol inhaler 2 puff INHALATION QID PRN (Reason: Shortness Of Breath) cephalexin 500 mg capsule 1,000 mg PO Q6H trazodone 50 mg tablet 100 mg PO BEDTIME PRN (Reason: Sleep) clonidine HCl 0.1 mg Tablet 0.1 mg PO BID paliperidone [Invega] 6 mg Tablet Extended Release 24 Hr 6 mg PO BEDTIME guanfacine 4 mg Tablet Extended Release 24 Hr 4 mg PO DAILY Interventions: [place]-Suicide Risk Severity Scale Last Done: 07/28/24 10:53 Print Language: Polish
[2024-07-28 17:16] VITALS: BP 137/77; PULSE 65; RESP 20; TEMP 36.5; O2SAT 98
[2024-07-28 18:04] LABS: Anion Gap 13 (12-20); Blood Urea Nitrogen 33 mg/dL (9-16); Calcium 8.5 mg/dL (8.4-10.2); Carbon Dioxide 25 mmol/L (22-29); Chloride 110 mmol/L (96-108); Creatinine Clr Calc Pharmacy 160.6; Estimated Glomerular Filt Rate > 60; Glucose Random 105 mg/dL (60-115); Potassium 5.4 mmol/L (3.3-5.1); Sodium 143 mmol/L (135-145)
[2024-07-28 18:52] VITALS: BP 130/72; PULSE 68; RESP 18; TEMP 36.4; O2SAT 98
== END 2024-07-28 18:54 | disposition home or self-care (01) ==
PROVIDERS: Emergency Medicine; Emergency Provider Emergency Medicine
DX: F43.10 Post-traumatic stress disorder, unspecified (principal); F32.A Depression, unspecified; E87.5 Hyperkalemia; Z79.899 Other long term (current) drug therapy
CPT/HCPCS: 36415; 80048; 80053; 80307; 82947; 85025; 93005; 94640; 96361; 96374; 96375; 99285; J0613; S9485

== ENCOUNTER → 2024-07-28 11:33 | Outpatient (BNV) | payer OTHER, SELFPAY | PROVIDERS: Emergency Provider Emergency Medicine; Visit Provider Internal Medicine Cardiovascular Disease | DX: E87.5 Hyperkalemia (principal) | CPT/HCPCS: 93010 ==

== ENCOUNTER 2024-07-29 21:20 | Emergency (ER) | payer OTHER, SELFPAY ==
[2024-07-29 21:28] VITALS: BP 116/49; PULSE 79; RESP 18; TEMP 36.7; O2SAT 94; BMI 62.8
--- NOTE | 2024-07-29 22:20 | PC.NURSE ---
pt talking with provider at this time. pt is calm and cooperative.
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
[2024-07-29 22:31] LABS: MANUAL DIFF FLAG NO
[2024-07-29 22:32] LABS: Basophils Percent Auto 0.3 % (0-2); Eosinophils Absolute Auto 0.2 X10*3/uL (0.0-0.4); Eosinophils Percent Auto 3.1 % (0-4); Hemoglobin 10.3 g/dl (14.0-18.0); Imm Gran Abs Auto 0.04 X10*3/uL (0.00-0.03); Imm Gran Pct Auto 0.6 % (0.0-0.4); Lymphocytes Absolute Auto 2.1 X10*3/uL (1.2-4.9); Lymphocytes Percent Auto 30.2 % (20-40); Mean Corpuscular HGB Conc 32.2 g/dl (31.0-36.0); Mean Corpuscular Hemoglobin 28.5 pg (27.0-33.0); Mean Corpuscular Volume 88.6 fL (80.0-98.0); Mean Platelet Volume 10.3 fL (9.4-12.4); Monocytes Absolute Auto 0.5 X10*3/uL (0.1-1.2); Monocytes Percent Auto 7.7 % (2-11); Neutrophils Absolute Auto 4.1 x10*3/uL (2.0-8.3); Neutrophils Percent Auto 58.1 % (45-73); Platelet Count 241 X10*3/uL (160-400); Red Blood Count 3.61 X10*6/uL (4.60-5.80); Red Cell Distribution Width 12.9 % (11.0-16.0); White Blood Count 7.1 X10*3/uL (4.8-10.8)
[2024-07-29 22:42] LABS: Amphetamine Screen Urine Not Detected (Not Detect); Barbiturates, Urine Not Detected (Not Detect); Benzodiazepines Screen Urine Not Detected (Not Detect); Buprenorphine Scr Not Detected (Not Detect); Cannabinoid Screen Urine Not Detected (Not Detect); Cocaine Screen Urine Not Detected (Not Detect); Fentanyl, urine Not Detected (Not Detect); Methadone Screen, Urine Not Detected (Not Detect); Opiate Screen Urine Not Detected (Not Detect); Oxycodone Screen Urine Not Detected (Not Detect); Phencyclidine Screen Urine Not Detected (Not Detect)
[2024-07-29 22:56] LABS: Alanine Aminotransferase 19 U/L (0-40); Albumin Level 3.6 g/dL (3.5-5.0); Alkaline Phosphatase 47 U/L (39-117); Anion Gap 12 (12-20); Aspartate Amino Transferase 18 U/L (5-37); Bilirubin Direct < 0.2 mg/dL (0.0-0.5); Bilirubin Total 0.1 mg/dL (0.0-1.0); Blood Urea Nitrogen 34 mg/dL (9-16); Calcium 8.5 mg/dL (8.4-10.2); Carbon Dioxide 23 mmol/L (22-29); Chloride 112 mmol/L (96-108); Creatinine Clr Calc Pharmacy 139.4; Estimated Glomerular Filt Rate > 60; Ethanol < 10 mg/dL; Glucose Random 119 mg/dL (60-115); Magnesium 1.8 mg/dL (1.6-2.6); Potassium 5.2 mmol/L (3.3-5.1); Sodium 142 mmol/L (135-145); Total Protein 6.7 g/dL (6.5-8.0)
[2024-07-29 23:02] LABS: Valproate 43.3 mcg/mL (50.0-100.0)
[2024-07-29 23:19] VITALS: BP 116/49; PULSE 79; RESP 18; TEMP 36.7; O2SAT 94
--- NOTE | 2024-07-29 23:21 | PC.NURSE ---
security called pt is argumentive and giving push back. Security brought pt to the waiting room to wait for his ride provided by care team.
== END 2024-07-29 23:27 | disposition home or self-care (01) ==
LOC: HO.ED 23:28
PROVIDERS: Emergency Provider Emergency Medicine
DX: F43.10 Post-traumatic stress disorder, unspecified (principal); F31.9 Bipolar disorder, unspecified; E11.9 Type 2 diabetes mellitus without complications; I10 Essential (primary) hypertension; Z79.899 Other long term (current) drug therapy; F17.210 Nicotine dependence, cigarettes, uncomplicated; Z51.81 Encounter for therapeutic drug level monitoring; Z79.84 Long term (current) use of oral hypoglycemic drugs
CPT/HCPCS: 36415; 80048; 80076; 80164; 80307; 83735; 85025; 99284; S9485

== ENCOUNTER 2024-08-02 18:34 | Emergency (ER) | payer OTHER, SELFPAY ==
--- NOTE | 2024-08-02 18:44 | ED.PSYCH ---
HPI - Psych General Chief Complaint: Psychiatric Symptoms Stated Complaint: PSYCH, FEELS UNSAFE PER EMS Time Seen by Provider: 08/02/24 18:37 Source: patient and EMS Mode of arrival: EMS Limitations: no limitations History of Present Illness ED Provider: Dr. Mahnaz Okeefe HPI Narrative: Patient comes to the emergency room via ambulance from a motel where he is currently living. According to the patient , he is very depressed, denies SI or HI, patient states that his mind has been traveling to dark places. Patient states that he is compliant with his medications but they are not working. Patient states that he feels unsafe for he lives. patient admits that earlier today he drank alcohol and smoked marijuana Related Data Home Medications ?Medication ?Instructions ?Recorded ?Confirmed trazodone 50 mg tablet 100 mg PO BEDTIME PRN Sleep 08/24/23 08/02/24 divalproex 500 mg tablet,extended 2,000 mg PO BEDTIME 03/23/24 08/02/24 release 24 hr propranolol 20 mg tablet 20 mg PO BID 03/23/24 08/02/24 albuterol sulfate 90 mcg/actuation 2 puff inhalation QID PRN 07/04/24 08/02/24 aerosol inhaler Shortness Of Breath metformin 500 mg tablet 500 mg PO DAILY 07/04/24 08/02/24 clonidine HCl 0.1 mg tablet 0.1 mg PO BID 07/16/24 08/02/24 guanfacine 4 mg tablet,extended 4 mg PO DAILY 07/16/24 08/02/24 release 24 hr paliperidone 6 mg tablet,extended 6 mg PO BEDTIME 07/16/24 08/02/24 release 24 hr (Invega) Previous Rx's ?Medication ?Instructions ?Recorded sodium zirconium cyclosilicate 10 10 g PO DAILY #30 ea 07/28/24 gram oral powder packet (Lokelma) Allergies Allergy/AdvReac Type Severity Reaction Status Date / Time amoxicillin Allergy Hives Verified 08/02/24 18:46 Review of Systems Review of Systems: Constitutional : No Weight loss, No Fever, No Chills, No Night Sweats, No Fatigue, No Malaise ENT/Mouth : No Hearing loss, No Ear Pain, No Nasal Congestion, No Sinus Pain, No Hoarseness, No sore throat, No Rhinorrhea, No Swallowing Difficulty Eyes: No Eye Pain, No Swelling, No Redness, No Foreign Body, No Discharge, No Vision Changes Cardiovascular : No Chest Pain, No SOB, No Dyspnea on Exertion, No Orthopnea, No Edema, No Palpitations Respiratory : No Cough, No Sputum, No Wheezing, No Smoke Exposure, No Dyspnea Gastrointestinal : No Nausea, No Vomiting, No Diarrhea, No Constipation, No abdominal Pain, No Hematochezia, No Melena Genitourinary : no irregular bleeding, No Dysuria, No Urinary Frequency, No Hematuria, No Urinary Incontinence, No Urgency, No Flank Pain, No Urinary Flow Changes, No Hesitancy Musculoskeletal : No joint pain, No Myalgias, No Joint Swelling Skin : No Skin Lesions, No rash Neuro : No Weakness, No Numbness, No Paresthesias, No Loss of Consciousness, No Dizziness, No Headache Psych : complaining of anxiety, depression, housing difficulties currently living in a motel, denies SI or HI Heme/Lymph: No Bruising, No Bleeding,No Lymphadenopathy Endocrine : No Polyuria, No Polydipsia, No Temperature Intolerance PMFSH Past Medical History Medical History Routine medical exam HTN (hypertension) Bipolar disorder Diabetes Social History Social History Household Members: Other Household Members Other:: Patient reportedly lives in sober living home. Housing: Other Housing Other:: sober living house Do you presently have visiting nurse or other home services: No Alcohol intake: former Patient Tobacco Use Status: Never used Tobacco Tobacco use type: Cigarette Cigarette Packs Per Day: 1 Cigarettes Per Day: 3 Years Smoked: Many e-Cigarette/Vaping Use: Never Used Second Hand Smoke Exposure: No Substance Use Type: Marijuana Advance Directives: No Advance Directives Information Provided: No service: No Sexual orientation: Straight/Heterosexual Physical Exam Vital Signs: Vital Signs: Last Vital Signs Temp 97.7 F 08/02/24 18:45 Pulse 89 08/02/24 18:45 Resp 16 08/02/24 18:45 BP 120/79 08/02/24 18:45 Pulse Ox 99 08/02/24 18:45 O2 Del Method Room Air 08/02/24 18:45 BMI result Body Mass Index 62.6 Const: Other: Appearance: Alert. Oriented X3. No acute distress. Eyes: Pupils equal, round and reactive to light. ENT: Pharynx normal. Neck: Normal inspection. Neck supple. No lymph nodes noted. No crepitus CVS: Normal heart rate and rhythm. Pulses normal. Normal S1 and S2 Respiratory: No respiratory distress. Breath sounds normal. No Wheezing. No rales Abdomen: Soft and nontender. No rigidity. No distention. Skin: Skin warm and dry. Normal skin color. Normal skin turgor. Extremities: No lower extremity edema. No Lacerations. No Rash Neuro: Oriented X 3. No motor deficit. No sensory deficit. Moving all extremities. No slurred speech. CN 2 through 12 grossly intact Psych: calm, cooperative, bizarre affect Course Course Course Narrative: all of patient's labs pending care team consult pending patient is not suicidal or homicidal, patient is here voluntarily. Section 12 is not indicated at this time. Medical Decision Making Medical Decision Making [facility] Narrative: my interpretation of labs: No significant abnormality in patient's hematology and chemistry. I discussed the patient with the care team, seems that they have documentation that the patient has been in pretty much all local hospitals several times this week. Seems that the main problem is that patient does not like the motel where he lives. Recommendations: Reassess in the morning and likely discharge. Patient was evaluated couple of days ago here in this emergency room. Differential Diagnosis Differential Diagnoses: The differential diagnosis associated with the presentation includes ( Anxiety, depression, PTSD, bipolar disorder) Admission/Observation Consideration of admission/observation: Escalation of care including admission/observation considered ( patient's seems to be a bit decompensated, may need inpatient level of care, care team consult pending) Lab Data 08/02/24 19:11 08/02/24 19:11 Labs: Lab Results 08/02/24 08/02/24 Range/Units 19:00 19:11 WBC 6.9 (4.8-10.8) X10*3/uL RBC 4.09 L (4.60-5.80) X10*6/uL Hgb 11.9 L (14.0-18.0) g/dl Hct 36.3 L (42.0-52.0) % MCV 88.8 (80.0-98.0) fL MCH 29.1 (27.0-33.0) pg MCHC 32.8 (31.0-36.0) g/dl RDW 13.0 (11.0-16.0) % Plt Count 229 (160-400) X10*3/uL MPV 10.3 (9.4-12.4) fL Immature Gran % (Auto) 0.6 H (0.0-0.4) % Neut % (Auto) 60.1 (45-73) % Lymph % (Auto) 28.7 (20-40) % Runnels % (Auto) 8.2 (2-11) % Eos % (Auto) 2.0 (0-4) % Baso % (Auto) 0.4 (0-2) % Lymph # (Auto) 2.0 (1.2-4.9) X10*3/uL Runnels # (Auto) 0.6 (0.1-1.2) X10*3/uL Eos # (Auto) 0.1 (0.0-0.4) X10*3/uL Baso # (Auto) 0.0 (0.0-0.2) X10*3/uL Abs Immat Gran (auto) 0.04 H (0.00-0.03) X10*3/uL Absolute Neuts (auto) 4.1 (2.0-8.3) x10*3/uL Absolute Nucleated RBC 0.000 (0.0-0.012) X10*3/uL Nucleated RBC % (auto) 0.0 (0.0-0.2) /100WBC Sodium 141 (135-145) mmol/L Potassium 5.1 (3.3-5.1) mmol/L Chloride 109 H (96-108) mmol/L Carbon Dioxide 23 (22-29) mmol/L Anion Gap 14 (12-20) BUN 23 H (9-16) mg/dL Creatinine 1.14 (0.5-1.4) mg/dL Estim Creat Clear Calc 149.0 Estimated GFR > 60 Random Glucose 82 (60-115) mg/dL Calcium 9.1 D (8.4-10.2) mg/dL Total Bilirubin 0.2 (0.0-1.0) mg/dL Direct Bilirubin < 0.2 (0.0-0.5) mg/dL AST 20 (5-37) U/L ALT 24 (0-40) U/L Alkaline Phosphatase 47 (39-117) U/L Total Protein 7.2 (6.5-8.0) g/dL Albumin 3.9 (3.5-5.0) g/dL Urine Opiates Screen Not Detected (Not Detect) Ur Buprenorphine Scrn Not Detected (Not Detect) ng/mL Ur Oxycodone Screen Not Detected (Not Detect) ng/mL Urine Methadone Screen Not Detected (Not Detect) ng/mL Urine Fentanyl Screen Not Detected (Not Detect) Ur Barbiturates Screen Not Detected (Not Detect) Ur Phencyclidine Scrn Not Detected (Not Detect) Ur Amphetamines Screen Not Detected (Not Detect) U Benzodiazepines Scrn Not Detected (Not Detect) Urine Cocaine Screen Not Detected (Not Detect) U Marijuana (THC) Screen Not Detected (Not Detect) Ethyl Alcohol 14 mg/dL Discharge Plan Discharge Clinical Impression: Depression Patient Disposition: Still a Patient Prescriptions: No Action divalproex 500 mg tablet extended release 24 hr 2,000 mg PO BEDTIME propranolol 20 mg tablet 20 mg PO BID metformin 500 mg tablet 500 mg PO DAILY albuterol sulfate 90 mcg/actuation HFA aerosol inhaler 2 puff INHALATION QID PRN (Reason: Shortness Of Breath) Lokelma 10 gram powder in packet 10 g PO DAILY Qty: 30 0RF trazodone 50 mg tablet 100 mg PO BEDTIME PRN (Reason: Sleep) clonidine HCl 0.1 mg Tablet 0.1 mg PO BID paliperidone [Invega] 6 mg Tablet Extended Release 24 Hr 6 mg PO BEDTIME guanfacine 4 mg Tablet Extended Release 24 Hr 4 mg PO DAILY Interventions: Dewitt-Suicide Risk Severity Scale Last Done: 08/02/24 19:20 Print Language: Australian
[2024-08-02 18:45] VITALS: BP 120/79; BP 130/74; PULSE 83; PULSE 89; RESP 16; TEMP 36.5; O2SAT 98; O2SAT 99; BMI 62.6
[2024-08-02 19:17] LABS: Amphetamine Screen Urine Not Detected (Not Detect); Barbiturates, Urine Not Detected (Not Detect); Benzodiazepines Screen Urine Not Detected (Not Detect); Buprenorphine Scr Not Detected (Not Detect); Cannabinoid Screen Urine Not Detected (Not Detect); Cocaine Screen Urine Not Detected (Not Detect); Fentanyl, urine Not Detected (Not Detect); Methadone Screen, Urine Not Detected (Not Detect); Opiate Screen Urine Not Detected (Not Detect); Oxycodone Screen Urine Not Detected (Not Detect); Phencyclidine Screen Urine Not Detected (Not Detect)
[2024-08-02 19:17] LABS: MANUAL DIFF FLAG NO
[2024-08-02 19:19] LABS: Basophils Percent Auto 0.4 % (0-2); Eosinophils Absolute Auto 0.1 X10*3/uL (0.0-0.4); Hematocrit 36.3 % (42.0-52.0); Hemoglobin 11.9 g/dl (14.0-18.0); Imm Gran Abs Auto 0.04 X10*3/uL (0.00-0.03); Imm Gran Pct Auto 0.6 % (0.0-0.4); Lymphocytes Percent Auto 28.7 % (20-40); Mean Corpuscular HGB Conc 32.8 g/dl (31.0-36.0); Mean Corpuscular Hemoglobin 29.1 pg (27.0-33.0); Mean Corpuscular Volume 88.8 fL (80.0-98.0); Mean Platelet Volume 10.3 fL (9.4-12.4); Monocytes Absolute Auto 0.6 X10*3/uL (0.1-1.2); Monocytes Percent Auto 8.2 % (2-11); Neutrophils Absolute Auto 4.1 x10*3/uL (2.0-8.3); Neutrophils Percent Auto 60.1 % (45-73); Platelet Count 229 X10*3/uL (160-400); Red Blood Count 4.09 X10*6/uL (4.60-5.80); White Blood Count 6.9 X10*3/uL (4.8-10.8)
[2024-08-02 19:33] LABS: Alanine Aminotransferase 24 U/L (0-40); Albumin Level 3.9 g/dL (3.5-5.0); Alkaline Phosphatase 47 U/L (39-117); Anion Gap 14 (12-20); Aspartate Amino Transferase 20 U/L (5-37); Bilirubin Direct < 0.2 mg/dL (0.0-0.5); Bilirubin Total 0.2 mg/dL (0.0-1.0); Blood Urea Nitrogen 23 mg/dL (9-16); Calcium 9.1 mg/dL (8.4-10.2); Carbon Dioxide 23 mmol/L (22-29); Chloride 109 mmol/L (96-108); Estimated Glomerular Filt Rate > 60; Ethanol 14 mg/dL; Glucose Random 82 mg/dL (60-115); Potassium 5.1 mmol/L (3.3-5.1); Sodium 141 mmol/L (135-145); Total Protein 7.2 g/dL (6.5-8.0)
[2024-08-02 21:36] VITALS: BP 120/79
[2024-08-02] MEDS: Divalproex Sodium ER 500 MG TAB.ER.24H 2000 MG PO (21:36)
[2024-08-02] MEDS: cloNIDine HCL 0.1 MG TABLET PO (21:36)
[2024-08-02 21:37] VITALS: BP 120/79; PULSE 89
[2024-08-02] MEDS: Paliperidone ER 6 MG TAB.ER.24 PO (21:37)
[2024-08-02] MEDS: Propranolol HCL 20 MG TABLET PO (21:37)
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
[2024-08-03] MEDS: traZODone HCL 100 MG TABLET PO (02:52)
[2024-08-03 07:31] VITALS: BP 127/85; PULSE 83; RESP 16; TEMP 36.6; O2SAT 97
--- NOTE | 2024-08-03 07:33 | PC.NURSE ---
Patient woke up ate breakfastand stated that he is still feeling depressed. Plan is for care team to follow up this am.
[2024-08-03 08:04] VITALS: BP 127/85; PULSE 83
[2024-08-03] MEDS: Sodium Zirconium Cyclosilicate 10 GM POWD.PACK PO (08:04)
[2024-08-03] MEDS: metFORMIN HCl 500 MG TABLET PO (08:04)
[2024-08-03] MEDS: Propranolol HCL 20 MG TABLET PO (08:04)
[2024-08-03] MEDS: cloNIDine HCL 0.1 MG TABLET PO (08:04)
[2024-08-03] MEDS: guanFACINE HCl ER 2 MG TAB.ER.24H 4 MG PO (08:22)
--- NOTE | 2024-08-03 09:16 | PC.NURSE ---
Care team in to see patient awaiting disposition.
--- NOTE | 2024-08-03 09:16 | MHC.EDTECH ---
Received call from Dinorah COLLIER with [facility]. RN checking on status of patients assessment and if patient is discharged provided a number for patient to call to arrange an evening nurse to come by and pass medications. Number for [facility] [phone]. RN aware of call.
[2024-08-03 11:05] VITALS: BP 136/83; PULSE 53; RESP 16; TEMP 36.4; O2SAT 97
[2024-08-03 11:13] VITALS: BP 136/83; PULSE 53; RESP 16; TEMP 36.4; O2SAT 97
== END 2024-08-03 11:18 | disposition home or self-care (01) ==
PROVIDERS: Emergency Provider Emergency Medicine
DX: F32.A Depression, unspecified (principal); F43.10 Post-traumatic stress disorder, unspecified; E11.9 Type 2 diabetes mellitus without complications; I10 Essential (primary) hypertension; F12.920 Cannabis use, unspecified with intoxication, uncomplicated; F17.210 Nicotine dependence, cigarettes, uncomplicated; Z79.899 Other long term (current) drug therapy; Z79.84 Long term (current) use of oral hypoglycemic drugs
CPT/HCPCS: 36415; 80048; 80076; 80307; 85025; 99284; S9485

== ENCOUNTER 2024-08-15 23:45 | Emergency (ER) | payer OTHER, SELFPAY ==
[2024-08-15 23:48] VITALS: BP 147/89; PULSE 87; PULSE 90; RESP 18; TEMP 36.3; O2SAT 95; O2SAT 97; BMI 59.5
[2024-08-16 01:54] VITALS: BP 135/80; PULSE 94; RESP 18; TEMP 36.4; O2SAT 98
--- NOTE | 2024-08-16 01:56 | ED.GENADULT ---
HPI - General Adult General Chief complaint: Skin/Abscess/Foreign Body Stated complaint: Chronic leg discompfot x1yr. itchy Time Seen by Provider: 08/16/24 01:56 Source: patient Mode of arrival: ambulatory Limitations: no limitations History of Present Illness ED Provider: Elieser Sorto DO HPI narrative: 33-year-old male with past medical history of hypertension, [id number] type 2 diabetes on metformin, bipolar disorder and multiple visits recently to this hospital presents due to 1-1/2 years of persistent right lateral thigh pruritus. Patient states was unable to deal with these symptoms which prompted his visit today. This or weakness of his feet, inability to walk, trauma to the area, fevers, chills or abdominal pain. He states he is unable to properly itch the area with attempts. He has not seen a provider for this in the past. Related Data Home Medications ?Medication ?Instructions ?Recorded ?Confirmed trazodone 50 mg tablet 100 mg PO BEDTIME PRN Sleep 08/24/23 08/02/24 divalproex 500 mg tablet,extended 2,000 mg PO BEDTIME 03/23/24 08/02/24 release 24 hr propranolol 20 mg tablet 20 mg PO BID 03/23/24 08/02/24 albuterol sulfate 90 mcg/actuation 2 puff inhalation QID PRN 07/04/24 08/02/24 aerosol inhaler Shortness Of Breath metformin 500 mg tablet 500 mg PO DAILY 07/04/24 08/02/24 clonidine HCl 0.1 mg tablet 0.1 mg PO BID 07/16/24 08/02/24 guanfacine 4 mg tablet,extended 4 mg PO DAILY 07/16/24 08/02/24 release 24 hr paliperidone 6 mg tablet,extended 6 mg PO BEDTIME 07/16/24 08/02/24 release 24 hr (Invega) Previous Rx's ?Medication ?Instructions ?Recorded sodium zirconium cyclosilicate 10 10 g PO DAILY #30 ea 07/28/24 gram oral powder packet (Lokelma) gabapentin 100 mg capsule 100 mg PO TID #30 caps 08/16/24 Allergies Allergy/AdvReac Type Severity Reaction Status Date / Time amoxicillin Allergy Hives Verified 08/15/24 23:51 Review of Systems Review of Systems: Yes all other systems are reviewed and are negative PMF Past Medical History Medical History Routine medical exam HTN (hypertension) Bipolar disorder Diabetes Social History Social History Household Members: Other Household Members Other:: Patient reportedly lives in sober living home. Housing: Other Housing Other:: sober living house Do you presently have visiting nurse or other home services: No Alcohol intake: former Patient Tobacco Use Status: Never used Tobacco Tobacco use type: Cigarette Cigarette Packs Per Day: 1 Cigarettes Per Day: 3 Years Smoked: Many Smoked in Last 30 Days: No e-Cigarette/Vaping Use: Never Used Second Hand Smoke Exposure: No Substance Use Type: Marijuana Advance Directives: No Advance Directives Information Provided: Yes Do you have a plan to hurt others: No Plan service: No Sexual orientation: Straight/Heterosexual Physical Exam ED Vital Signs: Vital Signs - 24 hr 08/15/24 23:48 08/16/24 01:54 08/16/24 02:20 Temperature 97.4 F 97.6 F 97.6 F Pulse Rate 87 94 94 Respiratory Rate 18 18 18 Blood Pressure 147/89 H 135/80 135/80 Pulse Oximetry 97 98 98 Oxygen Delivery Method Room Air Room Air Room Air BMI result Body Mass Index 59.5 Constitutional: ?Alert, oriented, speaking in full sentences HEENT: ?Normocephalic, atraumatic. Eyes: ?PERRL, EOMI Neck: ?Supple Respiratory: no increased work of breathing Cardio: ?2+ DP pulses symmetrically Back: Normal range of motion Skin: ?No rash, no lesions, specifically over the right lateral leg Neuro: ?Alert and oriented to person, place and time, moves all 4 extremities, no focal deficits, 5/5 strength and sensation fully intact of the bilateral lower extremities Extremities: ?No swelling or tenderness, full range of motion, no bony tenderness to the right lower extremity. Psych: ?Calm, alert and cooperative, appropriate behavior Medical Decision Making Medical Decision Making MDM Narrative: This is a well-appearing, vitally stable patient presenting with chronic right lateral thigh pruritus. He is neurovascularly intact and is able to stand and ambulate without difficulty. He has no signs of scabies a cellulitis or dangerous etiology of the skin. His right leg appears normal on exam. Differential diagnosis includes diabetic neuropathy, lateral cutaneous nerve neuropathy or refluxed veins. The patient will trial gabapentin at home. I also primary care provider for re-evaluation and possible further testing with a vein specialist. I also encouraged him to take his diabetic therapy and follow-up as this could be related to his diabetes. The patient agrees with plan and has no further concerns. Discharge Plan Discharge Clinical Impression: Chronic pruritus Chronic leg pain Qualifiers: Laterality: right Qualified Code(s): M79.604 - Pain in right leg Patient Disposition: Home, Self-Care Instructions: Leg Cramps (ED), Itchy Skin (ED), Leg Pain (ED) Additional Instructions: You were seen for itching of the right leg. This could be related to neuropathy from your diabetes, irritation of the nerve in that area or an issue with the valves of your veins. We will trial a low dose of gabapentin at home. Please take this as the bottle directs. Importantly, please follow up with a primary care provider for further evaluation. If the symptoms do not improve they may have you follow-up with a vein specialist for further evaluation. It is also very important that you control your diabetes as this could be the cause. Please return if you have any worsening symptoms or any new changes or concerns. Prescriptions: New gabapentin 100 mg capsule 100 mg PO TID Qty: 30 0RF No Action divalproex 500 mg tablet extended release 24 hr 2,000 mg PO BEDTIME propranolol 20 mg tablet 20 mg PO BID metformin 500 mg tablet 500 mg PO DAILY albuterol sulfate 90 mcg/actuation HFA aerosol inhaler 2 puff INHALATION QID PRN (Reason: Shortness Of Breath) Lokelma 10 gram powder in packet 10 g PO DAILY Qty: 30 0RF trazodone 50 mg tablet 100 mg PO BEDTIME PRN (Reason: Sleep) clonidine HCl 0.1 mg Tablet 0.1 mg PO BID paliperidone [Invega] 6 mg Tablet Extended Release 24 Hr 6 mg PO BEDTIME guanfacine 4 mg Tablet Extended Release 24 Hr 4 mg PO DAILY Interventions: ED Discharge Assessment Last Done: 08/16/24 02:20 Discharge Date/Time: 08/16/24 02:21 Print Language: Occitan
--- NOTE | 2024-08-16 02:06 | PC.NURSE ---
Provider to [place] [id number] for assessment, cleared for tn home.
--- NOTE | 2024-08-16 02:11 | PC.NURSE ---
MD at bedside for primary eval. Plan for DC home.
[2024-08-16 02:20] VITALS: BP 135/80; PULSE 94; RESP 18; TEMP 36.4; O2SAT 98
== END 2024-08-16 02:21 | disposition home or self-care (01) ==
PROVIDERS: Emergency Provider Emergency Medicine
DX: L29.89 Other pruritus (principal); M79.604 Pain in right leg; E11.9 Type 2 diabetes mellitus without complications; Z79.4 Long term (current) use of insulin; Z79.899 Other long term (current) drug therapy
CPT/HCPCS: 99283; 99284

== ENCOUNTER 2024-12-11 14:33 | Emergency (ER) | payer OTHER, SELFPAY ==
--- OUTSIDE RECORDS SUMMARY | 2024-12-09 05:02 | XMS_ITS | Encounter Summary ---
Author Organization [facility] Address [address] [place] [address] Care Team Providers Care Store Protection Specialist Name Role Phone Physician, No Pcp Primary Care Provider Unavaila ble Reason for Visit * Reason Comments Psychiatric Evaluation Pt states he want s to shoot himself, pt c/o depression for past few days. Seen here yesterday. Encounter Details Date Type Department Care Team (Late st Contact Info) Description 12/09/2024 5:02 AM EDT - 12/09/2024 8:57 AM EDT Emergency [facility] Emergency [address] [place] [id number] Emil Rasmussen MD [address] [place] [address] Yohana Shah MD [address] [place] [address] Current moderate episode of major depressive disorder, unspecified whether recurrent (CMS/HCC V24, CMS/HCC V28) (Primary Dx) Discharge Disposition: Home or Self Care Social History Tobacco Use Types Packs/Day Years Used Date Smoking Tobacco: Never Passive Smoke Exposure: Current Smokeless Tobacco: Never Tobacco Cessation:Counseling Given: Not Answered Alcohol Use Standard Drinks/Week Comments Not Currently 0 (1 standard drink = 0.6 oz pur e alcohol) Sex and Gender Information Value Date Recorded Sex Assigned at Male 08/04/2024 5:33 PM EDT Legal Sex Male 7:47 AM EST Gender Identity Male 08/04/2024 5:33 PM EDT Sexual Orientation Straight 08/04/2024 5: 33 PM EDT documented as of this encounter Last Filed Vital Signs Vital Sign Reading Time Taken Comments Blood Pressure 136/87 12/09/2024 7:25 AM EDT Pulse 73 12/09/2024 7:25 AM EDT Temperature 36.8 C (98.2 F) 12/09/2024 7:25 AM EDT Respiratory Rate 20 12/09/2024 7:25 AM EDT Oxygen Saturation 99% 12/09/2024 7:25 AM EDT Inhaled Oxygen Concentration - - Weight 159 kg (350 lb) 12/09/2024 5:23 AM EDT Height 170.2 cm (5' 7 ) 12/09/2024 5:23 AM EDT Body Mass Index 54.82 12/09/2024 5:23 AM EDT documented in this encounter Functional Status * Are you deaf or do you have serious difficulty hearing? Answer Date of Assessment Author No 12/07/2024 12:14 AM EDT Sindhu Carpenter RN * Are you blind or do you have serious difficulty seeing, even when wearing glasses? Answer Date of Assessment Author No 12/07/2024 12:14 AM EDT Sindhu Carpenter RN * Do you have serious difficulty walking or climbing stairs? Answer Date of Assessment Author No 12/07/2024 12:14 AM EDT Sindhu Carpenter RN * Do you have serious difficulty dressing or bathing? Answer Date of Assessment Author No 12/07/2024 12:14 AM EDT Sindhu Carpenter RN * Because of a physical, mental, or emotional condition, do you have serious difficulty doing errandsalone such as visiting the doctor? Answer Date of Assessment Author No 12/07/2024 12:14 AM EDT Sindhu Carpenter RN documented as of this encounter Mental Status * Because of a physical, mental, or emotional condition, do you have serious difficulty concentrating, remembering, or making decisions? (5 years old or older) Answer Entry Date Author No 12/07/2024 12:14 AM EDT Sindhu Carpenter RN documented in this encounter Medications at Time of Discharge albuterol HFA (PROAIR HFA ; PROVENTIL HFA ; VENTOLIN HFA) 90 mcg/actuation inhaler Inhale 2.5 puffs by mouth every 6 hours as needed for shortness of breath or wheezing (Asthma). 02/26/2024 5 ARIPiprazole (ABILIFY) 5 mg tablet Take 1 tablet (5 mg total) by mouth 1 (one) time each day. 10/03/2024 carica papaya (Papaya Enzyme) tablet Take 1 tablet by mouth 3 (three) times a day. 90 each 12/04/2024 5 cetirizine (ZyrTEC) 10 mg tablet Take by mouth at bedtime. 10/13/2024 cloNIDine (CATAPRES) 0.1 mg tablet Take 1 tablet (0.1 mg total) by mouth 2 (two) times a day. 06/29/2022 cyanocobalamin (VITAMIN B-12) 1,000 mcg tablet Take 1 tablet (1,000 mcg total) by mouth 1 (one) time each day. 10/13/2024 famotidine (PEPCID) 20 mg tablet Take 1 tablet (20 mg total) by mouth 2 (two) times a day for 15 days. 30 tablet 12/04/2024 hydrOXYzine pamoate (VISTARIL) 50 mg capsule Take 1 capsule (50 mg total) by mouth 1 (one) time each day if needed for anxiety. 10/23/2024 Lactobacillus acidophilus 100 mg (1 billion cell) capsule Take 1 capsule by mouth 2 (two) times a day. 60 each 12/04/2024 lisinopriL (PRINIVIL,ZESTRIL) 10 mg tablet Take 1 tablet (10 mg total) by mouth 1 (one) time each day. 10/18/2024 lithium (ESKALITH) 450 mg CR tablet Take 2 tablets (900 mg total) by mouth at bedtime. 10/18/2024 melatonin 3 mg tablet Take 1 tablet (3 mg total) by mouth at bedtime. 01/03/2024 OLANZapine (ZyPREXA ZYDIS) 5 mg disintegrating tablet Take 1 tablet (5 mg total) by mouth 1 (one) time each day if needed (agitation). 10/13/2024 prazosin (MINIPRESS) 1 mg capsule Take by mouth at bedtime. 10/13/2024 propranoloL (INDERAL) 20 mg tablet Take 1 tablet (20 mg total) by mouth at bedtime. 02/26/2024 risperiDONE (RisperDAL) 1 mg tablet Take 1 tablet (1 mg total) by mouth 1 (one) time each day. 10/14/2024 risperiDONE (RisperDAL) 4 mg tablet Take 1 tablet (4 mg total) by mouth 1 (one) time each day. 10/17/2024 traZODone (DESYREL) 50 mg tablet Take 1 tablet (50 mg total) by mouth at bedtime as needed. documented as of this encounter Discharge Disposition Disposition Code Departure Means Destination Comment s Home or Self Care documented in this encounter Progress Notes * Susie Leiva RN - 12/09/2024 8:40 AM EDT At 0835 spoke with Arabella, staff member at [facility]. Discussed discharge with staff member and notified them that we would provide a courtesy Lyft [facility]. Susie Leiva RN 12/09/24 0844 * David Reardon RN - 12/09/2024 4:56 AM EDT Pt ISAAC from outside of [facility] and states I want to Jaxson Cobain myself. Pt c/o depression for past few days and was seen here at [facility] yesterday. * Yohana Shah MD - 12/09/2024 4:41 AM EDT ED Course as of 12/09/24 0756 Mon Dec 09, [address] Rasmussen: pending crisis [RG] 0755 Per crisis team: there is a behavioral health treatment plan scanned into his chart. This is to reduce hospital visits, he is to be [facility] without an assessment and [facility] will conduct an assessment when he returns home, Please have him discharged and sent home in a lyft and we will call [facility] [RG] 0755 Patient was discharged with home care instructions, outpatient follow-up plan, and return precautions. [RG] ED Course User Index [RG] Yohana Shah MD Clinical Impressions as of 12/09/24 0756 Current moderate episode of major depressive disorder, unspecified whether recurrent (CMS/HCC V24, CMS/HCC V28) Yohana Shah MD 12/09/24 0756 documented in this encounter Consult Notes * Linh Iniguez LCSW - 12/09/2024 7:43 AM EDTAssociated Order(s): IP CONSULT TO ACCOUNTING MANAGER Please see the behavioral health treatment plan scanned into his chart. [facility], he is to be [facility] without an assessment and [facility] will conduct an assessment when he returns home, Please have him discharged andsent home in a lyft and we will call [facility] to notify the. Tiny at [facility] notified and they will conduct an assessment when he returns. documented in this encounter Plan of Treatment Not on file documented as of this encounter Procedures Procedure Name Priority Date/Time Associated Diagnosis Comments CBC WITH AUTO DIFFERENTIAL STAT 12/09/2024 5:23 AM EDT CBC AND DIFFERENTIAL STAT 12/09/2024 5:23 AM EDT ETHANOL STAT 12/09/2024 5:23 AM EDT ACETAMINOPHEN LEVEL STAT 12/09/2024 5 :23 AM EDT SALICYLATE LEVEL STAT 12/09/2024 5:23 AM EDT COMPREHENSIVE METABOLIC PANEL STAT 12/09/2024 5:23 AM EDT documented in this encounter Results * (ABNORMAL) CBC auto differential (12/09/2024 5:23 AM EDT) [facility] Signature WBC 9.1 4.8 - 10.8 K/mcL LAB HEMETOLOGY METHOD 12/09/2024 5:43 AM [facility] RBC 4.40(L) 4.50 - 5.50 M/mcL LAB HEMETOLOGY METHOD 12/09/2024 5:43 AM [facility] Hemoglobin 11.8(L) 13.5 - 17.5 g/dL LAB HEMETOLOGY METHOD 12/09/2024 5:43 AM [facility] Hematocrit 38.8(L) 42.0 - 54.0 % LAB HEMETOLOGY METHOD 12/09/2024 5:43 AM [facility] MCV 87.8 79.0 - 98.0 FL LAB HEMETOLOGY METHOD 12/09/2024 5:43 AM [facility] MCH 26.7(L) 27.0 - 32.0 pcg LAB HEMETOLOGY METHOD 12/09/2024 5:43 AM [facility] MCHC 30.4(L) 32.0 - 37.0 g/dL LAB HEMETOLOGY METHOD 12/09/2024 5:43 AM [facility] RDW 14.9 11.0 - 15.0 % LAB HEMETOLOGY METHOD 12/09/2024 5:43 AM [facility] Platelets 286 130 - 400 K/mcL LAB HEMETOLOGY METHOD 12/09/2024 5:43 AM [facility] MPV 10.3 7.0 - 11.0 FL LAB HEMETOLOGY METHOD 12/09/2024 5:43 AM [facility] NRBC 0.0 <1.0 % LAB HEMETOLOGY METHOD 12/09/2024 5:43 AM [facility] NRBC Absolute 0.00 <0.10 K/mcL LAB HEMETOLOGY METHOD 12/09/2024 5:43 AM [facility] Neutrophils Relative 61.4 % LAB HEMETOLOGY METHOD 12/09/2024 5:43 AM [facility] Lymphocytes Relative 28.4 % LAB HEMETOLOGY METHOD 12/09/2024 5:43 AM [facility] Monocytes Relative 6.3 % LAB HEMETOLOGY METHOD 12/09/2024 5:43 AM [facility] Eosinophils Relative 3.3 % LAB HEMETOLOGY METHOD 12/09/2024 5:43 AM [facility] Basophils Relative 0.3 % LAB HEMETOLOGY METHOD 12/09/2024 5:43 AM [facility] Immature Granulocytes Relative 0.3 % LAB HEMETOLOGY METHOD 12/09/2024 5:43 AM [facility] Neutrophils Absolute 5.56 1.50 - 7.00 K/mcL LAB HEMETOLOGY METHOD 12/09/2024 5:43 AM [facility] Lymphocytes Absolute 2.58 1.00 - 5.00 K/mcL LAB HEMETOLOGY METHOD 12/09/2024 5:43 AM [facility] Monocytes Absolute 0.57 0.20 - 1.00 K/mcL LAB HEMETOLOGY METHOD 12/09/2024 5:43 AM [facility] Eosinophils Absolute 0.30 0.00 - 0.50 K/mcL LAB HEMETOLOGY METHOD 12/09/2024 5:43 AM [facility] Basophils Absolute 0.03 0.00 - 0.20 K/mcL LAB HEMETOLOGY METHOD 12/09/2024 5:43 AM [facility] Immature Granulocytes Absolute 0.03 0.00 - 0.03 K/mcL LAB HEMETOLOGY METHOD 12/09/2024 5:43 AM EDT [facility] Blood Venous blood specimen / Unknown Venipuncture / Unknown 12/09/2024 5:23 AM EDT 12/09/2024 5:39 AM EDT Emil Rasmussen MD LAB BLOOD ORDERABLES Gabi l Result Performing Organization Address [facility]/ZIP Co de Phone Number [facility] [address] [place] [address], [place] [phone] * (ABNORMAL) Salicylate level (12/09/2024 5:23 AM EDT) Salicylate Level <1.7(L) 2.0 - 29.0 mg/dL LAB CHEMISTRY METHOD 12/09/2024 6:05 AM EDT [facility] Blood Venous blood specimen / Unknown Venipuncture / Unknown 12/09/2024 5:23 AM EDT 12/09/2024 5:39 AM EDT Emil Rasmussen MD LAB BLOOD ORDERABLES Gabi l Result Performing Organization Address [facility] de Phone Number [facility] [address] [place] [address], [place] [phone] * (ABNORMAL) Acetaminophen level (12/09/2024 5:23 AM EDT) Acetaminophen Level <2.0(L) 10.0 - 30.0 mcg/mL LAB CHEMISTRY METHOD 12/09/2024 6:05 AM EDT [facility] Blood Venous blood specimen / Unknown Venipuncture / Unknown 12/09/2024 5:23 AM EDT 12/09/2024 5:39 AM EDT Emil Rasmussen MD LAB BLOOD ORDERABLES Gabi l Result Performing Organization Address City/[facility]/ZIP Co de Phone Number [facility] [address] [place] [address], [place] [phone] * Ethanol (12/09/2024 5:23 AM EDT) Pathologist [facility] Ethanol Level <3 0 - 10 mg/dL LAB CHEMISTRY METHOD 12/09/2024 6:05 AM [facility] Blood Venous blood specimen / Unknown Venipuncture / Unknown 12/09/2024 5:23 AM EDT 12/09/2024 5:39 AM EDT us Emil Rasmussen MD LAB BLOOD ORDERABLES Gabi l Result [facility] [address] [place] [address], [place] [phone] * (ABNORMAL) Comprehensive metabolic panel (12/09/2024 5:23 AM EDT) [facility] Sodium 140 133 - 145 mmol/L LAB CHEMISTRY METHOD 12/09/2024 6:05 AM [facility] Potassium 4.2 3.5 - 5.5 mmol/L LAB CHEMISTRY METHOD 12/09/2024 6:05 AM [facility] Chloride 104 96 - 110 mmol/L LAB CHEMISTRY METHOD 12/09/2024 6:05 AM [facility] CO2 28 21 - 32 mmol/L LAB CHEMISTRY METHOD 12/09/2024 6:05 AM [facility] Anion Gap 8 3 - 11 LAB CHEMISTRY METHOD 12/09/2024 6:05 AM [facility] Glucose 93 70 - 100 mg/dL LAB CHEMISTRY METHOD 12/09/2024 6:05 AM [facility] BUN 20 5 - 25 mg/dL LAB CHEMISTRY METHOD 12/09/2024 6:05 AM [facility] Creatinine 1.08 0.70 - 1.30 mg/dL LAB CHEMISTRY METHOD 12/09/2024 6:05 AM [facility] eGFR 94 >=60 mL/min/1. 73m2 LAB CHEMISTRY METHOD 12/09/2024 6:05 AM [facility] Comment:Calculation based on the Chronic Kidney Disease Epidemiology Collaboration (CKD-EPI) equation refit without adjustment for race. BUN/Creatinine Ratio 18.5 LAB CHEMISTRY METHOD 12/09/2024 6:05 AM [facility] Calcium 9.0 8.5 - 10.5 mg/dL LAB CHEMISTRY METHOD 12/09/2024 6:05 AM [facility] AST (SGOT) 24 10 - 42 unit/L LAB CHEMISTRY METHOD 12/09/2024 6:05 AM [facility] ALT (SGPT) 75(H) 10 - 60 unit/L LAB CHEMISTRY METHOD 12/09/2024 6:05 AM [facility] Alkaline Phosphatase 74 42 - 121 unit/L LAB CHEMISTRY METHOD 12/09/2024 6:05 AM [facility] Total Protein 6.8 6.0 - 8.0 g/dL LAB CHEMISTRY METHOD 12/09/2024 6:05 AM [facility] Albumin 3.4 3.2 - 5.0 g/dL LAB CHEMISTRY METHOD 12/09/2024 6:05 AM [facility] Total Bilirubin 0.3 0.0 - 1.4 mg/dL LAB CHEMISTRY METHOD 12/09/2024 6:05 AM [facility] Blood Venous blood specimen / Unknown Venipuncture / Unknown 12/09/2024 5:23 AM EDT 12/09/2024 5:39 AM EDT us Emil Rasmussen MD LAB BLOOD ORDERABLES Gabi l Result [facility] [address] [place] [address], documented in this encounter Visit Diagnoses Diagnosis Current moderate episode of major depressive disorder, unspecified whether recurrent (CMS/[facility] V24, CMS/[facility] V28)- Primary documented in this encounter Orders Consult Count Last Ordered Date First Orde red Date IP CONSULT TO ACCOUNTING MANAGER 1 12/09/2024 documented in this encounter Care Teams Store Protection Specialist Relationship Specialty Start Date End Date Physician, No Pcp PCP - General 03/09/24 documented as of this encounter
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
[2024-12-11 14:44] VITALS: BP 131/82; PULSE 83; O2SAT 94
[2024-12-11 14:53] VITALS: BP 117/83; PULSE 86; RESP 16; TEMP 36.8; O2SAT 96; BMI 54.8
[2024-12-11 15:02] LABS: MANUAL DIFF FLAG NO
[2024-12-11 15:05] LABS: Hematocrit 37.8 % (42.0-52.0); Hemoglobin 12.2 g/dl (14.0-18.0); Imm Gran Abs Auto 0.03 X10*3/uL (0.00-0.03); Imm Gran Pct Auto 0.3 % (0.0-0.4); Lymphocytes Absolute Auto 2.0 X10*3/uL (1.2-4.9); Mean Corpuscular HGB Conc 32.3 g/dl (31.0-36.0); Mean Corpuscular Hemoglobin 27.4 pg (27.0-33.0); Mean Corpuscular Volume 84.8 fL (80.0-98.0); NRBC Abs Auto 0.000 X10*3/uL (0.0-0.012); NRBC Pct Auto 0.0 /100WBC (0.0-0.2); Platelet Count 287 X10*3/uL (160-400); Red Blood Count 4.46 X10*6/uL (4.60-5.80); White Blood Count 9.4 X10*3/uL (4.8-10.8)
[2024-12-11 15:23] LABS: Alanine Aminotransferase 81 U/L (0-40); Albumin Level 4.3 g/dL (3.5-5.0); Alkaline Phosphatase 69 U/L (39-117); Anion Gap 13 (12-20); Aspartate Amino Transferase 42 U/L (5-37); Blood Urea Nitrogen 16 mg/dL (9-16); Calcium 9.6 mg/dL (8.4-10.2); Carbon Dioxide 28 mmol/L (22-29); Chloride 108 mmol/L (96-108); Creatinine Clr Calc Pharmacy 153.1; Estimated Glomerular Filt Rate > 60; Magnesium 1.9 mg/dL (1.6-2.6); Potassium 4.6 mmol/L (3.3-5.1); Sodium 144 mmol/L (135-145); Total Protein 7.3 g/dL (6.5-8.0)
[2024-12-11 15:25] LABS: Cannabinoid Screen Urine Not Detected (Not Detect)
--- OUTSIDE RECORDS SUMMARY | 2024-12-11 16:16 | XMS_ITS | Clinical Summary ---
Author Organization [facility] Address [address] [place] [address] Care Team Providers Care Software Integrator Name Role Phone Patient, Has No Pcp Or Ref Primary Care Provider Unavailable Allergies Active Allergy Reactions Criticality Noted Date Comments Amoxicillin Hives 11/04/2022 Medications * This document contains information received from the source organization and may not represent a complete record from that organization. traZODone (DESYREL) 50 mg tablet Take 50 mg by mouth nightly. Active albuterol (PROAIR HFA,VENTOLIN HFA) 90 mcg inhaler Inhale 2 puffs by mouth every 6 hours as needed for shortness of breath or wheezing. 4 02/26/20 25 Active lithium 150 mg capsule Take 150 mg by mouth 2 times a day with meals. 4 02/26/20 25 Active propranoloL (INDERAL) 20 mg tablet Take 20 mg by mouth 2 times daily. 02/26/20 25 Active risperiDONE (RisperDAL) 3 mg tablet Take 3 mg by mouth 2 times daily. 4 02/26/20 25 Active albuterol (PROAIR HFA,VENTOLIN HFA) 90 mcg inhaler Inhale 2 puffs (180 mcg total) by mouth every 4 hours as needed for wheezing or shortness of breath. Use with spacer. 18 g 1 5 Active Active Problems Problem Noted Date Diagnosed Date Bipolar 1 disorder 02/16/2023 Bipolar 1 disorder, mixed 02/16/2023 Encounters * This document contains information received from the source organization and may not represent a complete record from that organization. Date Type Department Care Team Description 10/19/2024 8:36 PM EDT - 10/20/2024 1:31 AM EDT Emergency [facility] Emergency Department [address] [place] [address] Balta Hartmann MD Mild asthma with exacerbation, unspecified whether persistent (HCC) (Primary Dx); Suicidal thoughts Discharge Disposition: Home or Self Care () 10/19/2024 6:09 AM EDT - 10/19/2024 11:04 AM EDT Emergency [facility] Emergency Department [address] [place] [address] Eduardo Bangura MD Marijuana intoxication, uncomplicated (HCC) (Primary Dx) Discharge Disposition: Home or Self Care () from Last 3 Months Immunizations Immunization Administration Dates Next Due Influenza, Injectable, Quadr ivalent, Preservative Free 02/28/2023(Deferred: Patient Refused) Social History Tobacco Use Types Packs/Day Years Used Date Smoking Tobacco: Some Days Cigarettes Smokeless Tobacco: Never Tobacco Cessation:Ready to Q uit: Not Asked; Counseling Given: Not Answered Alcohol Use Standard Drinks/Week Comments Not Currently 0 (1 standard drink = 0.6 oz pur e alcohol) socially Sex and Gender Information Value Date Recorded Sex Assigned at Male 03/09/2024 6:07 PM EDT Legal Sex Male 3:20 PM EDT Gender Identity Male 10/19/2024 9:57 PM EDT Sexual Orientation Not on file Last Filed Vital Signs Vital Sign Reading Time Taken Comments Blood Pressure 120/85 10/20/2024 1:29 AM EDT Pulse 111 10/20/2024 1:29 AM EDT Temperature 36.7 C (98.1 F) 10/19/2024 8:32 PM EDT Respiratory Rate 18 10/20/2024 1:29 AM EDT Oxygen Saturation 98% 10/20/2024 1:29 AM EDT Inhaled Oxygen Concentration - - Weight 188.7 kg (416 lb) 10/19/2024 8:32 PM EDT Height 170.2 cm (5' 7 ) 10/19/2024 8:32 PM EDT Body Mass Index 65.15 10/19/2024 8:32 PM EDT Plan of Treatment Health Maintenance Due Date Last Done Comments HIV Screening 1992 Pneumococcal Vaccine: Pediat everardo (0-5 Years) and At-Risk Patients (6-50 Years) (1 of 2 - PCV) 12/17/2011 COVID-19 Vaccine (5 - 2023-2 5 season) 2024 05/24/2022, 08/26/2021, 09/30/2020, Additional history exists Alcohol/Substance Use Screening 05/08/2024 Depression Screening and Follow-Up 05/08/2024 Social Drivers of Health Mily ual Screening 05/08/2024 Influenza Vaccine (#1) 2025 Basic Metabolic Panel 08/19/2025 08/19/2024 , 08/10/2024, 08/06/2024, Additional history exists DTaP,Tdap,and Td Vaccines (8 - Td or Tdap) 09/22/2032 09/22/2022, 03/23/2009, 11/29/2003, Additional history exists RSV Vaccine (60+ years old a nd patients) (1 - 1-dose 75+ series) 12/17/2067 Hepatitis B Vaccines Completed 07/06/1993, 05/08/1993, 02/05/1993 Varicella Vaccines Completed 02/07/2008, 02/04/1999 Hepatitis C Screening Completed 12/14/2023 Abdominal Aortic Aneurysm (A AA) Screening Completed 02/22/2024, 11/16/2022 Procedures * Due to [place] [employer] law, this organization might not be sharing negative HIV tests. Procedure Name Priority Date/Time Associated Diagnosis Comments RAPID COVID-19 RNA FOR SURVEILLANCE (ED ONLY) STAT 10/19/2024 11:59 PM EDT RAPID COVID-19 RNA FOR SURVEILLANCE (ED ONLY) STAT 10/19/2024 2:02 PM EDT COMPREHENSIVE METABOLIC PANEL Routine 02/18/2023 9:28 AM EDT from Last 3 Months or Most Recently Relevant to Health Maintenance Results * Due to [place] [employer] law, this organization might not be sharing negative HIV tests. * Rapid COVID-19 for Surveillance - Psych/Admission (10/19/2024 11:59 PM EDT) Only the most recent of2 resultswithin the time period is included. PCR, SARS CoV-2 RNA Not Detected Not Detected [employer] 10/20/2024 12:50 AM EDT [facility] Comment:A Not Detected (Nega tive) test result is indicative of the absence of SARS-CoV-2 RNA at the level of LoD (Limit of Detection). A negative result does not rule out the possibility of COVID-19 and should not be used as the sole basis for treatment or patient management decisions. If COVID-19 is still suspected, based on exposure history together with other clinical findings, re-testing should be considered. Swab Specimen from nasopharyngeal structure / Unknown 10/19/2024 11:59 PM EDT 10/20/2024 12:10 AM EDT [facility] - 10/20/2024 12:50 AM EDT This test was developed, validated and its performance characteristics determined by [facility]. This test has not been cleared or approved by the U.S. Food and Drug Administration (FDA). FDA Policy for Diagnostic Tests for Coronavirus Disease-2019 during the Public Health Emergency issued July 22, 2019, is followed. Balta Hartmann MD LAB BODY FLUIDS AND STOOLS ORDERABLES Final Result [facility] [address] [place] [address], [place] * (ABNORMAL) Comprehensive metabolic panel (02/18/2023 9:28 AM EDT) Pathologist [facility] NA 139 135 - 145 mmol/L 02/18/2023 11:26 AM EDT [facility] [employer] K 4.6 3.5 - 5.3 mmol/L 02/18/2023 11:26 AM EDT [facility] [employer] [facility] Cl 101 97 - 110 mmol/L 02/18/2023 11:26 AM EDT [facility] CO2 29 24 - 32 mmol/L 02/18/2023 11:26 AM EDT [facility] Anion Gap 9 5 - 15 02/18/2023 11:26 AM [facility] Glucose 123(H) 70 - 99 mg/dL 02/18/2023 11:26 AM [facility] Creatinine 0.96 0.60 - 1.30 mg/dL 02/18/2023 11:26 AM [facility] Calcium 9.0 8.7 - 10.7 mg/dL 02/18/2023 11:26 AM [facility] Total Protein 7.1 6.0 - 8.0 g/dL 02/18/2023 11:26 AM [facility] Albumin 4.0 3.5 - 4.8 g/dL 02/18/2023 11:26 AM [facility] Bilirubin, Total 0.3 0.3 - 1.2 mg/dL 02/18/2023 11:26 AM [facility] Alkaline Phosphatase 40 30 - 115 U/L 02/18/2023 11:26 AM [facility] AST 13 10 - 40 U/L 02/18/2023 11:26 AM [facility] ALT 12 10 - 40 U/L 02/18/2023 11:26 AM [facility] BUN 23 7 - 23 mg/dL 02/18/2023 11:26 AM [facility] eGFR >90 >=60 mL/min/1. 73m2 02/18/2023 11:26 AM [facility] Comment:The estimated glomer ular filtration rate (eGFR) is calculated using a new formula developed by the NKF-ASN task force to eliminate race-based correction factors. The new formula uses serum/plasma creatinine, age, and gender to determine eGFR. A value below 60mls/min might indicate kidney disease and will be flagged. For additional information, see Wall et al, Am J Kidney Dis. 2021;79(2):268- 288, A Unifying Approach for GFR estimation: Recommendations of the NKF-ASN Task Force on Reassessing the Inclusion of Race in Diagnosing Kidney Disease . Blood Structure of peripheral vein / Unknown Venipuncture / Unknown 02/18/2023 9:28 AM EDT 02/18/2023 10:39 AM EDT us Sancho Leiva MD [facility] LAB BLOOD ORDERABLES Final Re sult [facility] [facility] [address] [place] [address], from Last 3 Months or Most Recently Relevant to Health Maintenance [place] [address] ELENA MONTEJO [id number] Advance Directives * Presumed Full Code (Latest Code Status on File) Date Activated Date Inactivated Comments 02/16/2023 7:14 PM 02/28/2023 4:19 PM Care Teams Software Integrator Relationship Specialty Start Date End Date Patient, Has No Pcp Or Ref DO NOT EDIT THIS RECORD VIA PROVIDER ON THE FLY PCP - General New Patient Escort 11/04/22
--- OUTSIDE RECORDS SUMMARY | 2024-12-11 16:16 | XMS_ITS | Encounter Summary ---
Author Organization [facility] Address [address] [place] [address] [place] [phone] Phone Care Team Providers Care Inorganic Chemical Technician Name Role Phone Unknown, Unknown Primary Care Provider Raul fisher Pcp, Unknown Primary Care Provider Unavailabl e Pcp, Unknown Primary Care Provider Unavailabl e Pcp, Unknown Primary Care Provider Unavailabl e Encounter Details Date Type Department Care Team (Late st Contact Info) Description 10/16/2022 Procedure Pass [facility], [address] [place] [address] Social History Tobacco Use Types Packs/Day Years Used Date Smoking Tobacco: Never Smokeless Tobacco: Never Alcohol Use Standard Drinks/Week Comments No 0 (1 standard drink = 0.6 oz pur e alcohol) Education Answer Date Recorded Are you interested in more education? Not on regine e 09/02/2022 Are you concerned about learning? Not on file 09/02/2022 No 09/02/2022 No 09/02/2022 Digital Access Answer Date Recorded No 10/01/2022 No 10/01/2022 Reliable internet access at home? Not on file 10/01/2022 Device with a working camera? Not on file Sex and Gender Information Value Date Recorded Sex Assigned at Male 03/25/2024 9:37 PM EST Legal Sex Male 3:15 AM EST Gender Identity Male 03/25/2024 9:37 PM EST Sexual Orientation Don't know 07/29/2024 1: 59 AM EDT documented as of this encounter Functional Status * Calculated C-SSRS Risk Score (Lifetime/Recent) Answer Date of Assessment Author No Risk Indicated 10/17/2022 10:46 PM EDSemaj Roberts, AMIRA * Brown Suicide Severity Rating Scale (Screener/Recent Self-Report) Question Answer Date of Assessment Author 1. Wish to be (Past 1 Month) No 10/17/2022 10:46 PM Semaj Bhat, AMIRA 2. Non-Specific Active Suicidal Thoughts (Past 1 Month) No 10/17/2022 10:46 PM Semaj Bhat, AMIRA 6. Suicidal Behavior (Lifetime) No 10/17/2022 10:46 PM Semaj Bhat, AMIRA documented as of this encounter Plan of Treatment Not on file documented as of this encounter Visit Diagnoses Not on filedocumented in this encounter Care Teams Inorganic Chemical Technician Relationship Specialty Start Date End Date Unknown, Unknown, PCP - General 10/15/22 03/22/24 Pcp, Unknown PCP - General 03/23/24 07/28/24 Pcp, Unknown PCP - General 07/29/24 09/01/24 Pcp, Unknown PCP - General 09/02/24 documented as of this encounter Additional Source Comments The information contained in this document represents components of the legal health record. It is not the complete legal health record.[facility]
--- OUTSIDE RECORDS SUMMARY | 2024-12-11 16:16 | XMS_ITS | Patient Health Record ---
Author Organization [facility] Address [address] [place] [address] Support Name Relationship Address Phone Ramírez Barker Guarantor Unknown [phone] Allergies Allergen (clinical drug ingredient) Drug/Non Drug Allergy documented on EMR Reaction Allergy Type Onset Date Status amoxicillin Amoxicillin Unknown Drug Allergy Act ksenia Reason For Referral No Information Medications Medication SIG (Take, Route, Frequency, Duration) Notes Start Date End Date Status cloNIDine Active Melatonin Active Immunizations Vaccine Route Administration Date Status Comme nts Tdap (Boostrix) IM Intramuscular 09/22/2022 Administered Plan Of Treatment No Information Insurance Providers Payer Name Payer Address Payer Phone Subscriber Number Group Number Insured Name Patient Relationship to Insured Coverage Start Date Coverage End Date PRIVATE PAY GFE REQUIRED[place] [phone] Ramírez Barker Self - patient is the insured Medical (General) History Medical History History ICD Code anxiety depression
--- NOTE | 2024-12-11 16:25 | MHC.EDTECH ---
Pt brought over to [facility] from [facility], vitals obtained and documented.
[2024-12-11 16:29] VITALS: BP 133/92; PULSE 82; RESP 12; TEMP 36.5; O2SAT 99
[2024-12-11 16:39] VITALS: BP 133/92; PULSE 82; RESP 12; TEMP 36.5; O2SAT 99
== END 2024-12-11 16:56 | disposition home or self-care (01) ==
PROVIDERS: Emergency Provider Emergency Medicine
DX: F32.A Depression, unspecified (principal); F43.10 Post-traumatic stress disorder, unspecified; I10 Essential (primary) hypertension; E66.9 Obesity, unspecified; Z68.43 Body mass index [BMI] 50.0-59.9, adult; Z79.899 Other long term (current) drug therapy
CPT/HCPCS: 36415; 80048; 80076; 80164; 80307; 83735; 85025; 99284; S9485